=== PATIENT | male | born 1960 | race Caucasian/White ===

== ENCOUNTER 2016-05-22 22:03 | Emergency (ER) | payer OTHER ==
[~2016-05-22] VITALS: Ht 167.6 cm; Wt 83.0 kg
[~2016-05-22 22:03] MED LIST: CEPH-443 PO; HYDR-906 PO; IBUP-1542 PO; METF500T4 PO
[2016-05-22 23:14] VITALS: Ht 167.6 cm; Wt 83.0 kg
--- NOTE | 2016-05-23 00:21 | ERD ---
ER Documentation Chief Complaint Date/Time DATE: 05/23/16 TIME: 00:19 Chief Complaint cough cold for 2 months hx of diabetes HPI 55 -year-old male presents to emergency department for complaints of cough for 2 months. Patient has been having dry cough, does not cough up any phlegm or blood. Patient does not have any shortness breath or wheezing. Patient has been having runny nose nasal congestion chronically, patient had a fever episode yesterday. Patient denies any chest pain or palpitations. Patient denies any dizziness. ROS All systems reviewed and are negative except as per history of present illness. Medications Home Meds Active Scripts Hydrocodone/Acetaminophen ([place] 5-325 Tablet) 1 Each Tablet, 1 TAB PO Q6H Y for PAIN, #20 TAB Prov:BINTA GARNER NP 02/27/16 Cephalexin* (Keflex*) 500 Mg Capsule, 500 MG PO QID for 5 Days, CAP Prov:BINTA GARNER NP 02/27/16 Ibuprofen* (Motrin*) 600 Mg Tab, 600 MG PO Q6H Y for PAIN AND OR ELEVATED TEMP, #30 TAB Prov:BINTA GARNER NP 02/27/16 Reported Medications Metformin* (Glucophage*) Unknown Strength Tab, PO BID, #20 TAB 02/27/16 Allergies Allergies: Coded Allergies: No Known Allergy (Unverified , 05/22/16) PMhx/Soc Medical and Surgical Hx: pt denies Surgical Hx History of Surgery: No Anesthesia Reaction: No Hx Neurological Disorder: No Hx Respiratory Disorders: No Hx Cardiac Disorders: No Hx Psychiatric Problems: No Hx Miscellaneous Medical Probl: Yes (dm) Hx Alcohol Use: No Hx Substance Use: No Hx Tobacco Use: Yes Smoking Status: Never smoker FmHx Family History: No coronary disease, No diabetes, No other Physical Exam Vitals Vital Signs Date Time Temp Pulse Resp B/P Pulse Ox O2 Delivery O2 Flow Rate FiO2 05/22/16 23:14 99.1 95 18 180/86 99 Physical Exam GENERAL: The patient is well developed and appropriate for usual state of health, in no apparent distress. CHEST: Clear to auscultation bilaterally. There are no rales, wheezes or rhonchi. HEART: Regular rate and rhythm. No murmurs, clicks, rubs or gallops. No S3 or S4. ABDOMEN: Soft, nontender and nondistended. Good bowel sounds. No rebound or guarding. No gross peritonitis. No gross organomegaly or masses. No Lozada sign or McBurney point tenderness. BACK: No midline or flank tenderness. EXTREMITIES: Equal pulses bilaterally. There is no peripheral clubbing, cyanosis or edema. No focal swelling or erythema. Full range of motion. Grossly neurovascularly intact. NEURO: Alert and oriented. Cranial nerves 2-12 intact. Motor strength in all 4 extremities with 5/5 strength. Sensation grossly intact. Normal speech and gait. SKIN: There is no apparent rash or petechia. The skin is warm and dry. HEMATOLOGIC AND LYMPHATIC: There is no evidence of excessive bruising or lymphedema. No gross cervical, axillary, or inguinal lymphadenopathy. Results 24 hrs PROCEDURE: Chest. CLINICAL INDICATION: Cough. TECHNIQUE: Single frontal view of the chest was obtained. COMPARISON: None. FINDINGS: The cardiac silhouette is within normal limits. The aortic arch is unremarkable. There is no focal consolidation, vascular congestion or pleural effusion. There is no pneumothorax. IMPRESSION: No evidence for active cardiopulmonary disease. .Kuldeep Johnson MD, MD Date Time Electronically viewed and signed by .Kuldeep Johnson MD, on 05/23/2016 01:20 .T/ CC: BINTA GARNER [employer] MANAGER Procedures/MDM Medical Decision Making: Patient symptoms are most likely consistent with any cough, nonspecific, possible atypical infection, considering patient has diabetes, patient will be treated with azithromycin since patient is high risk. There is low suspicion for Pneumonia at this time since patients lungs sounds are clear, patient O2 saturation is normal and patient doesnt show any respiratory distress. Patients chest xray doesnt show infiltrates or any other cardiopulmonary emergencies at this time. There is low suspicion for other cardiopulmonary emergencies at this time such as CHF, Pulmonary Embolism, Pneumothorax, Aortic Aneurysm or any other cardiopulmonary emergencies at this time. There is low suspicion for sepsis. Patient appears well and is hemodynamically stable. Fever is controlled with medicines. Disposition: Home. Condition: Stable Prescriptions: Azithromycin, guaifenesin with codeine, Zyrtec, ibuprofen, albuterol Instructions: Patient is advised to take medications as prescribed. Patient is advised to rest. Patient advised to increase fluid intake, do humidifier at home and if possible, do salt water gargles. Patient is advised that if symptoms are worse, shortness of breath, uncontrolled fever, stridor, vomiting, worst signs and symptoms to return to emergency department immediately. Otherwise, patient is advised to follow up with primary doctor in 5-7 days. Departure Diagnosis: Primary Impression: Cough Condition: Stable Patient Instructions: Cough, Chronic, Uncertain Cause, (Adult) Additional Instructions: Patient is advised to take medications as prescribed. Patient is advised to rest. Patient advised to increase fluid intake, do humidifier at home and if possible, do salt water gargles. Patient is advised that if symptoms are worse, shortness of breath, uncontrolled fever, stridor, vomiting, worst signs and symptoms to return to emergency department immediately. Otherwise, patient is advised to follow up with primary doctor in 5-7 days. BINTA GARNER NP May 23, 2016 00:21
--- NOTE | 2016-05-23 01:20 | RADRPT ---
PROCEDURE: Chest. CLINICAL INDICATION: Cough. TECHNIQUE: Single frontal view of the chest was obtained. COMPARISON: None. FINDINGS: The cardiac silhouette is within normal limits. The aortic arch is unremarkable. There is no focal consolidation, vascular congestion or pleural effusion. There is no pneumothorax. IMPRESSION: No evidence for active cardiopulmonary disease. .Kuldeep Johnson MD, Date Time Electronically viewed and signed by .Kuldeep Johnson MD, on 05/23/2016 01:20 .T/
[2016-05-23] MEDS ORDERED: GUAI473L22 PO (01:36)
[2016-05-23] MEDS ORDERED: ALBU8.5H3 INH (01:36)
[2016-05-23] MEDS ORDERED: AZIT250T94 PO (01:36)
[2016-05-23] MEDS ORDERED: CETI10CA PO (01:36)
[2016-05-23 02:09] VITALS: BP 137/70; PULSE 78; RESP 16
== END 2016-05-23 02:09 | disposition home or self-care (01) ==
LOC: FTE 22:03
DX: R05 Cough (principal); E11.9 Type 2 diabetes mellitus without complications; Z79.84 Long term (current) use of oral hypoglycemic drugs; Z87.891 Personal history of nicotine dependence
CPT/HCPCS: 71010; Z7502; 99284

== ENCOUNTER 2018-06-10 16:03 | Inpatient (IN) | payer OTHER ==
[~2018-06-10] VITALS: Ht 170.2 cm; Wt 92.4 kg
[~2018-06-10 16:03] MED LIST changes: +ALBU8.5H8 INH; +AZIT250T PO; +CETI10CA PO; +GUAI473L22 PO; +HYDR-4011 PO; -HYDR-906 PO; +METF-849 PO; -METF500T4 PO
[2018-06-10] MEDS ORDERED: NICARDipine HCL 30 MG CAPSULE PO ONE (17:30)
[2018-06-10] MEDS ORDERED: hydrALAzine 20 MG INJ IV ONE (17:30)
[2018-06-10] MEDS ORDERED: POTASSIUM CHLORIDE (SR) 20 MEQ TAB PO STA (18:08)
[2018-06-10] MEDS ORDERED: POTASSIUM CHLORIDE 100 ML IVPB ONE (18:30)
[2018-06-10] MEDS ORDERED: POTA20TA96 PO (21:11)
[2018-06-10] MEDS ORDERED: METO-335 PO (21:11)
[2018-06-10] MEDS ORDERED: LISI40TA3 PO (21:11)
[2018-06-10] MEDS ORDERED: FURO40TA4 (21:11)
[2018-06-10] MEDS ORDERED: MINO2.5T16 PO (21:11)
[2018-06-10] MEDS ORDERED: FURO20TA3 PO (21:11)
--- NOTE | 2018-06-10 22:10 | ERD ---
ER Documentation Chief Complaint Chief Complaint SENT BY PMD FOR HTN URGENCY & chest pain HPI This is a 57-year-old male who is having 1 week of off-and-on chest pain. The patient went to his primary care doctor was found to be very hypertensive. Patient says that the pain is sometimes a pressure sometimes sharp sometimes worse with movement. He is a very poor historian. Denies any nausea vomiting. Sometimes has shortness of breath with his chest pain. Currently has no pain ROS All systems reviewed and are negative except as per history of present illness. Medications Home Meds Active Scripts Albuterol Sulfate* (Proair HFA*) 8.5 Gm Hfa.aer.ad, 2 PUFF INH Q4H PRN for WHEEZING AND SOB, #1 INHALER Prov:BINTA GARNER NP 05/23/16 Reported Medications Furosemide* (Furosemide*) 40 Mg Tablet, 40 MG DAILY for 30 Days, #30 06/10/18 Metoprolol Succinate* (Toprol XL*) 25 Mg Tab.sr.24h, 25 MG PO DAILY for 30 Days, #30 06/10/18 Furosemide* (Furosemide*) 20 Mg Tablet, 20 MG PO DAILY for 30 Days, #30 06/10/18 Potassium Chloride* (Potassium Chloride*) 20 Meq Tablet.er, 20 MEQ PO DAILY for 30 Days, #30 06/10/18 Lisinopril* (Lisinopril*) 40 Mg Tablet, 40 MG PO DAILY for 30 Days, #30 06/10/18 Minoxidil* (Lonitin*) 2.5 Mg Tab, 5 MG PO DAILY for 30 Days, #120 06/10/18 Metformin* (Glucophage*) Unknown Strength Tab, PO BID, #20 TAB 02/27/16 Discontinued Scripts Azithromycin* (Zithromax*) 250 Mg Tablet, 250 MG PO .PaulaPAADAN DIRECTED, #6 TAB TAKE 500 MG (2 TABS) THE FIRST DAY THEN 250 MG (1 TAB) DAYS 2-5 Prov:BINTA GARNER NP 05/23/16 Cetirizine Hcl* (Zyrtec*) 10 Mg Capsule, 10 MG PO DAILY, #30 TAB.CHEW Prov:BINTA GARNER NP 05/23/16 Guaifenesin-Codeine Phosphate* (Guaifenesin* AC Cough Syrup) 473 Ml Liquid, 10 ML PO Q4H PRN for COUGH, #120 ML Prov:BINTA GARNER NP 05/23/16 Hydrocodone/Acetaminophen ([place] 5-325 Tablet) 1 Each Tablet, 1 TAB PO Q6H PRN for PAIN, #20 TAB Prov:BINTA GARNER NP 02/27/16 Cephalexin* (Keflex*) 500 Mg Capsule, 500 MG PO QID for 5 Days, CAP Prov:BINTA GARNER NP 02/27/16 Ibuprofen* (Motrin*) 600 Mg Tab, 600 MG PO Q6H PRN for PAIN AND OR ELEVATED TEMP, #30 TAB Prov:BINTA GARNER NP 02/27/16 Allergies Allergies: Coded Allergies: No Known Allergy (Unverified , 06/10/18) PMhx/Soc History of Surgery: No Anesthesia Reaction: No Hx Neurological Disorder: No Hx Respiratory Disorders: No Hx Cardiac Disorders: No Hx Psychiatric Problems: No Hx Miscellaneous Medical Probl: Yes (dm) Hx Alcohol Use: No Hx Substance Use: No Hx Tobacco Use: Yes Smoking Status: Never smoker FmHx Family History: No coronary disease Physical Exam Vitals Vital Signs Date Temp Pulse Resp B/P (MAP) Pulse Ox O2 O2 Flow FiO2 Time Delivery Rate 06/10/18 99 16 154/81 100 Room Air 20:49 (105) 06/10/18 87 18 226/112 100 Room Air 16:55 (150) 06/10/18 97.7 88 16 239/110 100 16:06 (153) Physical Exam Const: Well-developed, well-nourished Head: Atraumatic, normocephalic Eyes: Normal Conjunctiva, PERRLA, EOMI, normal sclera, no nystagmus ENT: Normal External Ears, Nose and Mouth, moist mucus membranes. Neck: Full range of motion. No meningismus, no lymphadenopathy. Resp: Clear to auscultation bilaterally, no wheezing, rhonchi, rales Cardio: Regular rate and rhythm, no murmurs, S1 S2 present, has some reproducible chest wall pain Abd: Soft, non tender x 4, non distended. Normal bowel sounds, no guarding or rebound, no pulsitile abdominal masses or bruits Skin: No petechiae or rashes, no ecchymosis , no maculopapular rash Back: No midline or flank tenderness Ext: No cyanosis, or edema, FROM x 4, normal inspection, neurovascularly intact x 4 Neur: Awake and alert, STR 5/5 x 4, sensation intact x 4, no focal findings, cerebellum intact Psych: Normal Mood and Affect Result Diagram: 06/10/18 1719 06/10/18 1719 Results 24 hrs Laboratory Tests Test 06/10/18 17:13 06/10/18 17:19 Bedside Glucose 224 mg/dL White Blood Count 9.1 10^3/ul Red Blood Count 3.82 10^6/ul Hemoglobin 10.6 g/dl Hematocrit 31.7 % Mean Corpuscular Volume 83.0 fl Mean Corpuscular Hemoglobin 27.7 pg Mean Corpuscular Hemoglobin Concent 33.4 g/dl Red Cell Distribution Width 13.5 % Platelet Count 214 10^3/UL Mean Platelet Volume 10.8 fl Immature Granulocytes % 0.500 % Neutrophils % 68.1 % Lymphocytes % 17.7 % Monocytes % 8.8 % Eosinophils % 4.1 % Basophils % 0.8 % Nucleated Red Blood Cells % 0.0 /100WBC Immature Granulocytes # 0.050 10^3/ul Neutrophils # 6.2 10^3/ul Lymphocytes # 1.6 10^3/ul Monocytes # 0.8 10^3/ul Eosinophils # 0.4 10^3/ul Basophils # 0.1 10^3/ul Nucleated Red Blood Cells # 0.0 10^3/ul Sodium Level 139 mmol/L Potassium Level 2.6 mmol/L Chloride Level 106 mmol/L Carbon Dioxide Level 32 mmol/L Anion Gap 1 Blood Urea Nitrogen 24 mg/dl Creatinine 2.71 mg/dl Est Glomerular Filtrat Rate mL/min 25 mL/min Glucose Level 219 mg/dl Calcium Level 8.0 mg/dl Total Bilirubin 0.1 mg/dl Direct Bilirubin 0.00 mg/dl Indirect Bilirubin 0.1 mg/dl Aspartate Amino Transf (AST/SGOT) 35 IU/L Alanine Aminotransferase (ALT/SGPT) 23 IU/L Alkaline Phosphatase 165 IU/L Troponin I 0.018 ng/ml Total Protein 6.4 g/dl Albumin 2.9 g/dl Globulin 3.50 g/dl Albumin/Globulin Ratio 0.82 Current Medications Medications Dose Sig/Miguelito Start Time Status Last (Trade) Ordered Route PRN Stop Time Admin Dose Reason Admin Nicardipine 30 mg ONCE ONCE 06/10/18 DC 06/10/18 HCl PO 17:30 17:17 (Cardene) 06/10/18 17:31 Hydralazine 10 mg ONCE ONCE 06/10/18 DC 06/10/18 HCl IV 17:30 17:16 (Apresoline) 06/10/18 17:31 Potassium 40 meq ONCE STAT 06/10/18 DC 06/10/18 Chloride PO 18:08 18:19 (Klor-Con 20) 06/10/18 18:11 Potassium 100 ml @ ONCE ONCE 06/10/18 DC 06/10/18 Chloride 50 mls/hr IVPB 18:30 18:19 06/10/18 20:29 Procedures/MDM MR #: [id number] DOS: 06/10/18 1701 Ordering MD: SONNY SÁNCHEZ MD Location: E/R Room/Bed: PROCEDURE: One view chest radiograph. CLINICAL INDICATION: Chest pain. TECHNIQUE: An AP view of the chest was obtained. COMPARISON: 05/23/2016 FINDINGS: Mediastinum: Unremarkable. Heart size: Normal. Pulmonary vasculature: No visible engorgement. Lungs: Clear. Costophrenic sulci: Clear. Bony structures: Grossly unremarkable for age. IMPRESSION: 1. Unremarkable single view chest. RPTAT:AAJJ Physician Ferdinand Date Time Electronically viewed and signed by Physician Ferdinand on 06/10/2018 18:15 GW/ CC: SONNY SÁNCHEZ MD [id number] EKG: Rate/Rhythm: Normal sinus rhythm left anterior fascicular block QRS, ST, QT: NORMAL VA, QRS, prolonged QT] Impression: Abnormal EKG Patient's blood pressure was 240/110. He was treated with Cardene and hydralazine. His blood pressure is now under control. Will need to admit the patient for chest pain, renal insufficiency with a creatinine of 2.7, hypokalemia of 2.6 which was replaced p.o. and IV. Patient has no prior admits where I can see his most recent creatinine. Departure Diagnosis: Primary Impression: Hypertensive urgency Additional Impressions: Renal insufficiency Hypokalemia Condition: Stable BINA NOGUERA DO Jun 10, 2018 22:10
[2018-06-10] MEDS ORDERED: ONDANSETRON 4 MG INJ IV PRN (22:30)
[2018-06-10] MEDS ORDERED: ACETAMINOPHEN 325 MG TAB PO PRN (22:30)
[2018-06-10 23:12] VITALS: PULSE 102
[2018-06-10 23:30] VITALS: BP 167/79; PULSE 102; RESP 20
[2018-06-10 23:31] VITALS: Ht 170.2 cm; Wt 92.4 kg
[2018-06-10] MEDS ORDERED: DEXTROSE 50% 50 ML SYRINGE IV PRN ×2 (23:45)
[2018-06-10] MEDS ORDERED: GLUCOSE GEL 15 GRAM TUBE PO PRN ×2 (23:45)
[2018-06-10] MEDS ORDERED: GLUCAGON 1 MG INJ IM PRN (23:45)
[2018-06-10] MEDS ORDERED: GLUCOSE GEL 15 GRAM TUBE BUCCAL PRN (23:45)
--- NOTE | 2018-06-10 23:45 | HP ---
Date/Time of Note Date/Time of Note DATE: 06/10/18 TIME: 23:30 Assessment/Plan VTE Prophylaxis Pharmacological prophylaxis: heparin Lines/Catheters IV Catheter Type (from Nrs): Saline Lock Assessment/Plan Hospital Course 57 yo male with HTN, DMII, CKD presenting with severe asymptomatic hypertension, referred from clinic office Severe hypertension: - Better controlled after cardene and hydralazine in ED - Continue minoxidil 2.5 - Start nifedipine - Stop Metoprolol - Start Coreg - Hold lisinopril and monitor kidney function - Titrate to normotension CKD: - Unclear chronicity or baseline creatinine - Banking Teacher is Dr Aury Silva, though only had first visit Edema/CHF: - Check TTE - Needs some diuresis. Will hold off on loop diuretics until hypokalemia is fixed Hypokalemia: - From lasix - Replete as needed Diabetes II: - Basal/bolus insulin Obesity Discharge to self care when stable Result Diagram: 06/10/18 1719 06/10/18 1719 Results 24hrs Laboratory Tests Test 06/10/18 17:13 06/10/18 17:19 Bedside Glucose 224 H White Blood Count 9.1 Red Blood Count 3.82 L Hemoglobin 10.6 L Hematocrit 31.7 L Mean Corpuscular Volume 83.0 Mean Corpuscular Hemoglobin 27.7 L Mean Corpuscular Hemoglobin Concent 33.4 Red Cell Distribution Width 13.5 Platelet Count 214 Mean Platelet Volume 10.8 H Immature Granulocytes % 0.500 H Neutrophils % 68.1 Lymphocytes % 17.7 Monocytes % 8.8 Eosinophils % 4.1 Basophils % 0.8 Nucleated Red Blood Cells % 0.0 Immature Granulocytes # 0.050 H Neutrophils # 6.2 Lymphocytes # 1.6 Monocytes # 0.8 Eosinophils # 0.4 Basophils # 0.1 Nucleated Red Blood Cells # 0.0 Sodium Level 139 Potassium Level 2.6 *L Chloride Level 106 Carbon Dioxide Level 32 H Anion Gap 1 L Blood Urea Nitrogen 24 H Creatinine 2.71 H Est Glomerular Filtrat Rate mL/min 25 L Glucose Level 219 Calcium Level 8.0 L Total Bilirubin 0.1 L Direct Bilirubin 0.00 Indirect Bilirubin 0.1 Aspartate Amino Transf (AST/SGOT) 35 Alanine Aminotransferase (ALT/SGPT) 23 Alkaline Phosphatase 165 H Troponin I 0.018 Total Protein 6.4 Albumin 2.9 L Globulin 3.50 H Albumin/Globulin Ratio 0.82 HPI/ROS Admit Date/Time Admit Date/Time Jun 10, 2018 at 22:13 Hx of Present Illness 57 yo male with h/o hypertension and diabetes presents from PCP office, referred for severe hypertension Patient has no symptoms. He sees a cocktail lounge manager though does not have known heart disease. It sounds like he has developed kidney disease lately with edema. He has been prescribed lasix. He was referred to a rug dyer helper and went to first visit today. There he was found to have severe hypertension with systolic BP to 220. He was thus referred to the emergency room. Denies chest pain, SOB, or headache. Only complaint is of pedal edema PMH/Family/Social Past Medical History Medical History: diabetes, hyperthyroid Medications Current Medications Ondansetron HCl (Zofran Inj) 4 mg ER BRIDGE PRN IV NAUSEA/VOMITING; Start 06/10/18 at 22:30; Stop 06/11/18 at 22:29 Acetaminophen (Tylenol Tab) 650 mg ER BRIDGE PRN PO .MILD PAIN 1-3 OR TEMP; St art 06/10/18 at 22:30; Stop 06/11/18 at 22:29 Coded Allergies: No Known Allergy (Unverified , 06/10/18) Past Surgical History Past Surgical Hx: no surgical history Family History Significant Family History: no pertinent family hx Social History Alcohol Use: none Smoking Status: Never smoker Drug Use: none Exam/Review of Systems Vital Signs Vitals Vital Signs Date Temp Pulse Resp B/P (MAP) Pulse Ox O2 O2 Flow FiO2 Time Delivery Rate 06/10/18 95 18 151/82 94 Room Air 22:57 (105) 06/10/18 97.7 16:06 Exam Exam Obese male Resting comfortably NAD Tachy, regular Breathing comfortably Abdomen obese, soft, nt, nd Ext with edema to ankles bilaterally DOMI LANDAVERDE MD Jun 10, 2018 23:40
[2018-06-10 23:57] VITALS: BP 172/86
[2018-06-11] VITALS (12 sets, daily range): BP systolic 113–153; BP diastolic 63–82; PULSE 78–96; RESP 18–20
[2018-06-11] MEDS ORDERED: HYDROCODONE/APAP (5/325) TAB PO PRN
[2018-06-11] MEDS ORDERED: NACL 0.9% 3 ML SYG IV SCH
[2018-06-11] MEDS ORDERED: POTASSIUM CHLORIDE (SR) 20 MEQ TAB PO ONE (00:49)
[2018-06-11] MEDS: INSULIN GLARGINE [LANTus] (100 UNITS/ML) SYG SC SCH ×2 (01:16→20:55)
[2018-06-11] MEDS: NIFEdipine 10 MG CAP PO SCH ×2 (05:35→11:54)
[2018-06-11] MEDS ORDERED: POTASSIUM CHLORIDE (SR) 20 MEQ TAB PO STA (07:33)
[2018-06-11] MEDS: MINOXIDIL 2.5 MG TAB PO SCH (08:20)
[2018-06-11] MEDS: INSULIN ASPART [NOVOLOG] 3 ML PEN SC SCH ×7 (08:40→20:43)
--- NOTE | 2018-06-11 09:12 | RADRPT ---
Echocardiogram Report Patient Name: MIKAYLA TRANPatient ID: [id number] : 1960 (57y 11m)Study Date: 06/11/2018 7:31:22 AM Gender: MAccession #: [id number] Tech: Hector Waters [facility] Location: [facility] Ref.Physician: DOMI LANDAVERDE Height(Cm): BSA: Weight(Kg): Quality: AdequateAccount #: Procedures: Echocardiographic Report: Transthoracic echocardiogram with complete 2D, M-Mode, and doppler examination. Indications: Congestive Heart Failure. Measurements: 2D/M Mode Doppler Measurement Value Normal Range Measurement Value Normal Range LVIDd 2D 4.9 [ 4.2 - 5.8 ] cm AV Peak Luis 1.6 [ 100.0 - 170.0 ] cm/sec LVIDs 2D 3.2 [ 2.5 - 4.0 ] cm AV Peak PG 10.0 [ 2.0 - 9.0 ] mmHg LVPWd 2D 1.5 [ 0.6 - 1.0 ] cm LVOT Peak Luis 0.8 [ 70.0 - 110.0 ] cm/sec IVSd 2D 1.2 [ 0.6 - 1.0 ] cm LVOT Peak PG 3.0 [ 2.0 - 6.0 ] mmHg AoR Diam 2D 3.1 [ 2.6 - 3.4 ] cm MV E Peak Luis 0.8 [ 60.0 - 130.0 ] cm/sec EDV 2D 114.0 [ 62.0 - 150.0 ] ml MV A Peak Luis 1.2 [ 100.0 - 120.0 ] cm/sec ESV 2D 41.0 [ 21.0 - 61.0 ] ml MV E/A 0.7 [ 0.8 - 1.5 ] ratio EF 2D 64.0 [ 52.0 - 72.0 ] percent MV Decel Time 145 [ 104 - 258 ] msec LA Dimen 2D 3.4 [ 3.0 - 4.0 ] cm Lat E` Luis 0.1 [ 10.0 - 15.0 ] cm/sec Lateral E/E` 10.8 [ 1.0 - 2.0 ] ratio MV E/A 0.7 [ 0.8 - 1.5 ] ratio TR Peak Luis 2.4 [ 100.0 - 280.0 ] cm/sec TR Peak PG 23.0 mmHg RVSP 33.0 [ 10.0 - 36.0 ] mmHg RA Pressure 10.0 mmHg Findings: Left Ventricle: Normal left ventricular systolic function. Normal left ventricular cavity size. Moderate concentric left ventricular hypertrophy. Ejection fraction is visually estimated at 55 %. Tissue Doppler/Mitral Doppler indices are consistent with impaired relaxation (Stage I diastolic dysfunction). Right Ventricle: Normal right ventricular size. Normal right ventricular systolic function. Left Atrium: The left atrium is normal in size. Right Atrium: The right atrium is normal in size. Mitral Valve: Normal appearance and function of the mitral valve with trace physiologic regurgitation. Aortic Valve: No significant aortic stenosis or insufficiency. Aortic cusps appear mildly calcified. Tricuspid Valve: Normal appearance of the tricuspid valve. Estimated peak PA systolic pressure 33 mmHg. There is trace tricuspid regurgitation. Pulmonic Valve: Pulmonic valve not well visualized. Pericardium: Trivial pericardial effusion. Aorta: Normal aortic root. IVC: Normal size and normal respiratory collapse consistent with normal right atrial pressure. Conclusions: Normal left ventricular systolic function. Normal left ventricular cavity size. Moderate concentric left ventricular hypertrophy. Ejection fraction is visually estimated at 55 %. Tissue Doppler/Mitral Doppler indices are consistent with impaired relaxation (Stage I diastolic dysfunction). Normal appearance and function of the mitral valve with trace physiologic regurgitation. No significant aortic stenosis or insufficiency. Aortic cusps appear mildly calcified. Normal appearance of the tricuspid valve. Estimated peak PA systolic pressure 33 mmHg. There is trace tricuspid regurgitation. Trivial pericardial effusion. Electronically Signed By: Keith Ravi 2018-06-11 09:12:04 PST
[2018-06-11] MEDS: HEPARIN 5,000 UNIT/1 ML VIAL SC SCH ×2 (12:13→20:55)
--- NOTE | 2018-06-11 13:51 | CONS ---
Assessment/Plan Assessment/Plan Hospital Course (Demo Recall) Hypertensive urgency Uncontrolled diabetes Hypokalemia Preserved ejection fraction Right-sided chest pain -Patient was sent to emergency room by nephrology secondary to uncontrolled blood pressure as well as uncontrolled diabetes. Patient with symptoms of right-sided abdominal and chest discomfort which is sharp and burning-like and nonexertional. -Serial cardiac enzymes remain negative, ECG with no significant ischemic abnormalities, echocardiogram with preserved left ventricular ejection fraction -Blood pressure trend has improved, would adjust Procardia to long acting -Patient received potassium supplementation, would order magnesium to help with absorption Consultation Date/Type/Reason Admit Date/Time Jun 10, 2018 at 22:13 Type of Consult Cardiology Reason for Consultation Hypertension and chest pain Date/Time of Note DATE: 06/11/18 TIME: 13:45 Hx of Present Illness This is a 57-year-old male with past medical history of hypertension, diabetes, renal disease who was sent by his air quality consultant to the emergency room for management of his uncontrolled hypertension and diabetes. Patient had initial evaluation with his air quality consultant yesterday and given his elevated blood pressure and sugar levels, he was sent to the emergency room. On review of systems, he was complaining of right-sided chest discomfort over the past few days. The pain goes from a line from his right shoulder down to his abdomen. Pain is burning like at times and stabbing at other times. He denies exertional chest pain, shortness of breath. Denies dizziness, lightheadedness. 12 point review of systems was performed with all pertinent positives and negatives mentioned above and all else is negative Past Medical History Medical History: diabetes, high cholesterol, hypertension, renal disease Home Meds Active Scripts Albuterol Sulfate* (Proair HFA*) 8.5 Gm Hfa.aer.ad, 2 PUFF INH Q4H PRN for WHEEZING AND SOB, #1 INHALER Prov:BINTA GARNER NP 05/23/16 Reported Medications Furosemide* (Furosemide*) 40 Mg Tablet, 40 MG DAILY for 30 Days, #30 06/10/18 Metoprolol Succinate* (Toprol XL*) 25 Mg Tab.sr.24h, 25 MG PO DAILY for 30 Days, #30 06/10/18 Furosemide* (Furosemide*) 20 Mg Tablet, 20 MG PO DAILY for 30 Days, #30 06/10/18 Potassium Chloride* (Potassium Chloride*) 20 Meq Tablet.er, 20 MEQ PO DAILY for 30 Days, #30 06/10/18 Lisinopril* (Lisinopril*) 40 Mg Tablet, 40 MG PO DAILY for 30 Days, #30 06/10/18 Minoxidil* (Lonitin*) 2.5 Mg Tab, 5 MG PO DAILY for 30 Days, #120 06/10/18 Metformin* (Glucophage*) Unknown Strength Tab, PO BID, #20 TAB 02/27/16 Discontinued Scripts Azithromycin* (Zithromax*) 250 Mg Tablet, 250 MG PO .[place] DIRECTED, #6 TAB TAKE 500 MG (2 TABS) THE FIRST DAY THEN 250 MG (1 TAB) DAYS 2-5 Prov:BINTA GARNER NP 05/23/16 Cetirizine Hcl* (Zyrtec*) 10 Mg Capsule, 10 MG PO DAILY, #30 TAB.CHEW Prov:BINTA GARNER NP 05/23/16 Guaifenesin-Codeine Phosphate* (Guaifenesin* AC Cough Syrup) 473 Ml Liquid, 10 ML PO Q4H PRN for COUGH, #120 ML Prov:BINTA GARNER NP 05/23/16 Hydrocodone/Acetaminophen ([place] 5-325 Tablet) 1 Each Tablet, 1 TAB PO Q6H PRN for PAIN, #20 TAB Prov:BINTA GARNER NP 02/27/16 Cephalexin* (Keflex*) 500 Mg Capsule, 500 MG PO QID for 5 Days, CAP Prov:BINTA GARNER NP 02/27/16 Ibuprofen* (Motrin*) 600 Mg Tab, 600 MG PO Q6H PRN for PAIN AND OR ELEVATED TE MP, #30 TAB Prov:BINTA GARNER NP 02/27/16 Medications Current Medications Ondansetron HCl (Zofran Inj) 4 mg ER BRIDGE PRN IV NAUSEA/VOMITING; Start 06/10/18 at 22:30; Stop 06/11/18 at 22:29 Acetaminophen (Tylenol Tab) 650 mg ER BRIDGE PRN PO .MILD PAIN 1-3 OR TEMP; Start 06/10/18 at 22:30; Stop 06/11/18 at 22:29 Insulin Glargine (Lantus) 14 units DAILY@2000 SC Last administered on 06/11/18at 01:16; Admin Dose 14 UNITS; Start 06/11/18 at 00:00 Insulin Aspart (Novolog Insulin Pen) 6 unit WITH MEALS SC Last administered on 06/11/18at 12:13; Admin Dose 6 UNIT; Start 06/11/18 at 08:00 Insulin Aspart (Novolog Insulin Pen) NOVOLOG *MODERATE* ALGORITHM WITH MEALS BEDTIME SC Last administered on 06/11/18at 08:40; Admin Dose 2 UNIT; Start 06/11/18 at 08:00 Miscellaneous Information 1 ea NOTE XX ; Start 06/10/18 at 23:45 Glucose (Glutose) 15 gm Q15M PRN PO DECREASED GLUCOSE; Start 06/10/18 at 23:45 Glucose (Glutose) 22.5 gm Q15M PRN PO DECREASED GLUCOSE; Start 06/10/18 at 23:45 Dextrose (D50w Syringe) 25 ml Q15M PRN IV DECREASED GLUCOSE; Start 06/10/18 at 23:45 Dextrose (D50w Syringe) 50 ml Q15M PRN IV DECREASED GLUCOSE; Start 06/10/18 at 23:45 Glucagon (Glucagen) 1 mg Q15M PRN IM DECREASED GLUCOSE; Start 06/10/18 at 23:45 Glucose (Glutose) 15 gm Q15M PRN BUCCAL DECREASED GLUCOSE; Start 06/10/18 at 23:45 Minoxidil (Loniten) 5 mg DAILY PO Last administered on 06/11/18at 08:20; Admin Dose 5 MG; Start 06/11/18 at 09:00 Nifedipine (Procardia) 10 mg Q6 PO Last administered on 06/11/18at 11:54; Admin Dose 10 MG; Start 06/11/18 at 06:00 Carvedilol (Coreg) 6.25 mg BID PO Last administered on 06/11/18at 08:20; Admin Dose 6.25 MG; Start 06/11/18 at 09:00 IV Flush (NS 3 ml) 3 ml PER PROTOCOL IV ; Start 06/11/18 at 00:00 Acetaminophen/ Hydrocodone Bitart ([place] (5/325)) 1 tab Q6H PRN PO .MOD PAIN 4- 6; Start 06/11/18 at 00:00 Heparin Sodium (Porcine) (Heparin (5000 Units/1ml)) 5,000 unit Q12 SC Last administered on 06/11/18at 12:13; Admin Dose 5,000 UNIT; Start 06/11/18 at 09:00 Allergies: Coded Allergies: No Known Allergy (Unverified , 06/10/18) Past Surgical History Past Surgical Hx: no surgical history Social History Alcohol Use: none Smoking Status: Never smoker Drug Use: none Exam/Review of Systems Vital Signs Vitals Vital Signs Date Temp Pulse Resp B/P (MAP) Pulse Ox O2 O2 Flow FiO2 Time Delivery Rate 06/11/18 96 12:18 06/11/18 98.0 20 138/73 98 11:18 (94) 06/11/18 Room Air 07:23 Intake and Output 06/10/18 06/10/18 06/11/18 1515:00 23:00 07:00 IntakeIntake Total 350 ml OutputOutput Total 1250 ml BalanceBalance -900 ml Exam Exam Obese, no apparent distress Constitutional: alert, oriented Head: normocephalic Respiratory: other (Coarse breath sounds bilaterally, no wheezing) Cardiovascular: regular rate and rhythm (S1-S2 heard) Gastrointestinal: soft, non-tender, bowel sounds Extremities: other (No significant edema) Labs Result Diagram: 06/11/18 0620 06/11/18 0620 Results 24hrs Laboratory Tests Test 06/10/18 17:13 06/10/18 17:19 06/10/18 23:43 06/11/18 01:07 Bedside Glucose 224 H 207 White Blood Count 9.1 Red Blood Count 3.82 L Hemoglobin 10.6 L Hematocrit 31.7 L Mean Corpuscular 83.0 Volume Mean Corpuscular 27.7 L Hemoglobin Mean Corpuscular 33.4 Hemoglobin Concent Red Cell 13.5 Distribution Width Platelet Count 214 Mean Platelet Volume 10.8 H Immature 0.500 H Granulocytes % Neutrophils % 68.1 Lymphocytes % 17.7 Monocytes % 8.8 Eosinophils % 4.1 Basophils % 0.8 Nucleated Red Blood 0.0 Cells % Immature 0.050 H Granulocytes # Neutrophils # 6.2 Lymphocytes # 1.6 Monocytes # 0.8 Eosinophils # 0.4 Basophils # 0.1 Nucleated Red Blood 0.0 Cells # Sodium Level 139 142 Potassium Level 2.6 *L 2.9 *L Chloride Level 106 108 Carbon Dioxide Level 32 H 29 Anion Gap 1 L 5 Blood Urea Nitrogen 24 H 25 H Creatinine 2.71 H 2.56 H Est Glomerular 25 L 26 L Filtrat Rate mL/min Glucose Level 219 221 H Calcium Level 8.0 L 7.8 L Total Bilirubin 0.1 L Direct Bilirubin 0.00 Indirect Bilirubin 0.1 Aspartate Amino 35 Transf (AST/SGOT) Alanine 23 Aminotransferase (AL T/SGPT) Alkaline Phosphatase 165 H Troponin I 0.018 0.033 Total Protein 6.4 Albumin 2.9 L Globulin 3.50 H Albumin/Globulin 0.82 Ratio Test 06/11/18 04:25 06/11/18 06:20 06/11/18 07:53 06/11/18 11:53 Urine Color YELLOW Urine Clarity CLEAR Urine pH 7.0 Urine Specific 1.011 [place] Urine Ketones NEGATIVE Urine Nitrite NEGATIVE Urine Bilirubin NEGATIVE Urine Urobilinogen NEGATIVE Urine Leukocyte NEGATIVE Esterase Urine Microscopic 3 RBC Urine Microscopic 1 WBC Urine Hemoglobin NEGATIVE Urine Glucose 3+ H Urine Total Protein 3+ H White Blood Count 6.9 # Red Blood Count 3.29 L Hemoglobin 9.1 L Hematocrit 27.6 L Mean Corpuscular 83.9 Volume Mean Corpuscular 27.7 L Hemoglobin Mean Corpuscular 33.0 Hemoglobin Concent Red Cell 13.4 Distribution Width Platelet Count 187 Mean Platelet Volume 11.2 H Immature 0.600 H Granulocytes % Neutrophils % 69.2 Lymphocytes % 17.0 Monocytes % 9.0 Eosinophils % 3.5 Basophils % 0.7 Nucleated Red Blood 0.0 Cells % Immature 0.040 H Granulocytes # Neutrophils # 4.8 Lymphocytes # 1.2 Monocytes # 0.6 Eosinophils # 0.2 Basophils # 0.1 Nucleated Red Blood 0.0 Cells # Sodium Level 143 Potassium Level 2.9 *L Chloride Level 111 H Carbon Dioxide Level 28 Anion Gap 4 L Blood Urea Nitrogen 24 H Creatinine 2.75 H Est Glomerular 24 L Filtrat Rate mL/min Glucose Level 165 Hemoglobin A1c 8.8 H Calcium Level 7.8 L Iron Level 32 L Total Iron Binding 189 L Capacity Percent Iron 17 L Saturation Ferritin 372.0 H Total Bilirubin 0.1 L Direct Bilirubin 0.00 Indirect Bilirubin 0.1 Aspartate Amino 23 Transf (AST/SGOT) Alanine 24 Aminotransferase (AL T/SGPT) Alkaline Phosphatase 122 H Total Protein 5.3 #L Albumin 2.3 L Globulin 3.00 Albumin/Globulin 0.76 Ratio Bedside Glucose 177 136 Imaging Imaging ECG with sinus rhythm, left anterior fascicular block, nonspecific STT wave abnormalities Medications Medications Current Medications Ondansetron HCl (Zofran Inj) 4 mg ER BRIDGE PRN IV NAUSEA/VOMITING; Start 06/10/18 at 22:30; Stop 06/11/18 at 22:29 Acetaminophen (Tylenol Tab) 650 mg ER BRIDGE PRN PO .MILD PAIN 1-3 OR TEMP; Start 06/10/18 at 22:30; Stop 06/11/18 at 22:29 Insulin Glargine (Lantus) 14 units DAILY@2000 SC Last administered on 06/11/18at 01:16; Admin Dose 14 UNITS; Start 06/11/18 at 00:00 Insulin Aspart (Novolog Insulin Pen) 6 unit WITH MEALS SC Last administered on 06/11/18at 12:13; Admin Dose 6 UNIT; Start 06/11/18 at 08:00 Insulin Aspart (Novolog Insulin Pen) NOVOLOG *MODERATE* ALGORITHM WITH MEALS BEDTIME SC Last administered on 06/11/18at 08:40; Admin Dose 2 UNIT; Start 06/11/18 at 08:00 Miscellaneous Information 1 ea NOTE XX ; Start 06/10/18 at 23:45 Glucose (Glutose) 15 gm Q15M PRN PO DECREASED GLUCOSE; Start 06/10/18 at 23:45 Glucose (Glutose) 22.5 gm Q15M PRN PO DECREASED GLUCOSE; Start 06/10/18 at 23:45 Dextrose (D50w Syringe) 25 ml Q15M PRN IV DECREASED GLUCOSE; Start 06/10/18 at 23:45 Dextrose (D50w Syringe) 50 ml Q15M PRN IV DECREASED GLUCOSE; Start 06/10/18 at 23:45 Glucagon (Glucagen) 1 mg Q15M PRN IM DECREASED GLUCOSE; Start 06/10/18 at 23:45 Glucose (Glutose) 15 gm Q15M PRN BUCCAL DECREASED GLUCOSE; Start 06/10/18 at 23:45 Minoxidil (Loniten) 5 mg DAILY PO Last administered on 06/11/18at 08:20; Admin Dose 5 MG; Start 06/11/18 at 09:00 Nifedipine (Procardia) 10 mg Q6 PO Last administered on 06/11/18at 11:54; Admin Dose 10 MG; Start 06/11/18 at 06:00 Carvedilol (Coreg) 6.25 mg BID PO Last administered on 06/11/18at 08:20; Admin Dose 6.25 MG; Start 06/11/18 at 09:00 IV Flush (NS 3 ml) 3 ml PER PROTOCOL IV ; Start 06/11/18 at 00:00 Acetaminophen/ Hydrocodone Bitart ([place] (5/325)) 1 tab Q6H PRN PO .MOD PAIN 4- 6; Start 06/11/18 at 00:00 Heparin Sodium (Porcine) (Heparin (5000 Units/1ml)) 5,000 unit Q12 SC Last administered on 06/11/18at 12:13; Admin Dose 5,000 UNIT; Start 06/11/18 at 09:00 Rick Tillman DO Jun 11, 2018 13:51
[2018-06-11] MEDS ORDERED: MAGNESIUM SULFATE 1 GM/D5W 100 ML IVPB ONE (15:30)
--- NOTE | 2018-06-11 16:34 | PN ---
Date/Time of Note Date/Time of Note DATE: 06/11/18 TIME: 16:32 Assessment/Plan VTE Prophylaxis Risk score (from Ns)>0 risk: 3 SCD applied (from Nsg): Yes Pharmacological prophylaxis: heparin Lines/Catheters IV Catheter Type (from Nrs): Saline Lock Urinary Cath still in place: No Assessment/Plan Hospital Course SUBJECTIVE: Denies any chest pain. OBJECTIVE: Physical Exam General: Obese, 57 year-old male lying in bed in no apparent distress. HEENT: Normocephalic, atraumatic. Eyes: Anicteric sclerae, conjunctivae clear. ENT: Nasal septum midline, oral mucosa moist. Neck supple, JVD noticed. Respiratory: Bilaterally clear breath sounds. No use of accessory muscles of respiration. No adventitious breath sounds. Cardiovascular: S1, S2 heard. Regular rate and rhythm. Abdomen: Soft, nontender, and nondistended. Bowel sounds positive in all 4 quadrants. Genitourinary: Deferred. Extremities: No cyanosis, no clubbing. Bilateral lower extremity edema. Periphe ral pulses palpable. Neurologic: Cranial nerves II through XII grossly intact. The patient is awake, alert, and oriented. Skin: Normal skin turgor. No skin rashes. Labs & Vitals per chart ASSESSMENT & PLAN 57-year-old male with comorbidities including hypertension, diabetes mellitus, and possibly chronic kidney disease who was sent by his primary care physician because of severe hypertension. In the emergency room, the patient was noticed to have blood pressure of 239/110. The patient was admitted to inpatient setting for further treatment and evaluation. 1. Hypertensive urgency. -Continue antihypertensives -Cardiology following the patient. 2. Acute kidney injury -Unknown baseline creatinine. -Nephrotoxic medications including NIKOLAS inhibitors and biguanides on hold. -Obtain nephrology consult. 3. Diabetes mellitus type 2. -Hemoglobin A1c 8.8. -Continue sliding scale insulin along with pre-meal insulin and basal insulin. 4. Normocytic anemia. -Probably anemia chronic disease. 5. Obesity -BMI of more than 31 kg/m. -Weight reduction would be advised. 6. Fluids, electrolytes, and nutrition. -Carbohydrate controlled diet. 7. DVT prophylaxis. -Subcutaneous heparin. 8. Plan. -Continue blood pressure control. -Await nephrology evaluation. The patient was seen in collaboration with Dr. Menjivar. Result Diagram: 2/21/19 0620 2/21/19 0620 Results 24hrs Laboratory Tests Test 06/10/18 17:13 06/10/18 17:19 06/10/18 23:43 06/11/18 01:07 Bedside Glucose 224 H 207 White Blood Count 9.1 Red Blood Count 3.82 L Hemoglobin 10.6 L Hematocrit 31.7 L Mean Corpuscular 83.0 Volume Mean Corpuscular 27.7 L Hemoglobin Mean Corpuscular 33.4 Hemoglobin Concent Red Cell 13.5 Distribution Width Platelet Count 214 Mean Platelet Volume 10.8 H Immature 0.500 H Granulocytes % Neutrophils % 68.1 Lymphocytes % 17.7 Monocytes % 8.8 Eosinophils % 4.1 Basophils % 0.8 Nucleated Red Blood 0.0 Cells % Immature 0.050 H Granulocytes # Neutrophils # 6.2 Lymphocytes # 1.6 Monocytes # 0.8 Eosinophils # 0.4 Basophils # 0.1 Nucleated Red Blood 0.0 Cells # Sodium Level 139 142 Potassium Level 2.6 *L 2.9 *L Chloride Level 106 108 Carbon Dioxide Level 32 H 29 Anion Gap 1 L 5 Blood Urea Nitrogen 24 H 25 H Creatinine 2.71 H 2.56 H Est Glomerular 25 L 26 L Filtrat Rate mL/min Glucose Level 219 221 H Calcium Level 8.0 L 7.8 L Total Bilirubin 0.1 L Direct Bilirubin 0.00 Indirect Bilirubin 0.1 Aspartate Amino 35 Transf (AST/SGOT) Alanine 23 Aminotransferase (AL T/SGPT) Alkaline Phosphatase 165 H Troponin I 0.018 0.033 Total Protein 6.4 Albumin 2.9 L Globulin 3.50 H Albumin/Globulin 0.82 Ratio Test 06/11/18 04:25 06/11/18 06:20 06/11/18 07:53 06/11/18 11:53 Urine Color YELLOW Urine Clarity CLEAR Urine pH 7.0 Urine Specific 1.011 [place] Urine Ketones NEGATIVE Urine Nitrite NEGATIVE Urine Bilirubin NEGATIVE Urine Urobilinogen NEGATIVE Urine Leukocyte NEGATIVE Esterase Urine Microscopic 3 RBC Urine Microscopic 1 WBC Urine Hemoglobin NEGATIVE Urine Glucose 3+ H Urine Total Protein 3+ H White Blood Count 6.9 # Red Blood Count 3.29 L Hemoglobin 9.1 L Hematocrit 27.6 L Mean Corpuscular 83.9 Volume Mean Corpuscular 27.7 L Hemoglobin Mean Corpuscular 33.0 Hemoglobin Concent Red Cell 13.4 Distribution Width Platelet Count 187 Mean Platelet Volume 11.2 H Immature 0.600 H Granulocytes % Neutrophils % 69.2 Lymphocytes % 17.0 Monocytes % 9.0 Eosinophils % 3.5 Basophils % 0.7 Nucleated Red Blood 0.0 Cells % Immature 0.040 H Granulocytes # Neutrophils # 4.8 Lymphocytes # 1.2 Monocytes # 0.6 Eosinophils # 0.2 Basophils # 0.1 Nucleated Red Blood 0.0 Cells # Sodium Level 143 Potassium Level 2.9 *L Chloride Level 111 H Carbon Dioxide Level 28 Anion Gap 4 L Blood Urea Nitrogen 24 H Creatinine 2.75 H Est Glomerular 24 L Filtrat Rate mL/min Glucose Level 165 Hemoglobin A1c 8.8 H Calcium Level 7.8 L Iron Level 32 L Total Iron Binding 189 L Capacity Percent Iron 17 L Saturation Ferritin 372.0 H Total Bilirubin 0.1 L Direct Bilirubin 0.00 Indirect Bilirubin 0.1 Aspartate Amino 23 Transf (AST/SGOT) Alanine 24 Aminotransferase (AL T/SGPT) Alkaline Phosphatase 122 H Total Protein 5.3 #L Albumin 2.3 L Globulin 3.00 Albumin/Globulin 0.76 Ratio Bedside Glucose 177 136 Exam/Review of Systems Exam Vitals Vital Signs Date Temp Pulse Resp B/P (MAP) Pulse Ox O2 O2 Flow FiO2 Time Delivery Rate 06/11/18 86 16:06 06/11/18 98.0 20 123/69 96 Room Air 15:22 (87) Intake and Output 06/10/18 06/10/18 06/11/18 1414:59 22:59 06:59 IntakeIntake Total 350 ml OutputOutput Total 1250 ml BalanceBalance -900 ml Results Results 24hrs Laboratory Tests Test 06/10/18 17:13 06/10/18 17:19 06/10/18 23:43 06/11/18 01:07 Bedside Glucose 224 H 207 White Blood Count 9.1 Red Blood Count 3.82 L Hemoglobin 10.6 L Hematocrit 31.7 L Mean Corpuscular 83.0 Volume Mean Corpuscular 27.7 L Hemoglobin Mean Corpuscular 33.4 Hemoglobin Concent Red Cell 13.5 Distribution Width Platelet Count 214 Mean Platelet Volume 10.8 H Immature 0.500 H Granulocytes % Neutrophils % 68.1 Lymphocytes % 17.7 Monocytes % 8.8 Eosinophils % 4.1 Basophils % 0.8 Nucleated Red Blood 0.0 Cells % Immature 0.050 H Granulocytes # Neutrophils # 6.2 Lymphocytes # 1.6 Monocytes # 0.8 Eosinophils # 0.4 Basophils # 0.1 Nucleated Red Blood 0.0 Cells # Sodium Level 139 142 Potassium Level 2.6 *L 2.9 *L Chloride Level 106 108 Carbon Dioxide Level 32 H 29 Anion Gap 1 L 5 Blood Urea Nitrogen 24 H 25 H Creatinine 2.71 H 2.56 H Est Glomerular 25 L 26 L Filtrat Rate mL/min Glucose Level 219 221 H Calcium Level 8.0 L 7.8 L Total Bilirubin 0.1 L Direct Bilirubin 0.00 Indirect Bilirubin 0.1 Aspartate Amino 35 Transf (AST/SGOT) Alanine 23 Aminotransferase (AL T/SGPT) Alkaline Phosphatase 165 H Troponin I 0.018 0.033 Total Protein 6.4 Albumin 2.9 L Globulin 3.50 H Albumin/Globulin 0.82 Ratio Test 06/11/18 04:25 06/11/18 06:20 06/11/18 07:53 06/11/18 11:53 Urine Color YELLOW Urine Clarity CLEAR Urine pH 7.0 Urine Specific 1.011 [place] Urine Ketones NEGATIVE Urine Nitrite NEGATIVE Urine Bilirubin NEGATIVE Urine Urobilinogen NEGATIVE Urine Leukocyte NEGATIVE Esterase Urine Microscopic 3 RBC Urine Microscopic 1 WBC Urine Hemoglobin NEGATIVE Urine Glucose 3+ H Urine Total Protein 3+ H White Blood Count 6.9 # Red Blood Count 3.29 L Hemoglobin 9.1 L Hematocrit 27.6 L Mean Corpuscular 83.9 Volume Mean Corpuscular 27.7 L Hemoglobin Mean Corpuscular 33.0 Hemoglobin Concent Red Cell 13.4 Distribution Width Platelet Count 187 Mean Platelet Volume 11.2 H Immature 0.600 H Granulocytes % Neutrophils % 69.2 Lymphocytes % 17.0 Monocytes % 9.0 Eosinophils % 3.5 Basophils % 0.7 Nucleated Red Blood 0.0 Cells % Immature 0.040 H Granulocytes # Neutrophils # 4.8 Lymphocytes # 1.2 Monocytes # 0.6 Eosinophils # 0.2 Basophils # 0.1 Nucleated Red Blood 0.0 Cells # Sodium Level 143 Potassium Level 2.9 *L Chloride Level 111 H Carbon Dioxide Level 28 Anion Gap 4 L Blood Urea Nitrogen 24 H Creatinine 2.75 H Est Glomerular 24 L Filtrat Rate mL/min Glucose Level 165 Hemoglobin A1c 8.8 H Calcium Level 7.8 L Iron Level 32 L Total Iron Binding 189 L Capacity Percent Iron 17 L Saturation Ferritin 372.0 H Total Bilirubin 0.1 L Direct Bilirubin 0.00 Indirect Bilirubin 0.1 Aspartate Amino 23 Transf (AST/SGOT) Alanine 24 Aminotransferase (AL T/SGPT) Alkaline Phosphatase 122 H Total Protein 5.3 #L Albumin 2.3 L Globulin 3.00 Albumin/Globulin 0.76 Ratio Bedside Glucose 177 136 Medications Medication Current Medications Ondansetron HCl (Zofran Inj) 4 mg ER BRIDGE PRN IV NAUSEA/VOMITING; Start 06/10/18 at 22:30; Stop 06/11/18 at 22:29 Acetaminophen (Tylenol Tab) 650 mg ER BRIDGE PRN PO .MILD PAIN 1-3 OR TEMP; Start 06/10/18 at 22:30; Stop 06/11/18 at 22:29 Insulin Glargine (Lantus) 14 units DAILY@2000 SC Last administered on 06/11/18at 01:16; Admin Dose 14 UNITS; Start 06/11/18 at 00:00 Insulin Aspart (Novolog Insulin Pen) 6 unit WITH MEALS SC Last administered on 06/11/18at 12:13; Admin Dose 6 UNIT; Start 06/11/18 at 08:00 Insulin Aspart (Novolog Insulin Pen) NOVOLOG *MODERATE* ALGORITHM WITH MEALS BEDTIME SC Last administered on 06/11/18at 08:40; Admin Dose 2 UNIT; Start 06/11/18 at 08:00 Miscellaneous Information 1 ea NOTE XX ; Start 06/10/18 at 23:45 Glucose (Glutose) 15 gm Q15M PRN PO DECREASED GLUCOSE; Start 06/10/18 at 23:45 Glucose (Glutose) 22.5 gm Q15M PRN PO DECREASED GLUCOSE; Start 06/10/18 at 23:45 Dextrose (D50w Syringe) 25 ml Q15M PRN IV DECREASED GLUCOSE; Start 06/10/18 at 23:45 Dextrose (D50w Syringe) 50 ml Q15M PRN IV DECREASED GLUCOSE; Start 06/10/18 at 23:45 Glucagon (Glucagen) 1 mg Q15M PRN IM DECREASED GLUCOSE; Start 06/10/18 at 23:45 Glucose (Glutose) 15 gm Q15M PRN BUCCAL DECREASED GLUCOSE; Start 06/10/18 at 23:45 Minoxidil (Loniten) 5 mg DAILY PO Last administered on 06/11/18at 08:20; Admin Dose 5 MG; Start 06/11/18 at 09:00 Carvedilol (Coreg) 6.25 mg BID PO Last administered on 06/11/18at 08:20; Admin Dose 6.25 MG; Start 06/11/18 at 09:00 IV Flush (NS 3 ml) 3 ml PER PROTOCOL IV ; Start 06/11/18 at 00:00 Acetaminophen/ Hydrocodone Bitart ([place] (5/325)) 1 tab Q6H PRN PO .MOD PAIN 4- 6; Start 06/11/18 at 00:00 Heparin Sodium (Porcine) (Heparin (5000 Units/1ml)) 5,000 unit Q12 SC Last administered on 06/11/18at 12:13; Admin Dose 5,000 UNIT; Start 06/11/18 at 09:00 Nifedipine (Procardia Xl) 30 mg BID PO ; Start 06/11/18 at 21:00 LUZ HELLER NP Jun 11, 2018 16:34
[2018-06-11] MEDS: NIFEdipine (XL) 30 MG TAB PO SCH (20:44)
[2018-06-12] VITALS (11 sets, daily range): BP systolic 125–152; BP diastolic 61–78; PULSE 77–97; RESP 18–20
--- NOTE | 2018-06-12 01:05 | CONS ---
DATE OF ADMISSION: 06/10/2018 DATE OF CONSULTATION: 06/11/2018 TYPE OF CONSULTATION: Nephrology. REASON FOR CONSULTATION: Acute kidney injury, possible CKD. PHYSICIAN REQUESTING CONSULT: Efrain Martin NP HISTORY OF PRESENT ILLNESS: This is a 57-year-old male with a past medical history of CKD with unkno wn baseline creatinine, history of hypertension, diabetes who presented to [facility] from his primary care physician's office due to severe hypertension. The patient states that he w as seen a scientific specialist for the first time. At that time, the patient was noted to have markedly elev ated blood pressure. As a result, he was brought into the emergency room. The patient states that h e developed lower extremity edema over the last several days. Upon arrival to his scientific specialist, the patient's systolic pressure of 220. Upon arrival to the emergency room, the patient's blood pressure was markedly elevated. He was admitted to telemetry for evaluation. In terms of patient's renal history, the patient states that he was recently diagnosed with CKD when he has seen his scientific specialist for his first time. The patient denies any hemoptysis, hematemesis, hem atochezia. Denies any frothy urine. Denies any rashes. PAST MEDICAL HISTORY: History of hypertension, history of CKD, history of diabetes, hypothyroidism. FAMILY HISTORY: No family history of kidney disease. SOCIAL HISTORY: Does not actively drink, smoke or do drugs. MEDICATIONS: Have been reviewed. ALLERGIES: NO KNOWN DRUG ALLERGIES. PAST SURGICAL HISTORY: None. REVIEW OF SYSTEMS: A 14-point review of systems conducted. Pertinent positives stated in HPI, other oliver negative. PHYSICAL EXAMINATION: VITAL SIGNS: Blood pressure is 123/69, respirations 20, pulse 89, temperature 98.0. HEENT: Head is normocephalic. NECK: Supple. HEART: Regular rate. LUNGS: Show diminished breath sounds at the base. ABDOMEN: Soft, nontender to palpation. No rebound or guarding. EXTREMITIES: Negative for clubbing, cyanosis. Positive edema. DERMATOLOGIC: No rashes. MUSCULOSKELETAL: No joint effusions. NEUROLOGIC: No focal deficits. LABORATORY DATA: Show white count 6.9, hemoglobin 9.1, platelet count is 187. Sodium 143, potassium 2.9, bicarbonate 28, BUN 24, creatinine 2.75. Hemoglobin A1c is 8.8. Iron saturation 17%. Urinaly sis shows +3 proteinuria. ASSESSMENT AND PLAN: This is a 57-year-old male who presents with: 1. Renal failure, possible chronic kidney disease versus acute kidney injury. Etiology of possible acute kidney injury may be secondary to hemodynamics, acute tubular necrosis due to hypertensive urge ncy. The patient's urinalysis was reviewed, which showed evidence of proteinuria. Plan at this poin t is to do a full evaluation. We will repeat UA with microanalysis. We will check urine electrolyte s. We will quantify the patient's proteinuria. Renal ultrasound was reviewed. No evidence of obstr uction or increased echogenicity. We would continue current blood pressure regimen. We would defer NIKOLAS inhibitor or ARB at this time as the patient may be in acute kidney injury. Avoid significant he modynamic fluctuations to ensure adequate renal perfusion. We will continue supportive care, renally dose meds, avoid nephrotoxins. 2. Hypokalemia. Etiology is possibly due to diuretic therapy. However in the setting of severe hyp ertension and hypokalemia, possible secondary etiology such as hyperaldosteronism should be ruled out . Plan is to check a random aldosterone level. We will also check a cortisol level to rule out Cush ing's. We would consider checking urine metanephrines to possibly rule out pheochromocytoma. We brenda l monitor closely. 3. Hypertension. As stated above, we will continue current medical management. We will rule out se condary causes. Continue current blood pressure regimen. Defer NIKOLAS inhibitor or ARB at this time. 4. Anemia. Monitor hemoglobin and hematocrit levels. The patient has evidence of iron deficiency. We will consider course of IV iron. 5. Mineral bone disorder. Monitor calcium and phosphorus levels. 6. Diabetes. Continue current insulin regimen. 7. Obesity. Continue dietary modification. Thank you, Carlos, for this interesting consult. It will be a pleasure to follow the patient with iraida avery throughout the hospital course. Dictated By: LULÚ CRARILLO DO NR/NTS Conf#: [id number] DID#: [id number] CC: DANDRE JONES DO; DOMI LANDAVERDE MD;*EndCC*
[2018-06-12] MEDS: INSULIN ASPART [NOVOLOG] 3 ML PEN SC SCH ×7 (07:55→20:36)
[2018-06-12] MEDS ORDERED: POTASSIUM CHLORIDE (SR) 20 MEQ TAB PO STA (08:11)
[2018-06-12] MEDS: MINOXIDIL 2.5 MG TAB PO SCH (08:16)
[2018-06-12] MEDS: NIFEdipine (XL) 30 MG TAB PO SCH ×2 (08:17→20:38)
--- NOTE | 2018-06-12 09:07 | PN ---
DATE: 06/12/2018 SUBJECTIVE: The patient is stable, no acute events overnight. OBJECTIVE: VITAL SIGNS: Blood pressure is 120/65, respirations 20, pulse 86, temperature 98.0. HEENT: Head is normocephalic. NECK: Supple. HEART: Regular rate. LUNGS: Show diminished breath sounds at the base. ABDOMEN: Soft, nontender to palpation. No rebound or guarding. EXTREMITIES: Negative for clubbing, cyanosis. Positive edema. DERMATOLOGIC: No rashes. MUSCULOSKELETAL: No joint effusion. NEUROLOGIC: No change in exam. MEDICATIONS: The patient's medications have been reviewed. LABORATORY DATA: Shows a protein creatinine ratio of approximately 4 grams per gram of creatinine, s odium 141, potassium 2.1, BUN 28, creatinine 3.18. White count 8.3, hemoglobin 9.2, platelet count i s 201. IMAGING STUDY: Renal ultrasound is unremarkable. ASSESSMENT AND PLAN: 1. Nonoliguric acute kidney injury on top of chronic kidney disease. Etiology of acute kidney injur y is possibly due to hemodynamics, questionable tubular injury. The patient's renal function has bee n fluctuating may still be in injury phase of acute kidney injury. The patient does have nephrotic r heather proteinuria and nephrotic syndrome. This is likely due to diabetic nephropathy. However, a pos sible primary glomerulopathy is a consideration. Plan at this point would be to check serologies. W e will check SPEP, UPEP with immunofixation. We would continue treating acute kidney injury. Contin ue supportive care, renally dose all medicines and avoid nephrotoxins. We would defer NIKOLAS inhibitor at this time until renal function stabilizes. We will monitor closely. 2. Nephrotic syndrome. Etiology is likely due to diabetic nephropathy. As stated above, a possible primary glomerulopathy is less likely but cannot be definitively ruled out. Plan is to check serolo gies as stated above. We will continue otherwise treating acute kidney injury. Continue disease fac tor modification. 3. Hypertension in the setting of hypokalemia, is concerning for possible secondary etiology. A kerwin in aldosterone level and cortisol level have been sent. We will continue to monitor. Continue curre nt blood pressure regimen. 4. Hypokalemia. Etiology may be secondary to diuretic therapy. However, as stated above secondary workup for hypertension is being evaluated. Continue to monitor and replete. 5. Anemia. Monitor hemoglobin and hematocrit levels. The patient has evidence of iron deficiency. Continue IV iron. 6. Mineral bone disorder. Monitor calcium and phosphorus levels. 7. Diabetes. Continue current insulin regimen. 8. Obesity. Continue dietary modification. Dictated By: LULÚ CARRILLO DO NR/NTS Conf#: [id number] DID#: [id number] CC: DANDRE JONES DO; DOMI LANDAVERDE MD;*End*
[2018-06-12] MEDS: HEPARIN 5,000 UNIT/1 ML VIAL SC SCH ×2 (09:14→21:01)
[2018-06-12] MEDS: BUMETANIDE 1 MG TAB PO SCH (10:56)
--- NOTE | 2018-06-12 11:11 | PN ---
Date/Time of Note Date/Time of Note DATE: 06/12/18 TIME: 11:09 Assessment/Plan VTE Prophylaxis Risk score (from Nsg)>0 risk: 2 SCD applied (from Nsg): Yes Pharmacological prophylaxis: heparin Lines/Catheters IV Catheter Type (from Nrs): Saline Lock Urinary Cath still in place: No Assessment/Plan Hospital Course SUBJECTIVE: Denies any chest pain. Complains of postprandial right upper quadrant pain. OBJECTIVE: Physical Exam General: Obese, 57 year-old male lying in bed in no apparent distress. HEENT: Normocephalic, atraumatic. Eyes: Anicteric sclerae, conjunctivae clear. ENT: Nasal septum midline, oral mucosa moist. Neck supple, JVD noticed. Respiratory: Bilaterally clear breath sounds. No use of accessory muscles of respiration. No adventitious breath sounds. Cardiovascular: S1, S2 heard. Regular rate and rhythm. Abdomen: Soft and nondistended. Bowel sounds positive in all 4 quadrants. Genitourinary: Deferred. Extremities: No cyanosis, no clubbing. Bilateral lower extremity edema. Peripheral pulses palpable. Neurologic: Cranial nerves II through XII grossly intact. The patient is awake, alert, and oriented. Skin: Normal skin turgor. No skin rashes. Labs & Vitals per chart ASSESSMENT & PLAN 57-year-old male with comorbidities including hypertension, diabetes mellitus, and possibly chronic kidney disease who was sent by his primary care physician because of severe hypertension. In the emergency room, the patient was noticed to have blood pressure of 239/110. The patient was admitted to inpatient setting for further treatment and evaluation. 1. Hypertensive urgency. -Continue antihypertensives -Cardiology following the patient. 2. Acute kidney injury -Unknown baseline creatinine. -Nephrotoxic medications including NIKOLAS inhibitors and biguanides on hold. -Nephrology following. 3. Diabetes mellitus type 2. -Hemoglobin A1c 8.8. -Continue sliding scale insulin along with pre-meal insulin and basal insulin. 4. Normocytic anemia. -Probably anemia chronic disease. 5. Obesity -BMI of more than 31 kg/m. -Weight reduction would be advised. 6. Postprandial right upper quadrant pain. -Obtain gallbladder ultrasound. 7. Fluids, electrolytes, and nutrition. -Carbohydrate controlled diet. 8. DVT prophylaxis. -Subcutaneous heparin. 9. Plan. -Continue blood pressure control. -Await gallbladder US. The patient was seen in collaboration with Dr. Menjivar. Result Diagram: 06/12/18 0617 06/12/18 0617 Results 24hrs Laboratory Tests Test 06/11/18 11:53 06/11/18 17:24 06/11/18 17:27 06/11/18 20:43 Bedside Glucose 136 131 145 Potassium Level 3.1 L Magnesium Level 2.1 Test 06/11/18 22:30 06/12/18 06:17 06/12/18 08:14 06/12/18 08:57 Urine Color YELLOW Urine Clarity SLIGHTLY CLOUDY A Urine pH 6.0 Urine Specific 1.016 [place] Urine Ketones NEGATIVE Urine Nitrite NEGATIVE Urine Bilirubin NEGATIVE Urine NEGATIVE Urobilinogen Urine Leukocyte NEGATIVE Esterase Urine Microscopic 6 H RBC Urine Microscopic 9 H WBC Urine Bacteria FEW A Urine Mucus FEW A Urine Hemoglobin NEGATIVE Urine Random 121.91 Creatinine Urine Random 38 Sodium Urine Glucose 3+ H Urine Total 437.0 H Protein White Blood Count 8.3 # Red Blood Count 3.27 L Hemoglobin 9.2 L Hematocrit 27.8 L Mean Corpuscular 85.0 Volume Mean Corpuscular 28.1 L Hemoglobin Mean Corpuscular 33.1 Hemoglobin Concen t Red Cell 13.5 Distribution Width Platelet Count 201 Mean Platelet 11.1 H Volume Immature 0.500 H Granulocytes % Neutrophils % 71.6 Lymphocytes % 17.0 Monocytes % 7.6 Eosinophils % 2.8 Basophils % 0.5 Nucleated Red 0.0 Blood Cells % Immature 0.040 H Granulocytes # Neutrophils # 5.9 Lymphocytes # 1.4 Monocytes # 0.6 Eosinophils # 0.2 Basophils # 0.0 Nucleated Red 0.0 Blood Cells # Sodium Level 141 Potassium Level 3.1 L Chloride Level 108 Carbon Dioxide 27 Level Anion Gap 6 Blood Urea 28 H Nitrogen Creatinine 3.18 H Est Glomerular 20 L Filtrat Rate mL/min Glucose Level 104 # Calcium Level 8.2 L Phosphorus Level 4.1 Magnesium Level 2.0 Triglycerides 188 H Level Cholesterol Level 186 LDL Cholesterol, 114 Calculated HDL Cholesterol 34 Cholesterol/HDL 5.4 Ratio Random Cortisol 5.2 Bedside Glucose 105 Complement C3 96 Complement C4 41 Hepatitis B NEGATIVE Surface Antigen Hepatitis B Core NEGATIVE Total Antibody Hepatitis C NEGATIVE Antibody Exam/Review of Systems Exam Vitals Vital Signs Date Temp Pulse Resp B/P (MAP) Pulse Ox O2 O2 Flow FiO2 Time Delivery Rate 06/12/18 87 08:00 06/12/18 98.0 20 128/65 98 Room Air 07:23 (86) Intake and Output 06/11/18 06/11/18 06/12/18 1515:00 23:00 07:00 IntakeIntake Total 800 ml 250 ml OutputOutput Total 450 ml BalanceBalance 800 ml -200 ml Results Results 24hrs Laboratory Tests Test 06/11/18 11:53 06/11/18 17:24 06/11/18 17:27 06/11/18 20:43 Bedside Glucose 136 131 145 Potassium Level 3.1 L Magnesium Level 2.1 Test 06/11/18 22:30 06/12/18 06:17 06/12/18 08:14 06/12/18 08:57 Urine Color YELLOW Urine Clarity SLIGHTLY CLOUDY A Urine pH 6.0 Urine Specific 1.016 [place] Urine Ketones NEGATIVE Urine Nitrite NEGATIVE Urine Bilirubin NEGATIVE Urine NEGATIVE Urobilinogen Urine Leukocyte NEGATIVE Esterase Urine Microscopic 6 H RBC Urine Microscopic 9 H WBC Urine Bacteria FEW A Urine Mucus FEW A Urine Hemoglobin NEGATIVE Urine Random 121.91 Creatinine Urine Random 38 Sodium Urine Glucose 3+ H Urine Total 437.0 H Protein White Blood Count 8.3 # Red Blood Count 3.27 L Hemoglobin 9.2 L Hematocrit 27.8 L Mean Corpuscular 85.0 Volume Mean Corpuscular 28.1 L Hemoglobin Mean Corpuscular 33.1 Hemoglobin Concen t Red Cell 13.5 Distribution Width Platelet Count 201 Mean Platelet 11.1 H Volume Immature 0.500 H Granulocytes % Neutrophils % 71.6 Lymphocytes % 17.0 Monocytes % 7.6 Eosinophils % 2.8 Basophils % 0.5 Nucleated Red 0.0 Blood Cells % Immature 0.040 H Granulocytes # Neutrophils # 5.9 Lymphocytes # 1.4 Monocytes # 0.6 Eosinophils # 0.2 Basophils # 0.0 Nucleated Red 0.0 Blood Cells # Sodium Level 141 Potassium Level 3.1 L Chloride Level 108 Carbon Dioxide 27 Level Anion Gap 6 Blood Urea 28 H Nitrogen Creatinine 3.18 H Est Glomerular 20 L Filtrat Rate mL/min Glucose Level 104 # Calcium Level 8.2 L Phosphorus Level 4.1 Magnesium Level 2.0 Triglycerides 188 H Level Cholesterol Level 186 LDL Cholesterol, 114 Calculated HDL Cholesterol 34 Cholesterol/HDL 5.4 Ratio Random Cortisol 5.2 Bedside Glucose 105 Complement C3 96 Complement C4 41 Hepatitis B NEGATIVE Surface Antigen Hepatitis B Core NEGATIVE Total Antibody Hepatitis C NEGATIVE Antibody Medications Medication Current Medications Insulin Glargine (Lantus) 14 units DAILY@2000 SC Last administered on 06/11/18at 20:55; Admin Dose 14 UNITS; Start 06/11/18 at 00:00 Insulin Aspart (Novolog Insulin Pen) 6 unit WITH MEALS SC Last administered on 06/12/18at 09:14; Admin Dose 6 UNIT; Start 06/11/18 at 08:00 Insulin Aspart (Novolog Insulin Pen) NOVOLOG *MODERATE* ALGORITHM WITH MEALS BEDTIME SC Last administered on 06/11/18at 08:40; Admin Dose 2 UNIT; Start 06/11/18 at 08:00 Miscellaneous Information 1 ea NOTE XX ; Start 06/10/18 at 23:45 Glucose (Glutose) 15 gm Q15M PRN PO DECREASED GLUCOSE; Start 06/10/18 at 23:45 Glucose (Glutose) 22.5 gm Q15M PRN PO DECREASED GLUCOSE; Start 06/10/18 at 23:45 Dextrose (D50w Syringe) 25 ml Q15M PRN IV DECREASED GLUCOSE; Start 06/10/18 at 23:45 Dextrose (D50w Syringe) 50 ml Q15M PRN IV DECREASED GLUCOSE; Start 06/10/18 at 23:45 Glucagon (Glucagen) 1 mg Q15M PRN IM DECREASED GLUCOSE; Start 06/10/18 at 23:45 Glucose (Glutose) 15 gm Q15M PRN BUCCAL DECREASED GLUCOSE; Start 06/10/18 at 23:45 Minoxidil (Loniten) 5 mg DAILY PO Last administered on 06/12/18at 08:16; Admin Dose 5 MG; Start 06/11/18 at 09:00 Carvedilol (Coreg) 6.25 mg BID PO Last administered on 06/12/18at 08:16; Admin Dose 6.25 MG; Start 06/11/18 at 09:00 IV Flush (NS 3 ml) 3 ml PER PROTOCOL IV ; Start 06/11/18 at 00:00 Acetaminophen/ Hydrocodone Bitart ([place] (5/325)) 1 tab Q6H PRN PO .MOD PAIN 4- 6; Start 06/11/18 at 00:00 Heparin Sodium (Porcine) (Heparin (5000 Units/1ml)) 5,000 unit Q12 SC Last administered on 06/12/18at 09:14; Admin Dose 5,000 UNIT; Start 06/11/18 at 09:00 Nifedipine (Procardia Xl) 30 mg BID PO Last administered on 06/12/18at 08:17; Admin Dose 30 MG; Start 06/11/18 at 21:00 Bumetanide (Bumex) 1 mg DAILY PO ; Start 06/12/18 at 09:00 LUZ HELLER NP Jun 12, 2018 11:11
--- NOTE | 2018-06-12 11:44 | CONS ---
Assessment/Plan Assessment/Plan Hospital Course (Demo Recall) Hypertensive urgency-resolved Uncontrolled diabetes Hypokalemia Preserved ejection fraction Right-sided chest pain-resolved -Patient was sent to emergency room by nephrology secondary to uncontrolled blood pressure as well as uncontrolled diabetes. Patient with symptoms of right-sided abdominal and chest discomfort which is sharp and burning-like and nonexertional. -Serial cardiac enzymes remain negative, ECG with no significant ischemic abnormalities, echocardiogram with preserved left ventricular ejection fraction -Blood pressure trend has improved and tolerating current medication regimen, titrate as needed Consultation Date/Type/Reason Admit Date/Time Jun 10, 2018 at 22:13 Initial Consult Date Type of Consult Cardiology Date/Time of Note DATE: 06/12/18 TIME: 11:43 24 HR Interval Summary Free Text/Dictation No chest pain, shortness of breath or palpitations Exam/Review of Systems Vital Signs Vitals Vital Signs Date Temp Pulse Resp B/P (MAP) Pulse Ox O2 O2 Flow FiO2 Time Delivery Rate 06/12/18 87 08:00 06/12/18 98.0 20 128/65 98 Room Air 07:23 (86) Intake and Output 06/11/18 06/11/18 06/12/18 1515:00 23:00 07:00 IntakeIntake Total 800 ml 250 ml OutputOutput Total 450 ml BalanceBalance 800 ml -200 ml Exam Constitutional: alert, oriented (No apparent distress) Respiratory: other (Coarse breath sounds bilaterally, no wheezing) Cardiovascular: regular rate and rhythm (S1-S2 heard) Gastrointestinal: soft, non-tender, bowel sounds Extremities: other (Trace edema) Labs Result Diagram: 06/12/1861606/12/18 0617 Results 24hrs Laboratory Tests Test 06/11/18 11:53 06/11/18 17:24 06/11/18 17:27 06/11/18 20:43 Bedside Glucose 136 131 145 Potassium Level 3.1 L Magnesium Level 2.1 Test 06/11/18 22:30 06/12/18 06:17 06/12/18 08:14 06/12/18 08:57 Urine Color YELLOW Urine Clarity SLIGHTLY CLOUDY A Urine pH 6.0 Urine Specific 1.016 [place] Urine Ketones NEGATIVE Urine Nitrite NEGATIVE Urine Bilirubin NEGATIVE Urine NEGATIVE Urobilinogen Urine Leukocyte NEGATIVE Esterase Urine Microscopic 6 H RBC Urine Microscopic 9 H WBC Urine Bacteria FEW A Urine Mucus FEW A Urine Hemoglobin NEGATIVE Urine Random 121.91 Creatinine Urine Random 38 Sodium Urine Glucose 3+ H Urine Total 437.0 H Protein White Blood Count 8.3 # Red Blood Count 3.27 L Hemoglobin 9.2 L Hematocrit 27.8 L Mean Corpuscular 85.0 Volume Mean Corpuscular 28.1 L Hemoglobin Mean Corpuscular 33.1 Hemoglobin Concen t Red Cell 13.5 Distribution Width Platelet Count 201 Mean Platelet 11.1 H Volume Immature 0.500 H Granulocytes % Neutrophils % 71.6 Lymphocytes % 17.0 Monocytes % 7.6 Eosinophils % 2.8 Basophils % 0.5 Nucleated Red 0.0 Blood Cells % Immature 0.040 H Granulocytes # Neutrophils # 5.9 Lymphocytes # 1.4 Monocytes # 0.6 Eosinophils # 0.2 Basophils # 0.0 Nucleated Red 0.0 Blood Cells # Sodium Level 141 Potassium Level 3.1 L Chloride Level 108 Carbon Dioxide 27 Level Anion Gap 6 Blood Urea 28 H Nitrogen Creatinine 3.18 H Est Glomerular 20 L Filtrat Rate mL/min Glucose Level 104 # Calcium Level 8.2 L Phosphorus Level 4.1 Magnesium Level 2.0 Triglycerides 188 H Level Cholesterol Level 186 LDL Cholesterol, 114 Calculated HDL Cholesterol 34 Cholesterol/HDL 5.4 Ratio Random Cortisol 5.2 Bedside Glucose 105 Complement C3 96 Complement C4 41 Hepatitis B NEGATIVE Surface Antigen Hepatitis B Core NEGATIVE Total Antibody Hepatitis C NEGATIVE Antibody Medications Medications Current Medications Insulin Glargine (Lantus) 14 units DAILY@2000 SC Last administered on 06/11/18at 20:55; Admin Dose 14 UNITS; Start 06/11/18 at 00:00 Insulin Aspart (Novolog Insulin Pen) 6 unit WITH MEALS SC Last administered on 06/12/18at 09:14; Admin Dose 6 UNIT; Start 06/11/18 at 08:00 Insulin Aspart (Novolog Insulin Pen) NOVOLOG *MODERATE* ALGORITHM WITH MEALS BEDTIME SC Last administered on 06/11/18at 08:40; Admin Dose 2 UNIT; Start 06/11/18 at 08:00 Miscellaneous Information 1 ea NOTE XX ; Start 06/10/18 at 23:45 Glucose (Glutose) 15 gm Q15M PRN PO DECREASED GLUCOSE; Start 06/10/18 at 23:45 Glucose (Glutose) 22.5 gm Q15M PRN PO DECREASED GLUCOSE; Start 06/10/18 at 23:45 Dextrose (D50w Syringe) 25 ml Q15M PRN IV DECREASED GLUCOSE; Start 06/10/18 at 23:45 Dextrose (D50w Syringe) 50 ml Q15M PRN IV DECREASED GLUCOSE; Start 06/10/18 at 23:45 Glucagon (Glucagen) 1 mg Q15M PRN IM DECREASED GLUCOSE; Start 06/10/18 at 23:45 Glucose (Glutose) 15 gm Q15M PRN BUCCAL DECREASED GLUCOSE; Start 06/10/18 at 23:45 Minoxidil (Loniten) 5 mg DAILY PO Last administered on 06/12/18 08:16; Admin Dose 5 MG; Start 06/11/18 at 09:00 Carvedilol (Coreg) 6.25 mg BID PO Last administered on 06/12/18 08:16; Admin Dose 6.25 MG; Start 06/11/18 at 09:00 IV Flush (NS 3 ml) 3 ml PER PROTOCOL IV ; Start 06/11/18 at 00:00 Acetaminophen/ Hydrocodone Bitart ([place] (5/325)) 1 tab Q6H PRN PO .MOD PAIN 4- 6; Start 06/11/18 at 00:00 Heparin Sodium (Porcine) (Heparin (5000 Units/1ml)) 5,000 unit Q12 SC Last administered on 06/12/18at 09:14; Admin Dose 5,000 UNIT; Start 06/11/18 at 09:00 Nifedipine (Procardia Xl) 30 mg BID PO Last administered on 06/12/18 08:17; Admin Dose 30 MG; Start 06/11/18 at 21:00 Bumetanide (Bumex) 1 mg DAILY PO Last administered on 06/12/18at 10:56; Admin Dose 1 MG; Start 06/12/18 at 09:00 Rick Tillman DO Jun 12, 2018 11:44
[2018-06-12] MEDS: INSULIN GLARGINE [LANTus] (100 UNITS/ML) SYG SC SCH (20:45)
[2018-06-12] MEDS ORDERED: POTASSIUM CHLORIDE (SR) 20 MEQ TAB PO ONE (22:25)
[2018-06-13] VITALS (12 sets, daily range): BP systolic 114–126; BP diastolic 56–63; PULSE 80–99; RESP 18–20
[2018-06-13] MEDS: INSULIN ASPART [NOVOLOG] 3 ML PEN SC SCH ×7 (07:55→20:51)
--- NOTE | 2018-06-13 08:11 | CONS ---
Assessment/Plan Assessment/Plan Assessment/Plan (Daily) Hypertensive urgency-resolved Uncontrolled diabetes Hypokalemia Preserved ejection fraction Right-sided chest pain-resolved -Serial cardiac enzymes remain negative, ECG with no significant ischemic a bnormalities, echocardiogram with preserved left ventricular ejection fraction -Blood pressure trend has improved and tolerating current medication regimen, titrate as needed -currently bp very stable and contrlled on these meds Consultation Date/Type/Reason Admit Date/Time Jun 10, 2018 at 22:13 Initial Consult Date Type of Consult Cardiology Date/Time of Note DATE: 06/13/18 TIME: 08:10 24 HR Interval Summary Free Text/Dictation The patient wtih no compaints Exam/Review of Systems Vital Signs Vitals Vital Signs Date Temp Pulse Resp B/P (MAP) Pulse Ox O2 O2 Flow FiO2 Time Delivery Rate 06/13/18 99 08:09 06/13/18 98.2 18 126/63 96 Room Air 04:38 (84) Intake and Output 06/12/18 06/12/18 06/13/18 1515:00 23:00 07:00 IntakeIntake Total 900 ml 500 ml OutputOutput Total 400 ml 600 ml BalanceBalance 500 ml -100 ml Labs Result Diagram: 06/13/18 0551 06/13/18 0551 Results 24hrs Laboratory Tests Test 06/12/18 08:14 06/12/18 08:57 06/12/18 12:20 06/12/18 13:40 Bedside Glucose 105 149 Rheumatoid Factor NEGATIVE Screen Complement C3 96 Complement C4 41 Hepatitis B Surface NEGATIVE Antigen Hepatitis B Core NEGATIVE Total Antibody Hepatitis C Antibody NEGATIVE Potassium Level 3.2 L Test 06/12/18 18:05 06/12/18 20:34 06/13/18 05:50 06/13/18 05:51 Bedside Glucose 156 158 Phosphorus Level 4.9 Magnesium Level 1.9 White Blood Count 8.2 Red Blood Count 3.53 L Hemoglobin 9.9 L Hematocrit 29.6 L Mean Corpuscular 83.9 Volume Mean Corpuscular 28.0 L Hemoglobin Mean Corpuscular 33.4 Hemoglobin Concent Red Cell 13.4 Distribution Width Platelet Count 216 Mean Platelet Volume 10.9 H Immature 0.800 H Granulocytes % Neutrophils % 82.1 H Lymphocytes % 11.8 L Monocytes % 4.2 Eosinophils % 0.5 Basophils % 0.6 Nucleated Red Blood 0.0 Cells % Immature 0.070 H Granulocytes # Neutrophils # 6.8 Lymphocytes # 1.0 Monocytes # 0.4 Eosinophils # 0.0 Basophils # 0.1 Nucleated Red Blood 0.0 Cells # Sodium Level 137 Potassium Level 3.7 Chloride Level 107 Carbon Dioxide Level 27 Anion Gap 3 L Blood Urea Nitrogen 32 H Creatinine 3.39 H Est Glomerular 19 L Filtrat Rate mL/min Glucose Level 125 Calcium Level 8.4 Total Bilirubin 0.1 L Direct Bilirubin 0.00 Indirect Bilirubin 0.1 Aspartate Amino 29 Transf (AST/SGOT) Alanine 20 Aminotransferase (AL T/SGPT) Alkaline Phosphatase 128 H Total Protein 5.7 L Albumin 2.5 L Globulin 3.20 Albumin/Globulin 0.78 Ratio Amylase Level 50 Lipase 22 L Medications Medications Current Medications Insulin Glargine (Lantus) 14 units DAILY@2000 SC Last administered on 06/12/18at 20:45; Admin Dose 14 UNITS; Start 06/11/18 at 00:00 Insulin Aspart (Novolog Insulin Pen) 6 unit WITH MEALS SC Last administered on 06/12/18at 18:21; Admin Dose 6 UNIT; Start 06/11/18 at 08:00 Insulin Aspart (Novolog Insulin Pen) NOVOLOG *MODERATE* ALGORITHM WITH MEALS BEDTIME SC Last administered on 06/12/18at 18:21; Admin Dose 2 UNIT; Start 06/11/18 at 08:00 Miscellaneous Information 1 ea NOTE XX ; Start 06/10/18 at 23:45 Glucose (Glutose) 15 gm Q15M PRN PO DECREASED GLUCOSE; Start 06/10/18 at 23:45 Glucose (Glutose) 22.5 gm Q15M PRN PO DECREASED GLUCOSE; Start 06/10/18 at 23:45 Dextrose (D50w Syringe) 25 ml Q15M PRN IV DECREASED GLUCOSE; Start 06/10/18 at 23:45 Dextrose (D50w Syringe) 50 ml Q15M PRN IV DECREASED GLUCOSE; Start 06/10/18 at 23:45 Glucagon (Glucagen) 1 mg Q15M PRN IM DECREASED GLUCOSE; Start 06/10/18 at 23:45 Glucose (Glutose) 15 gm Q15M PRN BUCCAL DECREASED GLUCOSE; Start 06/10/18 at 23:45 Minoxidil (Loniten) 5 mg DAILY PO Last administered on 06/12/18at 08:16; Admin Dose 5 MG; Start 06/11/18 at 09:00 Carvedilol (Coreg) 6.25 mg BID PO Last administered on 06/12/18 20:38; Admin Dose 6.25 MG; Start 06/11/18 at 09:00 IV Flush (NS 3 ml) 3 ml PER PROTOCOL IV ; Start 06/11/18 at 00:00 Acetaminophen/ Hydrocodone Bitart ([place] (5/325)) 1 tab Q6H PRN PO .MOD PAIN 4- 6; Start 06/11/18 at 00:00 Heparin Sodium (Porcine) (Heparin (5000 Units/1ml)) 5,000 unit Q12 SC Last administered on 06/12/18 21:01; Admin Dose 5,000 UNIT; Start 06/11/18 at 09:00 Nifedipine (Procardia Xl) 30 mg BID PO Last administered on 06/12/18 20:38; Admin Dose 30 MG; Start 06/11/18 at 21:00 Bumetanide (Bumex) 1 mg DAILY PO Last administered on 06/12/18 10:56; Admin Dose 1 MG; Start 06/12/18 at 09:00 STEPHANE PAUL MD Jun 13, 2018 08:11
[2018-06-13] MEDS: MINOXIDIL 2.5 MG TAB PO SCH (08:21)
[2018-06-13] MEDS: NIFEdipine (XL) 30 MG TAB PO SCH ×2 (08:22→20:43)
[2018-06-13] MEDS: BUMETANIDE 1 MG TAB PO SCH (08:22)
[2018-06-13] MEDS: HEPARIN 5,000 UNIT/1 ML VIAL SC SCH ×2 (08:39→20:49)
--- NOTE | 2018-06-13 10:25 | PN ---
Date/Time of Note Date/Time of Note DATE: 06/13/18 TIME: 10:22 Assessment/Plan VTE Prophylaxis Risk score (from Ns)>0 risk: 3 SCD applied (from Ns): Yes Pharmacological prophylaxis: heparin Lines/Catheters IV C[facility]ter [facility]from [facility] [place] Urinary Cath still in place: No Assessment/Plan Hospital Course SUBJECTIVE: Denies any chest pain. Denies any abdominal pain. OBJECTIVE: Physical Exam General: Obese, 57 year-old male lying in bed in no apparent distress. HEENT: Normocephalic, atraumatic. Eyes: Anicteric sclerae, conjunctivae clear. ENT: Nasal septum midline, oral mucosa moist. Neck supple, JVD noticed. Respiratory: Bilaterally clear breath sounds. No use of accessory muscles of respiration. No adventitious breath sounds. Cardiovascular: S1, S2 heard. Regular rate and rhythm. Abdomen: Soft and nondistended. Bowel sounds positive in all 4 quadrants. Genitourinary: Deferred. Extremities: No cyanosis, no clubbing. Bilateral lower extremity edema. Peripheral pulses palpable. Neurologic: Cranial nerves II through XII grossly intact. The patient is awake, alert, and oriented. Skin: Normal skin turgor. No skin rashes. Labs & Vitals per chart ASSESSMENT & PLAN 57-year-old male with comorbidities including hypertension, diabetes mellitus, and possibly chronic kidney disease who was sent by his primary care physician because of severe hypertension. In the emergency room, the patient was noticed to have blood pressure of 239/110. The patient was admitted to inpatient setting for further treatment and evaluation. 1. Hypertensive urgency. -Continue antihypertensives -Cardiology following the patient. 2. Acute kidney injury -Unknown baseline creatinine. -Nephrotoxic medications including NIKOLAS inhibitors and biguanides on hold. -Nephrology following. -Worsening renal function. ?possibly from overdiuresis with Bumex. 3. Nephrotic syndrome. -Being followed by nephrology. -Diuresis, while carefully monitoring renal function. 4. Diabetes mellitus type 2. -Hemoglobin A1c 8.8. -Continue sliding scale insulin along with pre-meal insulin and basal insulin. 5. Normocytic anemia. -Probably anemia chronic disease. 6. Obesity -BMI of more than 31 kg/m. -Weight reduction would be advised. 7. Postprandial right upper quadrant pain. -Gallbladder ultrasound negative. 8. Fluids, electrolytes, and nutrition. -Carbohydrate controlled diet. 9. DVT prophylaxis. -Subcutaneous heparin. 10. Plan. -Continue blood pressure control. -Consider holding Bumex because of worsening renal function. The patient was seen in collaboration with Dr. Menjivar. Result Diagram: 06/13/18 0551 06/13/18 0551 Results 24hrs Laboratory Tests Test 06/12/18 12:20 06/12/18 13:40 06/12/18 18:05 06/12/18 20:34 Bedside Glucose 149 156 158 Potassium Level 3.2 L Test 06/13/18 05:50 06/13/18 05:51 06/13/18 08:12 Phosphorus Level 4.9 Magnesium Level 1.9 White Blood Count 8.2 Red Blood Count 3.53 L Hemoglobin 9.9 L Hematocrit 29.6 L Mean Corpuscular 83.9 Volume Mean Corpuscular 28.0 L Hemoglobin Mean Corpuscular 33.4 Hemoglobin Concent Red Cell 13.4 Distribution Width Platelet Count 216 Mean Platelet Volume 10.9 H Immature 0.800 H Granulocytes % Neutrophils % 82.1 H Lymphocytes % 11.8 L Monocytes % 4.2 Eosinophils % 0.5 Basophils % 0.6 Nucleated Red Blood 0.0 Cells % Immature 0.070 H Granulocytes # Neutrophils # 6.8 Lymphocytes # 1.0 Monocytes # 0.4 Eosinophils # 0.0 Basophils # 0.1 Nucleated Red Blood 0.0 Cells # Sodium Level 137 Potassium Level 3.7 Chloride Level 107 Carbon Dioxide Level 27 Anion Gap 3 L Blood Urea Nitrogen 32 H Creatinine 3.39 H Est Glomerular 19 L Filtrat Rate mL/min Glucose Level 125 Calcium Level 8.4 Total Bilirubin 0.1 L Direct Bilirubin 0.00 Indirect Bilirubin 0.1 Aspartate Amino 29 Transf (AST/SGOT) Alanine 20 Aminotransferase (AL T/SGPT) Alkaline Phosphatase 128 H Total Protein 5.7 L Albumin 2.5 L Globulin 3.20 Albumin/Globulin 0.78 Ratio Amylase Level 50 Lipase 22 L Bedside Glucose 114 Exam/Review of Systems Exam Vitals Vital Signs Date Temp Pulse Resp B/P (MAP) Pulse Ox O2 O2 Flow FiO2 Time Delivery Rate 06/13/18 98.0 98 18 114/57 97 Room Air 08:15 (76) Intake and Output 06/12/18 06/12/18 06/13/18 1515:00 23:00 07:00 IntakeIntake Total 900 ml 500 ml OutputOutput Total 400 ml 600 ml BalanceBalance 500 ml -100 ml Results Results 24hrs Laboratory Tests Test 06/12/18 12:20 06/12/18 13:40 06/12/18 18:05 06/12/18 20:34 Bedside Glucose 149 156 158 Potassium Level 3.2 L Test 06/13/18 05:50 06/13/18 05:51 06/13/18 08:12 Phosphorus Level 4.9 Magnesium Level 1.9 White Blood Count 8.2 Red Blood Count 3.53 L Hemoglobin 9.9 L Hematocrit 29.6 L Mean Corpuscular 83.9 Volume Mean Corpuscular 28.0 L Hemoglobin Mean Corpuscular 33.4 Hemoglobin Concent Red Cell 13.4 Distribution Width Platelet Count 216 Mean Platelet Volume 10.9 H Immature 0.800 H Granulocytes % Neutrophils % 82.1 H Lymphocytes % 11.8 L Monocytes % 4.2 Eosinophils % 0.5 Basophils % 0.6 Nucleated Red Blood 0.0 Cells % Immature 0.070 H Granulocytes # Neutrophils # 6.8 Lymphocytes # 1.0 Monocytes # 0.4 Eosinophils # 0.0 Basophils # 0.1 Nucleated Red Blood 0.0 Cells # Sodium Level 137 Potassium Level 3.7 Chloride Level 107 Carbon Dioxide Level 27 Anion Gap 3 L Blood Urea Nitrogen 32 H Creatinine 3.39 H Est Glomerular 19 L Filtrat Rate mL/min Glucose Level 125 Calcium Level 8.4 Total Bilirubin 0.1 L Direct Bilirubin 0.00 Indirect Bilirubin 0.1 Aspartate Amino 29 Transf (AST/SGOT) Alanine 20 Aminotransferase (AL T/SGPT) Alkaline Phosphatase 128 H Total Protein 5.7 L Albumin 2.5 L Globulin 3.20 Albumin/Globulin 0.78 Ratio Amylase Level 50 Lipase 22 L Bedside Glucose 114 Medications Medication Current Medications Insulin Glargine (Lantus) 14 units DAILY@1999 SC Last administered on 06/12/18at 20:45; Admin Dose 14 UNITS; Start 06/11/18 at 00:00 Insulin Aspart (Novolog Insulin Pen) 6 unit WITH MEALS SC Last administered on 06/13/18at 08:40; Admin Dose 6 UNIT; Start 06/11/18 at 08:00 Insulin Aspart (Novolog Insulin Pen) NOVOLOG *MODERATE* ALGORITHM WITH MEALS BEDTIME SC Last administered on 06/12/18at 18:21; Admin Dose 2 UNIT; Start 06/11/18 at 08:00 Miscellaneous Information 1 ea NOTE XX ; Start 06/10/18 at 23:45 Glucose (Glutose) 15 gm Q15M PRN PO DECREASED GLUCOSE; Start 06/10/18 at 23:45 Glucose (Glutose) 22.5 gm Q15M PRN PO DECREASED GLUCOSE; Start 06/10/18 at 23:45 Dextrose (D50w Syringe) 25 ml Q15M PRN IV DECREASED GLUCOSE; Start 06/10/18 at 23:45 Dextrose (D50w Syringe) 50 ml Q15M PRN IV DECREASED GLUCOSE; Start 06/10/18 at 23:45 Glucagon (Glucagen) 1 mg Q15M PRN IM DECREASED GLUCOSE; Start 06/10/18 at 23:45 Glucose (Glutose) 15 gm Q15M PRN BUCCAL DECREASED GLUCOSE; Start 06/10/18 at 23:45 Minoxidil (Loniten) 5 mg DAILY PO Last administered on 06/13/18 08:21; Admin Dose 5 MG; Start 06/11/18 at 09:00 Carvedilol (Coreg) 6.25 mg BID PO Last administered on 06/13/18 08:23; Admin Dose 6.25 MG; Start 06/11/18 at 09:00 IV Flush (NS 3 ml) 3 ml PER PROTOCOL IV ; Start 06/11/18 at 00:00 Acetaminophen/ Hydrocodone Bitart ([place] (5/325)) 1 tab Q6H PRN PO .MOD PAIN 4- 6; Start 06/11/18 at 00:00 Heparin Sodium (Porcine) (Heparin (5000 Units/1ml)) 5,000 unit Q12 SC Last administered on 06/13/18 08:39; Admin Dose 5,000 UNIT; Start 06/11/18 at 09:00 Nifedipine (Procardia Xl) 30 mg BID PO Last administered on 06/13/18 08:22; Admin Dose 30 MG; Start 06/11/18 at 21:00 Bumetanide (Bumex) 1 mg DAILY PO Last administered on 06/13/18 08:22; Admin Dose 1 MG; Start 06/12/18 at 09:00 LUZ HELLER NP Jun 13, 2018 10:25
--- NOTE | 2018-06-13 11:24 | CONS ---
Consult Date/Type/Reason Admit Date/Time Jun 10, 2018 at 22:13 Initial Consult Date Date/Time of Note DATE: 06/13/18 TIME: 11:19 Subjective The patient is stable, no acute events overnight. OBJECTIVE: HEENT: Head is normocephalic. NECK: Supple. HEART: Regular rate. LUNGS: Show diminished breath sounds at the base. ABDOMEN: Soft, nontender to palpation. No rebound or guarding. EXTREMITIES: Negative for clubbing, cyanosis. Positive edema. DERMATOLOGIC: No rashes. MUSCULOSKELETAL: No joint effusion. NEUROLOGIC: No change in exam. Objective Vitals Vital Signs Date Temp Pulse Resp B/P (MAP) Pulse Ox O2 O2 Flow FiO2 Time Delivery Rate 06/13/18 98.0 98 18 114/57 97 Room Air 08:15 (76) Intake and Output 06/12/18 06/12/18 06/13/18 1515:00 23:00 07:00 IntakeIntake Total 900 ml 500 ml OutputOutput Total 400 ml 600 ml BalanceBalance 500 ml -100 ml Results/Medications Result Diagram: 06/13/18 0551 06/13/18 0551 Results 24 hrs Laboratory Tests Test 06/12/18 12:20 06/12/18 13:40 06/12/18 18:05 06/12/18 20:34 Bedside Glucose 149 156 158 Potassium Level 3.2 L Test 06/13/18 05:50 06/13/18 05:51 06/13/18 08:12 Phosphorus Level 4.9 Magnesium Level 1.9 White Blood Count 8.2 Red Blood Count 3.53 L Hemoglobin 9.9 L Hematocrit 29.6 L Mean Corpuscular 83.9 Volume Mean Corpuscular 28.0 L Hemoglobin Mean Corpuscular 33.4 Hemoglobin Concent Red Cell 13.4 Distribution Width Platelet Count 216 Mean Platelet Volume 10.9 H Immature 0.800 H Granulocytes % Neutrophils % 82.1 H Lymphocytes % 11.8 L Monocytes % 4.2 Eosinophils % 0.5 Basophils % 0.6 Nucleated Red Blood 0.0 Cells % Immature 0.070 H Granulocytes # Neutrophils # 6.8 Lymphocytes # 1.0 Monocytes # 0.4 Eosinophils # 0.0 Basophils # 0.1 Nucleated Red Blood 0.0 Cells # Sodium Level 137 Potassium Level 3.7 Chloride Level 107 Carbon Dioxide Level 27 Anion Gap 3 L Blood Urea Nitrogen 32 H Creatinine 3.39 H Est Glomerular 19 L Filtrat Rate mL/min Glucose Level 125 Calcium Level 8.4 Total Bilirubin 0.1 L Direct Bilirubin 0.00 Indirect Bilirubin 0.1 Aspartate Amino 29 Transf (AST/SGOT) Alanine 20 Aminotransferase (AL T/SGPT) Alkaline Phosphatase 128 H Total Protein 5.7 L Albumin 2.5 L Globulin 3.20 Albumin/Globulin 0.78 Ratio Amylase Level 50 Lipase 22 L Bedside Glucose 114 Home Meds Active Scripts Albuterol Sulfate* (Proair HFA*) 8.5 Gm Hfa.aer.ad, 2 PUFF INH Q4H PRN for WHEEZING AND SOB, #1 INHALER Prov:BINTA GARNER NP 05/23/16 Reported Medications Furosemide* (Furosemide*) 40 Mg Tablet, 40 MG DAILY for 30 Days, #30 06/10/18 Metoprolol Succinate* (Toprol XL*) 25 Mg Tab.sr.24h, 25 MG PO DAILY for 30 Days, #30 06/10/18 Furosemide* (Furosemide*) 20 Mg Tablet, 20 MG PO DAILY for 30 Days, #30 06/10/18 Potassium Chloride* (Potassium Chloride*) 20 Meq Tablet.er, 20 MEQ PO DAILY for 30 Days, #30 06/10/18 Lisinopril* (Lisinopril*) 40 Mg Tablet, 40 MG PO DAILY for 30 Days, #30 06/10/18 Minoxidil* (Lonitin*) 2.5 Mg Tab, 5 MG PO DAILY for 30 Days, #120 06/10/18 Metformin* (Glucophage*) Unknown Strength Tab, PO BID, #20 TAB 02/27/16 Discontinued Scripts Azithromycin* (Zithromax*) 250 Mg Tablet, 250 MG PO .CHAVO DIRECTED, #6 TAB TAKE 500 MG (2 TABS) THE FIRST DAY THEN 250 MG (1 TAB) DAYS 2-5 Prov:BINTA GARNER NP 05/23/16 Cetirizine Hcl* (Zyrtec*) 10 Mg Capsule, 10 MG PO DAILY, #30 TAB.CHEW Prov:BINTA GARNER NP 05/23/16 Guaifenesin-Codeine Phosphate* (Guaifenesin* AC Cough Syrup) 473 Ml Liquid, 10 ML PO Q4H PRN for COUGH, #120 ML Prov:BINTA GARNER DEPARTMENT SECRETARY 05/23/16 Hydrocodone/Acetaminophen ([place] 5-325 Tablet) 1 Each Tablet, 1 TAB PO Q6H PRN for PAIN, #20 TAB Prov:BINTA GARNER NP 02/27/16 Cephalexin* (Keflex*) 500 Mg Capsule, 500 MG PO QID for 5 Days, CAP Prov:BINTA GARNER DEPARTMENT SECRETARY 02/27/16 Ibuprofen* (Motrin*) 600 Mg Tab, 600 MG PO Q6H PRN for PAIN AND OR ELEVATED TEMP, #30 TAB Prov:BINTA GARNER NP 02/27/16 Medications Current Medications Insulin Glargine (Lantus) 14 units DAILY@2000 SC Last administered on 06/12/18at 20:45; Admin Dose 14 UNITS; Start 06/11/18 at 00:00 Insulin Aspart (Novolog Insulin Pen) 6 unit WITH MEALS SC Last administered on 06/13/18at 08:40; Admin Dose 6 UNIT; Start 06/11/18 at 08:00 Insulin Aspart (Novolog Insulin Pen) NOVOLOG *MODERATE* ALGORITHM WITH MEALS BEDTIME SC Last administered on 06/12/18at 18:21; Admin Dose 2 UNIT; Start 06/11/18 at 08:00 Miscellaneous Information 1 ea NOTE XX ; Start 06/10/18 at 23:45 Glucose (Glutose) 15 gm Q15M PRN PO DECREASED GLUCOSE; Start 06/10/18 at 23:45 Glucose (Glutose) 22.5 gm Q15M PRN PO DECREASED GLUCOSE; Start 06/10/18 at 23:45 Dextrose (D50w Syringe) 25 ml Q15M PRN IV DECREASED GLUCOSE; Start 06/10/18 at 23:45 Dextrose (D50w Syringe) 50 ml Q15M PRN IV DECREASED GLUCOSE; Start 06/10/18 at 23:45 Glucagon (Glucagen) 1 mg Q15M PRN IM DECREASED GLUCOSE; Start 06/10/18 at 23:45 Glucose (Glutose) 15 gm Q15M PRN BUCCAL DECREASED GLUCOSE; Start 06/10/18 at 23:45 Minoxidil (Loniten) 5 mg DAILY PO Last administered on 06/13/18 08:21; Admin Dose 5 MG; Start 06/11/18 at 09:00 Carvedilol (Coreg) 6.25 mg BID PO Last administered on 06/13/18 08:23; Admin Dose 6.25 MG; Start 06/11/18 at 09:00 IV Flush (NS 3 ml) 3 ml PER PROTOCOL IV ; Start 06/11/18 at 00:00 Acetaminophen/ Hydrocodone Bitart ([place] (5/325)) 1 tab Q6H PRN PO .MOD PAIN 4- 6; Start 06/11/18 at 00:00 Heparin Sodium (Porcine) (Heparin (5000 Units/1ml)) 5,000 unit Q12 SC Last administered on 06/13/18 08:39; Admin Dose 5,000 UNIT; Start 06/11/18 at 09:00 Nifedipine (Procardia Xl) 30 mg BID PO Last administered on 06/13/18 08:22; Admin Dose 30 MG; Start 06/11/18 at 21:00 Bumetanide (Bumex) 1 mg DAILY PO Last administered on 06/13/18 08:22; Admin Dose 1 MG; Start 06/12/18 at 09:00 Assessment/Plan Hospital Course (Demo Recall) 1. Nonoliguric acute kidney injury on top of chronic kidney disease. Etiology of acute kidney injury is possibly due to hemodynamics, questionable tubular injury. The patient's renal function has been fluctuating may still be in injury phase of acute kidney injury. The patient does have nephrotic range proteinuria and nephrotic syndrome. This is likely due to diabetic nephropathy. However, a possible primary glomerulopathy is a consideration. Plan at this point would be to check serologies, all have been unremarkable. We will check SPEP, UPEP with immunofixation. We would continue treating acute kidney injury. Continue supportive care, renally dose all medicines and avoid nephrotoxins. We would hold off on NIKOLAS inhibitor at this time until renal function stabilizes. We will monitor closely. 2. Nephrotic syndrome. Etiology is likely due to diabetic nephropathy. As stated above, a possible primary glomerulopathy is less likely but cannot be definitively ruled out. Plan is to check serologies as stated above. We will continue otherwise treating acute kidney injury. Continue disease factor modification. serologies and renal ultrasound are unremarkable. 3. Hypertension in the setting of hypokalemia, is concerning for possible secondary etiology. A renin aldosterone level have been sent. cortisol is normal. We will continue to monitor. Continue current blood pressure regimen. no size disparity of kidneys on renal dwain to suggest fiorella. 4. Hypokalemia. Etiology may be secondary to diuretic therapy. However, as stated above secondary workup for hypertension is being evaluated. Continue to monitor and replete. 5. Anemia. Monitor hemoglobin and hematocrit levels. The patient has evidence of iron deficiency. Continue IV iron. 6. Mineral bone disorder. Monitor calcium and phosphorus levels. 7. Diabetes. Continue current insulin regimen. 8. Obesity. Continue dietary modification. SHAJI MINOR MD Jun 13, 2018 11:24
[2018-06-13] MEDS: INSULIN GLARGINE [LANTus] (100 UNITS/ML) SYG SC SCH (20:49)
[2018-06-14] VITALS (8 sets, daily range): BP systolic 103–117; BP diastolic 59–66; PULSE 82–91; RESP 16–19
[2018-06-14] MEDS ORDERED: POTASSIUM CHLORIDE (SR) 10 MEQ TAB PO ONE (07:00)
--- NOTE | 2018-06-14 07:02 | PN ---
Date/Time of Note Date/Time of Note DATE: 06/14/18 TIME: 07:01 Assessment/Plan VTE Prophylaxis Risk score (from Nsg)>0 risk: 3 Lines/Catheters Urinary Cath still in place: No Assessment/Plan Result Diagram: 06/14/18 0550 06/14/18 0550 Exam/Review of Systems Medications Medication LUZ HELLER NP Jun 14, 2018 07:02
[2018-06-14] MEDS: INSULIN ASPART [NOVOLOG] 3 ML PEN SC SCH ×4 (07:32→12:31)
[2018-06-14] MEDS: BUMETANIDE 1 MG TAB PO SCH (08:33)
[2018-06-14] MEDS: NIFEdipine (XL) 30 MG TAB PO SCH (08:34)
[2018-06-14] MEDS: MINOXIDIL 2.5 MG TAB PO SCH (08:34)
[2018-06-14] MEDS: HEPARIN 5,000 UNIT/1 ML VIAL SC SCH (08:42)
--- NOTE | 2018-06-14 09:47 | CONS ---
Consult Date/Type/Reason Admit Date/Time Jun 10, 2018 at 22:13 Initial Consult Date Date/Time of Note DATE: 06/14/18 TIME: 09:45 Subjective The patient is stable, no acute events overnight. bp is better controlled. OBJECTIVE: HEENT: Head is normocephalic. NECK: Supple. HEART: Regular rate. LUNGS: Show diminished breath sounds at the base. ABDOMEN: Soft, nontender to palpation. No rebound or guarding. EXTREMITIES: Negative for clubbing, cyanosis. Positive edema. DERMATOLOGIC: No rashes. MUSCULOSKELETAL: No joint effusion. NEUROLOGIC: No change in exam. Objective Vitals Vital Signs Date Temp Pulse Resp B/P (MAP) Pulse Ox O2 O2 Flow FiO2 Time Delivery Rate 06/14/18 89 08:11 06/14/18 99.0 16 107/62 96 07:53 (77) 06/13/18 Room Air 15:50 Intake and Output 06/13/18 06/13/18 06/14/18 1515:00 23:00 07:00 IntakeIntake Total 250 ml 1050 ml 550 ml OutputOutput Total 500 ml 150 ml BalanceBalance -250 ml 900 ml 550 ml Results/Medications Result Diagram: 06/14/18 0550 06/14/18 0550 Results 24 hrs Laboratory Tests Test 06/13/18 12:30 06/13/18 17:38 06/13/18 20:39 06/14/18 05:50 Bedside Glucose 180 157 112 White Blood Count 7.6 Red Blood Count 2.92 L Hemoglobin 8.1 L Hematocrit 24.6 L Mean Corpuscular 84.2 Volume Mean Corpuscular 27.7 L Hemoglobin Mean Corpuscular 32.9 Hemoglobin Concent Red Cell 13.3 Distribution Width Platelet Count 169 # Mean Platelet Volume 10.4 Immature 0.300 Granulocytes % Neutrophils % 63.6 Lymphocytes % 21.6 Monocytes % 10.0 Eosinophils % 4.1 Basophils % 0.4 Nucleated Red Blood 0.0 Cells % Immature 0.020 Granulocytes # Neutrophils # 4.8 Lymphocytes # 1.6 Monocytes # 0.8 Eosinophils # 0.3 Basophils # 0.0 Nucleated Red Blood 0.0 Cells # Sodium Level 138 Potassium Level 3.4 L Chloride Level 108 Carbon Dioxide Level 26 Anion Gap 4 L Blood Urea Nitrogen 38 H Creatinine 3.30 H Est Glomerular 20 L Filtrat Rate mL/min Glucose Level 106 Calcium Level 8.1 L Phosphorus Level 4.7 Magnesium Level 1.9 Test 06/14/18 07:30 Bedside Glucose 113 Home Meds Active Scripts Albuterol Sulfate* (Proair HFA*) 8.5 Gm Hfa.aer.ad, 2 PUFF INH Q4H PRN for WHEEZING AND SOB, #1 INHALER Prov:BINTA GARNER NP 05/23/16 Reported Medications Furosemide* (Furosemide*) 40 Mg Tablet, 40 MG DAILY for 30 Days, #30 06/10/18 Metoprolol Succinate* (Toprol XL*) 25 Mg Tab.sr.24h, 25 MG PO DAILY for 30 Days, #30 06/10/18 Furosemide* (Furosemide*) 20 Mg Tablet, 20 MG PO DAILY for 30 Days, #30 06/10/18 Potassium Chloride* (Potassium Chloride*) 20 Meq Tablet.er, 20 MEQ PO DAILY for 30 Days, #30 06/10/18 Lisinopril* (Lisinopril*) 40 Mg Tablet, 40 MG PO DAILY for 30 Days, #30 06/10/18 Minoxidil* (Lonitin*) 2.5 Mg Tab, 5 MG PO DAILY for 30 Days, #120 06/10/18 Metformin* (Glucophage*) Unknown Strength Tab, PO BID, #20 TAB 02/27/16 Discontinued Scripts Azithromycin* (Zithromax*) 250 Mg Tablet, 250 MG PO .CHAVO DIRECTED, #6 TAB TAKE 500 MG (2 TABS) THE FIRST DAY THEN 250 MG (1 TAB) DAYS 2-5 Prov:BINTA GARNER NP 05/23/16 Cetirizine Hcl* (Zyrtec*) 10 Mg Capsule, 10 MG PO DAILY, #30 TAB.CHEW Prov:BINTA GARNER NP 05/23/16 Guaifenesin-Codeine Phosphate* (Guaifenesin* AC Cough Syrup) 473 Ml Liquid, 10 ML PO Q4H PRN for COUGH, #120 ML Prov:BINTA GARNER NP 05/23/16 Hydrocodone/Acetaminophen (Deal 5-325 Tablet) 1 Each Tablet, 1 TAB PO Q6H PRN for PAIN, #20 TAB Prov:BINTA GARNER NP 02/27/16 Cephalexin* (Keflex*) 500 Mg Capsule, 500 MG PO QID for 5 Days, CAP Prov:BINTA GARNER NP 02/27/16 Ibuprofen* (Motrin*) 600 Mg Tab, 600 MG PO Q6H PRN for PAIN AND OR ELEVATED TEMP, #30 TAB Prov:BINTA GARNER NP 02/27/16 Medications Current Medications Insulin Glargine (Lantus) 14 units DAILY@2000 SC Last administered on 06/13/18 20:49; Admin Dose 14 UNITS; Start 06/11/18 at 00:00 Insulin Aspart (Novolog Insulin Pen) 6 unit WITH MEALS SC Last administered on 06/14/18 07:34; Admin Dose 6 UNIT; Start 06/11/18 at 08:00 Insulin Aspart (Novolog Insulin Pen) NOVOLOG *MODERATE* ALGORITHM WITH MEALS BEDTIME SC Last administered on 06/13/18at 17:57; Admin Dose 2 UNIT; Start 06/11/18 at 08:00 Miscellaneous Information 1 ea NOTE XX ; Start 06/10/18 at 23:45 Glucose (Glutose) 15 gm Q15M PRN PO DECREASED GLUCOSE; Start 06/10/18 at 23:45 Glucose (Glutose) 22.5 gm Q15M PRN PO DECREASED GLUCOSE; Start 06/10/18 at 23:45 Dextrose (D50w Syringe) 25 ml Q15M PRN IV DECREASED GLUCOSE; Start 06/10/18 at 23:45 Dextrose (D50w Syringe) 50 ml Q15M PRN IV DECREASED GLUCOSE; Start 06/10/18 at 23:45 Glucagon (Glucagen) 1 mg Q15M PRN IM DECREASED GLUCOSE; Start 06/10/18 at 23:45 Glucose (Glutose) 15 gm Q15M PRN BUCCAL DECREASED GLUCOSE; Start 06/10/18 at 23:45 Minoxidil (Loniten) 5 mg DAILY PO Last administered on 06/14/18at 08:34; Admin Dose 5 MG; Start 06/11/18 at 09:00 Carvedilol (Coreg) 6.25 mg BID PO Last administered on 06/14/18at 08:33; Admin Dose 6.25 MG; Start 06/11/18 at 09:00 IV Flush (NS 3 ml) 3 ml PER PROTOCOL IV ; Start 06/11/18 at 00:00 Acetaminophen/ Hydrocodone Bitart (Deal (5/325)) 1 tab Q6H PRN PO .MOD PAIN 4- 6; Start 06/11/18 at 00:00 Heparin Sodium (Porcine) (Heparin (5000 Units/1ml)) 5,000 unit Q12 SC Last administered on 06/14/18at 08:42; Admin Dose 5,000 UNIT; Start 06/11/18 at 09:00 Nifedipine (Procardia Xl) 30 mg BID PO Last administered on 06/14/18at 08:34; Admin Dose 30 MG; Start 06/11/18 at 21:00 Bumetanide (Bumex) 1 mg DAILY PO Last administered on 06/14/18at 08:33; Admin Dose 1 MG; Start 06/12/18 at 09:00 Assessment/Plan Hospital Course (Demo Recall) 1. Nonoliguric acute kidney injury on top of chronic kidney disease. Etiology of acute kidney injury is possibly due to hemodynamics, questionable tubular injury. The patient's renal function has been fluctuating may still be in injury phase of acute kidney injury. The patient does have nephrotic range proteinuria and nephrotic syndrome. This is likely due to diabetic nephropathy. However, a possible primary glomerulopathy is a consideration. Plan at this point would be to check serologies, all have been unremarkable. We will check SPEP, UPEP with immunofixation. We would continue treating acute kidney injury. Continue supportive care, renally dose all medicines and avoid nephrotoxins. We would hold off on NIKOLAS inhibitor at this time until renal function stabilizes. We will monitor closely. 2. Nephrotic syndrome. Etiology is likely due to diabetic nephropathy. As stated above, a possible primary glomerulopathy is less likely but cannot be definitively ruled out. Plan is to check serologies as stated above. We will continue otherwise treating acute kidney injury. Continue disease factor modifi cation. serologies and renal ultrasound are unremarkable. 3. Hypertension in the setting of hypokalemia, is concerning for possible secondary etiology. A renin aldosterone level have been sent. cortisol is normal. We will continue to monitor. Continue current blood pressure regimen. no size disparity of kidneys on renal dwain to suggest fiorella. 4. Hypokalemia. Etiology may be secondary to diuretic therapy. However, as stated above secondary workup for hypertension is being evaluated. Continue to monitor and replete. 5. Anemia. Monitor hemoglobin and hematocrit levels. The patient has evidence of iron deficiency. Continue IV iron. 6. Mineral bone disorder. Monitor calcium and phosphorus levels. 7. Diabetes. Continue current insulin regimen. 8. Obesity. Continue dietary modification. SHAJI MINOR MD Jun 14, 2018 09:47
--- NOTE | 2018-06-14 09:51 | CONS ---
Consult Date/Type/Reason Admit Date/Time Jun 10, 2018 at 22:13 Initial Consult Date Date/Time of Note DATE: 06/14/18 TIME: 09:48 Subjective The patient is stable, no acute events overnight. bp has been well controlled and even low OBJECTIVE: HEENT: Head is normocephalic. NECK: Supple. HEART: Regular rate. LUNGS: Show diminished breath sounds at the base. ABDOMEN: Soft, nontender to palpation. No rebound or guarding. EXTREMITIES: Negative for clubbing, cyanosis. Positive edema. DERMATOLOGIC: No rashes. MUSCULOSKELETAL: No joint effusion. NEUROLOGIC: No change in exam. Objective Vitals Vital Signs Date Temp Pulse Resp B/P (MAP) Pulse Ox O2 O2 Flow FiO2 Time Delivery Rate 06/14/18 89 08:11 06/14/18 99.0 16 107/62 96 07:53 (77) 06/13/18 Room Air 15:50 Intake and Output 06/13/18 06/13/18 06/14/18 1515:00 23:00 07:00 IntakeIntake Total 250 ml 1050 ml 550 ml OutputOutput Total 500 ml 150 ml BalanceBalance -250 ml 900 ml 550 ml Results/Medications Result Diagram: 06/14/18 0550 06/14/18 0550 Results 24 hrs Laboratory Tests Test 06/13/18 12:30 06/13/18 17:38 06/13/18 20:39 06/14/18 05:50 Bedside Glucose 180 157 112 White Blood Count 7.6 Red Blood Count 2.92 L Hemoglobin 8.1 L Hematocrit 24.6 L Mean Corpuscular 84.2 Volume Mean Corpuscular 27.7 L Hemoglobin Mean Corpuscular 32.9 Hemoglobin Concent Red Cell 13.3 Distribution Width Platelet Count 169 # Mean Platelet Volume 10.4 Immature 0.300 Granulocytes % Neutrophils % 63.6 Lymphocytes % 21.6 Monocytes % 10.0 Eosinophils % 4.1 Basophils % 0.4 Nucleated Red Blood 0.0 Cells % Immature 0.020 Granulocytes # Neutrophils # 4.8 Lymphocytes # 1.6 Monocytes # 0.8 Eosinophils # 0.3 Basophils # 0.0 Nucleated Red Blood 0.0 Cells # Sodium Level 138 Potassium Level 3.4 L Chloride Level 108 Carbon Dioxide Level 26 Anion Gap 4 L Blood Urea Nitrogen 38 H Creatinine 3.30 H Est Glomerular 20 L Filtrat Rate mL/min Glucose Level 106 Calcium Level 8.1 L Phosphorus Level 4.7 Magnesium Level 1.9 Test 06/14/18 07:30 Bedside Glucose 113 Home Meds Active Scripts Albuterol Sulfate* (Proair HFA*) 8.5 Gm Hfa.aer.ad, 2 PUFF INH Q4H PRN for WHEEZING AND SOB, #1 INHALER Prov:BINTA GARNER NP 05/23/16 Reported Medications Furosemide* (Furosemide*) 40 Mg Tablet, 40 MG DAILY for 30 Days, #30 06/10/18 Metoprolol Succinate* (Toprol XL*) 25 Mg Tab.sr.24h, 25 MG PO DAILY for 30 Days, #30 06/10/18 Furosemide* (Furosemide*) 20 Mg Tablet, 20 MG PO DAILY for 30 Days, #30 06/10/18 Potassium Chloride* (Potassium Chloride*) 20 Meq Tablet.er, 20 MEQ PO DAILY for 30 Days, #30 06/10/18 Lisinopril* (Lisinopril*) 40 Mg Tablet, 40 MG PO DAILY for 30 Days, #30 06/10/18 Minoxidil* (Lonitin*) 2.5 Mg Tab, 5 MG PO DAILY for 30 Days, #120 06/10/18 Metformin* (Glucophage*) Unknown Strength Tab, PO BID, #20 TAB 02/27/16 Discontinued Scripts Azithromycin* (Zithromax*) 250 Mg Tablet, 250 MG PO .PaulaPAADAN DIRECTED, #6 TAB TAKE 500 MG (2 TABS) THE FIRST DAY THEN 250 MG (1 TAB) DAYS 2-5 Prov:BINTA GARNER NP 05/23/16 Cetirizine Hcl* (Zyrtec*) 10 Mg Capsule, 10 MG PO DAILY, #30 TAB.CHEW Prov:BINTA GARNER NP 05/23/16 Guaifenesin-Codeine Phosphate* (Guaifenesin* AC Cough Syrup) 473 Ml Liquid, 10 ML PO Q4H PRN for COUGH, #120 ML Prov:BINTA GARNER NP 05/23/16 Hydrocodone/Acetaminophen ([place]annibal 5-325 Tablet) 1 Each Tablet, 1 TAB PO Q6H PRN f or PAIN, #20 TAB Prov:BINTA GARNER NP 02/27/16 Cephalexin* (Keflex*) 500 Mg Capsule, 500 MG PO QID for 5 Days, CAP Prov:BINTA GARNER NP 02/27/16 Ibuprofen* (Motrin*) 600 Mg Tab, 600 MG PO Q6H PRN for PAIN AND OR ELEVATED TEMP, #30 TAB Prov:BINTA GARNER NP 02/27/16 Medications Current Medications Insulin Glargine (Lantus) 14 units DAILY@2000 SC Last administered on 06/13/18 20:49; Admin Dose 14 UNITS; Start 06/11/18 at 00:00 Insulin Aspart (Novolog Insulin Pen) 6 unit WITH MEALS SC Last administered on 06/14/18at 07:34; Admin Dose 6 UNIT; Start 06/11/18 at 08:00 Insulin Aspart (Novolog Insulin Pen) NOVOLOG *MODERATE* ALGORITHM WITH MEALS BEDTIME SC Last administered on 06/13/18at 17:57; Admin Dose 2 UNIT; Start 06/11/18 at 08:00 Miscellaneous Information 1 ea NOTE XX ; Start 06/10/18 at 23:45 Glucose (Glutose) 15 gm Q15M PRN PO DECREASED GLUCOSE; Start 06/10/18 at 23:45 Glucose (Glutose) 22.5 gm Q15M PRN PO DECREASED GLUCOSE; Start 06/10/18 at 23:45 Dextrose (D50w Syringe) 25 ml Q15M PRN IV DECREASED GLUCOSE; Start 06/10/18 at 23:45 Dextrose (D50w Syringe) 50 ml Q15M PRN IV DECREASED GLUCOSE; Start 06/10/18 at 23:45 Glucagon (Glucagen) 1 mg Q15M PRN IM DECREASED GLUCOSE; Start 06/10/18 at 23:45 Glucose (Glutose) 15 gm Q15M PRN BUCCAL DECREASED GLUCOSE; Start 06/10/18 at 23:45 Minoxidil (Loniten) 5 mg DAILY PO Last administered on 06/14/18at 08:34; Admin Dose 5 MG; Start 06/11/18 at 09:00 Carvedilol (Coreg) 6.25 mg BID PO Last administered on 06/14/18at 08:33; Admin Dose 6.25 MG; Start 06/11/18 at 09:00 IV Flush (NS 3 ml) 3 ml PER PROTOCOL IV ; Start 06/11/18 at 00:00 Acetaminophen/ Hydrocodone Bitart ([place]annibal (5/325)) 1 tab Q6H PRN PO .MOD PAIN 4- 6; Start 06/11/18 at 00:00 Heparin Sodium (Porcine) (Heparin (5000 Units/1ml)) 5,000 unit Q12 SC Last a dministered on 06/14/18at 08:42; Admin Dose 5,000 UNIT; Start 06/11/18 at 09:00 Nifedipine (Procardia Xl) 30 mg BID PO Last administered on 06/14/18at 08:34; Admin Dose 30 MG; Start 06/11/18 at 21:00 Bumetanide (Bumex) 1 mg DAILY PO Last administered on 06/14/18at 08:33; Admin Dose 1 MG; Start 06/12/18 at 09:00 Assessment/Plan Hospital Course (Demo Recall) 1. Nonoliguric acute kidney injury on top of chronic kidney disease. -Etiology of acute kidney injury is possibly due to hemodynamics, questionable tubular injury. -The patient's renal function has been fluctuating may still be in injury phase of acute kidney injury but overall stable albeit at slightly higher lever. - may be a little hypovolemic at present. will hold daily bumex. - The patient does have nephrotic range proteinuria and nephrotic syndrome. This is likely due to diabetic nephropathy. However, a possible primary glomerulopathy is a consideration. FU serologies, all have been unremarkable. We will check SPEP, UPEP with immunofixation. - Continue supportive care, renally dose all medicines and avoid nephrotoxins. - hold off on NIKOLAS inhibitor at this time until renal function stabilizes. We will monitor closely. 2. Nephrotic syndrome. Etiology is likely due to diabetic nephropathy. As stated above, a possible primary glomerulopathy is less likely but cannot be def initively ruled out. Plan is to check serologies as stated above. We will continue otherwise treating acute kidney injury. Continue disease factor modification. serologies and renal ultrasound are unremarkable. 3. Hypertension in the setting of hypokalemia, is concerning for possible secondary etiology. A renin aldosterone level have been sent. cortisol is normal. We will continue to monitor. Continue current blood pressure regimen and now off diuretic. would taper down on minoxidil if bp remains low. no size disparity of kidneys on renal dwain to suggest fiorella. 4. Hypokalemia. Etiology may be secondary to diuretic therapy. However, as stated above secondary workup for hypertension is being evaluated. Continue to monitor and replete. 5. Anemia. Monitor hemoglobin and hematocrit levels. The patient has evidence of iron deficiency. Continue IV iron. 6. Mineral bone disorder. Monitor calcium and phosphorus levels. 7. Diabetes. Continue current insulin regimen. 8. Obesity. Continue dietary modification. SHAJI MINOR MD Jun 14, 2018 09:51
[2018-06-14] MEDS ORDERED: CARV6.2579 PO (11:21)
[2018-06-14] MEDS ORDERED: NIFE30TA2 PO (11:21)
[2018-06-14] MEDS ORDERED: REPA1TAB14 PO (11:21)
[2018-06-14] MEDS ORDERED: SITA50TA2 PO (11:21)
--- NOTE | 2018-06-14 11:32 | PDOCDIS ---
Discharge Instructions CONDITION [id number] Patient Condition: [id number] Stable HOME CARE INSTRUCTIONS: [id number] Special Diet: [id number] Low carbohydrate, low potassium OTHER ORDERS: Other Orders: 1. Take medications as per prescription. Start taking Coreg instead of Toprol- XL. 2. Stop taking lisinopril. Instead start taking nifedipine. 3. Stop taking Lasix. Check with your transport tank technician to before starting Lasix. 4. Stop taking metformin. Instead, start taking Januvia and Prandin instead. 5. Resume activities as tolerated. 6. Follow-up with your transport tank technician or the transport tank technician who followed you during the hospital (Dr. López) within 1 week. 7. Please follow-up with your contingents supervisor in 2 weeks. 8. Please go to the nearest emergency room if you have any chest pain, significant shortness of breath, significant edema, persistent nausea/vomiting, or any other unusual signs/symptoms. LUZ HELLER NP Jun 14, 2018 11:32
[2018-06-14] MEDS ORDERED: FER325 PO (11:47)
--- NOTE | 2018-06-14 11:53 | DS ---
Date/Time of Note Date/Time of Note DATE: 06/14/18 TIME: 11:47 Discharge Summary Admission/Discharge Info Admit Date/Time Jun 10, 2018 at 22:13 Discharge Date/Time Discharge Diagnosis 1. Hypertensive urgency. 2. Acute kidney injury 3. Nephrotic syndrome. 4. Diabetes mellitus type 2. Hemoglobin A1c 8.8. 5. Iron deficiency. 6. Obesity. BMI of more than 31 kg/m. Patient Condition: Stable Consults 1. Fidencio López DO, Nephrology. 2. Rick Tillman DO, Cardiology. Procedures 2D Echocardiogram Conclusions: Normal left ventricular systolic function. Normal left ventricular cavity size. Moderate concentric left ventricular hypertrophy. Ejection fraction is visually estimated at 55 %. Tissue Doppler/Mitral Doppler indices are consistent with impaired relaxation (Stage I diastolic dysfunction). Normal appearance and function of the mitral valve with trace physiologic regurgitation. No significant aortic stenosis or insufficiency. Aortic cusps appear mildly calcified. Normal appearance of the tricuspid valve. Estimated peak PA systolic pressure 33 mmHg. There is trace tricuspid regurgitation. Trivial pericardial effusion. Gallbladder Ultrasound IMPRESSION: 1. Unremarkable liver and right kidney. 2. Partially contracted gallbladder otherwise unremarkable without biliary ductal dilation. B/L LE Venous Doppler Study IMPRESSION: 1. No evidence of a deep vein thrombosis involving either lower extremity. Hx of Present Illness This is a 57-year-old male with comorbidities including hypertension, diabetes mellitus, and possibly chronic kidney disease who was sent by his primary care physician because of severe hypertension. In the emergency room, the patient was noticed to have blood pressure of 239/110. The patient was admitted to inpatient setting for further treatment and evaluation. Hospital Course The patient had underlying hypertensive urgency. The patient's blood pressure was lowered appropriately to obtain optimal blood pressure control. The patient was noted to be taking NIKOLAS inhibitors at home. This was put on hold because of the patient's renal function. The patient was started on calcium channel blockers along with beta-blockers that the patient was already taking at home. The patient was also maintained on alpha blockers that the patient was getting at home. The patient's car runner was informed about the patient's hospitalization. The patient underwent a 2D echocardiogram that was showing preserved left ventricular ejection fraction. The patient was noticed to have underlying acute kidney injury. The patient probably has underlying chronic kidney disease since he was following an outpatient bobbin inspector. The patient was noticed to have significant proteinuria. The patient was found to have underlying nephrotic syndrome. Nephrology was following the patient. Etiology of the patient's nephrotic syndrome could be secondary to underlying diabetic nephropathy. Primary glomerulopathy is a consideration. The patient's other workup including KIMBERLEY screen, double-stranded DNA, cryoglobulins qualitative analysis, etc. are pending at this time. The patient has good outpatient follow-up and this will be followed up by the patient's bobbin inspector as outpatient. Meanwhile, the patient was maintained on diuretic therapy with Bumex with improvement in the patient's edema. Meanwhile, the patient's renal function got worse and the patient's diuretics had to be discontinued on 06/14/2018. The patient remained euvolemic on 06/14/2018. The patient has underlying diabetes mellitus type 2. The patient was on metformin at home. This was discontinued because of worsening renal function. The patient's hemoglobin A1c was found to be 8.8. The patient was maintained on sliding scale insulin along with pre-meal insulin and basal insulin with well- controlled blood sugars throughout the hospitalization. The patient had underlying normocytic anemia. The patient was noted to have evidence of iron deficiency. The patient will be maintained on iron supplements. The patient also complained of postprandial right upper quadrant/right chest wall pain. The patient underwent a gallbladder ultrasound that was negative for any evidence of cholecystitis. The patient's liver function tests were within normal limits. The patient's right upper quadrant/right chest wall pain resolved on its own. The patient is obese with a BMI of more than 31 kg/m. The patient was advised on weight reduction. The patient had a stable hospital course. The patient was cleared by consultants to be discharged home. Upon discharge, the patient's medications were changed. All the instructions were given to the patient. The patient was also given prescription foa a glucometer with supplies for lancets and test strips. Discharge Instructions 1. Take medications as per prescription. Start taking Coreg instead of Toprol- XL. 2. Stop taking lisinopril. Instead start taking nifedipine. 3. Stop taking Lasix. Check with your bobbin inspector to before starting Lasix. 4. Stop taking metformin. Instead, start taking Januvia and Prandin instead. 5. Resume activities as tolerated. 6. Follow-up with your bobbin inspector or the bobbin inspector who followed you during the hospital (Dr. López) within 1 week. 7. Please follow-up with your car runner in 2 weeks. 8. Please go to the nearest emergency room if you have any chest pain, significant shortness of breath, significant edema, persistent nausea/vomiting, or any other unusual signs/symptoms. The patient verbalized understanding of his discharge instructions. At this time I would like to thank all the consultants for seeing the patient and providing clinical recommendations. The patient was seen in collaboration with Dr. Menjivar. Home Meds Active Scripts Ferrous Sulfate* (Ferrous Sulfate*) 325 Mg Tabec, 325 MG PO BID, #60 TAB Prov:LUZ HELLER [employer]URING GROUP LEADER 06/14/18 Repaglinide* (Prandin*) 1 Mg Tablet, 1 MG PO AC MEALS, #90 TAB Prov:LUZ HELLER [employer]UFA[employer]URING GROUP LEADER 06/14/18 Sitagliptin* (Januvia*) 50 Mg Tablet, 50 MG PO DAILY, #30 TAB Prov:LUZ HELLER NP 06/14/18 Nifedipine (Procardia Xl) 30 Mg Tab.er.24, 30 MG PO BID, #60 TAB Prov:LUZ HELLER [employer]UFA[employer]URING [employer] LEADER 06/14/18 Carvedilol* (Carvedilol*) 6.25 Mg Tablet, 6.25 MG PO BID, #60 TAB Prov:LUZ HELLER MANUFA[employer]URING GROUP LEADER 06/14/18 Reported Medications Minoxidil* (Lonitin*) 2.5 Mg Tab, 5 MG PO DAILY for 30 Days, #120 06/10/18 Discontinued Reported Medications Furosemide* (Furosemide*) 40 Mg Tablet, 40 MG DAILY for 30 Days, #30 06/10/18 Metoprolol Succinate* (Toprol XL*) 25 Mg Tab.sr.24h, 25 MG PO DAILY for 30 Days, #30 06/10/18 Furosemide* (Furosemide*) 20 Mg Tablet, 20 MG PO DAILY for 30 Days, #30 06/10/18 Potassium Chloride* (Potassium Chloride*) 20 Meq Tablet.er, 20 MEQ PO DAILY for 30 Days, #30 06/10/18 Lisinopril* (Lisinopril*) 40 Mg Tablet, 40 MG PO DAILY for 30 Days, #30 06/10/18 Metformin* (Glucophage*) Unknown Strength Tab, PO BID, #20 TAB 02/27/16 Discontinued Scripts Albuterol Sulfate* (Proair HFA*) 8.5 Gm Hfa.aer.ad, 2 PUFF INH Q4H PRN for WHEEZING AND SOB, #1 INHALER Prov:BINTA GARNER NP 05/23/16 Azithromycin* (Zithromax*) 250 Mg Tablet, 250 MG PO .ZPACK DIRECTED, #6 TAB TAKE 500 MG (2 TABS) THE FIRST DAY THEN 250 MG (1 TAB) DAYS 2-5 Prov:BINTA GARNER NP 05/23/16 Cetirizine Hcl* (Zyrtec*) 10 Mg Capsule, 10 MG PO DAILY, #30 TAB.CHEW Prov:BINTA GARNER NP 05/23/16 Guaifenesin-Codeine Phosphate* (Guaifenesin* AC Cough Syrup) 473 Ml Liquid, 10 ML PO Q4H PRN for COUGH, #120 ML Prov:BINTA GARNER NP 05/23/16 Hydrocodone/Acetaminophen ([place] 5-325 Tablet) 1 Each Tablet, 1 TAB PO Q6H PRN for PAIN, #20 TAB Prov:BINTA GARNER NP 02/27/16 Cephalexin* (Keflex*) 500 Mg Capsule, 500 MG PO QID for 5 Days, CAP Prov:BINTA GARNER NP 02/27/16 Ibuprofen* (Motrin*) 600 Mg Tab, 600 MG PO Q6H PRN for PAIN AND OR ELEVATED TEM P, #30 TAB Prov:BINTA GARNER NP 02/27/16 Follow-up Plan The patient to follow-up with his bobbin inspector in 1 week. The patient to follow-up with the car runner in 2 weeks. Primary Care Provider Not On Staff Doctor Time spent on discharge: > 30 minutes Pending Labs Laboratory Tests Test 06/13/18 12:30 06/13/18 17:38 06/13/18 20:39 06/14/18 05:50 Bedside 180 157 112 Glucose mg/dL (70-220) mg/dL (70-220) mg/dL (70-220) White Blood 7.6 Count 10^3/ul (4.8-1 0.8) Red Blood 2.92 Count 10^6/ul (4.70- 6.10) Hemoglobin 8.1 g/dl (14.0-18. 0) Hematocrit 24.6 % (42.0-52.0) Mean 84.2 Corpuscular fl (82.0-101.0 Volume ) Mean 27.7 Corpuscular pg (29.0-33.0) Hemoglobin Mean 32.9 Corpuscular g/dl (32.0-37. Hemoglobin Conc 0) ent Red Cell 13.3 Distribution % (11.5-14.5) Width Platelet Count 169 10^3/UL (140-4 15) Mean Platelet 10.4 Volume fl (7.4-10.4) Immature 0.300 Granulocytes % % (0.001-0.429 ) Neutrophils % 63.6 % (39.0-77.0) Lymphocytes % 21.6 % (15.0-51.0) Monocytes % 10.0 % (0.0-11.0) Eosinophils % 4.1 % (0.0-7.0) Basophils % 0.4 % (0.0-2.0) Nucleated Red 0.0 Blood Cells % /100WBC (0.0-0 .0) Immature 0.020 Granulocytes # 10^3/ul (0.0-0 .031) Neutrophils # 4.8 10^3/ul (1.6-7 .5) Lymphocytes # 1.6 10^3/ul (0.8-2 .9) Monocytes # 0.8 10^3/ul (0.3-0 .9) Eosinophils # 0.3 10^3/ul (0.0-0 .5) Basophils # 0.0 10^3/ul (0.0-0 .1) Nucleated Red 0.0 Blood Cells # 10^3/ul (0.0-0 .0) Sodium Level 138 mmol/L (135-14 4) Potassium 3.4 Level mmol/L (3.5-5. 1) Chloride Level 108 mmol/L (97-110 ) Carbon Dioxide 26 Level mmol/L (21-31) Anion Gap 4 (5-13) Blood Urea 38 Nitrogen mg/dl (7-20) Creatinine 3.30 mg/dl (0.61-1. 24) Est Glomerular 20 Filtrat mL/min (>60) Rate mL/min Glucose Level 106 mg/dl (70-220) Calcium Level 8.1 mg/dl (8.4-10. 2) Phosphorus 4.7 Level mg/dl (2.5-4.9 ) Magnesium 1.9 Level mg/dl (1.7-2.5 ) Test 06/14/18 07:30 Bedside 113 Glucose mg/dL (70-220) LUZ HELLER NP Jun 14, 2018 11:53
--- NOTE | 2018-06-14 12:24 | CONS ---
Assessment/Plan Assessment/Plan Hospital Course (Demo Recall) Hypertensive urgency-resolved Uncontrolled diabetes Hypokalemia Preserved ejection fraction Right-sided chest pain-resolved -Patient was sent to emergency room by nephrology secondary to uncontrolled blood pressure as well as uncontrolled diabetes. Patient with symptoms of right-sided abdominal and chest discomfort which is sharp and burning-like and nonexertional. -Serial cardiac enzymes remain negative, ECG with no significant ischemic abnormalities, echocardiogram with preserved left ventricular ejection fraction -Blood pressure trend has improved and tolerating current medication regimen, titrate as needed -Diuretics as per nephrology -No new cardiac orders at the current time Consultation Date/Type/Reason Admit Date/Time Jun 10, 2018 at 22:13 Initial Consult Date Type of Consult Cardiology Date/Time of Note DATE: 06/14/18 TIME: 12:23 24 HR Interval Summary Free Text/Dictation Denies chest pain, shortness of breath or palpitations Exam/Review of Systems Vital Signs Vitals Vital Signs Date Temp Pulse Resp B/P (MAP) Pulse Ox O2 O2 Flow FiO2 Time Delivery Rate 06/14/18 85 12:12 06/14/18 98.5 16 117/64 98 11:53 (81) 06/13/18 Room Air 15:50 Intake and Output 06/13/18 06/13/18 06/14/18 1515:00 23:00 07:00 IntakeIntake Total 250 ml 1050 ml 550 ml OutputOutput Total 500 ml 150 ml BalanceBalance -250 ml 900 ml 550 ml Exam Constitutional: alert, oriented (No apparent distress) Head: normocephalic Respiratory: other (Coarse breath sounds bilaterally, no wheezing) Cardiovascular: regular rate and rhythm (S1-S2 heard) Gastrointestinal: soft, non-tender, bowel sounds Extremities: edema Labs Result Diagram: 06/14/18 0550 06/14/18 0550 Results 24hrs Laboratory Tests Test 06/13/18 12:30 06/13/18 17:38 06/13/18 20:39 06/14/18 05:50 Bedside Glucose 180 157 112 White Blood Count 7.6 Red Blood Count 2.92 L Hemoglobin 8.1 L Hematocrit 24.6 L Mean Corpuscular 84.2 Volume Mean Corpuscular 27.7 L Hemoglobin Mean Corpuscular 32.9 Hemoglobin Concent Red Cell 13.3 Distribution Width Platelet Count 169 # Mean Platelet Volume 10.4 Immature 0.300 Granulocytes % Neutrophils % 63.6 Lymphocytes % 21.6 Monocytes % 10.0 Eosinophils % 4.1 Basophils % 0.4 Nucleated Red Blood 0.0 Cells % Immature 0.020 Granulocytes # Neutrophils # 4.8 Lymphocytes # 1.6 Monocytes # 0.8 Eosinophils # 0.3 Basophils # 0.0 Nucleated Red Blood 0.0 Cells # Sodium Level 138 Potassium Level 3.4 L Chloride Level 108 Carbon Dioxide Level 26 Anion Gap 4 L Blood Urea Nitrogen 38 H Creatinine 3.30 H Est Glomerular 20 L Filtrat Rate mL/min Glucose Level 106 Calcium Level 8.1 L Phosphorus Level 4.7 Magnesium Level 1.9 Test 06/14/18 07:30 Bedside Glucose 113 Medications Medications Current Medications Insulin Glargine (Lantus) 14 units DAILY@2000 SC Last administered on 06/13/18at 20:49; Admin Dose 14 UNITS; Start 06/11/18 at 00:00 Insulin Aspart (Novolog Insulin Pen) 6 unit WITH MEALS SC Last administered on 06/14/18at 07:34; Admin Dose 6 UNIT; Start 06/11/18 at 08:00 Insulin Aspart (Novolog Insulin Pen) NOVOLOG *MODERATE* ALGORITHM WITH MEALS BEDTIME SC Last administered on 06/13/18at 17:57; Admin Dose 2 UNIT; Start 06/11/18 at 08:00 Miscellaneous Information 1 ea NOTE XX ; Start 06/10/18 at 23:45 Glucose (Glutose) 15 gm Q15M PRN PO DECREASED GLUCOSE; Start 06/10/18 at 23:45 Glucose (Glutose) 22.5 gm Q15M PRN PO DECREASED GLUCOSE; Start 06/10/18 at 23:45 Dextrose (D50w Syringe) 25 ml Q15M PRN IV DECREASED GLUCOSE; Start 06/10/18 at 23:45 Dextrose (D50w Syringe) 50 ml Q15M PRN IV DECREASED GLUCOSE; Start 06/10/18 at 23:45 Glucagon (Glucagen) 1 mg Q15M PRN IM DECREASED GLUCOSE; Start 06/10/18 at 23:45 Glucose (Glutose) 15 gm Q15M PRN BUCCAL DECREASED GLUCOSE; Start 06/10/18 at 23:45 Minoxidil (Loniten) 5 mg DAILY PO Last administered on 06/14/18at 08:34; Admin Dose 5 MG; Start 06/11/18 at 09:00 Carvedilol (Coreg) 6.25 mg BID PO Last administered on 06/14/18at 08:33; Admin Dose 6.25 MG; Start 06/11/18 at 09:00 IV Flush (NS 3 ml) 3 ml PER PROTOCOL IV ; Start 06/11/18 at 00:00 Acetaminophen/ Hydrocodone Bitart ([place] (5/325)) 1 tab Q6H PRN PO .MOD PAIN 4- 6; Start 06/11/18 at 00:00 Heparin Sodium (Porcine) (Heparin (5000 Units/1ml)) 5,000 unit Q12 SC Last administered on 06/14/18at 08:42; Admin Dose 5,000 UNIT; Start 06/11/18 at 09:00 Nifedipine (Procardia Xl) 30 mg BID PO Last administered on 06/14/18at 08:34; Admin Dose 30 MG; Start 06/11/18 at 21:00 Rick Tillman DO Jun 14, 2018 12:24
== END 2018-06-14 13:47 | disposition home or self-care (01) | DRG 304 ==
LOC: E/R 16:03 → TEL 22:13
PROVIDERS: ADMIT Internal Medicine; ATTEND Internal Medicine
DX: I16.0 Hypertensive urgency (principal); N17.0 Acute kidney failure with tubular necrosis; I12.9 Hypertensive chronic kidney disease with stage 1 through stage 4 chronic kidney disease, or unspecified chronic kidney disease; E11.21 Type 2 diabetes mellitus with diabetic nephropathy; N18.9 Chronic kidney disease, unspecified; E87.6 Hypokalemia; E66.9 Obesity, unspecified; Z68.31 Body mass index [BMI] 31.0-31.9, adult; E11.65 Type 2 diabetes mellitus with hyperglycemia; D50.9 Iron deficiency anemia, unspecified; E11.22 Type 2 diabetes mellitus with diabetic chronic kidney disease; E03.9 Hypothyroidism, unspecified; R07.9 Chest pain, unspecified; R10.9 Unspecified abdominal pain
CPT/HCPCS: 36415; 71045; 76705; 76775; 80048; 80053; 80061; 81001; 81003; 82043; 82088; 82150; 82533; 82595; 82728; 82962; 83036; 83540; 83690; 83735; 84100; 84132; 84155; 84244; 84300; 84484; 85025; 86021; 86038; 86160; 86226; 86430; 86704; 86709; 86803; 87340; 93005; 93306; 93970; 96374; 96375; J0360; J1644; J1815; J3475; J3480

== ENCOUNTER 2018-06-16 15:39 | Observation (INO) | payer OTHER ==
[~2018-06-16] VITALS: Ht 167.6 cm; Wt 92.8 kg
[~2018-06-16 15:39] MED LIST changes: -ALBU8.5H8 INH; -AZIT250T PO; +CARV6.2579 PO; -CEPH-443 PO; -CETI10CA PO; +FER325 PO; -GUAI473L22 PO; -HYDR-4011 PO; -IBUP-1542 PO; -METF-849 PO; +MINO2.5T16 PO; +NIFE30TA2 PO; +REPA1TAB14 PO; +SITA50TA2 PO
--- NOTE | 2018-06-16 16:15 | ERD ---
ER Documentation Chief Complaint Chief Complaint fainted/loss vision of @ 1230 now vision is blurry HPI The patient is a 57-year-old male, presenting to the ER because he was on his way to a supermarket. However when he woke up around 1230pm, he found himself inside a car and could not see anything. He asked a bystander to call his daughter, who came to help him. He estimated that he could not account for about 40 minutes where he was, whether he fainted inside the car or fell asleep. He still complains of blurred vision but it is much better at this time. He denies similar symptom previously, denies of headache, dizziness, facial pain, eye pain, neck pain, chest pain, dyspnea, abdominal pain, vomiting, dysuria, diarrhea. Past medical history: Hypertension, dyslipidemia, knee anemia, chronic kidney disease Past surgical history: None ROS All systems reviewed and are negative except as per history of present illness. Medications Home Meds Active Scripts Ferrous Sulfate* (Ferrous Sulfate*) 325 Mg Tabec, 325 MG PO BID, #60 TAB Prov:LUZ HELLER NP 06/14/18 Repaglinide* (Prandin*) 1 Mg Tablet, 1 MG PO AC MEALS, #90 TAB Prov:LUZ HELLER NP 06/14/18 Sitagliptin* (Januvia*) 50 Mg Tablet, 50 MG PO DAILY, #30 TAB Prov:LUZ HELLER SPINNING MACHINE TENDER 06/14/18 Nifedipine (Procardia Xl) 30 Mg Tab.er.24, 30 MG PO BID, #60 TAB Prov:LUZ HELLER NP 06/14/18 Carvedilol* (Carvedilol*) 6.25 Mg Tablet, 6.25 MG PO BID, #60 TAB Prov:LUZ HELLER NP 06/14/18 Reported Medications Minoxidil* (Lonitin*) 2.5 Mg Tab, 5 MG PO DAILY for 30 Days, #120 06/10/18 Discontinued Reported Medications Furosemide* (Furosemide*) 40 Mg Tablet, 40 MG DAILY for 30 Days, #30 06/10/18 Metoprolol Succinate* (Toprol XL*) 25 Mg Tab.sr.24h, 25 MG PO DAILY for 30 Days, #30 06/10/18 Furosemide* (Furosemide*) 20 Mg Tablet, 20 MG PO DAILY for 30 Days, #30 06/10/18 Potassium Chloride* (Potassium Chloride*) 20 Meq Tablet.er, 20 MEQ PO DAILY for 30 Days, #30 06/10/18 Lisinopril* (Lisinopril*) 40 Mg Tablet, 40 MG PO DAILY for 30 Days, #30 06/10/18 Metformin* (Glucophage*) Unknown Strength Tab, PO BID, #20 TAB 02/27/16 Discontinued Scripts Albuterol Sulfate* (Proair HFA*) 8.5 Gm Hfa.aer.ad, 2 PUFF INH Q4H PRN for WHEEZING AND SOB, #1 INHALER Prov:BINTA GARNER SPINNING MACHINE TENDER 05/23/16 Azithromycin* (Zithromax*) 250 Mg Tablet, 250 MG PO .ZPACK DIRECTED, #6 TAB TAKE 500 MG (2 TABS) THE FIRST DAY THEN 250 MG (1 TAB) DAYS 2-5 Prov:BINTA GARNER SPINNING MACHINE TENDER 05/23/16 Cetirizine Hcl* (Zyrtec*) 10 Mg Capsule, 10 MG PO DAILY, #30 TAB.CHEW Prov:BINTA GARNER SPINNING MACHINE TENDER 05/23/16 Guaifenesin-Codeine Phosphate* (Guaifenesin* AC Cough Syrup) 473 Ml Liquid, 10 ML PO Q4H PRN for COUGH, #120 ML Prov:BINTA GARNER. SPINNING MACHINE TENDER 05/23/16 Hydrocodone/Acetaminophen ([place] 5-325 Tablet) 1 Each Tablet, 1 TAB PO Q6H PRN for PAIN, #20 TAB Prov:BINTA GARNER SPINNING MACHINE TENDER 02/27/16 Cephalexin* (Keflex*) 500 Mg Capsule, 500 MG PO QID for 5 Days, CAP Prov:BINTA GARNER SPINNING MACHINE TENDER 02/27/16 Ibuprofen* (Motrin*) 600 Mg Tab, 600 MG PO Q6H PRN for PAIN AND OR ELEVATED TEMP, #30 TAB Prov:BINTA GARNER SPINNING MACHINE TENDER 02/27/16 Allergies Allergies: Coded Allergies: No Known Allergy (Unverified , 06/16/18) PMhx/Soc History of Surgery: No Anesthesia Reaction: No Hx Neurological Disorder: No Hx Respiratory Disorders: No Hx Cardiac Disorders: Yes (HTN, HLD, ) Hx Psychiatric Problems: No Hx Miscellaneous Medical Probl: No Hx Alcohol Use: No Hx Substance Use: No Hx Tobacco Use: No Physical Exam Vitals Vital Signs Date Temp Pulse Resp B/P (MAP) Pulse Ox O2 O2 Flow FiO2 Time Delivery Rate 06/16/18 87 12 148/76 100 Room Air 17:50 (100) 06/16/18 97.3 64 18 114/59 99 16:11 (77) Physical Exam Const: No acute distress. Head: Atraumatic. Eyes: Normal Conjunctiva. ENT: Normal External Ears, Nose and Mouth. Neck: Full range of motion. No meningismus. Resp: Clear to auscultation bilaterally. Cardio: Regular rate and rhythm. Abd: Soft, non distended, normal bowel sounds, non tender. Skin: No petechiae or rashes. Back: No midline or flank tenderness. Ext: No cyanosis, or edema. Neur: Awake and alert. No focal deficit Psych: Normal Mood and Affect. Result Diagram: 06/16/18 1635 06/16/18 1635 Results 24 hrs Laboratory Tests Test 06/16/18 16:18 06/16/18 16:35 Bedside Glucose 135 mg/dL White Blood Count 8.5 10^3/ul Red Blood Count 3.20 10^6/ul Hemoglobin 9.0 g/dl Hematocrit 27.5 % Mean Corpuscular Volume 85.9 fl Mean Corpuscular Hemoglobin 28.1 pg Mean Corpuscular Hemoglobin Concent 32.7 g/dl Red Cell Distribution Width 13.4 % Platelet Count 179 10^3/UL Mean Platelet Volume 11.1 fl Immature Granulocytes % 0.700 % Neutrophils % 74.3 % Lymphocytes % 12.0 % Monocytes % 10.1 % Eosinophils % 2.4 % Basophils % 0.5 % Nucleated Red Blood Cells % 0.0 /100WBC Immature Granulocytes # 0.060 10^3/ul Neutrophils # 6.3 10^3/ul Lymphocytes # 1.0 10^3/ul Monocytes # 0.9 10^3/ul Eosinophils # 0.2 10^3/ul Basophils # 0.0 10^3/ul Nucleated Red Blood Cells # 0.0 10^3/ul Prothrombin Time 13.4 Sec Prothrombin Time Ratio 1.0 INR International Normalized Ratio 1.01 Activated Partial Thromboplast Time 39.0 Sec Sodium Level 138 mmol/L Potassium Level 4.1 mmol/L Chloride Level 110 mmol/L Carbon Dioxide Level 23 mmol/L Anion Gap 5 Blood Urea Nitrogen 44 mg/dl Creatinine 3.61 mg/dl Est Glomerular Filtrat Rate mL/min 18 mL/min Glucose Level 131 mg/dl Calcium Level 8.4 mg/dl Free Thyroxine 1.26 ng/dl Procedures/MDM [place] [address] Radiology Main Line: [phone] DIAGNOSTIC IMAGING REPORT Patient: MIKAYLA TRAN : 1960 Age: 57 Sex: M MR #: [id number] DOS: 06/16/18 1624 Ordering MD: DANDRE DIALLO MD Location: E/R Room/Bed: PROCEDURE: Ultrasound orbits CLINICAL INDICATION: Blurred vision TECHNIQUE: Sonographic evaluation of the bilateral orbits was performed. Serra scale and color imaging was performed in the sagittal and coronal planes. Images were reviewed on a high-resolution PACS workstation. COMPARISON: None available FINDINGS: There is no evidence of retinal detachment. Bilateral lenses are in appropriate position. Bilateral optic nerves are symmetric. Multiple punctate low level echoes are in bilateral posterior chambers. Otherwise, posterior chambers of both globes are unremarkable. IMPRESSION: 1. No retinal detachment. 2. Multiple punctate low level echoes in bilateral posterior chambers which can be seen with age related vitreous degeneration. No convincing evidence of vitreous hemorrhage. RPTAT: BB .Sofiya Burrows MD, MD Date Time Electronically viewed and signed by .Sofiya Burrows MD, MD on 06/16/2018 17:46 .O/ CC: DANDRE DIALLO MD [id number] [place] [address] Radiology Main Line: [phone] DIAGNOSTIC IMAGING REPORT Patient: MIKAYLA TRAN : 1960 Age: 57 Sex: M [id number] [id number] DOS: 06/16/18 1623 Ordering MD: DANDRE DIALLO MD Location: E/R Room/Bed: PROCEDURE: Noncontrast CT Head. CLINICAL INDICATION: Headache. TECHNIQUE: Noncontrast CT of the head was obtained. The administered radiation dose was CTDI vol = 38.77 mGy, DLP = 634.23 mGy-cm. One or more of the following dose reduction techniques were used: Automated exposure control, Adjustment of the mA and/or kV according to patient size, or Use of iterative reconstruction technique. DICOM images are available. COMPARISON: There are no similar studies submitted for comparison. FINDINGS: The ventricles and sulci are within normal limits. There is no loss of serra-white differentiation to suggest acute territorial infarction. There is no acute intracranial hemorrhage or extra-axial fluid collection. There is no mass effect. No midline shift is identified. The orbits are within normal limits. The paranasal sinuses are well aerated. No destructive osseous lesion is identified. IMPRESSION: No acute intracranial hemorrhage or extra-axial fluid collection. Further findings as detailed above. RPTAT: HVF .Huber Quiros MD, MD Date Time Electronically viewed and signed by .Huber Quiros MD, MD on 06/16/2018 17:52 .F/ CC: DANDRE DIALLO MD [id number] Visual Acuity was done/reviewed EKG: Read by emergency physician Rate/Rhythm: Normal Sinus Rhythm 83 beats per min QRS, ST, T-waves: No ST elevation, IRBBB, lateral ST/T abn, prolong QT Impression: Normal EKG MEDICAL MAKING DECISION: The patient is a 57-year-old male, presenting with acute syncope blurred vision of unclear etiology The differential diagnoses considered include but are not limited to arrhythmogenic right ventricular dysplasia, Brugada syndrome, left ventricular hypertrophy, pulmonary embolism, QT abnormality, Qlna-Sjbavgdum-Xunxw. Departure Diagnosis: Primary Impression: Syncope Condition: Stable Comments I discussed the findings with the patient. I discussed the patient with the hospitalist Dr Arreaga at 6:25 pm. who was made aware of the lab, the treatment, the patient condition. The patient is admitted to [facility] Disclaimer: Inadvertent spelling and grammatical errors are likely due to EHR/dictation software use and do not reflect on the overall quality of patient care. Also, please note that the electronic time recorded on this note does not necessarily reflect the actual time of the patient encounter. DANDRE DIALLO MD Jun 16, 2018 16:15
[2018-06-16] MEDS ORDERED: DOCUSATE SODIUM 100 MG CAP PO PRN (19:00)
[2018-06-16] MEDS ORDERED: HYDROCODONE/APAP (5/325) TAB PO PRN (19:00)
[2018-06-16] MEDS ORDERED: ONDANSETRON 4 MG INJ IV PRN (19:00)
[2018-06-16] MEDS ORDERED: morphine 2 MG INJ IV PRN (19:00)
[2018-06-16] MEDS ORDERED: ALBUTEROL/IPRATROPIUM (NEB) 3 ML AMP HHN PRN (19:00)
[2018-06-16] MEDS ORDERED: MAGNESIUM HYDROXIDE 30ML CUP PO PRN (19:00)
[2018-06-16] MEDS ORDERED: LORAZEPAM 2 MG INJ IV PRN (19:00)
[2018-06-16] MEDS ORDERED: hydrALAzine 20 MG INJ IV PRN (19:00)
[2018-06-16] MEDS ORDERED: ACETAMINOPHEN 325 MG TAB PO PRN (19:00)
[2018-06-16] MEDS ORDERED: NITROGLYCERIN (SL) 0.4 MG TAB SL PRN (19:00)
[2018-06-16] MEDS ORDERED: NACL 0.9% 3 ML SYG IV SCH (19:00)
[2018-06-16 20:39] VITALS: PULSE 86
[2018-06-16 20:40] VITALS: Ht 167.6 cm; Wt 92.8 kg
[2018-06-16] MEDS ORDERED: GLUCOSE GEL 15 GRAM TUBE PO PRN ×2 (23:00)
[2018-06-16] MEDS ORDERED: GLUCAGON 1 MG INJ IM PRN (23:00)
[2018-06-16] MEDS ORDERED: GLUCOSE GEL 15 GRAM TUBE BUCCAL PRN (23:00)
[2018-06-16] MEDS ORDERED: DEXTROSE 50% 50 ML SYRINGE IV PRN ×2 (23:00)
[2018-06-16 23:43] VITALS: BP 172/83; PULSE 89; RESP 19
[2018-06-17] VITALS (11 sets, daily range): BP systolic 129–172; BP diastolic 61–82; PULSE 56–95; RESP 19–20
--- NOTE | 2018-06-17 06:44 | HP ---
Date/Time of Note Date/Time of Note DATE: 06/17/18 TIME: 06:38 Assessment/Plan VTE Prophylaxis Pharmacological prophylaxis: heparin Lines/Catheters IV Catheter Type (from Nrs): Peripheral IV Assessment/Plan Assessment/Plan 1. Syncope with visual disturbance -Unknown etiology -Head CT and brain MRI as well as carotid Doppler ultrasound negative -Monitor in telemetry unit -Neurology consult 2. Visual disturbance: Patient reported waking up inside his car and not able to see anything -Ultrasound shows no definite vitreous hemorrhage -Monitor for now 3. CKD: Nephrology consult -Patient was just discharged from here 2 days ago and during that hospitalization, he had a workup for renal insufficiency 4. Type 2 diabetes: Insulin while in-house Result Diagram: 06/17/18 0507 06/16/18 1635 Results 24hrs Laboratory Tests Test 06/16/18 16:18 06/16/18 16:35 06/17/18 05:07 Bedside Glucose 135 White Blood Count 8.5 6.5 # Red Blood Count 3.20 L 2.94 L Hemoglobin 9.0 L 8.2 L Hematocrit 27.5 L 25.0 L Mean Corpuscular Volume 85.9 85.0 Mean Corpuscular Hemoglobin 28.1 L 27.9 L Mean Corpuscular Hemoglobin Concent 32.7 32.8 Red Cell Distribution Width 13.4 13.6 Platelet Count 179 164 Mean Platelet Volume 11.1 H 11.2 H Immature Granulocytes % 0.700 H 0.300 Neutrophils % 74.3 63.6 Lymphocytes % 12.0 L 18.1 Monocytes % 10.1 12.2 H Eosinophils % 2.4 5.3 Basophils % 0.5 0.5 Nucleated Red Blood Cells % 0.0 0.0 Immature Granulocytes # 0.060 H 0.020 Neutrophils # 6.3 4.1 Lymphocytes # 1.0 1.2 Monocytes # 0.9 0.8 Eosinophils # 0.2 0.3 Basophils # 0.0 0.0 Nucleated Red Blood Cells # 0.0 0.0 Prothrombin Time 13.4 Prothrombin Time Ratio 1.0 INR International Normalized Ratio 1.01 Activated Partial Thromboplast Time 39.0 H Sodium Level 138 Potassium Level 4.1 Chloride Level 110 Carbon Dioxide Level 23 Anion Gap 5 Blood Urea Nitrogen 44 H Creatinine 3.61 H Est Glomerular Filtrat Rate mL/min 18 L Glucose Level 131 Calcium Level 8.4 Free Thyroxine 1.26 HPI/ROS Admit Date/Time Admit Date/Time Jun 16, 2018 at 18:54 Hx of Present Illness This is a 57-year-old male with a history of hypertension, diabetes, CKD (nephrotic syndrome). Patient presents the ER complaining of passing out. Pain visual disturbance. Patient was just discharged from here 3 days ago after he was initially admitted for severely elevated blood pressure and renal insufficiency. Prior to coming to the ER today, he said he found himself sitting in the car. When he woke up, he said he could not see anything except occasionally bright lights for 1 hour. He thinks he may have been unconscious or was sleeping inside his car for about 45 minutes. Denied similar problems in the past. Denied chest pain, palpitation, headache, focal weakness/numbness When he presented to the ER, head CT and brain MRI without acute findings. Carotid Doppler ultrasound also negative. His initial blood pressure was within acceptable range. PMH/Family/Social Past Medical History Medical History: other (See HPI) Medications Current Medications IV Flush (NS 3 ml) 3 ml PER PROTOCOL IV ; Start 06/16/18 at 19:00 Ondansetron HCl (Zofran Inj) 4 mg Q6H PRN IV NAUSEA/VOMITING; Start 06/16/18 at 19:00 Acetaminophen (Tylenol Tab) 650 mg Q6H PRN PO .PAIN 1-3 OR TEMP; Start 06/16/18 at 19:00 Acetaminophen/ Hydrocodone Bitart ([place] (5/325)) 1 tab Q6H PRN PO .MOD PAIN 4- 6; Start 06/16/18 at 19:00 Morphine Sulfate (morphine) 2 mg Q4H PRN IV .SEVERE PAIN 7-10; Start 06/16/18 at 19:00 Docusate Sodium (Colace) 100 mg Q12H PRN PO .CONSTIPATION; Start 06/16/18 at 19:00 Magnesium Hydroxide (Milk Of Mag) 30 ml DAILY PRN PO .CONSTIPATION; Start 06/16/18 at 19:00 Lorazepam (Ativan) 0.5 mg Q6H PRN IV ANXIETY; Start 06/16/18 at 19:00 Albuterol/ Ipratropium (Duoneb) 3 ml Q4H RESP THERAPY PRN HHN SHORTNESS OF BREATH; Start 06/16/18 at 19:00 Hydralazine HCl (Apresoline) 10 mg Q6H PRN IV ELEVATED BLOOD PRESSURE; Start 06/16/18 at 19:00 Nitroglycerin (Nitroglycerin (Sl Tab) 0.4 Mg) 1 tab Q5M PRN SL ANGINA; Start 06/16/18 at 19:00 Aspirin (Ecotrin) 325 mg DAILY PO ; Start 06/17/18 at 09:00 Insulin Aspart (Novolog Insulin Pen) NOVOLOG *MILD* ALGORITHM WITH MEALS BEDTIME SC ; Start 06/17/18 at 08:00 Carvedilol (Coreg) 6.25 mg BID PO ; Start 06/17/18 at 09:00 Ferrous Sulfate (Ferrous Sulfate (Ec)) 325 mg BID PO ; Start 06/17/18 at 09:00 Minoxidil (Loniten) 5 mg DAILY PO ; Start 06/17/18 at 09:00 Nifedipine (Procardia Xl) 30 mg BID PO ; Start 06/17/18 at 09:00 Miscellaneous Information 1 ea NOTE XX ; Start 06/16/18 at 23:00 Glucose (Glutose) 15 gm Q15M PRN PO DECREASED GLUCOSE; Start 06/16/18 at 23:00 Glucose (Glutose) 22.5 gm Q15M PRN PO DECREASED GLUCOSE; Start 06/16/18 at 23:00 Dextrose (D50w Syringe) 25 ml Q15M PRN IV DECREASED GLUCOSE; Start 06/16/18 at 23:00 Dextrose (D50w Syringe) 50 ml Q15M PRN IV DECREASED GLUCOSE; Start 06/16/18 at 23:00 Glucagon (Glucagen) 1 mg Q15M PRN IM DECREASED GLUCOSE; Start 06/16/18 at 23:00 Glucose (Glutose) 15 gm Q15M PRN BUCCAL DECREASED GLUCOSE; Start 06/16/18 at 23:00 Coded Allergies: No Known Allergy (Unverified , 06/16/18) Past Surgical History Past Surgical Hx: other (See HPI) Family History Significant Family History: no pertinent family hx Social History Alcohol Use: none Smoking Status: Never smoker Drug Use: none Exam/Review of Systems Vital Signs Vitals Vital Signs Date Temp Pulse Resp B/P (MAP) Pulse Ox O2 O2 Flow FiO2 Time Delivery Rate 06/17/18 97.5 85 19 155/82 98 04:20 (106) 06/16/18 Room Air 23:43 Exam Constitutional: alert, oriented, well developed Head: normocephalic, atraumatic Eyes: EOMI, PERRL Respiratory: clear to auscultation, normal air movement Cardiovascular: regular rate and rhythm, nl pulses Gastrointestinal: soft, non-tender Extremities: normal pulses REIC IVAN MD Jun 17, 2018 06:44
[2018-06-17] MEDS: INSULIN ASPART [NOVOLOG] 3 ML PEN SC SCH ×4 (08:00→20:35)
[2018-06-17] MEDS: NIFEdipine (XL) 30 MG TAB PO SCH ×2 (08:17→20:37)
[2018-06-17] MEDS: MINOXIDIL 2.5 MG TAB PO SCH (08:17)
[2018-06-17] MEDS: ASPIRIN (EC) 325 MG TAB PO SCH (08:18)
[2018-06-17] MEDS: FERROUS SULFATE (EC) 325 MG TAB PO SCH ×2 (08:18→20:36)
--- NOTE | 2018-06-17 10:03 | CONS ---
DATE OF ADMISSION: 06/16/2018 DATE OF CONSULTATION: 06/17/2018 TYPE OF CONSULTATION: Nephrology. REASON FOR CONSULTATION: Chronic kidney disease, nephrotic syndrome. REQUESTING PHYSICIAN: Antonio BERUMEN HISTORY OF PRESENT ILLNESS: This is a 57-year-old male with a past medical history of chronic kidney disease, history of nephrotic syndrome, history of hypertension, diabetes who was initially admitted [facility] for severe hypertension. The patient during that workup was noted to h ave nephrotic syndrome. The patient was subsequently discharged to follow up with his outpatient nep hrologist. The patient, however, 1 day prior to admission had a syncopal episode with apparent loss of vision for approximately 1 hour. The patient was then subsequently readmitted to [facility] for syncope. The patient upon arrival had a CT scan of the brain and MRI which showed n o acute findings. He was subsequently admitted to telemetry for evaluation. In terms of patient's renal history, the patient has noted nephrotic syndrome, presumed to be seconda ry to diabetic nephropathy. The initial serologic workup and on previous admission was negative. Th e patient's previous baseline creatinine was around 3.0 to 3.3 mg/dL. On admission, the patient's cr eatinine was noted to be 3.6 mg/dL. The patient states that he has had normal urine output. Denies any rashes, any hemoptysis, hematemesis or hematochezia. PAST MEDICAL HISTORY: History of diabetes, chronic kidney disease, hypothyroidism. FAMILY HISTORY: No family history of kidney disease. SOCIAL HISTORY: Does not drink, smoke or do drugs. MEDICATIONS: Have been reviewed. ALLERGIES: NO KNOWN DRUG ALLERGIES. PAST SURGICAL HISTORY: None. REVIEW OF SYSTEMS: A 14-point review of systems conducted. Pertinent positives stated in HPI, other oliver negative. PHYSICAL EXAMINATION: VITAL SIGNS: Blood pressure is 117/64, respiration is 16, pulse 85, temperature 98.5. HEENT: Head is normocephalic. NECK: Supple. HEART: Regular rate. LUNGS: Show diminished breath sounds at the base. ABDOMEN: Soft, nontender to palpation without rebound or guarding. EXTREMITIES: Negative for clubbing, cyanosis. Positive edema. DERMATOLOGIC: No rashes. MUSCULOSKELETAL: No joint effusion. NEUROLOGIC: No change in exam. The patient's medications have been reviewed. LABORATORY DATA: Shows sodium 140, potassium 3.7, BUN 42, creatinine 3.32 phosphorus 5.6. White cou nt is 6.5, hemoglobin 8.2, platelet count is 164. ASSESSMENT AND PLAN: 1. Nonoliguric acute kidney injury on top of chronic kidney disease stage IV with previous baseline creatinine around 3.0 to 3.3 mg/dL. Etiology of acute kidney injury is secondary to hemodynamics. A t this point, plan would be to check urinalysis with microanalysis, check urine electrolytes. Contin ue current treatment plan, supportive care, renally dose all meds. 2. Nephrotic syndrome. Etiology is likely due to diabetic nephropathy. The possibility of primary glomerulopathy is less likely but cannot be definitively ruled out. The patient's serological workup was negative to date. Recommendation at this point is to continue treatment plan of acute kidney in jury as stated above. Would otherwise continue disease factor modification with good glycemic and bl ood pressure control. I would consider starting NIKOLAS inhibitor once renal function is noted to be sta bilized. Will continue diuretic therapy, monitor renal function closely. 3. Hypertension. A secondary workup for hypertension was performed as the patient was also noted to be hyperkalemic. There was no evidence of Crofton syndrome, rennin aldosterone levels were within n ormal limits. At this point, will continue to monitor. Continue current blood pressure regimen. Co ntinue diuretic regimen. May consider urinary evaluation for metanephrines, although suspicion is lo w for any form of pheochromocytoma. Monitor closely. 5. Hypokalemia, improved. Continue to monitor. 6. Anemia. Monitor hemoglobin and hematocrit levels. 7. Mineral bone disorder, monitor calcium and phosphorus levels. 8. Syncope, etiology is unclear. CT scan and brain MRI were negative. Continue to monitor. 9. Visual changes. Again, etiology is unclear. Continue to monitor. Thank you, Dr. Arreaga, for this interesting consult. It will be a pleasure to follow the patient with you throughout the hospital course. Dictated By: LULÚ CONLEY/LUPE Conf#: [id number] DID#: [id number]
--- NOTE | 2018-06-17 10:36 | PN ---
Date/Time of Note Date/Time of Note DATE: 06/17/18 TIME: 10:35 Assessment/Plan VTE Prophylaxis Risk score (from Ns)>0 risk: 3 SCD applied (from Ns): Yes Pharmacological prophylaxis: NA/contraindicated Pharm contraindication: low risk/ambulating Lines/Catheters IV [facility] Peripheral IV Assessment/Plan Hospital Course SUBJECTIVE: Lying in bed comfortably. No further syncopal episode. No dizziness, vertigo, nausea, vomiting, vision changes, speech difficulties or others. OBJECTIVE: Vital signs-see below PHYSICAL EXAM: Constitutional: Well-developed, adequately built, lying in bed comfortably. Psych: nl mood/affect, no complaints Head: atraumatic, normocephalic Eyes: nl conjunctiva, nl sclera ENMT: mucosa pink and moist, nl external ears & nose Neck: non-tender, supple Respiratory: clear to auscultation, normal air movement Cardiovascular: nl pulses, regular rate and rhythm Gastrointestinal: non-tender, soft, bowel sounds active in all 4 quadrants. Musculoskeletal/extremities: nl extremities to inspection, motor strength equal bilaterally, no focal deficit. Normal pulses,no cyanosis, no edema. Neurological: Alert oriented 3,nl speech, nl strength Skin: nl turgor ASSESSMENT/PLAN: 57-year-old male with a history of chronic kidney disease, hypertension, type 2 diabetes, admitted with syncopal episode with loss of vision lasting for more than 30 minutes happened while he was driving. 1. Syncope w/ transient loss of vision, etiology unclear -Ruled out for stroke and cardiac acute events. There is also no evidence of any retinal detachment to explain transient complete loss of vision.... He could have diabetic retinopathy, however unlikely to cause complete loss of vision and syncope. At this time, further expand differential to i to possible seizure episodes versus hypoglycemic event... -We will request a neurology consultation and will order EEG study. -Patient would benefit from outpatient ophthalmology follow-up for a full RETINAL/VISION workup. 2. Essential hypertension -Now stable. Continue current antihypertensives. 3. Acute kidney injury on CKD stage IV. Baseline creatinine 3-3.3. -Currently renal function at baseline, being followed by nephrology. -Avoid nephrotoxins and monitor renal function. 4. Nephrotic syndrome, likely diabetic nephropathy. -Management per nephrology. 5. Anemia of CKD. -Stable H&H. Continue to monitor. 6 Type 2 diabetes. -A1c 8.1. Continue current insulin regimen with addition of basal DVT prophylaxis: SCDs PUD prophylaxis: Not indicated CODE STATUS: Full code Diet: Carbohydrate controlled/renal diet. Disposition: Continue current management. Follow-up nephrology and neurology recommendations. Patient was seen in collaboration with Result Diagram: 06/17/18 0507 06/17/18 0507 Results 24hrs Laboratory Tests Test 06/16/18 16:18 06/16/18 16:35 06/17/18 05:07 06/17/18 08:10 Bedside Glucose 135 139 White Blood Count 8.5 6.5 # Red Blood Count 3.20 L 2.94 L Hemoglobin 9.0 L 8.2 L Hematocrit 27.5 L 25.0 L Mean Corpuscular 85.9 85.0 Volume Mean Corpuscular 28.1 L 27.9 L Hemoglobin Mean Corpuscular 32.7 32.8 Hemoglobin Concent Red Cell 13.4 13.6 Distribution Width Platelet Count 179 164 Mean Platelet Volume 11.1 H 11.2 H Immature 0.700 H 0.300 Granulocytes % Neutrophils % 74.3 63.6 Lymphocytes % 12.0 L 18.1 Monocytes % 10.1 12.2 H Eosinophils % 2.4 5.3 Basophils % 0.5 0.5 Nucleated Red Blood 0.0 0.0 Cells % Immature 0.060 H 0.020 Granulocytes # Neutrophils # 6.3 4.1 Lymphocytes # 1.0 1.2 Monocytes # 0.9 0.8 Eosinophils # 0.2 0.3 Basophils # 0.0 0.0 Nucleated Red Blood 0.0 0.0 Cells # Prothrombin Time 13.4 Prothrombin Time 1.0 Ratio INR International 1.01 Normalized Ratio Activated 39.0 H Partial Thromboplast Time Sodium Level 138 140 Potassium Level 4.1 3.7 Chloride Level 110 112 H Carbon Dioxide Level 23 24 Anion Gap 5 4 L Blood Urea Nitrogen 44 H 42 H Creatinine 3.61 H 3.32 H Est Glomerular 18 L 19 L Filtrat Rate mL/min Glucose Level 131 110 Calcium Level 8.4 8.3 L Free Thyroxine 1.26 Hemoglobin A1c 8.1 H Phosphorus Level 5.6 H Magnesium Level 2.1 Triglycerides Level 169 H Cholesterol Level 175 LDL Cholesterol, 108 Calculated HDL Cholesterol 33 Cholesterol/HDL 5.3 Ratio Thyroid Stimulating 2.890 Hormone (TSH) Exam/Review of Systems Exam Vitals Vital Signs Date Temp Pulse Resp B/P (MAP) Pulse Ox O2 O2 Flow FiO2 Time Delivery Rate 06/17/18 87 08:28 06/17/18 98.1 20 158/74 98 Room Air 07:33 (102) Intake and Output 06/16/18 06/16/18 06/17/18 1515:00 23:00 07:00 IntakeIntake Total 125 ml BalanceBalance 125 ml Results Results 24hrs Laboratory Tests Test 06/16/18 16:18 06/16/18 16:35 06/17/18 05:07 06/17/18 08:10 Bedside Glucose 135 139 White Blood Count 8.5 6.5 # Red Blood Count 3.20 L 2.94 L Hemoglobin 9.0 L 8.2 L Hematocrit 27.5 L 25.0 L Mean Corpuscular 85.9 85.0 Volume Mean Corpuscular 28.1 L 27.9 L Hemoglobin Mean Corpuscular 32.7 32.8 Hemoglobin Concent Red Cell 13.4 13.6 Distribution Width Platelet Count 179 164 Mean Platelet Volume 11.1 H 11.2 H Immature 0.700 H 0.300 Granulocytes % Neutrophils % 74.3 63.6 Lymphocytes % 12.0 L 18.1 Monocytes % 10.1 12.2 H Eosinophils % 2.4 5.3 Basophils % 0.5 0.5 Nucleated Red Blood 0.0 0.0 Cells % Immature 0.060 H 0.020 Granulocytes # Neutrophils # 6.3 4.1 Lymphocytes # 1.0 1.2 Monocytes # 0.9 0.8 Eosinophils # 0.2 0.3 Basophils # 0.0 0.0 Nucleated Red Blood 0.0 0.0 Cells # Prothrombin Time 13.4 Prothrombin Time 1.0 Ratio INR International 1.01 Normalized Ratio Activated 39.0 H Partial Thromboplast Time Sodium Level 138 140 Potassium Level 4.1 3.7 Chloride Level 110 112 H Carbon Dioxide Level 23 24 Anion Gap 5 4 L Blood Urea Nitrogen 44 H 42 H Creatinine 3.61 H 3.32 H Est Glomerular 18 L 19 L Filtrat Rate mL/min Glucose Level 131 110 Calcium Level 8.4 8.3 L Free Thyroxine 1.26 Hemoglobin A1c 8.1 H Phosphorus Level 5.6 H Magnesium Level 2.1 Triglycerides Level 169 H Cholesterol Level 175 LDL Cholesterol, 108 Calculated HDL Cholesterol 33 Cholesterol/HDL 5.3 Ratio Thyroid Stimulating 2.890 Hormone (TSH) Medications Medication Current Medications IV Flush (NS 3 ml) 3 ml PER PROTOCOL IV ; Start 06/16/18 at 19:00 Ondansetron HCl (Zofran Inj) 4 mg Q6H PRN IV NAUSEA/VOMITING; Start 06/16/18 at 19:00 Acetaminophen (Tylenol Tab) 650 mg Q6H PRN PO .PAIN 1-3 OR TEMP; Start 06/16/18 at 19:00 Acetaminophen/ Hydrocodone Bitart ([place] (5/325)) 1 tab Q6H PRN PO .MOD PAIN 4- 6; Start 06/16/18 at 19:00 Morphine Sulfate (morphine) 2 mg Q4H PRN IV .SEVERE PAIN 7-10; Start 06/16/18 at 19:00 Docusate Sodium (Colace) 100 mg Q12H PRN PO .CONSTIPATION; Start 06/16/18 at 19:00 Magnesium Hydroxide (Milk Of Mag) 30 ml DAILY PRN PO .CONSTIPATION; Start 06/16/18 at 19:00 Lorazepam (Ativan) 0.5 mg Q6H PRN IV ANXIETY; Start 06/16/18 at 19:00 Albuterol/ Ipratropium (Duoneb) 3 ml Q4H RESP THERAPY PRN HHN SHORTNESS OF BREATH; Start 06/16/18 at 19:00 Hydralazine HCl (Apresoline) 10 mg Q6H PRN IV ELEVATED BLOOD PRESSURE; Start 06/16/18 at 19:00 Nitroglycerin (Nitroglycerin (Sl Tab) 0.4 Mg) 1 tab Q5M PRN SL ANGINA; Start 06/16/18 at 19:00 Aspirin (Ecotrin) 325 mg DAILY PO Last administered on 06/17/18at 08:18; Admin Dose 325 MG; Start 06/17/18 at 09:00 Insulin Aspart (Novolog Insulin Pen) NOVOLOG *MILD* ALGORITHM WITH MEALS BEDTIME SC ; Start 06/17/18 at 08:00 Carvedilol (Coreg) 6.25 mg BID PO Last administered on 06/17/18at 08:19; Admin Dose 6.25 MG; Start 2/27/19 at 09:00 Ferrous Sulfate (Ferrous Sulfate (Ec)) 325 mg BID PO Last administered on 06/17/18at 08:18; Admin Dose 325 MG; Start 06/17/18 at 09:00 Minoxidil (Loniten) 5 mg DAILY PO Last administered on 06/17/18at 08:17; Admin Dose 5 MG; Start 06/17/18 at 09:00 Nifedipine (Procardia Xl) 30 mg BID PO Last administered on 06/17/18at 08:17; Admin Dose 30 MG; Start 06/17/18 at 09:00 Miscellaneous Information 1 ea NOTE XX ; Start 06/16/18 at 23:00 Glucose (Glutose) 15 gm Q15M PRN PO DECREASED GLUCOSE; Start 06/16/18 at 23:00 Glucose (Glutose) 22.5 gm Q15M PRN PO DECREASED GLUCOSE; Start 06/16/18 at 23:00 Dextrose (D50w Syringe) 25 ml Q15M PRN IV DECREASED GLUCOSE; Start 06/16/18 at 23:00 Dextrose (D50w Syringe) 50 ml Q15M PRN IV DECREASED GLUCOSE; Start 06/16/18 at 23:00 Glucagon (Glucagen) 1 mg Q15M PRN IM DECREASED GLUCOSE; Start 06/16/18 at 23:00 Glucose (Glutose) 15 gm Q15M PRN BUCCAL DECREASED GLUCOSE; Start 06/16/18 at 23:00 Bumetanide (Bumex) 1 mg DAILY IV ; Start 06/17/18 at 09:00 RODRIGO CARTER NP Jun 17, 2018 10:36
[2018-06-17] MEDS: BUMETANIDE 1 MG INJ IV SCH (12:26)
[2018-06-17] MEDS: INSULIN GLARGINE [LANTus] (100 UNITS/ML) SYG SC SCH (12:32)
[2018-06-18 00:08] VITALS: BP 99/54; PULSE 82; RESP 20
[2018-06-18 00:17] VITALS: PULSE 79
--- NOTE | 2018-06-18 01:14 | CONS ---
DATE OF ADMISSION: 06/16/2018 DATE OF CONSULTATION: 06/17/2018 TYPE OF CONSULTATION: Neurology. Thank you for your kind referral for evaluation of bilateral visual impairment. HISTORY OF PRESENT ILLNESS: The patient is a 57-year-old gentleman with past medical history of diab etes, hemoglobin A1c 8.8, acute on chronic kidney insufficiency, recent admission last week for hyper tensive urgency, hypertension of course, who yesterday and the day of admission drove to work an d then asked to stop by some grocery when he drove to the grocery store, he felt somewhat tired and h e was not sure what exactly happened to him whether he fell asleep in the parking lot, but when he wo ke up, he stated that he could not see anything but was seeing very bright lights in both eyes like a strong flashlights pointing to the eyes. That sensation lasted for approximately 10 to 15 minutes a nd started improving gradually. He was able to ask someone in the parking lot passing by to dial his daughter who came to pick him up and brought to emergency room. Gradually over several hours, maybe 3 hours, his symptoms resolved. Initially bright light disappeared. He was still seeing blurry but that went away as well. He had CAT scan of the head, which did not show any acute abnormality, foll owed by MRI of the brain, which was also read as normal study. He did not have any headache with or following the visual abnormality. He does not have any history of seizures. He never had similar ep isodes before. He did not have any eye pain. On admission sugars and blood pressure was within norm al limits. LABORATORY DATA: On admission, hemoglobin 9.0, hematocrit 27, normal WBCs and platelets. BUN was 44 , creatinine 3.61. Normal basic metabolic panel otherwise. He had similar numbers or almost similar numbers maybe slightly worsening of renal function since few days ago. ALLERGIES: NONE. MEDICATIONS: Prior to admission were: 1. Iron. 2. Minoxidil. 3. Coreg. 4. Bumex. 5. Nifedipine. 6. Carvedilol. 7. Nifedipine. 8. Januvia. 9. Currently, he is on insulin. 10. Aspirin. IMAGING: He had carotid ultrasound within normal limits as well. ALLERGIES: NONE. SOCIAL HISTORY: No alcohol, tobacco, or drug use. FAMILY HISTORY: Noncontributory. PHYSICAL EXAMINATION: VITAL SIGNS: Temperature 98.3, pulse 56, respirations 20, blood pressure 129/61. GENERAL: Not in acute distress, lying in bed. HEENT: Normocephalic, atraumatic. NECK: No carotid bruits. No thyromegaly. LUNGS: Clear to auscultation bilaterally. CARDIAC: Normal cardiac rhythm and sounds. ABDOMEN: Soft, nontender. EXTREMITIES: No cyanosis, clubbing or edema. NEUROLOGIC: He is awake, alert, and oriented x3 with fluent speech. Cranial nerve examination shows intact visual beverly bilaterally. Pupils sluggishly reactive from 3 to 2 mm. Extraocular movements intact without nystagmus. Symmetrical face. Preserved facial strength and sensation. Tongue is in midline. Palate elevates symmetrically. Motor strength examination seems to be preserved in all ex tremities. Normal bulk, tone, and strength. Sensory examination grossly intact to light touch and p ain. Deep tendon reflexes 2+ upper extremities, absent in lower extremities. Downgoing toes bilater ally. Coordination preserved on qlmexf-sp-oanjhj testing. No dysmetria or tremor. Gait was not ass essed. He denied any gait abnormality. IMPRESSION AND PLAN: Transient episode of visual impairment. The patient was seeing very bright lig ht in both eyes, especially severe for 10-15 minutes gradually resolved with transient blurry vision and a full recovery in about 3 hours. Etiology of the symptoms is unclear to me. I doubt that the e pisode was related to transient ischemic attack given that he develops not visual loss but he was see ing light. I doubt seizure, given that I would think that a bilateral symptom would not be possible without alteration of consciousness. The patient had episode of hypertensive urgency or emergency la week and at times it could be associated with so-called PRES syndrome, which is a transient cook vegetable ior reversible encephalopathy syndrome, but usually it is accompanied by abnormality on MRI, which ara daley does not have plus his blood pressure resolved and he does not have any headaches. Another pos sibility of migraine would be probably on differential, although he did have headache either during o r after this episode so such a variety as a migraine variant, which is or without true headache is di fferential, though patient has no previous history of similar episodes so not very likely. Also I do not think that primarily ophthalmologic etiology of the symptoms could occur at the same time bilate rally though modulation should be needed. We do not know if maybe the patient had a low blood pressu re, somehow it was responsible for visual changes, I am not sure, at least it seems that we are not m issing any abnormality, his workup essentially is done. I will review EEG, which was recorded. I th ink the most plausible possibility is migraine variants. Keep patient normotensive, euglycemic. Continue aspirin. Venous thrombosis, probably also not on differential, given there is no abnormality on MRI and sympto ms were very transient. Thank you very much for this interesting consultation. Dictated By: ELOY ZABALA MD YV/LUPE Conf#: [id number] DID#: [id number] CC: ELOY ZABALA MD; ERIC IVAN MD;*End*
[2018-06-18 04:16] VITALS: BP 106/57; PULSE 78; RESP 20
[2018-06-18 04:25] VITALS: PULSE 81
[2018-06-18 07:29] VITALS: BP 122/62; PULSE 80; RESP 20
[2018-06-18] MEDS: INSULIN ASPART [NOVOLOG] 3 ML PEN SC SCH (07:46)
[2018-06-18] MEDS: INSULIN GLARGINE [LANTus] (100 UNITS/ML) SYG SC SCH (08:06)
[2018-06-18 08:19] VITALS: PULSE 85
[2018-06-18] MEDS: FERROUS SULFATE (EC) 325 MG TAB PO SCH (08:29)
[2018-06-18] MEDS: ASPIRIN (EC) 325 MG TAB PO SCH (08:30)
[2018-06-18] MEDS: MINOXIDIL 2.5 MG TAB PO SCH (08:31)
[2018-06-18] MEDS: NIFEdipine (XL) 30 MG TAB PO SCH (08:31)
[2018-06-18] MEDS: BUMETANIDE 1 MG INJ IV SCH (08:32)
--- NOTE | 2018-06-18 08:47 | PN ---
DATE: 06/18/2018 SUBJECTIVE: The patient is stable, no events overnight. OBJECTIVE: VITAL SIGNS: Blood pressure is 122/62, pulse 85, respirations 20, temperature 98.1. HEENT: Head is normocephalic. NECK: Supple. HEART: Regular rate. LUNGS: Show diminished breath sounds at the base. ABDOMEN: Soft, nontender to palpation without rebound or guarding. EXTREMITIES: Negative for clubbing, cyanosis. Positive edema. DERMATOLOGIC: No rashes. MUSCULOSKELETAL: No joint effusion. NEUROLOGIC: No change in exam. MEDICATIONS: The patient's medications have been reviewed. LABORATORY DATA: Shows white count 7.2, hemoglobin 7.8, platelet count is 173. Sodium 140, BUN 41, creatinine 3.34. ASSESSMENT AND PLAN: 1. Nonoliguric acute kidney injury on top of chronic kidney disease stage IV with previous baseline creatinine of 3.0 to 3.3 mg/dL. Etiology of acute kidney injury is secondary to hemodynamics. The p atient's renal function appears to have stabilized. At this point, we will continue current treatmen t plan, supportive care, renally dose all medicines. Urinalysis was reviewed, no evidence of active sediment. 2. Nephrotic syndrome secondary to diabetic nephropathy. The possibility of primary glomerulopathy is less likely but cannot be definitively ruled out. The patient's serological workup has been negat bobby to date. At this point, we would continue current treatment plan as stated above. We will rené nue disease factor modification, good glycemic and blood pressure control. Continue diuretic therapy . If renal function remains stable, we would then reintroduce NIKOLAS inhibitor and monitor closely. Pl ease note I did speak with the patient about the possibility of renal biopsy. The patient is to foll ow up with his primary military technology specialist for further evaluation. 3. Hypertension. The patient had a secondary workup, which was noted to be negative. At this point , continue current medical management. Continue diuretics and adjust blood pressure medications as n eeded. 4. Hyperkalemia, improved. 5. Anemia. Monitor hemoglobin and hematocrit levels. 6. Mineral bone disorder. Continue to monitor calcium and phosphorus levels. 7. Syncope, etiology is unclear, possible vasovagal, continue to monitor. Follow up with neurology. The patient is pending EEG to rule out seizures. Dictated By: LULÚ CONLEY/LUPE Conf#: [id number] [facility]#: [id number] CC: ELOY ZABALA MD; ERIC IVAN MD;*[facility]*
[2018-06-18] MEDS ORDERED: HEPARIN 5,000 UNIT/1 ML VIAL SC SCH (09:00)
[2018-06-18] MEDS ORDERED: LISINOPRIL 5 MG TAB PO SCH (09:00)
--- NOTE | 2018-06-18 09:46 | PDOCDIS ---
Discharge Instructions CONDITION [id number] Patient Condition: [id number] Stable HOME CARE INSTRUCTIONS: [id number] Your diet recommendation is: [id number] Carbohydrate controlled/renal diet. FOLLOW UP/APPOINTMENTS Follow-up Plan Follow-up with primary care physician in 1 week Follow-up with chisel trimmer after discharge. If you did not have a chisel trimmer, you may call Dr. López's office and check with him if he can see you in his clinic. RODRIGO CARTER NP Jun 18, 2018 09:46
[2018-06-18] MEDS ORDERED: LISI-313 PO (09:48)
[2018-06-18] MEDS ORDERED: ASPI-817 PO (09:48)
--- NOTE | 2018-06-18 09:58 | DS ---
Date/Time of Note Date/Time of Note DATE: 06/18/18 TIME: 09:51 Discharge Summary Admission/Discharge Info Admit Date/Time Jun 16, 2018 at 18:54 Discharge Date/Time Discharge Diagnosis 1. Syncope w/ transient loss of vision, etiology unclear. Ruled out for acute cardiac/neurovascular/ophthalmology events. 2. Essential hypertension 3. Acute kidney injury on CKD stage IV. Baseline creatinine 3-3.3. 4. Nephrotic syndrome, likely diabetic nephropathy. 5. Anemia of CKD. 6 Type 2 diabetes. Patient Condition: Stable Consults Dr. López, nephrology , neurologist Procedures 06.16.2018. Orbits ultrasound. IMPRESSION: 1. No retinal detachment. 2. Multiple punctate low level echoes in bilateral posterior chambers which can be seen with age related vitreous degeneration. No convincing evidence of vitreous hemorrhage. 06/17/2018. MRI brain without contrast. IMPRESSION: No definite acute intracranial abnormality. 06/16/2018. CT head noncontrast. IMPRESSION: No acute intracranial hemorrhage or extra-axial fluid collection. Further findings as detailed above. 06/16/2018. Carotid duplex. IMPRESSION: No evidence for hemodynamically significant stenosis in the bilateral internal carotid arteries - validated velocity measurements with angiographic measurements, velocity criteria are extrapolated from diameter data as defined by the Society of Radiologists in Ultrasound Consensus Conference Radiology 2003; 229;340-346. This study does indirectly reference the measurement of the distal ICA diameter as the denominator for stenosis measurement. Normal antegrade flow in the vertebral arteries bilaterally. Hospital Course 57-year-old male with a history of chronic kidney disease, hypertension, type 2 diabetes, admitted with syncopal episode with loss of vision lasting for more than 30 minutes happened while he was driving. Patient had extensive workup, unrevealing for any acute abnormalities, cardiac ischemic events, neurovascular events, seizure activities, retinal detachment or others. Patient was being followed by neurologist and principal statistical scientist. Patient also has chronic kidney disease stage IV with a baseline creatinine 3-3.3 mg per dilution. Could also have nephrotic syndrome secondary to diabetes. Patient's renal function remained at this baseline. He was able to make urine adequate. Patient's labs and vital signs remained stable. At this time, etiology of his symptoms remain unclear although patient could have a migraine variant or possible hypoglycemic events or blood pressure variance. Patient did not have any further symptoms. He was able to tolerate activities well. At this time, no further inpatient medical workup indicated and patient to follow-up with his primary care physician, principal statistical scientist and an official ophthalmology evaluation. Patient verbalized understanding. Approximately 60 minutes was spent on coordinating the discharge on this patient. Patient was seen in collaboration with Dr. Reinoso. Home Meds Active Scripts Aspirin* (Aspirin* EC) 81 Mg Tablet., 81 MG PO DAILY, #30 TAB Prov:RODRIGO CARTER V. SERVICE DELIVERY MANAGEMENT CONSULTANT 06/18/18 Lisinopril* (Lisinopril*) 5 Mg Tablet, 5 MG PO DAILY, #30 TAB Prov:RODRIGO CARTER V. SERVICE DELIVERY MANAGEMENT CONSULTANT 06/18/18 Ferrous Sulfate* (Ferrous Sulfate*) 325 Mg Tabec, 325 MG PO BID, #60 TAB Prov:LUZ HELLER SERVICE DELIVERY MANAGEMENT CONSULTANT 06/14/18 Repaglinide* (Prandin*) 1 Mg Tablet, 1 MG PO AC MEALS, #90 TAB Prov:LUZ HELLER SERVICE DELIVERY MANAGEMENT CONSULTANT 06/14/18 Sitagliptin* (Januvia*) 50 Mg Tablet, 50 MG PO DAILY, #30 TAB Prov:LUZ HELLER SERVICE DELIVERY MANAGEMENT CONSULTANT 06/14/18 Nifedipine (Procardia Xl) 30 Mg Tab.er.24, 30 MG PO BID, #60 TAB Prov:LUZ HELLER SERVICE DELIVERY MANAGEMENT CONSULTANT 06/14/18 Carvedilol* (Carvedilol*) 6.25 Mg Tablet, 6.25 MG PO BID, #60 TAB Prov:LUZ HELLER SERVICE DELIVERY MANAGEMENT CONSULTANT 06/14/18 Reported Medications Minoxidil* (Lonitin*) 2.5 Mg Tab, 5 MG PO DAILY for 30 Days, #120 06/10/18 Discontinued Reported Medications Furosemide* (Furosemide*) 40 Mg Tablet, 40 MG DAILY for 30 Days, #30 06/10/18 Metoprolol Succinate* (Toprol XL*) 25 Mg Tab.sr.24h, 25 MG PO DAILY for 30 Days, #30 06/10/18 Furosemide* (Furosemide*) 20 Mg Tablet, 20 MG PO DAILY for 30 Days, #30 06/10/18 Potassium Chloride* (Potassium Chloride*) 20 Meq Tablet.er, 20 MEQ PO DAILY for 30 Days, #30 06/10/18 Lisinopril* (Lisinopril*) 40 Mg Tablet, 40 MG PO DAILY for 30 Days, #30 06/10/18 Metformin* (Glucophage*) Unknown Strength Tab, PO BID, #20 TAB 02/27/16 Discontinued Scripts Albuterol Sulfate* (Proair HFA*) 8.5 Gm Hfa.aer.ad, 2 PUFF INH Q4H PRN for WHEEZING AND SOB, #1 INHALER Prov:BINTA GARNER NP 05/23/16 Follow-up Plan Follow-up with primary care physician in 1 week Follow-up with principal statistical scientist after discharge. If you did not have a principal statistical scientist, you may call Dr. López's office and check with him if he can see you in his clinic. Primary Care Provider Not On Staff Doctor Pending Labs Laboratory Tests Test 06/17/18 11:34 06/17/18 15:58 06/17/18 17:08 06/17/18 20:33 Bedside 169 122 155 Glucose mg/dL (70-220) mg/dL (70-220) mg/dL (70-220) Urine Color STRAW (YELLOW) Urine Clarity CLEAR (CLEAR) Urine pH 5.0 (5.0-9.0) Urine Specific 1.009 (1.003-1 [place] .030) Urine Ketones NEGATIVE mg/dL (NEGATIV E) Urine Nitrite NEGATIVE mg/dL (NEGATIV E) Urine NEGATIVE Bilirubin mg/dL (NEGATIV E) Urine NEGATIVE Urobilinogen mg/dL (NEGATIV E) Urine Leukocyte NEGATIVE David/u Esterase l Urine 6 /HPF (0-5) Microscopic RBC Urine 1 /HPF (0-5) Microscopic WBC Urine Bacteria FEW /HPF (NONE SEEN) Urine 1+ Hemoglobin mg/dL (NEGATIV E) Urine Random 37.41 Creatinine mg/dl (20-370) Urine Random 94 Sodium mmol/L (30-90) Urine Glucose 2+ mg/dL (NEGATIV E) Urine Total 304.0 Protein mg/dl (0.0-11. 9) Test 06/18/18 06:00 06/18/18 07:43 White Blood 7.2 Count 10^3/ul (4.8-10 .8) Red Blood 2.74 Count 10^6/ul (4.70-6 .10) Hemoglobin 7.8 g/dl (14.0-18.0 ) Hematocrit 23.7 % (42.0-52.0) Mean 86.5 Corpuscular fl (82.0-101.0) Volume Mean 28.5 Corpuscular pg (29.0-33.0) Hemoglobin Mean 32.9 Corpuscular g/dl (32.0-37.0 Hemoglobin Conc ) ent Red Cell 13.5 Distribution % (11.5-14.5) Width Platelet Count 173 10^3/UL (140-41 5) Mean Platelet 11.2 Volume fl (7.4-10.4) Immature 0.700 Granulocytes % % (0.001-0.429) Neutrophils % 65.8 % (39.0-77.0) Lymphocytes % 17.6 % (15.0-51.0) Monocytes % 11.5 % (0.0-11.0) Eosinophils % 4.0 % (0.0-7.0) Basophils % 0.4 % (0.0-2.0) Nucleated Red 0.0 Blood Cells % /100WBC (0.0-0. 0) Immature 0.050 Granulocytes # 10^3/ul (0.0-0. 031) Neutrophils # 4.7 10^3/ul (1.6-7. 5) Lymphocytes # 1.3 10^3/ul (0.8-2. 9) Monocytes # 0.8 10^3/ul (0.3-0. 9) Eosinophils # 0.3 10^3/ul (0.0-0. 5) Basophils # 0.0 10^3/ul (0.0-0. 1) Nucleated Red 0.0 Blood Cells # 10^3/ul (0.0-0. 0) Sodium Level 140 mmol/L (135-144 ) Potassium 3.6 Level mmol/L (3.5-5.1 ) Chloride Level 108 mmol/L (97-110) Carbon Dioxide 26 Level mmol/L (21-31) Anion Gap 6 (5-13) Blood Urea 41 mg/dl (7-20) Nitrogen Creatinine 3.34 mg/dl (0.61-1.2 4) Est Glomerular 19 mL/min (>60) Filtrat Rate mL/min Glucose Level 92 mg/dl (70-220) Calcium Level 8.1 mg/dl (8.4-10.2 ) Bedside 105 Glucose mg/dL (70-220) RODRIGO CARTER NP Jun 18, 2018 09:58
--- NOTE | 2018-06-18 10:38 | SP ---
DATE OF PROCEDURE: 06/17/2018 INDICATION: The patient is a 57-year-old gentleman with episodes of transient visual changes. DESCRIPTION OF PROCEDURE: Routine EEG was recorded digitally. Onxrz-rx-zxqeb and pqmox-cj-veu cierra ges were recorded and reviewed. All impedances were measured and recorded. Cap electrodes were plac ed in accordance with International 10-20 system of electrode placement. FINDINGS: Symmetrically distributed background activity of low amplitude ranging in frequency, most of the recording 2 to 4 cycles per second, at times builds up to 8 cycles per second was seen. Photi c stimulation produces no definite driving. Eye opening attenuates the background. Hyperventilation elicits no epileptiform activity. No definite epileptiform transients were seen. There are intermi ttent movement and muscle artifacts present. No signs of ongoing electrographic seizures or laterali zed slowing. IMPRESSION: Mildly abnormal study secondary to generalized intermittent background slowing which may reflect encephalopathy, possibly toxic metabolic etiology. Correlate clinically. The patient has baseline renal insufficiency. Dictated By: ELOY ALVARADO/LUPE Conf#: [id number] DID#: [id number] CC: ERIC IVAN MD;*EndCC*
== END 2018-06-18 11:10 | disposition home or self-care (01) ==
LOC: E/R 15:39 → 6WM 18:54
PROVIDERS: ADMIT Internal Medicine; ATTEND Internal Medicine
DX: R55 Syncope and collapse (principal); H54.7 Unspecified visual loss; H53.9 Unspecified visual disturbance; I12.9 Hypertensive chronic kidney disease with stage 1 through stage 4 chronic kidney disease, or unspecified chronic kidney disease; N18.4 Chronic kidney disease, stage 4 (severe); E11.21 Type 2 diabetes mellitus with diabetic nephropathy; D63.1 Anemia in chronic kidney disease
CPT/HCPCS: 36415; 70450; 70551; 76536; 80048; 80061; 81001; 81003; 82043; 82962; 83036; 83735; 84100; 84155; 84300; 84439; 84443; 85025; 85610; 85730; 92610; 93005; 93880; 95819; 97116; 97162; 97166; J1644; J1815; Z7500; Z7502; Z7610; G0378

== ENCOUNTER 2018-11-08 00:27 | Inpatient (IN) | payer OTHER ==
[~2018-11-08] VITALS: Ht 170.2 cm; Wt 87.3 kg
[~2018-11-08 00:27] MED LIST changes: +ASPI-817 PO; +LISI-313 PO
--- NOTE | 2018-11-08 00:41 | ERD ---
ER Documentation Chief Complaint Chief Complaint HPI This is a 58-year-old man with a history of multiple medical conditions brought [facility] by EMS [facility] for complaints of chest pain. Patient is an extremely poor historian and does not recall anything about why he is here but simply states he had chest pain which was uncomfortable and felt like his previous episode of heart attack. He denies fevers or chills, no cough, no vomiting or diarrhea. ROS All systems reviewed and are negative except as per history of present illness. Medications Home Meds Active Scripts Aspirin* (Aspirin* EC) 81 Mg Tablet.dr, 81 MG PO DAILY, #30 TAB Prov:RODRIGO CARTER V. FIRE BATTALION CHIEF 06/18/18 Lisinopril* (Lisinopril*) 5 Mg Tablet, 5 MG PO DAILY, #30 TAB Prov:RODRIGO CARTER V. FIRE BATTALION CHIEF 06/18/18 Ferrous Sulfate* (Ferrous Sulfate*) 325 Mg Tabec, 325 MG PO BID, #60 TAB Prov:LUZ HELLER FIRE BATTALION CHIEF 06/14/18 Repaglinide* (Prandin*) 1 Mg Tablet, 1 MG PO AC MEALS, #90 TAB Prov:LUZ HELLER FIRE BATTALION CHIEF 06/14/18 Sitagliptin* (Januvia*) 50 Mg Tablet, 50 MG PO DAILY, #30 TAB Prov:LUZ HELLER FIRE BATTALION CHIEF 06/14/18 Nifedipine (Procardia Xl) 30 Mg Tab.er.24, 30 MG PO BID, #60 TAB Prov:LUZ HELLER NP 06/14/18 Carvedilol* (Carvedilol*) 6.25 Mg Tablet, 6.25 MG PO BID, #60 TAB Prov:LUZ HELLER FIRE BATTALION CHIEF 06/14/18 Reported Medications Minoxidil* (Lonitin*) 2.5 Mg Tab, 5 MG PO DAILY for 30 Days, #120 06/10/18 Allergies Allergies: Coded Allergies: No Known Allergy (Unverified , 06/16/18) PMhx/Soc CAD, history of NV, history of intracranial hemorrhage and residual dysphagia and bedbound state, chronic kidney disease has had hemodialysis, hypertension, diabetes mellitus, BPH, GERD, gastritis, nephrotic syndrome History of Surgery: No Anesthesia Reaction: No Hx Neurological Disorder: No Hx Respiratory Disorders: No Hx Cardiac Disorders: Yes (HTN, Hyperlipidemia) Hx Psychiatric Problems: No Hx Miscellaneous Medical Probl: Yes (HTN, dysplipidemia, anemia, CKD, DMII) Hx Alcohol Use: No Hx Substance Use: No Hx Tobacco Use: No Physical Exam Vitals Vital Signs Date Temp Pulse Resp B/P (MAP) Pulse Ox O2 O2 Flow FiO2 Time Delivery Rate 11/08/18 73 22 123/62 99 Room Air 00:40 (82) 11/08/18 96.6 72 20 124/60 99 00:37 (81) Per nurse's records Physical Exam Const: No acute distress, nontoxic in appearance, afebrile Resp: Poor breath sounds bilaterally, crackles, no wheezing or stridor Cardio: Regular rate and rhythm, no murmurs Ext: No cyanosis, 2+ pitting edema in the lower extremities bilaterally, calves are symmetrical, distal pulses equal bilateral Neur: Awake and alert x2, no focal deficits or facial asymmetry, patient able to answer simple questions and follow simple commands Psych: Normal Mood and Affect Result Diagram: 11/08/18 0138 11/08/18 0050 Results 24 hrs Laboratory Tests Test 11/08/18 00:50 11/08/18 01:38 Sodium Level 137 mmol/L Potassium Level 4.0 mmol/L Chloride Level 107 mmol/L Carbon Dioxide Level 25 mmol/L Anion Gap 5 Blood Urea Nitrogen 9 mg/dl Creatinine 1.97 mg/dl Est Glomerular Filtrat Rate mL/min 35 mL/min Glucose Level 90 mg/dl Calcium Level 8.1 mg/dl Total Bilirubin 0.3 mg/dl Direct Bilirubin 0.00 mg/dl Indirect Bilirubin 0.3 mg/dl Aspartate Amino Transf (AST/SGOT) 25 IU/L Alanine Aminotransferase (ALT/SGPT) 17 IU/L Alkaline Phosphatase 116 IU/L Troponin I < 0.012 ng/ml B-Type Natriuretic Peptide 7980 PG/ML Total Protein 5.5 g/dl Albumin 2.3 g/dl Globulin 3.20 g/dl Albumin/Globulin Ratio 0.71 Lipase 14 U/L White Blood Count 5.5 10^3/ul Red Blood Count 3.12 10^6/ul Hemoglobin 8.8 g/dl Hematocrit 27.0 % Mean Corpuscular Volume 86.5 fl Mean Corpuscular Hemoglobin 28.2 pg Mean Corpuscular Hemoglobin Concent 32.6 g/dl Red Cell Distribution Width 14.7 % Platelet Count 141 10^3/UL Mean Platelet Volume 9.9 fl Immature Granulocytes % 0.700 % Neutrophils % 69.6 % Lymphocytes % 13.2 % Monocytes % 11.8 % Eosinophils % 3.8 % Basophils % 0.9 % Nucleated Red Blood Cells % 0.0 /100WBC Immature Granulocytes # 0.040 10^3/ul Neutrophils # 3.9 10^3/ul Lymphocytes # 0.7 10^3/ul Monocytes # 0.7 10^3/ul Eosinophils # 0.2 10^3/ul Basophils # 0.1 10^3/ul Nucleated Red Blood Cells # 0.0 10^3/ul Procedures/MDM IV line was established patient was placed on hall monitor rhythm strip revealed a sinus rhythm at about 70 bpm with upright P and T waves. Patient was afebrile EKG performed, read by me revealed a normal sinus rhythm at 72 bpm, left axis deviation, right ventricular conduction delay QRS duration of 106 ms, diffuse flattened P and T waves, no concerning ST elevations or depressions noted 1 view chest x-ray performed, read by me reveals cardiomegaly and bilateral vascular congestion, no acute infiltrates, no pneumothorax. Patient did receive aspirin 324 mg p.o. prior to arrival. CBC reveals anemia with a hemoglobin of 8.8, electrolytes are unremarkable, liver function tests are normal, troponin was negative, BNP was elevated Patient is without complaints of chest pain at this time although he has a concerning past medical history and did have chest pain prior to arrival, he will be admitted to telemetry for continued medical management and cardiology consultation Departure Diagnosis: Primary Impression: Chest pain Chest pain type: unspecified Qualified Codes: R07.9 - Chest pain, uns pecified Additional Impressions: Acute pulmonary edema Nephrotic syndrome End stage kidney disease Condition: MIRELA Espana MD Nov 08, 2018 00:41
[2018-11-08 03:26] VITALS: BP 154/73; PULSE 76; RESP 20
[2018-11-08 03:31] VITALS: Ht 170.2 cm; Wt 87.3 kg
[2018-11-08] MEDS ORDERED: ONDANSETRON 4 MG INJ IV PRN (04:30)
[2018-11-08] MEDS ORDERED: NACL 0.9% 3 ML SYG IV SCH (04:30)
[2018-11-08] MEDS ORDERED: NITROGLYCERIN (SL) 0.4 MG TAB SL PRN (04:30)
[2018-11-08] MEDS ORDERED: ALBUTEROL/IPRATROPIUM (NEB) 3 ML AMP HHN PRN (04:30)
[2018-11-08] MEDS ORDERED: ACETAMINOPHEN 325 MG TAB PO PRN (04:30)
--- NOTE | 2018-11-08 07:11 | HP ---
Date/Time of Note Date/Time of Note DATE: 11/08/18 TIME: 07:06 Assessment/Plan VTE Prophylaxis Pharmacological prophylaxis: heparin Lines/Catheters IV Catheter Type (from Nrs): Saline Lock Urinary Cath still in place: No (CONDOM CATH) Assessment/Plan Assessment/Plan 1. Chest pain: Rule out ACS -Aspirin, statin. As needed nitro -Serial troponin -2D echo cardiology consult 2. CVA with left-sided deficit -Continue antiplatelet and statin -Obtain head CT to make sure there is no acute component 3. Type 2 diabetes: Insulin while in-house 4. CKD: Nephrology consult 5. Hypertension: Adjust BP meds as needed 6. Anemia of chronic disease: Monitor H&H and transfuse as needed Result Diagram: 11/08/18 0138 11/08/18 0050 Results 24hrs Laboratory Tests Test 11/08/18 00:50 11/08/18 01:38 11/08/18 04:48 Sodium Level 137 Potassium Level 4.0 Chloride Level 107 Carbon Dioxide Level 25 Anion Gap 5 Blood Urea Nitrogen 9 Creatinine 1.97 H Est Glomerular Filtrat Rate mL/min 35 L Glucose Level 90 Calcium Level 8.1 L Total Bilirubin 0.3 Direct Bilirubin 0.00 Indirect Bilirubin 0.3 Aspartate Amino Transf (AST/SGOT) 25 Alanine Aminotransferase (ALT/SGPT) 17 Alkaline Phosphatase 116 Troponin I < 0.012 < 0.012 B-Type Natriuretic Peptide 7980 H Total Protein 5.5 L Albumin 2.3 L Globulin 3.20 Albumin/Globulin Ratio 0.71 Lipase 14 L White Blood Count 5.5 # Red Blood Count 3.12 L Hemoglobin 8.8 L Hematocrit 27.0 L Mean Corpuscular Volume 86.5 Mean Corpuscular Hemoglobin 28.2 L Mean Corpuscular Hemoglobin Concent 32.6 Red Cell Distribution Width 14.7 H Platelet Count 141 Mean Platelet Volume 9.9 Immature Granulocytes % 0.700 H Neutrophils % 69.6 Lymphocytes % 13.2 L Monocytes % 11.8 H Eosinophils % 3.8 Basophils % 0.9 Nucleated Red Blood Cells % 0.0 Immature Granulocytes # 0.040 H Neutrophils # 3.9 Lymphocytes # 0.7 L Monocytes # 0.7 Eosinophils # 0.2 Basophils # 0.1 Nucleated Red Blood Cells # 0.0 Creatine Kinase 107 Creatine Kinase Index 2.6 Creatinine Kinase MB (Mass) 2.76 H HPI/ROS Admit Date/Time Admit Date/Time Nov 08, 2018 at 01:53 Hx of Present Illness Patient is a 58-year-old male with a history of hypertension, type 2 diabetes, CKD, CVA, self-reported " mild heart attack". Patient presents the ER from [facility] complaining of chest pain. Pain is mainly left-sided and he said is been going on for the past several days. Patient has issue with memory and is not a very good historian. He also told me that " I have a stroke in the past 48 hours". On further questioning however, he said he had 2 strokes in the past, less than a year ago. He does have significant left upper extremity weakness, which he said was from previous stroke. He is aware of his memory problem. He also asked to contact his daughter and other family members for more information. When he presented to ER, vitals were stable. First troponin is negative and EKG without ST-T wave abnormalities. Chest x-ray shows mild pulmonary vascular congestion. PMH/Family/Social Past Medical History Medical History: other (see hpi) Medications Current Medications IV Flush (NS 3 ml) 3 ml PER PROTOCOL IV ; Start 11/08/18 at 04:30 Ondansetron HCl (Zofran Inj) 4 mg Q6H PRN IV NAUSEA/VOMITING; Start 11/08/18 at 04:30 Nitroglycerin (Nitroglycerin (Sl Tab) 0.4 Mg) 1 tab Q5M PRN SL .CHEST PAIN; Start 11/08/18 at 04:30 Acetaminophen (Tylenol Tab) 650 mg Q6H PRN PO .PAIN 1-3 OR TEMP; Start 11/08/18 at 04:30 Heparin Sodium (Porcine) (Heparin (5000 Units/1ml)) 5,000 unit Q12 SC ; Start 11/08/18 at 09:00 Albuterol/ Ipratropium (Duoneb) 3 ml Q2H RESP THERAPY PRN HHN SHORTNESS OF BREATH; Start 11/08/18 at 04:30 Aspirin (Halfprin) 81 mg DAILY PO ; Start 11/08/18 at 09:00 Carvedilol (Coreg) 6.25 mg BID PO ; Start 11/08/18 at 09:00 Ferrous Sulfate (Ferrous Sulfate (Ec)) 325 mg BID PO ; Start 11/08/18 at 09:00 Lisinopril (Zestril) 5 mg DAILY PO ; Start 11/08/18 at 09:00 Minoxidil (Loniten) 5 mg DAILY PO ; Start 11/08/18 at 09:00 Nifedipine (Procardia Xl) 30 mg BID PO ; Start 11/08/18 at 09:00 Coded Allergies: No Known Allergy (Unverified , 06/16/18) Past Surgical History Past Surgical Hx: other (see hpi) Family History Significant Family History: no pertinent family hx Social History Alcohol Use: other (unknown) Smoking Status: Never smoker Drug Use: other (unknown) Exam/Review of Systems Vital Signs Vitals Vital Signs Date Temp Pulse Resp B/P (MAP) Pulse Ox O2 O2 Flow FiO2 Time Delivery Rate 11/08/18 Nasal 04:17 Cannula 11/08/18 98.1 76 20 154/73 95 03:26 (100) Exam Constitutional: other (no fully oriented) Head: normocephalic, atraumatic Eyes: PERRL Respiratory: normal air movement Cardiovascular: regular rate and rhythm Gastrointestinal: soft Extremities: normal pulses Neurological: other (left UE weakness, not fully oriented) ERIC IVAN MD Nov 08, 2018 07:11
[2018-11-08 07:42] VITALS: BP 151/70; PULSE 72; RESP 20
[2018-11-08] MEDS ORDERED: ASPIRIN (EC) 81 MG TAB PO SCH (09:00)
[2018-11-08] MEDS: HEPARIN 5,000 UNIT/1 ML VIAL SC SCH ×2 (10:00→20:40)
[2018-11-08] MEDS: FERROUS SULFATE (EC) 325 MG TAB PO SCH ×2 (10:01→20:37)
[2018-11-08] MEDS: NIFEdipine (XL) 30 MG TAB PO SCH ×2 (10:02→20:37)
[2018-11-08] MEDS: LISINOPRIL 5 MG TAB PO SCH (10:02)
[2018-11-08] MEDS: MINOXIDIL 2.5 MG TAB PO SCH (10:02)
[2018-11-08 12:02] VITALS: BP 163/80; PULSE 86; RESP 18
--- NOTE | 2018-11-08 13:15 | PN ---
Date/Time of Note Date/Time of Note DATE: 11/08/18 TIME: 13:07 Assessment/Plan VTE Prophylaxis Risk score (from Ns)>0 risk: 5 SCD applied (from Ns): No SCD contraindicated: other Pharmacological prophylaxis: NA/contraindicated Pharm contraindication: other (Possible hemorrhagic brain bleed) Lines/Catheters [facility] Saline Lock Urinary Cath still in place: No Assessment/Plan Hospital Course Assessment and plan #Chest pain Rule out ACS Family Resource Management Specialist follow Monitor troponin Follow-up on echocardiogram Monitor on telemetry Continue on ASA, statin #CVA with left-sided deficit Recent CT scan of the brain with showed: Limited study. Probable subacute right MCA territory infarct with hemorrhage within posteriorly. Discussed case with patient's family. They did report patient did have recent hospitalization at [facility] around Father's Day for intracranial hemorrhage in which patient was hospitalized for 3 weeks and did have bleed evacuation at that time. Patient was [facility] care. Per baseline according to family he did already have right-sided facial droop and left-sided paralysis after his stroke. Discussed with neurosurgeon. We will plan for repeat CT scan of the brain to reevaluate possible bleed as initial scan was limited due to patient movement during study. #Diabetes Continue insulin regimen. Will adjust as needed. #CKD Circulation Manager following. #Hypertension Continue antihypertensives. Will adjust as needed. #Anemia of chronic disease Continue to monitor H&H trend Disposition and plan. Follow-up on brain imaging. PT/OT to follow. Family Resource Management Specialist follow for reported chest pain. Patient reportedly having some urinary retention. Padilla catheter replaced. Discussed POC with Dr. Blank Result Diagram: 11/08/18 0138 11/08/18 0050 Results 24hrs Laboratory Tests Test 11/08/18 00:50 11/08/18 01:38 11/08/18 04:48 11/08/18 08:25 Sodium Level 137 Potassium Level 4.0 Chloride Level 107 Carbon Dioxide Level 25 Anion Gap 5 Blood Urea Nitrogen 9 Creatinine 1.97 H Est Glomerular 35 L Filtrat Rate mL/min Glucose Level 90 Calcium Level 8.1 L Total Bilirubin 0.3 Direct Bilirubin 0.00 Indirect Bilirubin 0.3 Aspartate Amino 25 Transf (AST/SGOT) Alanine 17 Aminotransferase (AL T/SGPT) Alkaline Phosphatase 116 Troponin I < 0.012 < 0.012 0.014 B-Type Natriuretic 7980 H Peptide Total Protein 5.5 L Albumin 2.3 L Globulin 3.20 Albumin/Globulin 0.71 Ratio Lipase 14 L White Blood Count 5.5 # Red Blood Count 3.12 L Hemoglobin 8.8 L Hematocrit 27.0 L Mean Corpuscular 86.5 Volume Mean Corpuscular 28.2 L Hemoglobin Mean Corpuscular 32.6 Hemoglobin Concent Red Cell 14.7 H Distribution Width Platelet Count 141 Mean Platelet Volume 9.9 Immature 0.700 H Granulocytes % Neutrophils % 69.6 Lymphocytes % 13.2 L Monocytes % 11.8 H Eosinophils % 3.8 Basophils % 0.9 Nucleated Red Blood 0.0 Cells % Immature 0.040 H Granulocytes # Neutrophils # 3.9 Lymphocytes # 0.7 L Monocytes # 0.7 Eosinophils # 0.2 Basophils # 0.1 Nucleated Red Blood 0.0 Cells # Creatine Kinase 107 98 Creatine Kinase 2.6 2.6 Index Creatinine Kinase MB 2.76 H 2.57 H (Mass) Test 11/08/18 10:24 Prothrombin Time 14.7 Prothrombin Time 1.1 Ratio INR International 1.14 Normalized Ratio Activated 44.5 H Partial Thromboplast Time Subjective 24 Hr Interval Summary Free Text/Dictation Patient alert and appears to be oriented. States that he has fullness in his bladder. Family at bedside. Discussed with family and per our discussion patient is reportedly more alert today. He still has a motor deficits as noted status post his recent CVA. Exam/Review of Systems Exam Vitals Vital Signs Date Temp Pulse Resp B/P (MAP) Pulse Ox O2 O2 Flow FiO2 Time Delivery Rate 11/08/18 98.7 86 18 163/80 95 12:02 (107) 11/08/18 Nasal 2.0 07:31 Cannula Constitutional: alert Psych: anxiety Head: normocephalic Respiratory: clear to auscultation, normal air movement Cardiovascular: other (regular rate ) Gastrointestinal: soft, non-tender Neurological: other (Noted with left side paralysis and right facial droop); No CARDIOLOGY PHYSICIAN ASSISTANT II-XII intact Results Results 24hrs Laboratory Tests Test 11/08/18 00:50 11/08/18 01:38 11/08/18 04:48 11/08/18 08:25 Sodium Level 137 Potassium Level 4.0 Chloride Level 107 Carbon Dioxide Level 25 Anion Gap 5 Blood Urea Nitrogen 9 Creatinine 1.97 H Est Glomerular 35 L Filtrat Rate mL/min Glucose Level 90 Calcium Level 8.1 L Total Bilirubin 0.3 Direct Bilirubin 0.00 Indirect Bilirubin 0.3 Aspartate Amino 25 Transf (AST/SGOT) Alanine 17 Aminotransferase (AL T/SGPT) Alkaline Phosphatase 116 Troponin I < 0.012 < 0.012 0.014 B-Type Natriuretic 7980 H Peptide Total Protein 5.5 L Albumin 2.3 L Globulin 3.20 Albumin/Globulin 0.71 Ratio Lipase 14 L White Blood Count 5.5 # Red Blood Count 3.12 L Hemoglobin 8.8 L Hematocrit 27.0 L Mean Corpuscular 86.5 Volume Mean Corpuscular 28.2 L Hemoglobin Mean Corpuscular 32.6 Hemoglobin Concent Red Cell 14.7 H Distribution Width Platelet Count 141 Mean Platelet Volume 9.9 Immature 0.700 H Granulocytes % Neutrophils % 69.6 Lymphocytes % 13.2 L Monocytes % 11.8 H Eosinophils % 3.8 Basophils % 0.9 Nucleated Red Blood 0.0 Cells % Immature 0.040 H Granulocytes # Neutrophils # 3.9 Lymphocytes # 0.7 L Monocytes # 0.7 Eosinophils # 0.2 Basophils # 0.1 Nucleated Red Blood 0.0 Cells # Creatine Kinase 107 98 Creatine Kinase 2.6 2.6 Index Creatinine Kinase MB 2.76 H 2.57 H (Mass) Test 11/08/18 10:24 Prothrombin Time 14.7 Prothrombin Time 1.1 Ratio INR International 1.14 Normalized Ratio Activated 44.5 H Partial Thromboplast Time Medications Medication Current Medications IV Flush (NS 3 ml) 3 ml PER PROTOCOL IV ; Start 11/08/18 at 04:30 Ondansetron HCl (Zofran Inj) 4 mg Q6H PRN IV NAUSEA/VOMITING; Start 11/08/18 at 04:30 Nitroglycerin (Nitroglycerin (Sl Tab) 0.4 Mg) 1 tab Q5M PRN SL .CHEST PAIN; Start 11/08/18 at 04:30 Acetaminophen (Tylenol Tab) 650 mg Q6H PRN PO .PAIN 1-3 OR TEMP; Start 11/08/18 at 04:30 Heparin Sodium (Porcine) (Heparin (5000 Units/1ml)) 5,000 unit Q12 SC ; Start 11/08/18 at 09:00 Albuterol/ Ipratropium (Duoneb) 3 ml Q2H RESP THERAPY PRN HHN SHORTNESS OF BREATH; Start 11/08/18 at 04:30 Carvedilol (Coreg) 6.25 mg BID PO Last administered on 11/08/18at 10:01; Admin Dose 6.25 MG; Start 11/08/18 at 09:00 Ferrous Sulfate (Ferrous Sulfate (Ec)) 325 mg BID PO Last administered on 11/08/18 10:01; Admin Dose 325 MG; Start 11/08/18 at 09:00 Lisinopril (Zestril) 5 mg DAILY PO Last administered on 11/08/18 10:02; Admin Dose 5 MG; Start 11/08/18 at 09:00 Minoxidil (Loniten) 5 mg DAILY PO Last administered on 11/08/18 10:02; Admin Dose 5 MG; Start 11/08/18 at 09:00 Nifedipine (Procardia Xl) 30 mg BID PO Last administered on 11/08/18 10:02; Admin Dose 30 MG; Start 11/08/18 at 09:00 ARSH SOUTH NP Nov 08, 2018 13:15
--- NOTE | 2018-11-08 15:32 | CONS ---
Assessment/Plan Assessment/Plan Hospital Course (Demo Recall) Assessment: Atypical chest pain Hypertension Chronic kidney disease Diabetes mellitus Recent intracranial hemorrhage - within past one month at [facility] Recommendations: Ruled out for myocardial infarction by troponins. Obtain EKG (not found in chart). Recent echocardiogram here 06/10/2018 reported preserved left ventricular ejection fraction, will not repeat at this time. Defer antiplatelet therapy given recent intracranial hemorrhage. As such, will defer additional cardiac work up as well. -increase carvedilol to 12.5mg BID -continue lisinopril 5mg daily, minoxidil 5mg daily, nifedipine 30mg BID Consultation Date/Type/Reason Admit Date/Time Nov 08, 2018 at 01:53 Type of Consult Cardiology Reason for Consultation chest pain Date/Time of Note DATE: 11/08/18 TIME: 15:25 Hx of Present Illness The patient is a 58 year-old male who presented with chest pain. He describes a sharp, nonexertional chest pain that lasted for several hours, but has now improved since hospital admission. EKG not found in chart. Troponins have been negative x 3. He was reportedly hospitalized at [facility] within the past one month with intracranial hemorrhage requiring surgical evacuation of the bleeding. Current head CT shows evidence of subacute right MCA infarct with hemorrhage. 14 point review of systems negative other than per HPI. Past Medical History Hypertension Chronic kidney disease Diabetes mellitus Recent intracranial hemorrhage Home Meds Active Scripts Aspirin* (Aspirin* EC) 81 Mg Tablet.dr, 81 MG PO DAILY, #30 TAB Prov:RODRIGO CARTER NP 06/18/18 Lisinopril* (Lisinopril*) 5 Mg Tablet, 5 MG PO DAILY, #30 TAB Prov:RODRIGO CARTER V. BANQUET DIRECTOR 06/18/18 Ferrous Sulfate* (Ferrous Sulfate*) 325 Mg Tabec, 325 MG PO BID, #60 TAB Prov:LUZ HELLER NP 06/14/18 Repaglinide* (Prandin*) 1 Mg Tablet, 1 MG PO AC MEALS, #90 TAB Prov:LUZ HELLER BANQUET DIRECTOR 06/14/18 Sitagliptin* (Januvia*) 50 Mg Tablet, 50 MG PO DAILY, #30 TAB Prov:LUZ HELLER NP 06/14/18 Nifedipine (Procardia Xl) 30 Mg Tab.er.24, 30 MG PO BID, #60 TAB Prov:PINALUZ BANQUET DIRECTOR 06/14/18 Carvedilol* (Carvedilol*) 6.25 Mg Tablet, 6.25 MG PO BID, #60 TAB Prov:LUZ HELLER BANQUET DIRECTOR 06/14/18 Reported Medications Minoxidil* (Lonitin*) 2.5 Mg Tab, 5 MG PO DAILY for 30 Days, #120 06/10/18 Medications Current Medications IV Flush (NS 3 ml) 3 ml PER PROTOCOL IV ; Start 11/08/18 at 04:30 Ondansetron HCl (Zofran Inj) 4 mg Q6H PRN IV NAUSEA/VOMITING; Start 11/08/18 at 04:30 Nitroglycerin (Nitroglycerin (Sl Tab) 0.4 Mg) 1 tab Q5M PRN SL .CHEST PAIN; Start 11/08/18 at 04:30 Acetaminophen (Tylenol Tab) 650 mg Q6H PRN PO .PAIN 1-3 OR TEMP; Start 11/08/18 at 04:30 Heparin Sodium (Porcine) (Heparin (5000 Units/1ml)) 5,000 unit Q12 SC ; Start 11/08/18 at 09:00 Albuterol/ Ipratropium (Duoneb) 3 ml Q2H RESP THERAPY PRN HHN SHORTNESS OF BR EATH; Start 11/08/18 at 04:30 Carvedilol (Coreg) 6.25 mg BID PO Last administered on 11/08/18at 10:01; Admin Dose 6.25 MG; Start 11/08/18 at 09:00 Ferrous Sulfate (Ferrous Sulfate (Ec)) 325 mg BID PO Last administered on 11/08/18at 10:01; Admin Dose 325 MG; Start 11/08/18 at 09:00 Lisinopril (Zestril) 5 mg DAILY PO Last administered on 11/08/18at 10:02; Admin Dose 5 MG; Start 11/08/18 at 09:00 Minoxidil (Loniten) 5 mg DAILY PO Last administered on 11/08/18at 10:02; Admin Dose 5 MG; Start 11/08/18 at 09:00 Nifedipine (Procardia Xl) 30 mg BID PO Last administered on 11/08/18at 10:02; Admin Dose 30 MG; Start 11/08/18 at 09:00 Allergies: Coded Allergies: No Known Allergy (Unverified , 06/16/18) Family History Significant Family History: no pertinent family hx Social History Smoking Status: Never smoker Exam/Review of Systems Vital Signs Vitals Vital Signs Date Temp Pulse Resp B/P (MAP) Pulse Ox O2 O2 Flow FiO2 Time Delivery Rate 11/08/18 98.7 86 18 163/80 95 12:02 (107) 11/08/18 Nasal 2.0 07:31 Cannula Exam Constitutional: alert, well developed Psych: no complaints, nl mood/affect Head: normocephalic, atraumatic Eyes: nl conjunctiva, nl lids ENMT: nl external ears & nose, nl nasal mucosa & septum Neck: supple, non-tender Respiratory: clear to auscultation Cardiovascular: regular rate and rhythm Gastrointestinal: soft, non-tender Musculoskeletal: nl extremities to inspection Extremities: No cyanosis, No clubbing, No edema Neurological: nl speech Labs Result Diagram: 11/08/18 0138 11/08/18 0050 Results 24hrs Laboratory Tests Test 11/08/18 00:50 11/08/18 01:38 11/08/18 04:48 11/08/18 08:25 Sodium Level 137 Potassium Level 4.0 Chloride Level 107 Carbon Dioxide Level 25 Anion Gap 5 Blood Urea Nitrogen 9 Creatinine 1.97 H Est Glomerular 35 L Filtrat Rate mL/min Glucose Level 90 Calcium Level 8.1 L Total Bilirubin 0.3 Direct Bilirubin 0.00 Indirect Bilirubin 0.3 Aspartate Amino 25 Transf (AST/SGOT) Alanine 17 Aminotransferase (AL T/SGPT) Alkaline Phosphatase 116 Troponin I < 0.012 < 0.012 0.014 B-Type Natriuretic 7980 H Peptide Total Protein 5.5 L Albumin 2.3 L Globulin 3.20 Albumin/Globulin 0.71 Ratio Lipase 14 L White Blood Count 5.5 # Red Blood Count 3.12 L Hemoglobin 8.8 L Hematocrit 27.0 L Mean Corpuscular 86.5 Volume Mean Corpuscular 28.2 L Hemoglobin Mean Corpuscular 32.6 Hemoglobin Concent Red Cell 14.7 H Distribution Width Platelet Count 141 Mean Platelet Volume 9.9 Immature 0.700 H Granulocytes % Neutrophils % 69.6 Lymphocytes % 13.2 L Monocytes % 11.8 H Eosinophils % 3.8 Basophils % 0.9 Nucleated Red Blood 0.0 Cells % Immature 0.040 H Granulocytes # Neutrophils # 3.9 Lymphocytes # 0.7 L Monocytes # 0.7 Eosinophils # 0.2 Basophils # 0.1 Nucleated Red Blood 0.0 Cells # Creatine Kinase 107 98 Creatine Kinase 2.6 2.6 Index Creatinine Kinase MB 2.76 H 2.57 H (Mass) Test 11/08/18 10:24 Prothrombin Time 14.7 Prothrombin Time 1.1 Ratio INR International 1.14 Normalized Ratio Activated 44.5 H Partial Thromboplast Time Medications Medications Current Medications IV Flush (NS 3 ml) 3 ml PER PROTOCOL IV ; Start 11/08/18 at 04:30 Ondansetron HCl (Zofran Inj) 4 mg Q6H PRN IV NAUSEA/VOMITING; Start 11/08/18 at 04:30 Nitroglycerin (Nitroglycerin (Sl Tab) 0.4 Mg) 1 tab Q5M PRN SL .CHEST PAIN; Start 11/08/18 at 04:30 Acetaminophen (Tylenol Tab) 650 mg Q6H PRN PO .PAIN 1-3 OR TEMP; Start 11/08/18 at 04:30 Heparin Sodium (Porcine) (Heparin (5000 Units/1ml)) 5,000 unit Q12 SC ; Start 11/08/18 at 09:00 Albuterol/ Ipratropium (Duoneb) 3 ml Q2H RESP THERAPY PRN HHN SHORTNESS OF BREATH; Start 11/08/18 at 04:30 Carvedilol (Coreg) 6.25 mg BID PO Last administered on 11/08/18at 10:01; Admin Dose 6.25 MG; Start 11/08/18 at 09:00 Ferrous Sulfate (Ferrous Sulfate (Ec)) 325 mg BID PO Last administered on 11/08/18at 10:01; Admin Dose 325 MG; Start 11/08/18 at 09:00 Lisinopril (Zestril) 5 mg DAILY PO Last administered on 11/08/18at 10:02; Admin Dose 5 MG; Start 11/08/18 at 09:00 Minoxidil (Loniten) 5 mg DAILY PO Last administered on 11/08/18at 10:02; Admin Dose 5 MG; Start 11/08/18 at 09:00 Nifedipine (Procardia Xl) 30 mg BID PO Last administered on 11/08/18at 10:02; Admin Dose 30 MG; Start 11/08/18 at 09:00 IRIS VALLE MD Nov 08, 2018 15:32
[2018-11-08 16:16] VITALS: BP 159/74; PULSE 74; RESP 20
--- NOTE | 2018-11-08 19:31 | CONS ---
Assessment/Plan Assessment/Plan Assessment/Plan (Daily) 1. acute kidney injury on CKD III vs baseline CKD 2. subacute Right MCA territorial infarct 3. h/o HTN 4. H/o HL 5/ Ho DM II Plan: Uric acid, CK total, Urine prot/cr ration, Urine Eosinphisl, Nifedipine Xl 30 mg PO BID, Minoxidil 5 mg po daily , Coreg 12.5 mg BID, lisinopril 5 mg po daily Renal US in AM to assess for CKD Uric acid, CK total, Urine prot/cr ration, Urine Eosinophils, CK total, Thanks for consultation, I will continue to zaki craig Consultation Date/Type/Reason Admit Date/Time Nov 08, 2018 at 01:53 Date of Consultation: Nov 08, 2018 Type of Consult NEPHROLOGY Reason for Consultation Acute kidney injury Requesting Provider: ARSH SOUTH NP Date/Time of Note DATE: 11/08/18 TIME: 19:30 58-year-old male with a history of hypertension, type 2 diabetes, CKD, CVA, self-reported " mild heart attack". Patient presents the ER from SNF complaining of chest pain. Pain is mainly left-sided and he said is been going on for the past several days. Patient has issue with memory and is not a very good historian. He also told me that " I have a stroke in the past 48 hours". On further questioning however, he said he had 2 strokes in the past, less than a year ago. He does have significant left upper extremity weakness, which he said was from previous stroke. He is aware of his memory problem. He also asked to contact his daughter and other family members for more information. When he presented to ER, vitals were stable. First troponin is negative and EKG without ST-T wave abnormalities. Chest x-ray shows mild pulmonary vascular congestion. Cr 1.97 on admission . Renal has been consulted for acute kidney injury Constitutional: no complaints Eyes: no complaints ENT: no complaints Respiratory: no complaints Cardiovascular: chest pain Gastrointestinal: no complaints Genitourinary: no complaints Musculoskeletal: no complaints Skin: no complaints Neurologic: no complaints Endocrine: no complaints Lymphatic: no complaints Psychological: no complaints Immunologic: no complaints Past Medical History Medical History: diabetes, high cholesterol, hypertension, other (H/o CVA ) Home Meds Active Scripts Aspirin* (Aspirin* EC) 81 Mg Tablet., 81 MG PO DAILY, #30 TAB Prov:RODRIGO CARTER V. TYPE COPYIST 06/18/18 Lisinopril* (Lisinopril*) 5 Mg Tablet, 5 MG PO DAILY, #30 TAB Prov:RODRIGO CARTER V. TYPE COPYIST 06/18/18 Ferrous Sulfate* (Ferrous Sulfate*) 325 Mg Tabec, 325 MG PO BID, #60 TAB Prov:LUZ HELLER TYPE COPYIST 06/14/18 Repaglinide* (Prandin*) 1 Mg Tablet, 1 MG PO AC MEALS, #90 TAB Prov:LUZ HELLER TYPE COPYIST 06/14/18 Sitagliptin* (Januvia*) 50 Mg Tablet, 50 MG PO DAILY, #30 TAB Prov:LUZ HELLER TYPE COPYIST 06/14/18 Nifedipine (Procardia Xl) 30 Mg Tab.er.24, 30 MG PO BID, #60 TAB Prov:LUZ HELLER TYPE COPYIST 06/14/18 Carvedilol* (Carvedilol*) 6.25 Mg Tablet, 6.25 MG PO BID, #60 TAB Prov:LUZ HELLER TYPE COPYIST 06/14/18 Reported Medications Minoxidil* (Lonitin*) 2.5 Mg Tab, 5 MG PO DAILY for 30 Days, #120 06/10/18 Medications Current Medications IV Flush (NS 3 ml) 3 ml PER PROTOCOL IV ; Start 11/08/18 at 04:30 Ondansetron HCl (Zofran Inj) 4 mg Q6H PRN IV NAUSEA/VOMITING; Start 11/08/18 at 04:30 Nitroglycerin (Nitroglycerin (Sl Tab) 0.4 Mg) 1 tab Q5M PRN SL .CHEST PAIN; Start 11/08/18 at 04:30 Acetaminophen (Tylenol Tab) 650 mg Q6H PRN PO .PAIN 1-3 OR TEMP; Start 11/08/18 at 04:30 Heparin Sodium (Porcine) (Heparin (5000 Units/1ml)) 5,000 unit Q12 SC ; Start 11/08/18 at 09:00 Albuterol/ Ipratropium (Duoneb) 3 ml Q2H RESP THERAPY PRN HHN SHORTNESS OF BREATH; Start 11/08/18 at 04:30 Ferrous Sulfate (Ferrous Sulfate (Ec)) 325 mg BID PO Last administered on 11/08/18at 10:01; Admin Dose 325 MG; Start 11/08/18 at 09:00 Lisinopril (Zestril) 5 mg DAILY PO Last administered on 11/08/18at 10:02; Admin Dose 5 MG; Start 11/08/18 at 09:00 Minoxidil (Loniten) 5 mg DAILY PO Last administered on 11/08/18at 10:02; Admin Dose 5 MG; Start 11/08/18 at 09:00 Nifedipine (Procardia Xl) 30 mg BID PO Last administered on 11/08/18at 10:02; Admin Dose 30 MG; Start 11/08/18 at 09:00 Carvedilol (Coreg) 12.5 mg BID PO ; Start 11/08/18 at 21:00 Allergies: Coded Allergies: No Known Allergy (Unverified , 06/16/18) Past Surgical History Past Surgical Hx: other (H/o permacath HD placement befor e) Family History Significant Family History: no pertinent family hx Social History Alcohol Use: none Smoking Status: Current every day smoker Drug Use: none Exam/Review of Systems Exam Vitals Vital Signs Date Temp Pulse Resp B/P (MAP) Pulse Ox O2 O2 Flow FiO2 Time Delivery Rate 11/08/18 97.8 74 20 159/74 94 16:16 (102) 11/08/18 Nasal 2.0 07:31 Cannula Exam Constitutional: alert Psych: anxiety Head: normocephalic Respiratory: clear to auscultation, normal air movement Cardiovascular: other (regular rate ) Gastrointestinal: soft, non-tender Neurological: other (Noted with left side paralysis and right facial droop); No ADMISSION NURSE COORDINATOR II-XII intact Results Result Diagram: 11/08/18 0138 11/08/18 0050 Results 24hrs Laboratory Tests Test 11/08/18 00:50 11/08/18 01:38 11/08/18 04:48 11/08/18 08:25 Sodium Level 137 Potassium Level 4.0 Chloride Level 107 Carbon Dioxide Level 25 Anion Gap 5 Blood Urea Nitrogen 9 Creatinine 1.97 H Est Glomerular 35 L Filtrat Rate mL/min Glucose Level 90 Calcium Level 8.1 L Total Bilirubin 0.3 Direct Bilirubin 0.00 Indirect Bilirubin 0.3 Aspartate Amino 25 Transf (AST/SGOT) Alanine 17 Aminotransferase (AL T/SGPT) Alkaline Phosphatase 116 Troponin I < 0.012 < 0.012 0.014 B-Type Natriuretic 7980 H Peptide Total Protein 5.5 L Albumin 2.3 L Globulin 3.20 Albumin/Globulin 0.71 Ratio Lipase 14 L White Blood Count 5.5 # Red Blood Count 3.12 L Hemoglobin 8.8 L Hematocrit 27.0 L Mean Corpuscular 86.5 Volume Mean Corpuscular 28.2 L Hemoglobin Mean Corpuscular 32.6 Hemoglobin Concent Red Cell 14.7 H Distribution Width Platelet Count 141 Mean Platelet Volume 9.9 Immature 0.700 H Granulocytes % Neutrophils % 69.6 Lymphocytes % 13.2 L Monocytes % 11.8 H Eosinophils % 3.8 Basophils % 0.9 Nucleated Red Blood 0.0 Cells % Immature 0.040 H Granulocytes # Neutrophils # 3.9 Lymphocytes # 0.7 L Monocytes # 0.7 Eosinophils # 0.2 Basophils # 0.1 Nucleated Red Blood 0.0 Cells # Creatine Kinase 107 98 Creatine Kinase 2.6 2.6 Index Creatinine Kinase MB 2.76 H 2.57 H (Mass) Test 11/08/18 10:24 11/08/18 16:12 Prothrombin Time 14.7 Prothrombin Time 1.1 Ratio INR International 1.14 Normalized Ratio Activated 44.5 H Partial Thromboplast Time Urine Color YELLOW Urine Clarity TURBID A Urine pH 6.0 Urine Specific 1.016 [place] Urine Ketones TRACE A Urine Nitrite NEGATIVE Urine Bilirubin NEGATIVE Urine Urobilinogen NEGATIVE Urine Leukocyte 2+ H Esterase Urine Microscopic 30 H RBC Urine Microscopic > 182 H WBC Urine Squamous MODERATE Epithelial Cells Urine Bacteria FEW A Urine Hemoglobin 1+ H Urine Glucose NEGATIVE Urine Total Protein 3+ H Medications Medication Current Medications IV Flush (NS 3 ml) 3 ml PER PROTOCOL IV ; Start 11/08/18 at 04:30 Ondansetron HCl (Zofran Inj) 4 mg Q6H PRN IV NAUSEA/VOMITING; Start 11/08/18 at 04:30 Nitroglycerin (Nitroglycerin (Sl Tab) 0.4 Mg) 1 tab Q5M PRN SL .CHEST PAIN; Start 11/08/18 at 04:30 Acetaminophen (Tylenol Tab) 650 mg Q6H PRN PO .PAIN 1-3 OR TEMP; Start 11/08/18 at 04:30 Heparin Sodium (Porcine) (Heparin (5000 Units/1ml)) 5,000 unit Q12 SC ; Start 11/08/18 at 09:00 Albuterol/ Ipratropium (Duoneb) 3 ml Q2H RESP THERAPY PRN HHN SHORTNESS OF BREATH; Start 11/08/18 at 04:30 Ferrous Sulfate (Ferrous Sulfate (Ec)) 325 mg BID PO Last administered on 11/08/18at 10:01; Admin Dose 325 MG; Start 11/08/18 at 09:00 Lisinopril (Zestril) 5 mg DAILY PO Last administered on 11/08/18at 10:02; Admin Dose 5 MG; Start 11/08/18 at 09:00 Minoxidil (Loniten) 5 mg DAILY PO Last administered on 11/08/18at 10:02; Admin Dose 5 MG; Start 11/08/18 at 09:00 Nifedipine (Procardia Xl) 30 mg BID PO Last administered on 11/08/18at 10:02; Admin Dose 30 MG; Start 11/08/18 at 09:00 Carvedilol (Coreg) 12.5 mg BID PO ; Start 11/08/18 at 21:00 LEIDA SMITH MD Nov 08, 2018 19:31
[2018-11-08 20:00] VITALS: BP 145/66; PULSE 76; RESP 19
[2018-11-09] VITALS: BP 156/71; PULSE 84; RESP 18
[2018-11-09 04:00] VITALS: BP 128/59; PULSE 78; RESP 19
[2018-11-09] MEDS: HYDROCODONE/APAP (5/325) TAB PO PRN ×2 (04:30→17:45)
[2018-11-09 07:13] VITALS: BP 113/55; PULSE 74; RESP 18
[2018-11-09] MEDS: FERROUS SULFATE (EC) 325 MG TAB PO SCH ×2 (08:45→22:06)
[2018-11-09] MEDS: MINOXIDIL 2.5 MG TAB PO SCH (08:45)
[2018-11-09] MEDS: NIFEdipine (XL) 30 MG TAB PO SCH ×2 (08:45→22:06)
[2018-11-09] MEDS: LISINOPRIL 5 MG TAB PO SCH (08:45)
--- NOTE | 2018-11-09 10:29 | CONSI ---
Assessment/Plan Assessment/Plan Assessment/Plan (Recall) 58 M c/ reported recent stroke, who presents for evaluation of left sided pain, including his chest... Was noted on head CT to have a subacute appearing R MCA infarct w/ possible hemorrhagic transformation...for which neurology is consulted.. LDL 113 PTT 45 P: Repeat Head CT today for further characterization Agree w/ holding asa in the short term Start Lipitor for secondary stroke prevention...to goal LDL < 70 Add low dose neurontin for pain Other management and supportive care per primary PT/OT/ST as necessary Will follow clinically Consultation Date/Type/Reason Admit Date/Time Nov 08, 2018 at 01:53 Type of Consult Neurology Reason for Consultation stroke Requesting Provider: ARSH SOUTH NP Date/Time of Note DATE: 11/09/18 TIME: 10:16 Hx of Present Illness Patient is a 58-year-old male with a history of hypertension, type 2 diabetes, CKD, CVA, self-reported " mild heart attack". Patient presents the ER from SNF complaining of chest pain. Pain is mainly left-sided and he said is been going on for the past several days. Patient has issue with memory and is not a very good historian. He also told me that " I have a stroke in the past 48 hours". On further questioning however, he said he had 2 strokes in the past, less than a year ago. He does have significant left upper extremity weakness, which he said was from previous stroke. He is aware of his memory problem. He also asked to contact his daughter and other family members for more information. When he presented to ER, vitals were stable. First troponin is negative and EKG without ST-T wave abnormalities. Chest x-ray shows mild pulmonary vascular congestion. per HPI Objective Exam Vitals Vital Signs Date Temp Pulse Resp B/P (MAP) Pulse Ox O2 O2 Flow FiO2 Time Delivery Rate 11/09/18 98.1 74 18 113/55 95 07:13 (74) 11/08/18 Nasal 2.0 07:31 Cannula Intake and Output 11/08/18 11/08/18 11/09/18 1515:00 23:00 07:00 IntakeIntake Total 40 ml OutputOutput Total 135 ml BalanceBalance -95 ml Exam PE: Gen Appearance: No Apparent Distress HEENT: Normocephalic Cardiovascular: Regular rate Lungs: Clear bilaterally Abdomen: Soft Extremities: Dry NE: The patient was alert and oriented. Language was normal. Fund of knowledge was adequate. Pupils were equal and reactive to light. There was no afferent pupillary defect. Visual beverly were normal. Funduscopic examination was limited. Extra-ocular movements were full. Ptosis was absent. There was no nystagmus. Facial sensation was normal. Face was symmetric with normal strength. Hearing was intact. Palate movements were normal. Neck strength was normal. There was normal tongue bulk and speed of movement. Tone was normal. Muscle bulk was normal. I did not see fasciculations. L side was severely weak. Vibration sensation was normal. Temperature and pinprick sensation was normal. Rapid alternating movements were normal. There was no dysmetria. There was no intention tremor. Gait was deferred due to bedrest. Arm and leg reflexes were brisk on the left. Golden's sign was absent. Plantar response was extensor on the left. Results Result Diagram: 11/09/18 0512 11/09/18 0512 Results 24hrs Laboratory Tests Test 11/08/18 10:24 11/08/18 16:12 11/09/18 05:12 11/09/18 06:50 Prothrombin Time 14.7 Prothrombin Time 1.1 Ratio INR International 1.14 Normalized Ratio Activated 44.5 H Partial Thromboplast Time Urine Color YELLOW Urine Clarity TURBID A Urine pH 6.0 Urine Specific 1.016 [place] Urine Ketones TRACE A Urine Nitrite NEGATIVE Urine Bilirubin NEGATIVE Urine Urobilinogen NEGATIVE Urine Leukocyte 2+ H Esterase Urine Microscopic 30 H RBC Urine Microscopic > 182 H WBC Urine Squamous MODERATE Epithelial Cells Urine Bacteria FEW A Urine Hemoglobin 1+ H Urine Glucose NEGATIVE Urine Total Protein 3+ H Pending White Blood Count 5.1 Red Blood Count 3.02 L Hemoglobin 8.5 L Hematocrit 26.3 L Mean Corpuscular 87.1 Volume Mean Corpuscular 28.1 L Hemoglobin Mean Corpuscular 32.3 Hemoglobin Concent Red Cell 14.6 H Distribution Width Platelet Count 146 Mean Platelet Volume 10.4 Immature 0.800 H Granulocytes % Neutrophils % 66.3 Lymphocytes % 16.4 Monocytes % 11.4 H Eosinophils % 4.1 Basophils % 1.0 Nucleated Red Blood 0.0 Cells % Immature 0.040 H Granulocytes # Neutrophils # 3.4 Lymphocytes # 0.8 Monocytes # 0.6 Eosinophils # 0.2 Basophils # 0.1 Nucleated Red Blood 0.0 Cells # Sodium Level 139 Potassium Level 3.8 Chloride Level 108 Carbon Dioxide Level 24 Anion Gap 7 Blood Urea Nitrogen 11 Creatinine 2.54 H Est Glomerular 26 L Filtrat Rate mL/min Glucose Level 70 Hemoglobin A1c 5.3 Uric Acid 4.0 Calcium Level 7.9 L Magnesium Level 1.7 Total Bilirubin 0.2 Direct Bilirubin 0.00 Indirect Bilirubin 0.2 Aspartate Amino 25 Transf (AST/SGOT) Alanine 16 Aminotransferase (AL T/SGPT) Alkaline Phosphatase 108 Creatine Kinase 113 Total Protein 5.4 L Albumin 2.3 L Globulin 3.10 Albumin/Globulin 0.74 Ratio Triglycerides Level 164 H Cholesterol Level 172 LDL Cholesterol, 113 Calculated HDL Cholesterol 26 L Cholesterol/HDL 6.6 Ratio Urine Eosinophils % 0.0 Urine Random 123.31 Creatinine Urine Random Sodium 29 L Urine Pending Protein/Creatinine Ratio Test 11/09/18 08:02 11/09/18 08:24 11/09/18 08:29 11/09/18 09:09 Bedside Glucose 66 L 66 L 66 L 70 Past Medical History Medical History: other (see hpi) Home Meds Active Scripts Aspirin* (Aspirin* EC) 81 Mg Tablet.dr, 81 MG PO DAILY, #30 TAB Prov:RODRIGO CARTER V. MUSHROOM CULTIVATOR 06/18/18 Lisinopril* (Lisinopril*) 5 Mg Tablet, 5 MG PO DAILY, #30 TAB Prov:RODRIGO CARTER V. MUSHROOM CULTIVATOR 06/18/18 Ferrous Sulfate* (Ferrous Sulfate*) 325 Mg Tabec, 325 MG PO BID, #60 TAB Prov:LUZ HELLER MUSHROOM CULTIVATOR 06/14/18 Repaglinide* (Prandin*) 1 Mg Tablet, 1 MG PO AC MEALS, #90 TAB Prov:LUZ HELLER MUSHROOM CULTIVATOR 06/14/18 Sitagliptin* (Januvia*) 50 Mg Tablet, 50 MG PO DAILY, #30 TAB Prov:LUZ HELLER MUSHROOM CULTIVATOR 06/14/18 Nifedipine (Procardia Xl) 30 Mg Tab.er.24, 30 MG PO BID, #60 TAB Prov:LUZ HELLER MUSHROOM CULTIVATOR 06/14/18 Carvedilol* (Carvedilol*) 6.25 Mg Tablet, 6.25 MG PO BID, #60 TAB Prov:LUZ HELLER MUSHROOM CULTIVATOR 06/14/18 Reported Medications Minoxidil* (Lonitin*) 2.5 Mg Tab, 5 MG PO DAILY for 30 Days, #120 06/10/18 Medications Current Medications IV Flush (NS 3 ml) 3 ml PER PROTOCOL IV ; Start 11/08/18 at 04:30 Ondansetron HCl (Zofran Inj) 4 mg Q6H PRN IV NAUSEA/VOMITING; Start 11/08/18 at 04:30 Nitroglycerin (Nitroglycerin (Sl Tab) 0.4 Mg) 1 tab Q5M PRN SL .CHEST PAIN; Start 11/08/18 at 04:30 Acetaminophen (Tylenol Tab) 650 mg Q6H PRN PO .PAIN 1-3 OR TEMP; Start 11/08/18 at 04:30 Albuterol/ Ipratropium (Duoneb) 3 ml Q2H RESP THERAPY PRN HHN SHORTNESS OF BREATH; Start 11/08/18 at 04:30 Ferrous Sulfate (Ferrous Sulfate (Ec)) 325 mg BID PO Last administered on 11/09/18at 08:45; Admin Dose 325 MG; Start 11/08/18 at 09:00 Lisinopril (Zestril) 5 mg DAILY PO Last administered on 11/09/18at 08:45; Admin Dose 5 MG; Start 11/08/18 at 09:00 Minoxidil (Loniten) 5 mg DAILY PO Last administered on 11/09/18at 08:45; Admin Dose 5 MG; Start 11/08/18 at 09:00 Nifedipine (Procardia Xl) 30 mg BID PO Last administered on 11/09/18at 08:45; Admin Dose 30 MG; Start 11/08/18 at 09:00 Carvedilol (Coreg) 12.5 mg BID PO Last administered on 11/09/18at 08:45; Admin Dose 12.5 MG; Start 11/08/18 at 21:00 Acetaminophen/ Hydrocodone Bitart ([place] (5/325)) 1 tab Q6H PRN PO PAIN LEVEL 4-10 Last administered on 11/09/18at 04:30; Admin Dose 1 TAB; Start 11/09/18 at 04:00 Allergies: Coded Allergies: No Known Allergy (Unverified , 06/16/18) Past Surgical History Past Surgical Hx: other (see hpi) Social History Alcohol Use: other (unknown) Smoking Status: Current every day smoker Drug Use: other (unknown) ESTRADA BOLES Nov 09, 2018 10:29
--- NOTE | 2018-11-09 10:30 | RADRPT ---
Echocardiogram Report Patient Name: MIKAYLA TRANPatient ID: [id number] : 1960 (58y 4m)Study Date: 11/08/2018 2:18:13 PM Gender: MAccession #: [id number] Tech: MAC Location: [facility] Ref.Physician: ARSH SOUTH Height(Cm): 170 BSA: 2.03Weight(Kg): 87.1 Quality: Technically Difficult StudyOrder Physician: ARSH SOUTH Account #: Procedures: Echocardiographic Report: Transthoracic echocardiogram examination; limited exam patient became uncooperative. Indications: Chest Pain. Measurements: 2D/M Mode Doppler Measurement Value Normal Range Measurement Value Normal Range LVIDd 2D 4.8 [ 4.2 - 5.8 ] cm PV Peak Luis 1.1 [ 40.0 - 80.0 ] cm/sec LVIDs 2D 3.3 [ 2.5 - 4.0 ] cm PV Peak PG 4.0 mmHg IVSd 2D 1.5 [ 0.6 - 1.0 ] cm AoR Diam 2D 3.5 [ 2.6 - 3.4 ] cm LA Dimen 2D 3.6 [ 3.0 - 4.0 ] cm Findings: Left Ventricle: Normal left ventricular cavity size, wall thickness and systolic function. There is probably normal left ventricular systolic function to extent imaged; apical 2C/3C not obtained. The EF was done using [employer] in the A4C view. Moderate concentric left ventricular hypertrophy. The left ventricular ejection fraction is visually estimated at 65 %. Right Ventricle: Normal right ventricular size. Normal right ventricular systolic function. Left Atrium: There is moderate enlargement of left atrium. Right Atrium: Mild RA enlargement (40mm-45mm). Atrial Septum: The atrial septum is not well visualized. Mitral Valve: Normal appearance of the mitral valve leaflets. Trivial mitral regurgitation. Aortic Valve: Normal appearance and function of the aortic valve, without apical images. No aortic regurgitation. Tricuspid Valve: Normal appearance of the tricuspid valve. There is trivial tricuspid regurgitation. Pulmonic Valve: Normal pulmonic valve appearance and function with trivial (physiologic) regurgitation. No evidence of pulmonic regurgitation. Pericardium: Trivial effusion. Left pleural effusion seen. Aorta: Normal aortic root. IVC: The inferior vena cava is not well visualized. Pulmonary Artery: Normal pulmonary artery size. Conclusions: Patient reportedly uncooperative with exam so it was limited. Normal left ventricular cavity size, wall thickness and systolic function. There is probably normal left ventricular systolic function to extent imaged; apical 2C/3C not obtained. The EF was done using [employer] in the A4C view. Moderate concentric left ventricular hypertrophy. The left ventricular ejection fraction is visually estimated at 65 %. No significant valvular abnormalities. Unable to estimate PA or RA pressures. Electronically Signed By: Fredis Ramos 2018-11-09 10:29:55 PDT
--- NOTE | 2018-11-09 10:37 | CONS ---
Assessment/Plan Assessment/Plan Hospital Course (Demo Recall) Atypical chest pain: normal troponins and echo. No workup with recent ICH Acute on chronic diastolic CHF: EF preserved. On HD and probably has not had HD for a few days ESRD on HD: right IJ tunneled catheter. Needs HD for volume management Hypertension Diabetes mellitus Recent intracranial hemorrhage/CVA - within past one month at [facility]. CT head with evidence of subacute CVA with hemorrhage -needs HD for volume management -no ASA -d/c SQ heparin until ok per neurology -carvedilol 12.5mg BID -continue lisinopril 5mg daily, minoxidil 5mg daily, nifedipine 30mg BID Consultation Date/Type/Reason Admit Date/Time Nov 08, 2018 at 01:53 Initial Consult Date 11/08/18 Type of Consult Cardiology Requesting Provider: ARSH SOUTH NP Date/Time of Note DATE: 11/09/18 TIME: 10:34 24 HR Interval Summary Free Text/Dictation No events. No complaints. Confused on exam at times. Exam/Review of Systems Vital Signs Vitals Vital Signs Date Temp Pulse Resp B/P (MAP) Pulse Ox O2 O2 Flow FiO2 Time Delivery Rate 11/09/18 98.1 74 18 113/55 95 07:13 (74) 11/08/18 Nasal 2.0 07:31 Cannula Intake and Output 11/08/18 11/08/18 11/09/18 1515:00 23:00 07:00 IntakeIntake Total 40 ml OutputOutput Total 135 ml BalanceBalance -95 ml Exam Constitutional: alert; No oriented Psych: confusion Head: normocephalic, atraumatic Neck: jvd (9-10cm) Respiratory: crackles/rales (bases); No clear to auscultation Cardiovascular: regular rate and rhythm, edema (1+ ankles); No systolic murmur Gastrointestinal: soft, non-tender; No distended Neurological: nl mental status, nl speech Labs Result Diagram: 11/09/1851111/09/18511 Results 24hrs Laboratory Tests Test 11/08/18 16:12 11/09/18 05:12 11/09/18 06:50 11/09/18 08:02 Urine Color YELLOW Urine Clarity TURBID A Urine pH 6.0 Urine Specific 1.016 [place] Urine Ketones TRACE A Urine Nitrite NEGATIVE Urine Bilirubin NEGATIVE Urine Urobilinogen NEGATIVE Urine Leukocyte 2+ H Esterase Urine Microscopic 30 H RBC Urine Microscopic > 182 H WBC Urine Squamous MODERATE Epithelial Cells Urine Bacteria FEW A Urine Hemoglobin 1+ H Urine Glucose NEGATIVE Urine Total Protein 3+ H Pending White Blood Count 5.1 Red Blood Count 3.02 L Hemoglobin 8.5 L Hematocrit 26.3 L Mean Corpuscular 87.1 Volume Mean Corpuscular 28.1 L Hemoglobin Mean Corpuscular 32.3 Hemoglobin Concent Red Cell 14.6 H Distribution Width Platelet Count 146 Mean Platelet Volume 10.4 Immature 0.800 H Granulocytes % Neutrophils % 66.3 Lymphocytes % 16.4 Monocytes % 11.4 H Eosinophils % 4.1 Basophils % 1.0 Nucleated Red Blood 0.0 Cells % Immature 0.040 H Granulocytes # Neutrophils # 3.4 Lymphocytes # 0.8 Monocytes # 0.6 Eosinophils # 0.2 Basophils # 0.1 Nucleated Red Blood 0.0 Cells # Sodium Level 139 Potassium Level 3.8 Chloride Level 108 Carbon Dioxide Level 24 Anion Gap 7 Blood Urea Nitrogen 11 Creatinine 2.54 H Est Glomerular 26 L Filtrat Rate mL/min Glucose Level 70 Hemoglobin A1c 5.3 Uric Acid 4.0 Calcium Level 7.9 L Magnesium Level 1.7 Total Bilirubin 0.2 Direct Bilirubin 0.00 Indirect Bilirubin 0.2 Aspartate Amino 25 Transf (AST/SGOT) Alanine 16 Aminotransferase (AL T/SGPT) Alkaline Phosphatase 108 Creatine Kinase 113 Total Protein 5.4 L Albumin 2.3 L Globulin 3.10 Albumin/Globulin 0.74 Ratio Triglycerides Level 164 H Cholesterol Level 172 LDL Cholesterol, 113 Calculated HDL Cholesterol 26 L Cholesterol/HDL 6.6 Ratio Urine Eosinophils % 0.0 Urine Random 123.31 Creatinine Urine Random Sodium 29 L Urine Pending Protein/Creatinine Ratio Bedside Glucose 66 L Test 11/09/18 08:24 11/09/18 08:29 11/09/18 09:09 Bedside Glucose 66 L 66 L 70 Medications Medications Current Medications IV Flush (NS 3 ml) 3 ml PER PROTOCOL IV ; Start 11/08/18 at 04:30 Ondansetron HCl (Zofran Inj) 4 mg Q6H PRN IV NAUSEA/VOMITING; Start 11/08/18 at 04:30 Nitroglycerin (Nitroglycerin (Sl Tab) 0.4 Mg) 1 tab Q5M PRN SL .CHEST PAIN; Start 11/08/18 at 04:30 Acetaminophen (Tylenol Tab) 650 mg Q6H PRN PO .PAIN 1-3 OR TEMP; Start 11/08/18 at 04:30 Albuterol/ Ipratropium (Duoneb) 3 ml Q2H RESP THERAPY PRN HHN SHORTNESS OF BREATH; Start 11/08/18 at 04:30 Ferrous Sulfate (Ferrous Sulfate (Ec)) 325 mg BID PO Last administered on 11/09/18at 08:45; Admin Dose 325 MG; Start 11/08/18 at 09:00 Lisinopril (Zestril) 5 mg DAILY PO Last administered on 11/09/18 08:45; Admin Dose 5 MG; Start 11/08/18 at 09:00 Minoxidil (Loniten) 5 mg DAILY PO Last administered on 11/09/18 08:45; Admin Dose 5 MG; Start 11/08/18 at 09:00 Nifedipine (Procardia Xl) 30 mg BID PO Last administered on 11/09/18at 08:45; Admin Dose 30 MG; Start 11/08/18 at 09:00 Carvedilol (Coreg) 12.5 mg BID PO Last administered on 11/09/18 08:45; Admin Dose 12.5 MG; Start 11/08/18 at 21:00 Acetaminophen/ Hydrocodone Bitart ([place] (5/325)) 1 tab Q6H PRN PO PAIN LEVEL 4-10 Last administered on 11/09/18 04:30; Admin Dose 1 TAB; Start 11/09/18 at 04:00 MEREDITH FARRELL Nov 09, 2018 10:37
--- NOTE | 2018-11-09 11:34 | CONS ---
DATE OF ADMISSION: 11/08/2018 DATE OF CONSULTATION: 11/09/2018 REQUESTING PHYSICIAN: Dr. Arsh South. INDICATION FOR CONSULTATION: Intracranial hemorrhage. HISTORY OF PRESENT ILLNESS: Patient is a 58-year-old male with a history of hypertension, type 2 graham betes, chronic kidney disease, who came to the ER from snf facility with complaints of ne ck pain. The patient was not a good historian and had left-sided weakness and reported history of a stroke. The patient apparently was not able to convey accurately this issue. Hence, a CT scan of e head was performed despite the patient did not complain of any new neurologic issues. The patient apparently had had a stroke almost a month ago and taken to [facility] and had been discharg ed about 2 weeks after to a fdc, per report from the . She as well is not clear on the exact dates. The patient, however, denies any headache, nausea, vomiting, and only reports weakness on his left side as well as some numbness though he states that this has been present since the strok e, though he cannot state exactly when he had a stroke. The patient had a CT scan which there was si gnificant motion artifact but the radiologist interpreted as having possible bleed. I reviewed this study and there is significant motion artifact, but there appears to be some slight increase in signa l intensity within the basal ganglia with surrounding edema suggestive of a subacute or chronic resol ving basal ganglia hemorrhagic stroke. PAST MEDICAL HISTORY: Per HPI. PAST SURGICAL HISTORY: Per HPI. SOCIAL HISTORY: The patient is a nonsmoker. Alcohol use unknown, drug abuse unknown. FAMILY HISTORY: No reported history of easy bruising or bleeding. No inherited bleeding disorders. ALLERGIES: NO KNOWN DRUG ALLERGIES. OUTPATIENT MEDICATIONS: Include: 1. Minoxidil. 2. Lisinopril. 3. Coreg. PHYSICAL EXAMINATION: VITAL SIGNS: The patient's temperature 98, pulse 74, respirations 20, blood pressure 159/74, saturat ing 94% on room air. GENERAL: The patient is a mildly obese, middle-aged male lying in the hospital bed in no acute distr ess. HEAD AND NECK: Normocephalic, atraumatic. NECK: Supple, nontender. CARDIAC: Regular rate and rhythm. LUNGS: Clear to auscultation. ABDOMEN: Nontender, nondistended, soft. EXTREMITIES: No clubbing, cyanosis, or edema. NEUROLOGIC: Patient is awake, alert. He is oriented to self and place but not the exact date. He d oes not appear to have a good perception of time though he does understand what has happened to him. His cranial nerves II through XII are serially tested and are grossly intact except for reporting so me left facial numbness (5) as well as he may have a slight left facial droop (7). His motor exam i s 5/5 in his right upper extremity, left upper extremity is 0/5 proximally and 3/5 distally. He is a ble to close his fingers to command. His lower extremity is similar with 1/5 proximally, but he is a ble to slightly dorsiflex and plantar flex his feet and wiggle his toes perhaps 4-/5 in strength. Th e patient's deep tendon reflexes were absent throughout with no clonus, Babinski, or Negro sign de spite his left hemiplegia. He reported decreased sensation in his left lower extremity and slightly on his hand to light touch. Gait not assessed secondary to condition. LABORATORY DATA: White count 5.5, hemoglobin 8.8, platelets 141. His coagulation panel was INR 1.14 and PT of 14.7. His sodium was 137, BUN and creatinine 5 and 1.97 and a glucose of 90. The patient did have an elevated APTT of 44.5. IMAGING: I reviewed the patient's CT scan of the head. The radiologist states that this is a limite d study with a probable subacute right MCA territory infarct with hemorrhage within posteriorly and a followup study was recommended. An underlying mass lesion cannot be excluded. ASSESSMENT AND PLAN: A 58-year-old male with a prior CVA with possible hemorrhage. I discussed eugene ent's signs, symptoms, physical examination, and radiographic findings with the patient's family. Th e patient has a history of a prior stroke and it would appear to me that the bleed that is seen is li ovidio simply residual of the stroke. The blood grossly appears to be more of a blush and suggestive of a resolving hemorrhage rather than an acute hemorrhage and given the history, this is most likely wh at this is. The patient also does not report any new symptoms and has had these symptoms for some ti me and indeed had been admitted to hospital for stroke. I believe this is more of a historical issue and a comparison from outside studies would be helpful. I attempt to see if I can evaluate those ou tside studies from [place] on their digital network. However, a repeat CT scan can be performed t omorrow simply to ensure stability and if there is no significant change, I did not see any indicatio n for further observation for this issue as it is likely chronic and changing. It should be noted th at the patient does have an elevated coagulation panel, and this should be corrected if there is conc manan of a bleed as the hemorrhage has yet to resolve. Dictated By: CYNTHIA STATON MD LG/NTS Conf#: [id number] DID#: [id number] CC: ERIC IVAN MD; ARSH SOUTH NP;*[facility]*
[2018-11-09 11:35] VITALS: BP 104/54; PULSE 72; RESP 18
--- NOTE | 2018-11-09 11:55 | CONS ---
Assessment/Plan Assessment/Plan Assessment/Plan (Daily) 1. ESRD On HD - MWF schedule 2. subacute Right MCA territorial infarct 3. h/o HTN 4. H/o HL 5/ Ho DM II 6. left kidney 3.5 cm complex lesion- rule out renal mass Plan: Plan for HD on Friday, Pt regular schedule is MWF Continue Nifedipine Xl 30 mg PO BID, Minoxidil 5 mg po daily , Coreg 12.5 mg BID, Lisinopril 5 mg po daily - IV hydralazine prn as needed Uric acid 4.0,CK total 113 Renal US showed both kidneys are normal in Echogenicity- There is 3.5 x 3.7 cm complex lesion in the upper pole of the left kidney which is previously described as a simple cyst. will order MRI abdomen w/o Contrast has been ordered to better Evaluate for left renal lesion Consultation Date/Type/Reason Admit Date/Time Nov 08, 2018 at 01:53 Initial Consult Date 11/08/18 Type of Consult NEPHROLOGY Requesting Provider: ARSH SOUTH NP Date/Time of Note DATE: 11/09/18 TIME: 11:55 24 HR Interval Summary Free Text/Dictation pt c/o lower abdominal pain, BP stable, Cr 2.5 Exam/Review of Systems Exam Vitals Vital Signs Date Temp Pulse Resp B/P (MAP) Pulse Ox O2 O2 Flow FiO2 Time Delivery Rate 11/09/18 98.2 72 18 104/54 100 11:35 (71) 11/08/18 Nasal 2.0 07:31 Cannula Intake and Output 11/08/18 11/08/18 11/09/18 1515:00 23:00 07:00 IntakeIntake Total 40 ml OutputOutput Total 135 ml BalanceBalance -95 ml Exam Constitutional: alert Psych: anxiety Head: normocephalic Respiratory: clear to auscultation, normal air movement Cardiovascular: other (regular rate ) Gastrointestinal: soft, non-tender Neurological: other (Noted with left side paralysis and right facial droop); No INVESTIGATION OFFICER II-XII intact Results Result Diagram: 11/09/1851111/09/18511 Results 24hrs Laboratory Tests Test 11/08/18 16:12 11/09/18 05:12 11/09/18 06:50 11/09/18 08:02 Urine Color YELLOW Urine Clarity TURBID A Urine pH 6.0 Urine Specific 1.016 [place] Urine Ketones TRACE A Urine Nitrite NEGATIVE Urine Bilirubin NEGATIVE Urine Urobilinogen NEGATIVE Urine Leukocyte 2+ H Esterase Urine Microscopic 30 H RBC Urine Microscopic > 182 H WBC Urine Squamous MODERATE Epithelial Cells Urine Bacteria FEW A Urine Hemoglobin 1+ H Urine Glucose NEGATIVE Urine Total Protein 3+ H White Blood Count 5.1 Red Blood Count 3.02 L Hemoglobin 8.5 L Hematocrit 26.3 L Mean Corpuscular 87.1 Volume Mean Corpuscular 28.1 L Hemoglobin Mean Corpuscular 32.3 Hemoglobin Concent Red Cell 14.6 H Distribution Width Platelet Count 146 Mean Platelet Volume 10.4 Immature 0.800 H Granulocytes % Neutrophils % 66.3 Lymphocytes % 16.4 Monocytes % 11.4 H Eosinophils % 4.1 Basophils % 1.0 Nucleated Red Blood 0.0 Cells % Immature 0.040 H Granulocytes # Neutrophils # 3.4 Lymphocytes # 0.8 Monocytes # 0.6 Eosinophils # 0.2 Basophils # 0.1 Nucleated Red Blood 0.0 Cells # Sodium Level 139 Potassium Level 3.8 Chloride Level 108 Carbon Dioxide Level 24 Anion Gap 7 Blood Urea Nitrogen 11 Creatinine 2.54 H Est Glomerular 26 L Filtrat Rate mL/min Glucose Level 70 Hemoglobin A1c 5.3 Uric Acid 4.0 Calcium Level 7.9 L Magnesium Level 1.7 Total Bilirubin 0.2 Direct Bilirubin 0.00 Indirect Bilirubin 0.2 Aspartate Amino 25 Transf (AST/SGOT) Alanine 16 Aminotransferase (AL T/SGPT) Alkaline Phosphatase 108 Creatine Kinase 113 Total Protein 5.4 L Albumin 2.3 L Globulin 3.10 Albumin/Globulin 0.74 Ratio Triglycerides Level 164 H Cholesterol Level 172 LDL Cholesterol, 113 Calculated HDL Cholesterol 26 L Cholesterol/HDL 6.6 Ratio Urine Eosinophils % 0.0 Urine Random 123.31 Creatinine Urine Random Sodium 29 L Urine 4.86 Protein/Creatinine Ratio Bedside Glucose 66 L Test 11/09/18 08:24 11/09/18 08:29 11/09/18 09:09 Bedside Glucose 66 L 66 L 70 Medications Medication Current Medications IV Flush (NS 3 ml) 3 ml PER PROTOCOL IV ; Start 11/08/18 at 04:30 Ondansetron HCl (Zofran Inj) 4 mg Q6H PRN IV NAUSEA/VOMITING; Start 11/08/18 at 04:30 Nitroglycerin (Nitroglycerin (Sl Tab) 0.4 Mg) 1 tab Q5M PRN SL .CHEST PAIN; Start 11/08/18 at 04:30 Acetaminophen (Tylenol Tab) 650 mg Q6H PRN PO .PAIN 1-3 OR TEMP; Start 11/08/18 at 04:30 Albuterol/ Ipratropium (Duoneb) 3 ml Q2H RESP THERAPY PRN HHN SHORTNESS OF BREATH; Start 11/08/18 at 04:30 Ferrous Sulfate (Ferrous Sulfate (Ec)) 325 mg BID PO Last administered on 11/09/18at 08:45; Admin Dose 325 MG; Start 11/08/18 at 09:00 Lisinopril (Zestril) 5 mg DAILY PO Last administered on 11/09/18at 08:45; Admin Dose 5 MG; Start 11/08/18 at 09:00 Minoxidil (Loniten) 5 mg DAILY PO Last administered on 11/09/18at 08:45; Admin Dose 5 MG; Start 11/08/18 at 09:00 Nifedipine (Procardia Xl) 30 mg BID PO Last administered on 11/09/18at 08:45; Admin Dose 30 MG; Start 11/08/18 at 09:00 Carvedilol (Coreg) 12.5 mg BID PO Last administered on 11/09/18at 08:45; Admin Dose 12.5 MG; Start 11/08/18 at 21:00 Acetaminophen/ Hydrocodone Bitart ([place] (5/325)) 1 tab Q6H PRN PO PAIN LEVEL 4-10 Last administered on 11/09/18at 04:30; Admin Dose 1 TAB; Start 11/09/18 at 04:00 Gabapentin (Neurontin) 100 mg TID PO ; Start 11/09/18 at 13:00 Atorvastatin Calcium (Lipitor) 40 mg HS PO ; Start 11/09/18 at 21:00 LEIDA SMITH MD Nov 09, 2018 11:55
--- NOTE | 2018-11-09 12:12 | PN ---
Date/Time of Note Date/Time of Note DATE: 11/09/18 TIME: 12:12 Assessment/Plan VTE Prophylaxis Risk score (from Nsg)>0 risk: 2 SCD applied (from Nsg): Yes Pharmacological prophylaxis: NA/contraindicated Pharm contraindication: other Lines/Catheters IV Catheter Type (from Nrs): Saline Lock Urinary Cath still in place: Yes Reason Cath still needed: urinary retention Assessment/Plan Hospital Course SUBJECTIVE: Denies any chest pain. Complains of discomfort in the suprapubic area. OBJECTIVE: Physical Exam General: Obese, 58 year-old male lying in bed in no apparent distress. HEENT: Normocephalic, atraumatic. Eyes: Anicteric sclerae, conjunctivae clear. ENT: Nasal septum midline, oral mucosa moist. Neck supple, no JVD noticed. Respiratory: Bilaterally clear breath sounds. No use of accessory muscles of respiration. No adventitious breath sounds. Cardiovascular: S1, S2 heard. Regular rate and rhythm. Abdomen: Soft, nontender, and nondistended. Bowel sounds positive in all 4 quadrants. Genitourinary: Deferred. Extremities: No cyanosis, no clubbing. LUE edema. Peripheral pulses palpable. Neurologic: Left upper extremity flaccid. Left lower extremity weak. Awake and alert. Oriented to self and place. Skin: Normal skin turgor. No skin rashes. Labs & Vitals per chart ASSESSMENT & PLAN 58 year old male with comorbidities including, hypertension, ESRD on HD M/W/F, nephrotic syndrome, diabetes mellitus type 2, recent stroke with left-sided weakness, and anemia of chronic disease, who was transferred from a residential facility for complaints of chest pain. 1. Chest pain. ACS ruled out. Being followed by cardiology. 2. Acute on chronic diastolic heart failure. Continue ultrafiltration. 3. Diabetes mellitus type 2. Hemoglobin A1c 5.3. Continue sliding scale insulin. 4. Subacute right MCA territory infarct with hemorrhage. Status post evaluation by neurosurgery. Repeat brain CT scan pending. 5. Hypertension. Continue antihypertensives. 6. ESRD on HD M/W/F. Ultrafiltration as per nephrology. 7. Urinary tract infection. Urine culture showing Gram-negative rods some more than 100,000 CFU per mL. Start appropriate antimicrobials. 8. Fluids, electrolytes, and nutrition. Carbohydrate controlled, low-cholesterol diet. 9. DVT prophylaxis. Bilateral SCDs. Heparin has been discontinued because of brain CT scan findings. 10. Plan. Continue current management. Physical therapy evaluation. The patient was seen in collaboration with Dr. Minor. Result Diagram: 11/09/18 0512 11/09/18 0512 Results 24hrs Laboratory Tests Test 11/08/18 16:12 11/09/18 05:12 11/09/18 06:50 11/09/18 08:02 Urine Color YELLOW Urine Clarity TURBID A Urine pH 6.0 Urine Specific 1.016 [place] Urine Ketones TRACE A Urine Nitrite NEGATIVE Urine Bilirubin NEGATIVE Urine Urobilinogen NEGATIVE Urine Leukocyte 2+ H Esterase Urine Microscopic 30 H RBC Urine Microscopic > 182 H WBC Urine Squamous MODERATE Epithelial Cells Urine Bacteria FEW A Urine Hemoglobin 1+ H Urine Glucose NEGATIVE Urine Total Protein 3+ H White Blood Count 5.1 Red Blood Count 3.02 L Hemoglobin 8.5 L Hematocrit 26.3 L Mean Corpuscular 87.1 Volume Mean Corpuscular 28.1 L Hemoglobin Mean Corpuscular 32.3 Hemoglobin Concent Red Cell 14.6 H Distribution Width Platelet Count 146 Mean Platelet Volume 10.4 Immature 0.800 H Granulocytes % Neutrophils % 66.3 Lymphocytes % 16.4 Monocytes % 11.4 H Eosinophils % 4.1 Basophils % 1.0 Nucleated Red Blood 0.0 Cells % Immature 0.040 H Granulocytes # Neutrophils # 3.4 Lymphocytes # 0.8 Monocytes # 0.6 Eosinophils # 0.2 Basophils # 0.1 Nucleated Red Blood 0.0 Cells # Sodium Level 139 Potassium Level 3.8 Chloride Level 108 Carbon Dioxide Level 24 Anion Gap 7 Blood Urea Nitrogen 11 Creatinine 2.54 H Est Glomerular 26 L Filtrat Rate mL/min Glucose Level 70 Hemoglobin A1c 5.3 Uric Acid 4.0 Calcium Level 7.9 L Magnesium Level 1.7 Total Bilirubin 0.2 Direct Bilirubin 0.00 Indirect Bilirubin 0.2 Aspartate Amino 25 Transf (AST/SGOT) Alanine 16 Aminotransferase (AL T/SGPT) Alkaline Phosphatase 108 Creatine Kinase 113 Total Protein 5.4 L Albumin 2.3 L Globulin 3.10 Albumin/Globulin 0.74 Ratio Triglycerides Level 164 H Cholesterol Level 172 LDL Cholesterol, 113 Calculated HDL Cholesterol 26 L Cholesterol/HDL 6.6 Ratio Urine Eosinophils % 0.0 Urine Random 123.31 Creatinine Urine Random Sodium 29 L Urine 4.86 Protein/Creatinine Ratio Bedside Glucose 66 L Test 7/22/19 08:24 11/09/18 08:29 11/09/18 09:09 Bedside Glucose 66 L 66 L 70 Exam/Review of Systems Exam Vitals Vital Signs Date Temp Pulse Resp B/P (MAP) Pulse Ox O2 O2 Flow FiO2 Time Delivery Rate 11/09/18 98.2 72 18 104/54 100 11:35 (71) 11/08/18 Nasal 2.0 07:31 Cannula Intake and Output 11/08/18 11/08/18 11/09/18 1414:59 22:59 06:59 IntakeIntake Total 40 ml OutputOutput Total 135 ml BalanceBalance -95 ml Results Results 24hrs Laboratory Tests Test 11/08/18 16:12 11/09/18 05:12 11/09/18 06:50 11/09/18 08:02 Urine Color YELLOW Urine Clarity TURBID A Urine pH 6.0 Urine Specific 1.016 [place] Urine Ketones TRACE A Urine Nitrite NEGATIVE Urine Bilirubin NEGATIVE Urine Urobilinogen NEGATIVE Urine Leukocyte 2+ H Esterase Urine Microscopic 30 H RBC Urine Microscopic > 182 H WBC Urine Squamous MODERATE Epithelial Cells Urine Bacteria FEW A Urine Hemoglobin 1+ H Urine Glucose NEGATIVE Urine Total Protein 3+ H White Blood Count 5.1 Red Blood Count 3.02 L Hemoglobin 8.5 L Hematocrit 26.3 L Mean Corpuscular 87.1 Volume Mean Corpuscular 28.1 L Hemoglobin Mean Corpuscular 32.3 Hemoglobin Concent Red Cell 14.6 H Distribution Width Platelet Count 146 Mean Platelet Volume 10.4 Immature 0.800 H Granulocytes % Neutrophils % 66.3 Lymphocytes % 16.4 Monocytes % 11.4 H Eosinophils % 4.1 Basophils % 1.0 Nucleated Red Blood 0.0 Cells % Immature 0.040 H Granulocytes # Neutrophils # 3.4 Lymphocytes # 0.8 Monocytes # 0.6 Eosinophils # 0.2 Basophils # 0.1 Nucleated Red Blood 0.0 Cells # Sodium Level 139 Potassium Level 3.8 Chloride Level 108 Carbon Dioxide Level 24 Anion Gap 7 Blood Urea Nitrogen 11 Creatinine 2.54 H Est Glomerular 26 L Filtrat Rate mL/min Glucose Level 70 Hemoglobin A1c 5.3 Uric Acid 4.0 Calcium Level 7.9 L Magnesium Level 1.7 Total Bilirubin 0.2 Direct Bilirubin 0.00 Indirect Bilirubin 0.2 Aspartate Amino 25 Transf (AST/SGOT) Alanine 16 Aminotransferase (AL T/SGPT) Alkaline Phosphatase 108 Creatine Kinase 113 Total Protein 5.4 L Albumin 2.3 L Globulin 3.10 Albumin/Globulin 0.74 Ratio Triglycerides Level 164 H Cholesterol Level 172 LDL Cholesterol, 113 Calculated HDL Cholesterol 26 L Cholesterol/HDL 6.6 Ratio Urine Eosinophils % 0.0 Urine Random 123.31 Creatinine Urine Random Sodium 29 L Urine 4.86 Protein/Creatinine Ratio Bedside Glucose 66 L Test 11/09/18 08:24 11/09/18 08:29 11/09/18 09:09 Bedside Glucose 66 L 66 L 70 Medications Medication Current Medications IV Flush (NS 3 ml) 3 ml PER PROTOCOL IV ; Start 11/08/18 at 04:30 Ondansetron HCl (Zofran Inj) 4 mg Q6H PRN IV NAUSEA/VOMITING; Start 11/08/18 at 04:30 Nitroglycerin (Nitroglycerin (Sl Tab) 0.4 Mg) 1 tab Q5M PRN SL .CHEST PAIN; Start 11/08/18 at 04:30 Acetaminophen (Tylenol Tab) 650 mg Q6H PRN PO .PAIN 1-3 OR TEMP; Start 11/08/18 at 04:30 Albuterol/ Ipratropium (Duoneb) 3 ml Q2H RESP THERAPY PRN HHN SHORTNESS OF BREATH; Start 11/08/18 at 04:30 Ferrous Sulfate (Ferrous Sulfate (Ec)) 325 mg BID PO Last administered on 11/09/18at 08:45; Admin Dose 325 MG; Start 11/08/18 at 09:00 Minoxidil (Loniten) 5 mg DAILY PO Last administered on 11/09/18at 08:45; Admin Dose 5 MG; Start 11/08/18 at 09:00 Nifedipine (Procardia Xl) 30 mg BID PO Last administered on 11/09/18at 08:45; Admin Dose 30 MG; Start 11/08/18 at 09:00 Carvedilol (Coreg) 12.5 mg BID PO Last administered on 11/09/18at 08:45; Admin Dose 12.5 MG; Start 11/08/18 at 21:00 Acetaminophen/ Hydrocodone Bitart ([place] (5/325)) 1 tab Q6H PRN PO PAIN LEVEL 4-10 Last administered on 11/09/18at 04:30; Admin Dose 1 TAB; Start 11/09/18 at 04:00 Gabapentin (Neurontin) 100 mg TID PO ; Start 11/09/18 at 13:00 Atorvastatin Calcium (Lipitor) 40 mg HS PO ; Start 11/09/18 at 21:00 Sodium Chloride 1,000 ml @ 80 mls/hr [id number] IV ; Start 11/09/18 at 12:00; Stop 11/10/18 at 11:59 Ceftriaxone Sodium 50 ml @ 100 mls/hr Q24H IVPB ; Start 11/09/18 at 12:30; Status UNV LUZ HELLER NP Nov 09, 2018 12:12
[2018-11-09] MEDS: GABAPENTIN 100 MG CAP PO SCH ×2 (13:02→21:00)
[2018-11-09] MEDS: SOD CHLORIDE 0.9% 1,000 ML IV SCH (13:02)
[2018-11-09] MEDS: CEFTRIAXONE 2 GM/50 ML (PMX) 50 ML IVPB SCH (13:03)
[2018-11-09 15:38] VITALS: BP 107/56; PULSE 67; RESP 18
[2018-11-09 20:06] VITALS: BP 128/60; PULSE 72; RESP 18
[2018-11-09] MEDS: ATORVASTATIN 40 MG TAB PO SCH (22:06)
[2018-11-10] VITALS (19 sets, daily range): BP systolic 107–153; BP diastolic 60–80; PULSE 72–80; RESP 16–18
[2018-11-10] MEDS: SOD CHLORIDE 0.9% 1,000 ML IV SCH ×2 (00:20→05:37)
--- NOTE | 2018-11-10 07:57 | CONS ---
Assessment/Plan Assessment/Plan Hospital Course (Demo Recall) Atypical chest pain: normal troponins and echo. No workup with recent ICH Acute on chronic diastolic CHF: EF preserved. On HD and probably has not had HD for a few days ESRD on HD: right IJ tunneled catheter. Needs HD for volume management Hypertension Diabetes mellitus Recent intracranial hemorrhage/CVA - within past one month at [facility]. CT head with evidence of subacute CVA with hemorrhage -when ok per neurology, should restart ASA -continue lipitor -d/c IVF -needs HD for volume management -carvedilol 12.5mg BID -continue lisinopril 5mg daily, minoxidil 5mg daily, nifedipine 30mg BID Consultation Date/Type/Reason Admit Date/Time Nov 08, 2018 at 01:53 Initial Consult Date 11/08/18 Type of Consult Cardiology Requesting Provider: ARSH SOUTH NP Date/Time of Note DATE: 11/10/18 TIME: 07:53 24 HR Interval Summary Free Text/Dictation No events. Complains of generalized abdominal discomfort and states "the water needs to be removed". Upset with frequent testing Exam/Review of Systems Vital Signs Vitals Vital Signs Date Temp Pulse Resp B/P (MAP) Pulse Ox O2 O2 Flow FiO2 Time Delivery Rate 11/10/18 98.9 74 18 120/60 93 Room Air 00:43 (80) 11/08/18 2.0 07:31 Intake and Output 11/09/18 11/09/18 11/10/18 1515:00 23:00 07:00 IntakeIntake Total 50 ml 700 ml 600 ml BalanceBalance 50 ml 700 ml 600 ml Exam Constitutional: alert, oriented Head: normocephalic, atraumatic Neck: jvd (9cm) Respiratory: crackles/rales (mild), diminished breath sounds; No clear to auscultation Cardiovascular: regular rate and rhythm, edema (1+ ankles), systolic murmur (2/6 DREA) Gastrointestinal: soft, non-tender; No distended Neurological: nl mental status, nl speech Labs Result Diagram: 11/10/18 0440 11/10/18 0439 Results 24hrs Laboratory Tests Test 11/09/18 08:02 11/09/18 08:24 11/09/18 08:29 11/09/18 09:09 Bedside Glucose 66 L 66 L 66 L 70 Test 11/09/18 12:08 11/09/18 17:29 11/09/18 23:59 11/10/18 04:39 Bedside Glucose 86 71 85 Sodium Level 139 Potassium Level 3.9 Chloride Level 110 Carbon Dioxide Level 23 Anion Gap 6 Blood Urea Nitrogen 15 Creatinine 3.11 H Est Glomerular 21 L Filtrat Rate mL/min Glucose Level 86 Calcium Level 7.6 L Phosphorus Level 3.8 Magnesium Level 1.8 Test 11/10/18 04:40 White Blood Count 4.7 L Red Blood Count 2.85 L Hemoglobin 8.1 L Hematocrit 25.0 L Mean Corpuscular 87.7 Volume Mean Corpuscular 28.4 L Hemoglobin Mean Corpuscular 32.4 Hemoglobin Concent Red Cell 14.4 Distribution Width Platelet Count 139 L Mean Platelet Volume 10.1 Immature 0.400 Granulocytes % Neutrophils % 61.1 Lymphocytes % 19.8 Monocytes % 13.3 H Eosinophils % 4.6 Basophils % 0.8 Nucleated Red Blood 0.0 Cells % Immature 0.020 Granulocytes # Neutrophils # 2.9 Lymphocytes # 0.9 Monocytes # 0.6 Eosinophils # 0.2 Basophils # 0.0 Nucleated Red Blood 0.0 Cells # Medications Medications Current Medications IV Flush (NS 3 ml) 3 ml PER PROTOCOL IV ; Start 11/08/18 at 04:30 Ondansetron HCl (Zofran Inj) 4 mg Q6H PRN IV NAUSEA/VOMITING; Start 11/08/18 at 04:30 Nitroglycerin (Nitroglycerin (Sl Tab) 0.4 Mg) 1 tab Q5M PRN SL .CHEST PAIN; Start 11/08/18 at 04:30 Acetaminophen (Tylenol Tab) 650 mg Q6H PRN PO .PAIN 1-3 OR TEMP; Start 11/08/18 at 04:30 Albuterol/ Ipratropium (Duoneb) 3 ml Q2H RESP THERAPY PRN HHN SHORTNESS OF BREATH; Start 11/08/18 at 04:30 Ferrous Sulfate (Ferrous Sulfate (Ec)) 325 mg BID PO Last administered on 11/09/18at 22:06; Admin Dose 325 MG; Start 11/08/18 at 09:00 Minoxidil (Loniten) 5 mg DAILY PO Last administered on 11/09/18at 08:45; Admin Dose 5 MG; Start 11/08/18 at 09:00 Nifedipine (Procardia Xl) 30 mg BID PO Last administered on 11/09/18 22:06; Admin Dose 30 MG; Start 11/08/18 at 09:00 Carvedilol (Coreg) 12.5 mg BID PO Last administered on 11/09/18 22:06; Admin Dose 12.5 MG; Start 11/08/18 at 21:00 Acetaminophen/ Hydrocodone Bitart ([place] (5/325)) 1 tab Q6H PRN PO PAIN LEVEL 4-10 Last administered on 11/09/18 17:45; Admin Dose 1 TAB; Start 11/09/18 at 04:00 Gabapentin (Neurontin) 100 mg TID PO Last administered on 11/09/18 21:00; Admin Dose 100 MG; Start 11/09/18 at 13:00 Atorvastatin Calcium (Lipitor) 40 mg HS PO Last administered on 11/09/18 22:06; Admin Dose 40 MG; Start 11/09/18 at 21:00 Sodium Chloride 1,000 ml @ 80 mls/hr [id number] IV Last administered on 11/10/18 05:37; Admin Dose 80 MLS/HR; Start 11/09/18 at 12:00; Stop 11/10/18 at 11:59 Ceftriaxone Sodium 50 ml @ 100 mls/hr Q24H IVPB Last administered on 11/09/18 13:03; Admin Dose 100 MLS/HR; Start 11/09/18 at 13:00 MEREDITH FARRELL Nov 10, 2018 07:56
[2018-11-10] MEDS: HYDROCODONE/APAP (5/325) TAB PO PRN (08:20)
--- NOTE | 2018-11-10 08:28 | CONS ---
Assessment/Plan Assessment/Plan Assessment/Plan (Daily) subacute/chronic ICH. Stable. Unlikely to progress given chronicity and stability bleed at this point. No indication for neurosurgical intervention for this issue. Will sign off. Please call with any questions or concerns. Consultation Date/Type/Reason Admit Date/Time Nov 08, 2018 at 01:53 Initial Consult Date 11/08/18 Type of Consult Neurosurgery Reason for Consultation ICH Requesting Provider: ARSH SOUTH NP Date/Time of Note DATE: 11/10/18 TIME: 08:24 24 HR Interval Summary Free Text/Dictation Patient without new neurological complaints. Denies headaches, nausea or vomiting. Complaining about abdomen, feels that he has to urinate. Exam/Review of Systems Exam Vitals Vital Signs Date Temp Pulse Resp B/P (MAP) Pulse Ox O2 O2 Flow FiO2 Time Delivery Rate 11/10/18 98.0 78 18 130/61 92 08:17 (84) 11/10/18 Room Air 00:43 11/08/18 2.0 07:31 Intake and Output 11/09/18 11/09/18 11/10/18 1515:00 23:00 07:00 IntakeIntake Total 50 ml 700 ml 600 ml BalanceBalance 50 ml 700 ml 600 ml Constitutional: alert, oriented Neurological: RECRUIT INSTRUCTOR II-XII intact, nl speech, other (left dense hemiparesis.) Results Result Diagram: 11/10/18 0440 11/10/18 0439 Results 24hrs Laboratory Tests Test 11/09/18 08:29 11/09/18 09:09 11/09/18 12:08 11/09/18 17:29 Bedside Glucose 66 L 70 86 71 Test 11/09/18 23:59 11/10/18 04:39 11/10/18 04:40 Bedside Glucose 85 Sodium Level 139 Potassium Level 3.9 Chloride Level 110 Carbon Dioxide Level 23 Anion Gap 6 Blood Urea Nitrogen 15 Creatinine 3.11 H Est Glomerular 21 L Filtrat Rate mL/min Glucose Level 86 Calcium Level 7.6 L Phosphorus Level 3.8 Magnesium Level 1.8 White Blood Count 4.7 L Red Blood Count 2.85 L Hemoglobin 8.1 L Hematocrit 25.0 L Mean Corpuscular 87.7 Volume Mean Corpuscular 28.4 L Hemoglobin Mean Corpuscular 32.4 Hemoglobin Concent Red Cell 14.4 Distribution Width Platelet Count 139 L Mean Platelet Volume 10.1 Immature 0.400 Granulocytes % Neutrophils % 61.1 Lymphocytes % 19.8 Monocytes % 13.3 H Eosinophils % 4.6 Basophils % 0.8 Nucleated Red Blood 0.0 Cells % Immature 0.020 Granulocytes # Neutrophils # 2.9 Lymphocytes # 0.9 Monocytes # 0.6 Eosinophils # 0.2 Basophils # 0.0 Nucleated Red Blood 0.0 Cells # Imaging Imaging CT yesterday stable. ICH appears subacute/ chronic, no significant mass effect or shift. Medications Medication Current Medications IV Flush (NS 3 ml) 3 ml PER PROTOCOL IV ; Start 11/08/18 at 04:30 Ondansetron HCl (Zofran Inj) 4 mg Q6H PRN IV NAUSEA/VOMITING; Start 11/08/18 at 04:30 Nitroglycerin (Nitroglycerin (Sl Tab) 0.4 Mg) 1 tab Q5M PRN SL .CHEST PAIN; Start 11/08/18 at 04:30 Acetaminophen (Tylenol Tab) 650 mg Q6H PRN PO .PAIN 1-3 OR TEMP; Start 11/08/18 at 04:30 Albuterol/ Ipratropium (Duoneb) 3 ml Q2H RESP THERAPY PRN HHN SHORTNESS OF BREATH; Start 11/08/18 at 04:30 Ferrous Sulfate (Ferrous Sulfate (Ec)) 325 mg BID PO Last administered on 11/09/18at 22:06; Admin Dose 325 MG; Start 11/08/18 at 09:00 Minoxidil (Loniten) 5 mg DAILY PO Last administered on 11/09/18at 08:45; Admin Dose 5 MG; Start 11/08/18 at 09:00 Nifedipine (Procardia Xl) 30 mg BID PO Last administered on 11/09/18at 22:06; Admin Dose 30 MG; Start 11/08/18 at 09:00 Carvedilol (Coreg) 12.5 mg BID PO Last administered on 11/09/18at 22:06; Admin Dose 12.5 MG; Start 11/08/18 at 21:00 Acetaminophen/ Hydrocodone Bitart ([place] (5/325)) 1 tab Q6H PRN PO PAIN LEVEL 4-10 Last administered on 11/10/18at 08:20; Admin Dose 1 TAB; Start 11/09/18 at 04:00 Gabapentin (Neurontin) 100 mg TID PO Last administered on 11/09/18at 21:00; Admin Dose 100 MG; Start 11/09/18 at 13:00 Atorvastatin Calcium (Lipitor) 40 mg HS PO Last administered on 11/09/18at 22:06; Admin Dose 40 MG; Start 11/09/18 at 21:00 Ceftriaxone Sodium 50 ml @ 100 mls/hr Q24H IVPB Last administered on 11/09/18at 13:03; Admin Dose 100 MLS/HR; Start 11/09/18 at 13:00 CYNTHIA STATON MD Nov 10, 2018 08:28
--- NOTE | 2018-11-10 09:09 | PN ---
Date/Time of Note Date/Time of Note DATE: 11/10/18 TIME: 09:08 Assessment/Plan VTE Prophylaxis Risk score (from Ns)>0 risk: 1 SCD applied (from Ns): No SCD contraindicated: other Pharmacological prophylaxis: NA/contraindicated Pharm contraindication: other Lines/Catheters [facility]from [facility] dialysis cath Urinary Cath still in place: No Assessment/Plan Hospital Course SUBJECTIVE: Denies any chest pain. Complains of discomfort in the suprapubic area. OBJECTIVE: Physical Exam General: Obese, 58 year-old male lying in bed in no apparent distress. HEENT: Normocephalic, atraumatic. Eyes: Anicteric sclerae, conjunctivae clear. ENT: Nasal septum midline, oral mucosa moist. Neck supple, no JVD noticed. Respiratory: Bilaterally clear breath sounds. No use of accessory muscles of respiration. No adventitious breath sounds. Cardiovascular: S1, S2 heard. Regular rate and rhythm. Abdomen: Soft, nontender, and nondistended. Bowel sounds positive in all 4 quadrants. Genitourinary: Deferred. Extremities: No cyanosis, no clubbing. LUE edema. Peripheral pulses palpable. Neurologic: Left upper extremity flaccid. Left lower extremity weak. Awake and alert. Oriented to self and place. Skin: Normal skin turgor. No skin rashes. Labs & Vitals per chart ASSESSMENT & PLAN 58 year old male with comorbidities including, hypertension, CKD, nephrotic syndrome, diabetes mellitus type 2, recent stroke with left-sided weakness, and anemia of chronic disease, who was transferred from a shelter facility for complaints of chest pain. 1. Chest pain. ACS ruled out. Being followed by cardiology. 2. Acute on chronic diastolic heart failure. Continue ultrafiltration. 3. Diabetes mellitus type 2. Hemoglobin A1c 5.3. Continue sliding scale insulin. 4. Subacute right MCA territory infarct with hemorrhage. Status post evaluation by neurosurgery. Repeat brain CT scan showing no interval changes. 5. Hypertension. Continue antihypertensives. 6. Acute on chronic kidney disease. Continue ultrafiltration as per nephrology. 7. Urinary tract infection. Urine culture showing Gram-negative rods some more than 100,000 CFU per mL. Continue appropriate antimicrobials. 8. Fluids, electrolytes, and nutrition. Carbohydrate controlled, low-cholesterol diet. 9. DVT prophylaxis. Bilateral SCDs. Heparin has been discontinued because of brain CT scan findings. 10. Plan. Continue current management. Bladder scan and if significant amount of urine in bladder, catheterize the vicente dder. Physical therapy evaluation. The patient was seen in collaboration with Dr. Minor. Result Diagram: 11/10/18 0440 11/10/18 0439 Results 24hrs Laboratory Tests Test 11/09/18 09:09 11/09/18 12:08 11/09/18 17:29 11/09/18 23:59 Bedside Glucose 70 86 71 85 Test 11/10/18 04:39 11/10/18 04:40 11/10/18 08:48 Sodium Level 139 Potassium Level 3.9 Chloride Level 110 Carbon Dioxide Level 23 Anion Gap 6 Blood Urea Nitrogen 15 Creatinine 3.11 H Est Glomerular 21 L Filtrat Rate mL/min Glucose Level 86 Calcium Level 7.6 L Phosphorus Level 3.8 Magnesium Level 1.8 White Blood Count 4.7 L Red Blood Count 2.85 L Hemoglobin 8.1 L Hematocrit 25.0 L Mean Corpuscular 87.7 Volume Mean Corpuscular 28.4 L Hemoglobin Mean Corpuscular 32.4 Hemoglobin Concent Red Cell 14.4 Distribution Width Platelet Count 139 L Mean Platelet Volume 10.1 Immature 0.400 Granulocytes % Neutrophils % 61.1 Lymphocytes % 19.8 Monocytes % 13.3 H Eosinophils % 4.6 Basophils % 0.8 Nucleated Red Blood 0.0 Cells % Immature 0.020 Granulocytes # Neutrophils # 2.9 Lymphocytes # 0.9 Monocytes # 0.6 Eosinophils # 0.2 Basophils # 0.0 Nucleated Red Blood 0.0 Cells # Bedside Glucose 82 Exam/Review of Systems Exam Vitals Vital Signs Date Temp Pulse Resp B/P (MAP) Pulse Ox O2 O2 Flow FiO2 Time Delivery Rate 11/10/18 98.0 78 18 130/61 92 08:17 (84) 11/10/18 Room Air 00:43 11/08/18 2.0 07:31 Intake and Output 11/09/18 11/09/18 11/10/18 1515:00 23:00 07:00 IntakeIntake Total 50 ml 700 ml 600 ml BalanceBalance 50 ml 700 ml 600 ml Results Results 24hrs Laboratory Tests Test 11/09/18 09:09 11/09/18 12:08 11/09/18 17:29 11/09/18 23:59 Bedside Glucose 70 86 71 85 Test 11/10/18 04:39 11/10/18 04:40 11/10/18 08:48 Sodium Level 139 Potassium Level 3.9 Chloride Level 110 Carbon Dioxide Level 23 Anion Gap 6 Blood Urea Nitrogen 15 Creatinine 3.11 H Est Glomerular 21 L Filtrat Rate mL/min Glucose Level 86 Calcium Level 7.6 L Phosphorus Level 3.8 Magnesium Level 1.8 White Blood Count 4.7 L Red Blood Count 2.85 L Hemoglobin 8.1 L Hematocrit 25.0 L Mean Corpuscular 87.7 Volume Mean Corpuscular 28.4 L Hemoglobin Mean Corpuscular 32.4 Hemoglobin Concent Red Cell 14.4 Distribution Width Platelet Count 139 L Mean Platelet Volume 10.1 Immature 0.400 Granulocytes % Neutrophils % 61.1 Lymphocytes % 19.8 Monocytes % 13.3 H Eosinophils % 4.6 Basophils % 0.8 Nucleated Red Blood 0.0 Cells % Immature 0.020 Granulocytes # Neutrophils # 2.9 Lymphocytes # 0.9 Monocytes # 0.6 Eosinophils # 0.2 Basophils # 0.0 Nucleated Red Blood 0.0 Cells # Bedside Glucose 82 Medications Medication Current Medications IV Flush (NS 3 ml) 3 ml PER PROTOCOL IV ; Start 11/08/18 at 04:30 Ondansetron HCl (Zofran Inj) 4 mg Q6H PRN IV NAUSEA/VOMITING; Start 11/08/18 at 04:30 Nitroglycerin (Nitroglycerin (Sl Tab) 0.4 Mg) 1 tab Q5M PRN SL .CHEST PAIN; Start 11/08/18 at 04:30 Acetaminophen (Tylenol Tab) 650 mg Q6H PRN PO .PAIN 1-3 OR TEMP; Start 11/08/18 at 04:30 Albuterol/ Ipratropium (Duoneb) 3 ml Q2H RESP THERAPY PRN HHN SHORTNESS OF BREATH; Start 11/08/18 at 04:30 Ferrous Sulfate (Ferrous Sulfate (Ec)) 325 mg BID PO Last administered on 11/09at 22:06; Admin Dose 325 MG; Start 11/08/18 at 09:00 Minoxidil (Loniten) 5 mg DAILY PO Last administered on 11/09/18at 08:45; Admin Dose 5 MG; Start 11/08/18 at 09:00 Nifedipine (Procardia Xl) 30 mg BID PO Last administered on 11/09/18 22:06; Admin Dose 30 MG; Start 11/08/18 at 09:00 Carvedilol (Coreg) 12.5 mg BID PO Last administered on 11/09/18 22:06; Admin Dose 12.5 MG; Start 11/08/18 at 21:00 Acetaminophen/ Hydrocodone Bitart ([place] (5/325)) 1 tab Q6H PRN PO PAIN LEVEL 4-10 Last administered on 11/10/18 08:20; Admin Dose 1 TAB; Start 11/09/18 at 04:00 Gabapentin (Neurontin) 100 mg TID PO Last administered on 11/09/18 21:00; Admin Dose 100 MG; Start 11/09/18 at 13:00 Atorvastatin Calcium (Lipitor) 40 mg HS PO Last administered on 11/09/18 22:06; Admin Dose 40 MG; Start 11/09/18 at 21:00 Ceftriaxone Sodium 50 ml @ 100 mls/hr Q24H IVPB Last administered on 11/09/18 13:03; Admin Dose 100 MLS/HR; Start 11/09/18 at 13:00 LUZ HELLER NP Nov 10, 2018 09:09
--- NOTE | 2018-11-10 09:25 | CONS ---
Assessment/Plan Assessment/Plan Assessment/Plan (Daily) 1. ESRD On HD - MWF schedule 2. subacute Right MCA territorial infarct 3. h/o HTN 4. H/o HL 5/ Ho DM II 6. left kidney 3.5 cm complex lesion- rule out renal mass Plan: Plan for HD on Friday, Pt regular schedule is MWF-another scheduled HD ordered for Continue Nifedipine Xl 30 mg PO BID, Minoxidil 5 mg po daily , Coreg 12.5 mg BID, Lisinopril 5 mg po daily - IV hydralazine prn as needed Uric acid 4.0,CK total 113 Renal US showed both kidneys are normal in Echogenicity- There is 3.5 x 3.7 cm complex lesion in the upper pole of the left kidney which is previously described as a simple cyst. will order MRI abdomen w/o Contrast has been ordered to better Evaluate for left renal lesion will follow up Consultation Date/Type/Reason Admit Date/Time Nov 08, 2018 at 01:53 Initial Consult Date 11/08/18 Type of Consult NEPHROLOGY Requesting Provider: ARSH SOUTH NP Date/Time of Note DATE: 11/10/18 TIME: 09:24 Exam/Review of Systems Exam Vitals Vital Signs Date Temp Pulse Resp B/P (MAP) Pulse Ox O2 O2 Flow FiO2 Time Delivery Rate 11/10/18 98.0 78 18 130/61 92 08:17 (84) 11/10/18 Room Air 00:43 11/08/18 2.0 07:31 Intake and Output 11/09/18 11/09/18 11/10/18 1515:00 23:00 07:00 IntakeIntake Total 50 ml 700 ml 600 ml BalanceBalance 50 ml 700 ml 600 ml Exam Constitutional: alert Psych: anxiety Head: normocephalic Respiratory: clear to auscultation, normal air movement Cardiovascular: other (regular rate ) Gastrointestinal: soft, non-tender Neurological: other (Noted with left side paralysis and right facial droop); No STOCKROOM COORDINATOR II-XII intact Results Result Diagram: 11/10/18 0440 11/10/18 0439 Results 24hrs Laboratory Tests Test 11/09/18 12:08 11/09/18 17:29 11/09/18 23:59 11/10/18 04:39 Bedside Glucose 86 71 85 Sodium Level 139 Potassium Level 3.9 Chloride Level 110 Carbon Dioxide Level 23 Anion Gap 6 Blood Urea Nitrogen 15 Creatinine 3.11 H Est Glomerular 21 L Filtrat Rate mL/min Glucose Level 86 Calcium Level 7.6 L Phosphorus Level 3.8 Magnesium Level 1.8 Test 11/10/18 04:40 11/10/18 08:48 White Blood Count 4.7 L Red Blood Count 2.85 L Hemoglobin 8.1 L Hematocrit 25.0 L Mean Corpuscular 87.7 Volume Mean Corpuscular 28.4 L Hemoglobin Mean Corpuscular 32.4 Hemoglobin Concent Red Cell 14.4 Distribution Width Platelet Count 139 L Mean Platelet Volume 10.1 Immature 0.400 Granulocytes % Neutrophils % 61.1 Lymphocytes % 19.8 Monocytes % 13.3 H Eosinophils % 4.6 Basophils % 0.8 Nucleated Red Blood 0.0 Cells % Immature 0.020 Granulocytes # Neutrophils # 2.9 Lymphocytes # 0.9 Monocytes # 0.6 Eosinophils # 0.2 Basophils # 0.0 Nucleated Red Blood 0.0 Cells # Bedside Glucose 82 Medications Medication Current Medications IV Flush (NS 3 ml) 3 ml PER PROTOCOL IV ; Start 11/08/18 at 04:30 Ondansetron HCl (Zofran Inj) 4 mg Q6H PRN IV NAUSEA/VOMITING; Start 11/08/18 at 04:30 Nitroglycerin (Nitroglycerin (Sl Tab) 0.4 Mg) 1 tab Q5M PRN SL .CHEST PAIN; Start 11/08/18 at 04:30 Acetaminophen (Tylenol Tab) 650 mg Q6H PRN PO .PAIN 1-3 OR TEMP; Start 11/08/18 at 04:30 Albuterol/ Ipratropium (Duoneb) 3 ml Q2H RESP THERAPY PRN HHN SHORTNESS OF BREATH; Start 11/08/18 at 04:30 Ferrous Sulfate (Ferrous Sulfate (Ec)) 325 mg BID PO Last administered on 11/09/18at 22:06; Admin Dose 325 MG; Start 11/08/18 at 09:00 Minoxidil (Loniten) 5 mg DAILY PO Last administered on 11/09/18at 08:45; Admin Dose 5 MG; Start 11/08/18 at 09:00 Nifedipine (Procardia Xl) 30 mg BID PO Last administered on 11/09/18at 22:06; Admin Dose 30 MG; Start 11/08/18 at 09:00 Carvedilol (Coreg) 12.5 mg BID PO Last administered on 11/09/18at 22:06; Admin Dose 12.5 MG; Start 11/08/18 at 21:00 Acetaminophen/ Hydrocodone Bitart ([place] (5/325)) 1 tab Q6H PRN PO PAIN LEVEL 4-10 Last administered on 11/10/18 08:20; Admin Dose 1 TAB; Start 11/09/18 at 04:00 Gabapentin (Neurontin) 100 mg TID PO Last administered on 11/09/18at 21:00; Admin Dose 100 MG; Start 11/09/18 at 13:00 Atorvastatin Calcium (Lipitor) 40 mg HS PO Last administered on 11/09/18at 22:06; Admin Dose 40 MG; Start 11/09/18 at 21:00 Ceftriaxone Sodium 50 ml @ 100 mls/hr Q24H IVPB Last administered on 11/09/18at 13:03; Admin Dose 100 MLS/HR; Start 11/09/18 at 13:00 Morphine Sulfate (morphine) 2 mg Q4H PRN IV SEVERE PAIN LEVEL 7-10; Start 11/10/18 at 09:30 Mupirocin (Bactroban) 1 applic BID TOP ; Start 11/10/18 at 10:30 Heparin Sodium (Porcine) (Heparin (1000 Units/ml)) 4,000 unit AFTER DIALYSIS CATHETER ; Start 11/10/18 at 09:30; Status UNV Albumin Human 100 ml @ 100 mls/hr WITH DIALYSIS PRN IV SBP <90 DURING DIAL YSIS; Start 11/10/18 at 09:30; Status UNV Sodium Chloride (NS) -To prime the dialy... DIRECTED FOR HD PRN IV HD; Start 11/10/18 at 09:30; Status UNV LEIDA SMITH MD Nov 10, 2018 09:25
[2018-11-10] MEDS ORDERED: SODIUM CHLORIDE 0.9% 1L BAG IV PRN (09:30)
[2018-11-10] MEDS ORDERED: ALBUMIN HUMAN 25% 100 ML IV PRN (09:30)
[2018-11-10] MEDS: morphine 2 MG INJ IV PRN ×3 (09:50→23:13)
[2018-11-10] MEDS: MINOXIDIL 2.5 MG TAB PO SCH (09:51)
[2018-11-10] MEDS: NIFEdipine (XL) 30 MG TAB PO SCH ×2 (09:51→21:25)
[2018-11-10] MEDS: GABAPENTIN 100 MG CAP PO SCH ×3 (09:51→21:24)
[2018-11-10] MEDS: FERROUS SULFATE (EC) 325 MG TAB PO SCH ×2 (09:51→21:24)
[2018-11-10] MEDS: MUPIROCIN 2% 22 GM OINT TOP SCH ×2 (10:30→21:25)
[2018-11-10] MEDS: CEFTRIAXONE 2 GM/50 ML (PMX) 50 ML IVPB SCH (12:03)
--- NOTE | 2018-11-10 13:24 | CONS ---
Assessment/Plan Assessment/Plan Assessment/Plan (Recall) 58 M c/ reported recent stroke, who presents for evaluation of left sided pain, including his chest... Was noted on head CT to have a subacute appearing R MCA infarct w/ hemorrhagic transformation...for which neurology is consulted.. On surveillance imaging, his infarct and hemorrhage both appear to be subacute to chronic. LDL 113 PTT 45 P: Resume low dose asa cautiously Continue Lipitor for secondary stroke prevention...to goal LDL < 70 Continue low dose neurontin for pain Other management and supportive care per primary PT/OT/ST as necessary Will follow clinically Consultation Date/Type/Reason Admit Date/Time Nov 08, 2018 at 01:53 Type of Consult Neurology Reason for Consultation stroke Requesting Provider: ARSH SOUTH NP Date/Time of Note DATE: 11/10/18 TIME: 13:22 24 HR Interval Summary Free Text/Dictation Continues acute care Exam/Review of Systems Exam Vitals Vital Signs Date Temp Pulse Resp B/P (MAP) Pulse Ox O2 O2 Flow FiO2 Time Delivery Rate 11/10/18 98.0 78 18 130/61 92 08:17 (84) 11/10/18 Room Air 00:43 11/08/18 2.0 07:31 Intake and Output 11/09/18 11/09/18 11/10/18 1515:00 23:00 07:00 IntakeIntake Total 50 ml 700 ml 600 ml BalanceBalance 50 ml 700 ml 600 ml Results Result Diagram: 11/10/18 0440 11/10/18 0439 Results 24hrs Laboratory Tests Test 11/09/18 17:29 11/09/18 23:59 11/10/18 04:39 11/10/18 04:40 Bedside Glucose 71 85 Sodium Level 139 Potassium Level 3.9 Chloride Level 110 Carbon Dioxide Level 23 Anion Gap 6 Blood Urea Nitrogen 15 Creatinine 3.11 H Est Glomerular 21 L Filtrat Rate mL/min Glucose Level 86 Calcium Level 7.6 L Phosphorus Level 3.8 Magnesium Level 1.8 Prostate Specific 1.4 Antigen White Blood Count 4.7 L Red Blood Count 2.85 L Hemoglobin 8.1 L Hematocrit 25.0 L Mean Corpuscular 87.7 Volume Mean Corpuscular 28.4 L Hemoglobin Mean Corpuscular 32.4 Hemoglobin Concent Red Cell 14.4 Distribution Width Platelet Count 139 L Mean Platelet Volume 10.1 Immature 0.400 Granulocytes % Neutrophils % 61.1 Lymphocytes % 19.8 Monocytes % 13.3 H Eosinophils % 4.6 Basophils % 0.8 Nucleated Red Blood 0.0 Cells % Immature 0.020 Granulocytes # Neutrophils # 2.9 Lymphocytes # 0.9 Monocytes # 0.6 Eosinophils # 0.2 Basophils # 0.0 Nucleated Red Blood 0.0 Cells # Test 11/10/18 08:48 11/10/18 12:04 Bedside Glucose 82 73 Medications Medication Current Medications IV Flush (NS 3 ml) 3 ml PER PROTOCOL IV ; Start 11/08/18 at 04:30 Ondansetron HCl (Zofran Inj) 4 mg Q6H PRN IV NAUSEA/VOMITING; Start 11/08/18 at 04:30 Nitroglycerin (Nitroglycerin (Sl Tab) 0.4 Mg) 1 tab Q5M PRN SL .CHEST PAIN; Start 11/08/18 at 04:30 Acetaminophen (Tylenol Tab) 650 mg Q6H PRN PO .PAIN 1-3 OR TEMP; Start 11/08/18 at 04:30 Albuterol/ Ipratropium (Duoneb) 3 ml Q2H RESP THERAPY PRN HHN SHORTNESS OF BREATH; Start 11/08/18 at 04:30 Ferrous Sulfate (Ferrous Sulfate (Ec)) 325 mg BID PO Last administered on 11/10/18at 09:51; Admin Dose 325 MG; Start 11/08/18 at 09:00 Minoxidil (Loniten) 5 mg DAILY PO Last administered on 11/10/18at 09:51; Admin Dose 5 MG; Start 11/08/18 at 09:00 Nifedipine (Procardia Xl) 30 mg BID PO Last administered on 11/10/18 09:51; Admin Dose 30 MG; Start 11/08/18 at 09:00 Carvedilol (Coreg) 12.5 mg BID PO Last administered on 11/10/18at 09:52; Admin Dose 12.5 MG; Start 11/08/18 at 21:00 Acetaminophen/ Hydrocodone Bitart ([place] (5/325)) 1 tab Q6H PRN PO PAIN LEVEL 4 -10 Last administered on 11/10/18at 08:20; Admin Dose 1 TAB; Start 11/09/18 at 04:00 Gabapentin (Neurontin) 100 mg TID PO Last administered on 11/10/18 12:03; Admin Dose 100 MG; Start 11/09/18 at 13:00 Atorvastatin Calcium (Lipitor) 40 mg HS PO Last administered on 11/09/18at 22:06; Admin Dose 40 MG; Start 11/09/18 at 21:00 Ceftriaxone Sodium 50 ml @ 100 mls/hr Q24H IVPB Last administered on 11/10/18 12:03; Admin Dose 100 MLS/HR; Start 11/09/18 at 13:00 Morphine Sulfate (morphine) 2 mg Q4H PRN IV SEVERE PAIN LEVEL 7-10 Last administered on 11/10/18 09:50; Admin Dose 2 MG; Start 11/10/18 at 09:30 Mupirocin (Bactroban) 1 applic BID TOP ; Start 11/10/18 at 10:30 Heparin Sodium (Porcine) (Heparin (1000 Units/ml)) 4,000 unit AFTER DIALYSIS CATHETER ; Start 11/10/18 at 09:30 Albumin Human 100 ml @ 100 mls/hr WITH DIALYSIS PRN IV SBP <90 DURING DIALYSIS; Start 11/10/18 at 09:30 Sodium Chloride (NS) -To prime the dialy... DIRECTED FOR HD PRN IV HD; Start 11/10/18 at 09:30 ESTRADA BOLES Nov 10, 2018 13:24
[2018-11-10] MEDS: HEPARIN 1000 UNITS/ML 10 ML INJ CATHETER SCH (18:13)
[2018-11-10] MEDS: ATORVASTATIN 40 MG TAB PO SCH (21:24)
[2018-11-11] VITALS (19 sets, daily range): BP systolic 84–137; BP diastolic 55–68; PULSE 73–300; RESP 17–20
--- NOTE | 2018-11-11 05:52 | PN ---
Date/Time of Note Date/Time of Note DATE: 11/11/18 TIME: 05:52 Assessment/Plan VTE Prophylaxis Risk score (from Nsg)>0 risk: 2 SCD applied (from Nsg): Yes Pharmacological prophylaxis: NA/contraindicated Pharm contraindication: other Lines/Catheters IV Catheter Type (from Nrsg): Central Line Central line still needed: Yes Urinary Cath still in place: Yes Reason Cath still needed: urinary retention Assessment/Plan Hospital Course SUBJECTIVE: Denies any chest pain. Complains of discomfort in the suprapubic area. OBJECTIVE: Physical Exam General: Obese, 58 year-old male lying in bed in no apparent distress. HEENT: Normocephalic, atraumatic. Eyes: Anicteric sclerae, conjunctivae clear. ENT: Nasal septum midline, oral mucosa moist. Neck supple, no JVD noticed. Respiratory: Bilaterally clear breath sounds. No use of accessory muscles of respiration. No adventitious breath sounds. Cardiovascular: S1, S2 heard. Regular rate and rhythm. Abdomen: Soft, nontender, and nondistended. Bowel sounds positive in all 4 quadrants. Genitourinary: Deferred. Extremities: No cyanosis, no clubbing. LUE edema. Peripheral pulses palpable. Neurologic: Left upper extremity flaccid. Left lower extremity weak. Awake and alert. Oriented to self and place. Skin: Normal skin turgor. No skin rashes. Labs & Vitals per chart ASSESSMENT & PLAN 58 year old male with comorbidities including, hypertension, ESRD on HD M/W/F, nephrotic syndrome, diabetes mellitus type 2, recent stroke with left-sided weakness, and anemia of chronic disease, who was transferred from a retirement facility for complaints of chest pain. 1. Chest pain. ACS ruled out. Being followed by cardiology. 2. Acute on chronic diastolic heart failure. Continue ultrafiltration. 3. Diabetes mellitus type 2. Hemoglobin A1c 5.3. Continue sliding scale insulin. 4. Subacute right MCA territory infarct with hemorrhage. Status post evaluation by neurosurgery. Repeat brain CT showing no changes. 5. Hypertension. Continue antihypertensives. 6. ESRD on HD M/W/F. Ultrafiltration as per nephrology. 7. Urinary tract infection. Urine culture showing SERRATIA MARCESCENS more than 100,000 CFU per mL. Continue appropriate antimicrobials. 8. Fluids, electrolytes, and nutrition. Carbohydrate controlled, low-cholesterol diet. 9. DVT prophylaxis. Bilateral SCDs. Heparin has been discontinued because of brain CT scan findings. 10. Plan. Continue current management. Continue physical therapy. Disposition to SNF once clinically stable. The patient was seen in collaboration with Dr. Minor. Result Diagram: 11/11/1844011/11/18440 Results 24hrs Laboratory Tests Test 11/10/18 08:48 11/10/18 12:04 11/11/18 04:41 Bedside Glucose 82 73 White Blood Count 4.6 L Red Blood Count 3.14 L Hemoglobin 8.9 L Hematocrit 27.2 L Mean Corpuscular Volume 86.6 Mean Corpuscular Hemoglobin 28.3 L Mean Corpuscular Hemoglobin Concent 32.7 Red Cell Distribution Width 14.3 Platelet Count 129 L Mean Platelet Volume 9.7 Immature Granulocytes % 0.700 H Neutrophils % 56.6 Lymphocytes % 19.6 Monocytes % 14.6 H Eosinophils % 7.6 H Basophils % 0.9 Nucleated Red Blood Cells % 0.0 Immature Granulocytes # 0.030 Neutrophils # 2.6 Lymphocytes # 0.9 Monocytes # 0.7 Eosinophils # 0.4 Basophils # 0.0 Nucleated Red Blood Cells # 0.0 Sodium Level 139 Potassium Level 3.9 Chloride Level 107 Carbon Dioxide Level 30 Anion Gap 2 L Blood Urea Nitrogen 9 Creatinine 2.22 H Est Glomerular Filtrat Rate mL/min 31 L Glucose Level 86 Calcium Level 7.6 L Phosphorus Level 3.0 Magnesium Level 1.8 Exam/Review of Systems Exam Vitals Vital Signs Date Temp Pulse Resp B/P (MAP) Pulse Ox O2 O2 Flow FiO2 Time Delivery Rate 11/11/18 99.0 78 18 137/63 94 02:13 (87) 11/10/18 Room Air 20:01 11/08/18 2.0 07:31 Intake and Output 11/10/18 11/10/18 11/11/18 1515:00 23:00 07:00 IntakeIntake Total 450 ml 150 ml OutputOutput Total 3200 ml BalanceBalance 450 ml -3050 ml Results Results 24hrs Laboratory Tests Test 11/10/18 08:48 11/10/18 12:04 11/11/18 04:41 Bedside Glucose 82 73 White Blood Count 4.6 L Red Blood Count 3.14 L Hemoglobin 8.9 L Hematocrit 27.2 L Mean Corpuscular Volume 86.6 Mean Corpuscular Hemoglobin 28.3 L Mean Corpuscular Hemoglobin Concent 32.7 Red Cell Distribution Width 14.3 Platelet Count 129 L Mean Platelet Volume 9.7 Immature Granulocytes % 0.700 H Neutrophils % 56.6 Lymphocytes % 19.6 Monocytes % 14.6 H Eosinophils % 7.6 H Basophils % 0.9 Nucleated Red Blood Cells % 0.0 Immature Granulocytes # 0.030 Neutrophils # 2.6 Lymphocytes # 0.9 Monocytes # 0.7 Eosinophils # 0.4 Basophils # 0.0 Nucleated Red Blood Cells # 0.0 Sodium Level 139 Potassium Level 3.9 Chloride Level 107 Carbon Dioxide Level 30 Anion Gap 2 L Blood Urea Nitrogen 9 Creatinine 2.22 H Est Glomerular Filtrat Rate mL/min 31 L Glucose Level 86 Calcium Level 7.6 L Phosphorus Level 3.0 Magnesium Level 1.8 Medications Medication Current Medications IV Flush (NS 3 ml) 3 ml PER PROTOCOL IV ; Start 11/08/18 at 04:30 Ondansetron HCl (Zofran Inj) 4 mg Q6H PRN IV NAUSEA/VOMITING; Start 11/08/18 at 04:30 Nitroglycerin (Nitroglycerin (Sl Tab) 0.4 Mg) 1 tab Q5M PRN SL .CHEST PAIN; Start 11/08/18 at 04:30 Acetaminophen (Tylenol Tab) 650 mg Q6H PRN PO .PAIN 1-3 OR TEMP; Start 11/08/18 at 04:30 Albuterol/ Ipratropium (Duoneb) 3 ml Q2H RESP THERAPY PRN HHN SHORTNESS OF BREATH; Start 11/08/18 at 04:30 Ferrous Sulfate (Ferrous Sulfate (Ec)) 325 mg BID PO Last administered on 11/10/18at 21:24; Admin Dose 325 MG; Start 11/08/18 at 09:00 Minoxidil (Loniten) 5 mg DAILY PO Last administered on 11/10/18at 09:51; Admin Dose 5 MG; Start 11/08/18 at 09:00 Nifedipine (Procardia Xl) 30 mg BID PO Last administered on 11/10/18at 21:25; Admin Dose 30 MG; Start 11/08/18 at 09:00 Carvedilol (Coreg) 12.5 mg BID PO Last administered on 11/10/18at 21:24; Admin Dose 12.5 MG; Start 11/08/18 at 21:00 Acetaminophen/ Hydrocodone Bitart ([place] (5/325)) 1 tab Q6H PRN PO PAIN LEVEL 4-10 Last administered on 11/10/18 08:20; Admin Dose 1 TAB; Start 11/09/18 at 04:00 Gabapentin (Neurontin) 100 mg TID PO Last administered on 11/10/18 21:24; Admin Dose 100 MG; Start 11/09/18 at 13:00 Atorvastatin Calcium (Lipitor) 40 mg HS PO Last administered on 11/10/18 21:24; Admin Dose 40 MG; Start 11/09/18 at 21:00 Ceftriaxone Sodium 50 ml @ 100 mls/hr Q24H IVPB Last administered on 11/10/18 12:03; Admin Dose 100 MLS/HR; Start 11/09/18 at 13:00 Morphine Sulfate (morphine) 2 mg Q4H PRN IV SEVERE PAIN LEVEL 7-10 Last administered on 11/10/18 23:13; Admin Dose 2 MG; Start 11/10/18 at 09:30 Mupirocin (Bactroban) 1 applic BID TOP Last administered on 11/10/18 21:25; Admin Dose 1 APPLIC; Start 11/10/18 at 10:30 Heparin Sodium (Porcine) (Heparin (1000 Units/ml)) 4,000 unit AFTER DIALYSIS CATHETER Last administered on 11/10/18 18:13; Admin Dose 4,000 UNIT; Start 11/10/18 at 09:30 Albumin Human 100 ml @ 100 mls/hr WITH DIALYSIS PRN IV SBP <90 DURING DIALYSIS; Start 11/10/18 at 09:30 Sodium Chloride (NS) -To prime the dialy... DIRECTED FOR HD PRN IV HD; Start 11/10/18 at 09:30 LUZ HELLER NP Nov 11, 2018 05:52
[2018-11-11] MEDS: morphine 2 MG INJ IV PRN ×2 (07:15→14:25)
[2018-11-11] MEDS ORDERED: HEPARIN 1000 UNITS/ML 10 ML INJ HE SCH ×3 (08:00)
[2018-11-11] MEDS: GABAPENTIN 100 MG CAP PO SCH ×3 (09:00→21:31)
[2018-11-11] MEDS ORDERED: BISACODYL (EC) 5 MG TAB PO PRN (09:00)
[2018-11-11] MEDS: MUPIROCIN 2% 22 GM OINT TOP SCH ×2 (09:00→21:31)
[2018-11-11] MEDS ORDERED: LEVOFLOXACIN 750MG/D5W (PMX) 150 ML IVPB SCH (09:00)
--- NOTE | 2018-11-11 09:26 | CONS ---
Assessment/Plan Assessment/Plan Assessment/Plan (Recall) 58 M c/ reported recent stroke, who presents for evaluation of left sided pain, including his chest... Was noted on head CT to have a subacute appearing R MCA infarct w/ hemorrhagic transformation...for which neurology is consulted.. On surveillance imaging, his infarct and hemorrhage both appear to be subacute to chronic. LDL 113 PTT 45 P: OK to resume low dose asa cautiously Continue Lipitor for secondary stroke prevention...to goal LDL < 70 Continue low dose neurontin for pain Other management and supportive care per primary PT/OT/ST as necessary Will follow clinically Consultation Date/Type/Reason Admit Date/Time Nov 08, 2018 at 01:53 Type of Consult Neurology Reason for Consultation stroke Requesting Provider: ARSH SOUTH NP Date/Time of Note DATE: 11/11/18 TIME: 09:25 24 HR Interval Summary Free Text/Dictation Continues acute care Exam/Review of Systems Exam Vitals Vital Signs Date Temp Pulse Resp B/P (MAP) Pulse Ox O2 O2 Flow FiO2 Time Delivery Rate 11/11/18 75 08:45 11/11/18 98.5 18 124/64 97 Room Air 08:03 (84) 11/08/18 2.0 07:31 Intake and Output 11/10/18 11/10/18 11/11/18 1515:00 23:00 07:00 IntakeIntake Total 450 ml 150 ml OutputOutput Total 3200 ml BalanceBalance 450 ml -3050 ml Results Result Diagram: 11/11/18 0441 11/11/18 0441 Results 24hrs Laboratory Tests Test 11/10/18 12:04 11/11/18 04:41 Bedside Glucose 73 White Blood Count 4.6 L Red Blood Count 3.14 L Hemoglobin 8.9 L Hematocrit 27.2 L Mean Corpuscular Volume 86.6 Mean Corpuscular Hemoglobin 28.3 L Mean Corpuscular Hemoglobin Concent 32.7 Red Cell Distribution Width 14.3 Platelet Count 129 L Mean Platelet Volume 9.7 Immature Granulocytes % 0.700 H Neutrophils % 56.6 Lymphocytes % 19.6 Monocytes % 14.6 H Eosinophils % 7.6 H Basophils % 0.9 Nucleated Red Blood Cells % 0.0 Immature Granulocytes # 0.030 Neutrophils # 2.6 Lymphocytes # 0.9 Monocytes # 0.7 Eosinophils # 0.4 Basophils # 0.0 Nucleated Red Blood Cells # 0.0 Sodium Level 139 Potassium Level 3.9 Chloride Level 107 Carbon Dioxide Level 30 Anion Gap 2 L Blood Urea Nitrogen 9 Creatinine 2.22 H Est Glomerular Filtrat Rate mL/min 31 L Glucose Level 86 Calcium Level 7.6 L Phosphorus Level 3.0 Magnesium Level 1.8 Medications Medication Current Medications IV Flush (NS 3 ml) 3 ml PER PROTOCOL IV ; Start 11/08/18 at 04:30 Ondansetron HCl (Zofran Inj) 4 mg Q6H PRN IV NAUSEA/VOMITING; Start 11/08/18 at 04:30 Nitroglycerin (Nitroglycerin (Sl Tab) 0.4 Mg) 1 tab Q5M PRN SL .CHEST PAIN; Start 11/08/18 at 04:30 Acetaminophen (Tylenol Tab) 650 mg Q6H PRN PO .PAIN 1-3 OR TEMP; Start 11/08/18 at 04:30 Albuterol/ Ipratropium (Duoneb) 3 ml Q2H RESP THERAPY PRN HHN SHORTNESS OF BREATH; Start 11/08/18 at 04:30 Ferrous Sulfate (Ferrous Sulfate (Ec)) 325 mg BID PO Last administered on 11/10/18at 21:24; Admin Dose 325 MG; Start 11/08/18 at 09:00 Minoxidil (Loniten) 5 mg DAILY PO Last administered on 11/10/18at 09:51; Admin Dose 5 MG; Start 11/08/18 at 09:00 Nifedipine (Procardia Xl) 30 mg BID PO Last administered on 11/10/18 21:25; Admin Dose 30 MG; Start 11/08/18 at 09:00 Carvedilol (Coreg) 12.5 mg BID PO Last administered on 11/10/18 21:24; Admin Dose 12.5 MG; Start 11/08/18 at 21:00 Acetaminophen/ Hydrocodone Bitart ([place] (5/325)) 1 tab Q6H PRN PO PAIN LEVEL 4-10 Last administered on 11/10/18at 08:20; Admin Dose 1 TAB; Start 11/09/18 at 04:00 Gabapentin (Neurontin) 100 mg TID PO Last administered on 11/10/18at 21:24; Admin Dose 100 MG; Start 11/09/18 at 13:00 Atorvastatin Calcium (Lipitor) 40 mg HS PO Last administered on 11/10/18 21:24; Admin Dose 40 MG; Start 11/09/18 at 21:00 Morphine Sulfate (morphine) 2 mg Q4H PRN IV SEVERE PAIN LEVEL 7-10 Last administered on 11/11/18 07:15; Admin Dose 2 MG; Start 11/10/18 at 09:30 Mupirocin (Bactroban) 1 applic BID TOP Last administered on 11/10/18 21:25; Admin Dose 1 APPLIC; Start 11/10/18 at 10:30 Heparin Sodium (Porcine) (Heparin (1000 Units/ml)) 4,000 unit AFTER DIALYSIS CATHETER Last administered on 11/10/18 18:13; Admin Dose 4,000 UNIT; Start 11/10/18 at 09:30 Albumin Human 100 ml @ 100 mls/hr WITH DIALYSIS PRN IV SBP <90 DURING DIALYSIS Last administered on 11/11/18 09:14; Admin Dose 100 MLS/HR; Start 11/10/18 at 09:30 Sodium Chloride (NS) -To prime the dialy... DIRECTED FOR HD PRN IV HD; Start 11/10/18 at 09:30 Heparin Sodium (Porcine) (Heparin (1000 Units/ml)) 500 unit WITH DIALYSIS HE Last administered on 11/11/18 08:08; Admin Dose 500 UNIT; Start 11/11/18 at 08: 00 Heparin Sodium (Porcine) (Heparin (1000 Units/ml)) 1,500 unit WITH DIALYSIS HE Last administered on 11/11/18 08:09; Admin Dose 1,500 UNIT; Start 11/11/18 at 08:00 Polyethylene Glycol (Miralax) 17 gm BID PO ; Start 11/11/18 at 09:00; Status UNV Bisacodyl (Dulcolax) 10 mg DAILY PRN PO CONSTIPATION; Start 11/11/18 at 09:00; Status UNV Levofloxacin/ Dextrose 150 ml @ 100 mls/hr Q48H IVPB ; Start 11/11/18 at 09:00; Status UNV ESTRADA BOLES Nov 11, 2018 09:25
[2018-11-11] MEDS: HEPARIN 1000 UNITS/ML 10 ML INJ CATHETER SCH (11:22)
[2018-11-11] MEDS: FERROUS SULFATE (EC) 325 MG TAB PO SCH ×2 (11:32→21:31)
[2018-11-11] MEDS: POLYETHYLENE GLYCOL 17 GM PACKET PO SCH ×2 (11:33→21:30)
[2018-11-11] MEDS: MINOXIDIL 2.5 MG TAB PO SCH (11:33)
[2018-11-11] MEDS: NIFEdipine (XL) 30 MG TAB PO SCH ×2 (11:33→21:30)
--- NOTE | 2018-11-11 13:12 | CONS ---
Assessment/Plan Assessment/Plan Assessment/Plan (Daily) 1. ESRD On HD - MWF schedule 2. subacute Right MCA territorial infarct 3. h/o HTN 4. H/o HL 5/ Ho DM II 6. left kidney 3.5 cm complex lesion- rule out renal mass Plan: pt c/o abdominal distension and wants to have paracentesis even though there is no ascites, his US abdomen done that showed no ascites, and no need for paracentesis- explained to pt but he did not like it s/p HD today AM 2.3 L removed , will keep pt on MWF schedule, US guided paracentesis has been ordered Continue Nifedipine Xl 30 mg PO BID, Minoxidil 5 mg po daily , Coreg 12.5 mg BID, Lisinopril 5 mg po daily - IV hydralazine prn as needed Renal US showed both kidneys are normal in Echogenicity- There is 3.5 x 3.7 cm complex lesion in the upper pole of the left kidney which is previously described as a simple cyst. pt refused to have MRI at this time, will readdress with him in next 1-2 days will follow up Consultation Date/Type/Reason Admit Date/Time Nov 08, 2018 at 01:53 Initial Consult Date 11/08/18 Type of Consult NEPHROLOGY Requesting Provider: ARSH SOUTH NP Date/Time of Note DATE: 11/11/18 TIME: 13:12 24 HR Interval Summary Free Text/Dictation pt c/o abdominal distension and wants to have paracentesis, BP stable, , s/p HD today AM 2.3 L removed Exam/Review of Systems Exam Vitals Vital Signs Date Temp Pulse Resp B/P (MAP) Pulse Ox O2 O2 Flow FiO2 Time Delivery Rate 11/11/18 77 11:05 11/11/18 98.5 18 124/64 97 Room Air 08:03 (84) 11/08/18 2.0 07:31 Intake and Output 11/10/18 11/10/18 11/11/18 1515:00 23:00 07:00 IntakeIntake Total 450 ml 150 ml OutputOutput Total 3200 ml BalanceBalance 450 ml -3050 ml Exam Constitutional: alert, awake no acute distress Psych: anxiety Head: normocephalic Respiratory: clear to auscultation, normal air movement Cardiovascular: other (regular rate ) Gastrointestinal: soft, non-tender, Results Result Diagram: 11/11/18 0441 11/11/18 0441 Results 24hrs Laboratory Tests Test 11/11/18 04:41 11/11/18 11:12 White Blood Count 4.6 L Red Blood Count 3.14 L Hemoglobin 8.9 L Hematocrit 27.2 L Mean Corpuscular Volume 86.6 Mean Corpuscular Hemoglobin 28.3 L Mean Corpuscular Hemoglobin Concent 32.7 Red Cell Distribution Width 14.3 Platelet Count 129 L Mean Platelet Volume 9.7 Immature Granulocytes % 0.700 H Neutrophils % 56.6 Lymphocytes % 19.6 Monocytes % 14.6 H Eosinophils % 7.6 H Basophils % 0.9 Nucleated Red Blood Cells % 0.0 Immature Granulocytes # 0.030 Neutrophils # 2.6 Lymphocytes # 0.9 Monocytes # 0.7 Eosinophils # 0.4 Basophils # 0.0 Nucleated Red Blood Cells # 0.0 Sodium Level 139 Potassium Level 3.9 Chloride Level 107 Carbon Dioxide Level 30 Anion Gap 2 L Blood Urea Nitrogen 9 Creatinine 2.22 H Est Glomerular Filtrat Rate mL/min 31 L Glucose Level 86 Calcium Level 7.6 L Phosphorus Level 3.0 Magnesium Level 1.8 Lab Scanned Report REFERENCE LAB Medications Medication Current Medications IV Flush (NS 3 ml) 3 ml PER PROTOCOL IV ; Start 11/08/18 at 04:30 Ondansetron HCl (Zofran Inj) 4 mg Q6H PRN IV NAUSEA/VOMITING; Start 11/08/18 at 04:30 Nitroglycerin (Nitroglycerin (Sl Tab) 0.4 Mg) 1 tab Q5M PRN SL .CHEST PAIN; Start 11/08/18 at 04:30 Acetaminophen (Tylenol Tab) 650 mg Q6H PRN PO .PAIN 1-3 OR TEMP; Start 11/08/18 at 04:30 Albuterol/ Ipratropium (Duoneb) 3 ml Q2H RESP THERAPY PRN HHN SHORTNESS OF BREATH; Start 11/08/18 at 04:30 Ferrous Sulfate (Ferrous Sulfate (Ec)) 325 mg BID PO Last administered on 11/11/18at 11:32; Admin Dose 325 MG; Start 11/08/18 at 09:00 Minoxidil (Loniten) 5 mg DAILY PO Last administered on 11/11/18at 11:33; Admin Dose 5 MG; Start 11/08/18 at 09:00 Nifedipine (Procardia Xl) 30 mg BID PO Last administered on 11/11/18 11:33; Admin Dose 30 MG; Start 11/08/18 at 09:00 Carvedilol (Coreg) 12.5 mg BID PO Last administered on 11/11/18 11:33; Admin Dose 12.5 MG; Start 11/08/18 at 21:00 Acetaminophen/ Hydrocodone Bitart ([place] (5/325)) 1 tab Q6H PRN PO PAIN LEVEL 4-10 Last administered on 11/10/18 08:20; Admin Dose 1 TAB; Start 11/09/18 at 04:00 Gabapentin (Neurontin) 100 mg TID PO Last administered on 11/11/18 12:00; Admin Dose 100 MG; Start 11/09/18 at 13:00 Atorvastatin Calcium (Lipitor) 40 mg HS PO Last administered on 11/10/18 21:24; Admin Dose 40 MG; Start 11/09/18 at 21:00 Morphine Sulfate (morphine) 2 mg Q4H PRN IV SEVERE PAIN LEVEL 7-10 Last administered on 11/11/18 07:15; Admin Dose 2 MG; Start 11/10/18 at 09:30 Mupirocin (Bactroban) 1 applic BID TOP Last administered on 11/10/18 21:25; Admin Dose 1 APPLIC; Start 11/10/18 at 10:30 Heparin Sodium (Porcine) (Heparin (1000 Units/ml)) 4,000 unit AFTER DIALYSIS CATHETER Last administered on 11/11/18 11:22; Admin Dose 3,200 UNIT; Start 11/10/18 at 09:30 Albumin Human 100 ml @ 100 mls/hr WITH DIALYSIS PRN IV SBP <90 DURING DIALYSIS Last administered on 11/11/18 09:14; Admin Dose 100 MLS/HR; Start 11/10/18 at 09:30 Sodium Chloride (NS) -To prime the dialy... DIRECTED FOR HD PRN IV HD; Start 11/10/18 at 09:30 Heparin Sodium (Porcine) (Heparin (1000 Units/ml)) 500 unit WITH DIALYSIS HE Last administered on 11/11/18 08:08; Admin Dose 500 UNIT; Start 11/11/18 at 08 :00 Heparin Sodium (Porcine) (Heparin (1000 Units/ml)) 1,500 unit WITH DIALYSIS HE Last administered on 11/11/18at 08:09; Admin Dose 1,500 UNIT; Start 11/11/18 at 08:00 Polyethylene Glycol (Miralax) 17 gm BID PO Last administered on 11/11/18at 11:33; Admin Dose 17 GM; Start 11/11/18 at 09:00 Bisacodyl (Dulcolax) 10 mg DAILY PRN PO CONSTIPATION; Start 11/11/18 at 09:00 Levofloxacin/ Dextrose 150 ml @ 100 mls/hr ONCE IVPB Last administered on 11/11/18at 11:34; Admin Dose 100 MLS/HR; Start 11/11/18 at 09:00; Stop 11/11/18 at 23:59 Levofloxacin/ Dextrose 100 ml @ 100 mls/hr Q48H IVPB ; Start 11/13/18 at 10:00 LEIDA SMITH MD Nov 11, 2018 13:12
[2018-11-11] MEDS ORDERED: HALOPERIDOL 5 MG INJ IM ONE (15:00)
[2018-11-11] MEDS: HYDROCODONE/APAP (5/325) TAB PO PRN (16:12)
[2018-11-11] MEDS: ATORVASTATIN 40 MG TAB PO SCH (21:31)
[2018-11-12] MEDS ORDERED: ZOLPIDEM 5 MG TAB PO ONE
[2018-11-12 00:12] VITALS: BP 111/57; PULSE 73; RESP 20
[2018-11-12] MEDS ORDERED: LORAZEPAM 2 MG INJ IV ONE (02:30)
[2018-11-12 08:39] VITALS: BP 111/53; PULSE 82; RESP 18
[2018-11-12] MEDS: FERROUS SULFATE (EC) 325 MG TAB PO SCH (09:00)
[2018-11-12] MEDS: MINOXIDIL 2.5 MG TAB PO SCH (09:00)
[2018-11-12] MEDS: GABAPENTIN 100 MG CAP PO SCH ×2 (09:00→13:00)
[2018-11-12] MEDS: NIFEdipine (XL) 30 MG TAB PO SCH (09:00)
[2018-11-12] MEDS: MUPIROCIN 2% 22 GM OINT TOP SCH (09:01)
[2018-11-12] MEDS: POLYETHYLENE GLYCOL 17 GM PACKET PO SCH (09:01)
--- NOTE | 2018-11-12 09:07 | CONS ---
Assessment/Plan Assessment/Plan Assessment/Plan (Recall) 58 M c/ reported recent stroke, who presents for evaluation of left sided pain, including his chest... Was noted on head CT to have a subacute appearing R MCA infarct w/ hemorrhagic transformation...for which neurology is consulted.. On surveillance imaging, his infarct and hemorrhage both appear to be subacute to chronic. LDL 113 PTT 45 P: OK to resume low dose asa cautiously Continue Lipitor for secondary stroke prevention...to goal LDL < 70 Continue low dose neurontin for pain Other management and supportive care per primary PT/OT/ST as necessary Will follow clinically Consultation Date/Type/Reason Admit Date/Time Nov 08, 2018 at 01:53 Type of Consult Neurology Reason for Consultation stroke Requesting Provider: ARSH SOUTH NP Date/Time of Note DATE: 11/12/18 TIME: 09:07 24 HR Interval Summary Free Text/Dictation Continues acute care Exam/Review of Systems Exam Vitals Vital Signs Date Temp Pulse Resp B/P (MAP) Pulse Ox O2 O2 Flow FiO2 Time Delivery Rate 11/12/18 98.9 82 18 111/53 90 Room Air 08:39 (72) 11/08/18 2.0 07:31 Intake and Output 11/11/18 11/11/18 11/12/18 1414:59 22:59 06:59 IntakeIntake Total 250 ml 50 ml OutputOutput Total 4000 ml BalanceBalance -3750 ml 50 ml Results Result Diagram: 11/12/18 0443 11/12/18 0444 Results 24hrs Laboratory Tests Test 11/11/18 11:12 11/12/18 04:43 11/12/18 04:44 Lab Scanned Report REFERENCE LAB White Blood Count 4.8 Red Blood Count 3.13 L Hemoglobin 8.7 L Hematocrit 26.9 L Mean Corpuscular Volume 85.9 Mean Corpuscular Hemoglobin 27.8 L Mean Corpuscular 32.3 Hemoglobin Concent Red Cell Distribution Width 14.3 Platelet Count 130 L Mean Platelet Volume 10.4 Immature Granulocytes % 0.600 H Neutrophils % 57.7 Lymphocytes % 17.0 Monocytes % 15.8 H Eosinophils % 8.5 H Basophils % 0.4 Nucleated Red Blood Cells % 0.0 Immature Granulocytes # 0.030 Neutrophils # 2.8 Lymphocytes # 0.8 Monocytes # 0.8 Eosinophils # 0.4 Basophils # 0.0 Nucleated Red Blood Cells # 0.0 Sodium Level 139 Potassium Level 4.0 Chloride Level 106 Carbon Dioxide Level 31 Anion Gap 2 L Blood Urea Nitrogen 8 Creatinine 2.18 H Est Glomerular Filtrat 31 L Rate mL/min Glucose Level 81 Calcium Level 7.8 L Phosphorus Level 2.8 Magnesium Level 1.8 Medications Medication Current Medications IV Flush (NS 3 ml) 3 ml PER PROTOCOL IV ; Start 11/08/18 at 04:30 Ondansetron HCl (Zofran Inj) 4 mg Q6H PRN IV NAUSEA/VOMITING; Start 11/08/18 at 04:30 Nitroglycerin (Nitroglycerin (Sl Tab) 0.4 Mg) 1 tab Q5M PRN SL .CHEST PAIN; Start 11/08/18 at 04:30 Acetaminophen (Tylenol Tab) 650 mg Q6H PRN PO .PAIN 1-3 OR TEMP; Start 11/08/18 at 04:30 Albuterol/ Ipratropium (Duoneb) 3 ml Q2H RESP THERAPY PRN HHN SHORTNESS OF BREATH; Start 11/08/18 at 04:30 Ferrous Sulfate (Ferrous Sulfate (Ec)) 325 mg BID PO Last administered on 11/12/18 09:00; Admin Dose 325 MG; Start 11/08/18 at 09:00 Minoxidil (Loniten) 5 mg DAILY PO Last administered on 11/12/18 09:00; Admin Dose 5 MG; Start 11/08/18 at 09:00 Nifedipine (Procardia Xl) 30 mg BID PO Last administered on 11/12/18 09:00; Admin Dose 30 MG; Start 11/08/18 at 09:00 Carvedilol (Coreg) 12.5 mg BID PO Last administered on 11/12/18 09:01; Admin Dose 12.5 MG; Start 11/08/18 at 21:00 Acetaminophen/ Hydrocodone Bitart ([place] (5/325)) 1 tab Q6H PRN PO PAIN LEVEL 4-10 Last administered on 11/11/18at 16:12; Admin Dose 1 TAB; Start 11/09/18 at 04:00 Gabapentin (Neurontin) 100 mg TID PO Last administered on 11/12/18 09:00; Admin Dose 100 MG; Start 11/09/18 at 13:00 Atorvastatin Calcium (Lipitor) 40 mg HS PO Last administered on 11/11/18 21:31; Admin Dose 40 MG; Start 11/09/18 at 21:00 Morphine Sulfate (morphine) 2 mg Q4H PRN IV SEVERE PAIN LEVEL 7-10 Last administered on 11/11/18 14:25; Admin Dose 2 MG; Start 11/10/18 at 09:30 Mupirocin (Bactroban) 1 applic BID TOP Last administered on 11/12/18 09:01; Admin Dose 1 APPLIC; Start 11/10/18 at 10:30 Heparin Sodium (Porcine) (Heparin (1000 Units/ml)) 4,000 unit AFTER DIALYSIS CATHETER Last administered on 11/11/18 11:22; Admin Dose 3,200 UNIT; Start 11/10/18 at 09:30 Albumin Human 100 ml @ 100 mls/hr WITH DIALYSIS PRN IV SBP <90 DURING DIALYSIS Last administered on 11/11/18 09:14; Admin Dose 100 MLS/HR; Start 11/10/18 at 09:30 Sodium Chloride (NS) -To prime the dialy... DIRECTED FOR HD PRN IV HD; Start 11/10/18 at 09:30 Heparin Sodium (Porcine) (Heparin (1000 Units/ml)) 500 unit WITH DIALYSIS HE Last administered on 11/11/18 08:08; Admin Dose 500 UNIT; Start 11/11/18 at 08:00 Heparin Sodium (Porcine) (Heparin (1000 Units/ml)) 1,500 unit WITH DIALYSIS HE Last administered on 11/11/18 08:09; Admin Dose 1,500 UNIT; Start 11/11/18 at 08:00 Polyethylene Glycol (Miralax) 17 gm BID PO Last administered on 11/12/18 09:01; Admin Dose 17 GM; Start 11/11/18 at 09:00 Bisacodyl (Dulcolax) 10 mg DAILY PRN PO CONSTIPATION; Start 11/11/18 at 09:00 Levofloxacin/ Dextrose 100 ml @ 100 mls/hr Q48H IVPB ; Start 11/13/18 at 10:00 ESTRADA BOLES Nov 12, 2018 09:07
--- NOTE | 2018-11-12 09:25 | PN ---
Date/Time of Note Date/Time of Note Assessment/Plan VTE Prophylaxis Risk score (from Ns)>0 risk: 8 Pharm contraindication: other Assessment/Plan Result Diagram: 11/12/18 0443 11/12/18 0444 Exam/Review of Systems Exam Vitals Medications Medication LUZ HELLER NP Nov 12, 2018 09:25
--- NOTE | 2018-11-12 10:31 | CONS ---
Assessment/Plan Assessment/Plan Assessment/Plan (Daily) 1. ESRD On HD -TTS schedule 2. subacute Right MCA territorial infarct 3. h/o HTN 4. H/o HL 5/ Ho DM II 6. left kidney 3.5 cm complex lesion- rule out renal mass Plan: pt outside [facility] is TTS, s/p HD on friday, next HD will be on friday, ok to d/c Continue Nifedipine Xl 30 mg PO BID, Minoxidil 5 mg po daily , Coreg 12.5 mg BID, Lisinopril 5 mg po daily - IV hydralazine prn as needed Renal US showed both kidneys are normal in Echogenicity- There is 3.5 x 3.7 cm complex lesion in the upper pole of the left kidney which is previously described as a simple cyst. pt refused to have MRI at this time, will readdress with him in next 1-2 days will follow up Consultation Date/Type/Reason Admit Date/Time Nov 08, 2018 at 01:53 Initial Consult Date 11/08/18 Type of Consult NEPHROLOGY Requesting Provider: ARSH SOUTH NP Date/Time of Note DATE: 11/12/18 TIME: 10:31 Exam/Review of Systems Exam Vitals Vital Signs Date Temp Pulse Resp B/P (MAP) Pulse Ox O2 O2 Flow FiO2 Time Delivery Rate 11/12/18 98.9 82 18 111/53 90 Room Air 08:39 (72) 11/08/18 2.0 07:31 Intake and Output 11/11/18 11/11/18 11/12/18 1414:59 22:59 06:59 IntakeIntake Total 250 ml 50 ml OutputOutput Total 4000 ml BalanceBalance -3750 ml 50 ml Results Result Diagram: 11/12/18 0443 11/12/18 0444 Results 24hrs Laboratory Tests Test 11/11/18 11:12 11/12/18 04:43 11/12/18 04:44 Lab Scanned Report REFERENCE LAB White Blood Count 4.8 Red Blood Count 3.13 L Hemoglobin 8.7 L Hematocrit 26.9 L Mean Corpuscular Volume 85.9 Mean Corpuscular Hemoglobin 27.8 L Mean Corpuscular 32.3 Hemoglobin Concent Red Cell Distribution Width 14.3 Platelet Count 130 L Mean Platelet Volume 10.4 Immature Granulocytes % 0.600 H Neutrophils % 57.7 Lymphocytes % 17.0 Monocytes % 15.8 H Eosinophils % 8.5 H Basophils % 0.4 Nucleated Red Blood Cells % 0.0 Immature Granulocytes # 0.030 Neutrophils # 2.8 Lymphocytes # 0.8 Monocytes # 0.8 Eosinophils # 0.4 Basophils # 0.0 Nucleated Red Blood Cells # 0.0 Sodium Level 139 Potassium Level 4.0 Chloride Level 106 Carbon Dioxide Level 31 Anion Gap 2 L Blood Urea Nitrogen 8 Creatinine 2.18 H Est Glomerular Filtrat 31 L Rate mL/min Glucose Level 81 Calcium Level 7.8 L Phosphorus Level 2.8 Magnesium Level 1.8 Medications Medication Current Medications IV Flush (NS 3 ml) 3 ml PER PROTOCOL IV ; Start 11/08/18 at 04:30 Ondansetron HCl (Zofran Inj) 4 mg Q6H PRN IV NAUSEA/VOMITING; Start 11/08/18 at 04:30 Nitroglycerin (Nitroglycerin (Sl Tab) 0.4 Mg) 1 tab Q5M PRN SL .CHEST PAIN; Start 11/08/18 at 04:30 Acetaminophen (Tylenol Tab) 650 mg Q6H PRN PO .PAIN 1-3 OR TEMP; Start 11/08/18 at 04:30 Albuterol/ Ipratropium (Duoneb) 3 ml Q2H RESP THERAPY PRN HHN SHORTNESS OF BREATH; Start 11/08/18 at 04:30 Ferrous Sulfate (Ferrous Sulfate (Ec)) 325 mg BID PO Last administered on 11/12/18 09:00; Admin Dose 325 MG; Start 11/08/18 at 09:00 Minoxidil (Loniten) 5 mg DAILY PO Last administered on 11/12/18 09:00; Admin Dose 5 MG; Start 11/08/18 at 09:00 Nifedipine (Procardia Xl) 30 mg BID PO Last administered on 11/12/18 09:00; Admin Dose 30 MG; Start 11/08/18 at 09:00 Carvedilol (Coreg) 12.5 mg BID PO Last administered on 11/12/18 09:01; Admin Dose 12.5 MG; Start 11/08/18 at 21:00 Acetaminophen/ Hydrocodone Bitart ([place] (5/325)) 1 tab Q6H PRN PO PAIN LEVEL 4-10 Last administered on 11/11/18at 16:12; Admin Dose 1 TAB; Start 11/09/18 at 04:00 Gabapentin (Neurontin) 100 mg TID PO Last administered on 11/12/18 09:00; Admin Dose 100 MG; Start 11/09/18 at 13:00 Atorvastatin Calcium (Lipitor) 40 mg HS PO Last administered on 11/11/18 21:31; Admin Dose 40 MG; Start 11/09/18 at 21:00 Morphine Sulfate (morphine) 2 mg Q4H PRN IV SEVERE PAIN LEVEL 7-10 Last administered on 11/11/18 14:25; Admin Dose 2 MG; Start 11/10/18 at 09:30 Mupirocin (Bactroban) 1 applic BID TOP Last administered on 11/12/18 09:01; Admin Dose 1 APPLIC; Start 11/10/18 at 10:30 Heparin Sodium (Porcine) (Heparin (1000 Units/ml)) 4,000 unit AFTER DIALYSIS CATHETER Last administered on 11/11/18 11:22; Admin Dose 3,200 UNIT; Start 11/10/18 at 09:30 Albumin Human 100 ml @ 100 mls/hr WITH DIALYSIS PRN IV SBP <90 DURING DIALYSIS Last administered on 11/11/18 09:14; Admin Dose 100 MLS/HR; Start 11/10/18 at 09:30 Sodium Chloride (NS) -To prime the dialy... DIRECTED FOR HD PRN IV HD; Start 11/10/18 at 09:30 Heparin Sodium (Porcine) (Heparin (1000 Units/ml)) 500 unit WITH DIALYSIS HE Last administered on 11/11/18 08:08; Admin Dose 500 UNIT; Start 11/11/18 at 08:00 Heparin Sodium (Porcine) (Heparin (1000 Units/ml)) 1,500 unit WITH DIALYSIS HE Last administered on 11/11/18 08:09; Admin Dose 1,500 UNIT; Start 11/11/18 at 08:00 Polyethylene Glycol (Miralax) 17 gm BID PO Last administered on 11/12/18 0 9:01; Admin Dose 17 GM; Start 11/11/18 at 09:00 Bisacodyl (Dulcolax) 10 mg DAILY PRN PO CONSTIPATION; Start 11/11/18 at 09:00 Levofloxacin/ Dextrose 100 ml @ 100 mls/hr Q48H IVPB ; Start 11/13/18 at 10:00 Aspirin (Halfprin) 81 mg DAILY PO ; Start 11/13/18 at 09:00 LEIDA SMITH MD Nov 12, 2018 10:31
[2018-11-12] MEDS ORDERED: CARV12.579 PO (11:06)
[2018-11-12] MEDS ORDERED: LEVO750T25 PO (11:06)
[2018-11-12] MEDS ORDERED: MUPI22OI2 TOP (11:06)
--- NOTE | 2018-11-12 11:11 | DS ---
Date/Time of Note Date/Time of Note DATE: 11/12/18 TIME: 11:11 Discharge Summary Admission/Discharge Info Admit Date/Time Nov 08, 2018 at 01:53 Discharge Date/Time Discharge Diagnosis 1. Atypical chest pain. 2. Acute on chronic diastolic heart failure. 3. Diabetes mellitus type 2. Hemoglobin A1c 5.3. 4. 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 5. Hypertension. 6. ESRD on HD M/W/F. 7. Urinary tract infection w/ SERRATIA MARCESCENS. 8. MRSA colonization of the nares. 9. Obesity. BMI 30. Patient Condition: Stable Consults 1. Fredis Ramos MD Cardiology. 2. Montrell Ferrara MD, Nephrology. 3. Ree Myles MD, Neurology. 4. Tony Hatch MD, Neurosurgery. Procedures Brain CT IMPRESSION: Old residual blood products measuring approximately 1 cm within the central portion of the previously seen right middle cerebral artery chronic infarct. Unchanged appearance of chronic infarct involving the right basal ganglia, insula, right temporal lobe and right frontal operculum. 2D Echocardiogram Conclusions: Patient reportedly uncooperative with exam so it was limited. Normal left ventricular cavity size, wall thickness and systolic function. There is probably normal left ventricular systolic function to extent imaged; apical 2C/3C not obtained. The EF was done using Simpsons in the A4C view. Moderate concentric left ventricular hypertrophy. The left ventricular ejection fraction is visually estimated at 65 %. No significant valvular abnormalities. Unable to estimate PA or RA pressures. Hx of Present Illness This is a 58 year old male with comorbidities including, hypertension, ESRD on HD M/W/F, nephrotic syndrome, diabetes mellitus type 2, recent stroke with left- sided weakness, and anemia of chronic disease, who was transferred from a [facility] facility for complaints of chest pain. Hospital Course The patient was admitted to inpatient setting. A cardiology consult was obtained. The patient's serial troponins remained negative. The patient's 2D echocardiogram was showing preserved left ventricular ejection fraction. The patient was ruled out for any underlying acute coronary syndrome. Patient had evidence of acute on chronic diastolic heart failure. Heart failure was treated with ultrafiltration since the patient is an end-stage renal disease patient on hemodialysis. The patient had a recent MCA territory infarct. Therefore, the patient underwent a brain CT scan that was showing evidence of hemorrhagic transform ation. The patient was evaluated by neurosurgery. The patient's repeat brain CT scan was showing old residual blood products measuring approximately 1 cm within the central portion of the previously seen middle right cerebral artery chronic infarct. The patient was also being followed by neurology. Since the brain CT represented a subacute to chronic intracranial hemorrhage, the patient was resumed on a aspirin as per the recommendations of neurology. The patient's chronic problems include hypertension. He was maintained on antihypertensives for the same. He is also has underlying diabetes. He was not on any sliding scale insulin since the patient had good glycemic trends. The patient's hemoglobin A1c was found to be 5.3. Patient was also noticed to have urinary tract infection with Serratia marcescens with colony count more than 100,000 CFU per mL. He was also complaining of urinary symptoms including burning on urination. Therefore, the patient was started on antimicrobial therapy with improvement of symptoms. The patient was also noticed to have left upper extremity edema. The patient's venous Doppler study of the left upper extremity was negative for any DVT. He also had MRSA colonization of the nares. The patient was started on Bactroban twice daily. The patient has left-sided weakness secondary to his recent stroke. The patient was being followed by occupational therapy and physical therapy during the hospitalization. The patient is stable to be discharged and the patient can have further physical therapy at the [facility] facility where the patient will be sent. At this time I would like to thank all the consultants for seeing the patient and providing clinical recommendations. The patient was seen in collaboration with Dr. Minor. Home Meds Active Scripts Levofloxacin* (Levaquin*) 750 Mg Tablet, 750 MG PO Q48H, #5 TAB Last day 11/19/2018 Prov:LUZ HELLER NP 11/12/18 Mupirocin* (Bactroban*) 2% -22 Gram Oint...g., 1 APPLIC TOP BID for 5 Days Prov:LUZ HELLER NP 11/12/18 Carvedilol* (Carvedilol*) 12.5 Mg Tablet, 12.5 MG PO BID, #60 TAB Prov:LUZ HELLER NP 11/12/18 Aspirin* (Aspirin* EC) 81 Mg Tablet.dr 81 MG PO DAILY, #30 TAB Prov:RODRIGO CARTER NP 06/18/18 Lisinopril* (Lisinopril*) 5 Mg Tablet, 5 MG PO DAILY, #30 TAB Prov:RODRIGO CARTER V. USER SUPPORT ANALYST 06/18/18 Ferrous Sulfate* (Ferrous Sulfate*) 325 Mg Tabec, 325 MG PO BID, #60 TAB Prov:EMELY HELLERY USER SUPPORT ANALYST 06/14/18 Nifedipine (Procardia Xl) 30 Mg Tab.er.24, 30 MG PO BID, #60 TAB Prov:LUZ HELLER USER SUPPORT ANALYST 06/14/18 Reported Medications Minoxidil* (Lonitin*) 2.5 Mg Tab, 5 MG PO DAILY for 30 Days, #120 06/10/18 Discontinued Scripts Repaglinide* (Prandin*) 1 Mg Tablet, 1 MG PO AC MEALS, #90 TAB Prov:LUZ HELLER USER SUPPORT ANALYST 06/14/18 Sitagliptin* (Januvia*) 50 Mg Tablet, 50 MG PO DAILY, #30 TAB Prov:LUZ HELLER USER SUPPORT ANALYST 06/14/18 Carvedilol* (Carvedilol*) 6.25 Mg Tablet, 6.25 MG PO BID, #60 TAB Prov:LUZ HELLER USER SUPPORT ANALYST 06/14/18 Follow-up Plan The patient being transferred to a SNF. Primary Care Provider Not On Staff Doctor Time spent on discharge: > 30 minutes Pending Labs Laboratory Tests Test 11/11/18 11:12 11/12/18 04:43 11/12/18 04:44 Lab Scanned Report REFERENCE LAB [id number] White Blood Count 4.8 10^3/ul (4.8-10.8) Red Blood Count 3.13 10^6/ul (4.70-6.10 ) Hemoglobin 8.7 g/dl (14.0-18.0) Hematocrit 26.9 % (42.0-52.0) Mean Corpuscular 85.9 Volume fl (82.0-101.0) Mean Corpuscular 27.8 Hemoglobin pg (29.0-33.0) Mean Corpuscular 32.3 Hemoglobin Concent g/dl (32.0-37.0) Red Cell 14.3 % (11.5-14.5) Distribution Width Platelet Count 130 10^3/UL (140-415) Mean Platelet 10.4 fl (7.4-10.4) Volume Immature 0.600 Granulocytes % % (0.001-0.429) Neutrophils % 57.7 % (39.0-77.0) Lymphocytes % 17.0 % (15.0-51.0) Monocytes % 15.8 % (0.0-11.0) Eosinophils % 8.5 % (0.0-7.0) Basophils % 0.4 % (0.0-2.0) Nucleated Red Blood 0.0 Cells % /100WBC (0.0-0.0) Immature 0.030 Granulocytes # 10^3/ul (0.0-0.031 ) Neutrophils # 2.8 10^3/ul (1.6-7.5) Lymphocytes # 0.8 10^3/ul (0.8-2.9) Monocytes # 0.8 10^3/ul (0.3-0.9) Eosinophils # 0.4 10^3/ul (0.0-0.5) Basophils # 0.0 10^3/ul (0.0-0.1) Nucleated Red Blood 0.0 Cells # 10^3/ul (0.0-0.0) Sodium Level 139 mmol/L (135-144) Potassium Level 4.0 mmol/L (3.5-5.1) Chloride Level 106 mmol/L (97-110) Carbon Dioxide 31 mmol/L (21-31) Level Anion Gap 2 (5-13) Blood Urea Nitrogen 8 mg/dl (7-20) Creatinine 2.18 mg/dl (0.61-1.24) Est Glomerular 31 mL/min (>60) Filtrat Rate mL/min Glucose Level 81 mg/dl (70-220) Calcium Level 7.8 mg/dl (8.4-10.2) Phosphorus Level 2.8 mg/dl (2.5-4.9) Magnesium Level 1.8 mg/dl (1.7-2.5) LUZ HELLER NP Nov 12, 2018 11:11
[2018-11-12 15:46] VITALS: BP 117/55; PULSE 82; RESP 18
[2018-11-13] MEDS ORDERED: ASPIRIN (EC) 81 MG TAB PO SCH (09:00)
[2018-11-13] MEDS ORDERED: LEVOFLOXACIN 500MG/D5W (PMX) 100 ML IVPB SCH (10:00)
[2018-11-13] MEDS ORDERED: LEVOFLOXACIN 750 MG TABLET PO SCH (12:00)
--- NOTE | 2018-11-16 09:26 | RADRPT ---
Vent Rate: 75 bpm RR Interval: [address] Interval: 157 msec QRS Duration: 106 msec QT Interval: 385 msec QTC Interval: 432 msec P-R-T Gypsy: 41 - -45 - 120 degrees Sinus rhythm...normal P axis, V-rate 50- 99 LAD, consider left anterior fascicular block...axis(240,-40), S>R II III aVF Nonspecific T abnormalities, lateral leads...T <-0.10mV, I aVL V5 V6 Electronically Signed By: Mitch Gambino
== END 2018-11-12 18:51 | DRG 291 ==
LOC: E/R 00:27 → 6WM 01:53 → MS1 03:02
PROVIDERS: ADMIT Internal Medicine; ATTEND Internal Medicine
DX: I13.2 Hypertensive heart and chronic kidney disease with heart failure and with stage 5 chronic kidney disease, or end stage renal disease (principal); I50.33 Acute on chronic diastolic (congestive) heart failure; I63.511 Cerebral infarction due to unspecified occlusion or stenosis of right middle cerebral artery; I61.4 Nontraumatic intracerebral hemorrhage in cerebellum; N18.6 End stage renal disease; N17.9 Acute kidney failure, unspecified; N39.0 Urinary tract infection, site not specified; I69.254 Hemiplegia and hemiparesis following other nontraumatic intracranial hemorrhage affecting left non-dominant side; D63.8 Anemia in other chronic diseases classified elsewhere; E11.22 Type 2 diabetes mellitus with diabetic chronic kidney disease; E78.5 Hyperlipidemia, unspecified; E66.9 Obesity, unspecified; F17.200 Nicotine dependence, unspecified, uncomplicated; I25.10 Atherosclerotic heart disease of native coronary artery without angina pectoris; I25.2 Old myocardial infarction; I69.391 Dysphagia following cerebral infarction; R13.10 Dysphagia, unspecified; R07.89 Other chest pain; B96.89 Other specified bacterial agents as the cause of diseases classified elsewhere; Z22.322 Carrier or suspected carrier of Methicillin resistant Staphylococcus aureus; Z68.30 Body mass index [BMI] 30.0-30.9, adult; Z74.01 Bed confinement status; Z79.82 Long term (current) use of aspirin; Z79.84 Long term (current) use of oral hypoglycemic drugs
CPT/HCPCS: 36415; 70450; 71045; 74181; 76705; 76775; 80048; 80053; 80061; 81001; 81003; 82550; 82553; 82570; 82962; 83036; 83690; 83735; 83880; 84100; 84153; 84154; 84300; 84484; 84560; 85025; 85610; 85730; 86706; 87081; 87086; 87340; 89190; 90935; 92610; 93005; 93306; 93971; 97110; 97163; 97167; 97530; 97535; J0696; J1630; J1644; J1956; J2270; J7030; P9047

== ENCOUNTER 2018-11-17 18:46 | Observation (INO) | payer OTHER ==
[~2018-11-17] VITALS: Ht 175.3 cm; Wt 84.4 kg
[~2018-11-17 18:46] MED LIST changes: +ACET-2047 PO; +ACET325T45 PO; +ASPI-903 PO; +CARV12.579 PO; -CARV6.2579 PO; +HYDR-4011 PO; +LEVO750T25 PO; +MEG40/1 PO; +MUPI22OI2 TOP; +NEPH PO; +NIFE30TA23 PO; -REPA1TAB14 PO; -SITA50TA2 PO
--- NOTE | 2018-11-17 18:57 | ERD ---
ER Documentation Chief Complaint Chief Complaint bib ra from [facility] for right chest wall catheter malfunction HPI The patient is a 58-year-old male, presenting to the ER because of nonfunctioning right chest wall hemodialysis catheter with redness. He went to dialysis yesterday and was unable to have dialysis because the dialysis catheter was nonfunctional. He complains of dizziness today and unable to urinate and dyspnea. He denies fever, chills, neck pain, chest pain, vomiting, diarrhea, constipation. He does not smoke nor drink Past medical history: Chronic kidney disease on hemodialysis Friday/Friday/Friday the last 3 to 4 months, history of hemorrhagic stroke, diabetes mellitus, hypertension, history of CHF. Past surgical history: Right chest hemodialysis catheter ROS All systems reviewed and are negative except as per history of present illness. Medications Home Meds Active Scripts Carvedilol* (Carvedilol*) 12.5 Mg Tablet, 12.5 MG PO BID, #60 TAB Prov:LUZ HELLER NP 11/12/18 Aspirin* (Aspirin* EC) 81 Mg Tablet.dr, 81 MG PO DAILY, #30 TAB Prov:RODRIGO CARTER NP 06/18/18 Lisinopril* (Lisinopril*) 5 Mg Tablet, 5 MG PO DAILY, #30 TAB Prov:RODRIGO CARTER NP 06/18/18 Nifedipine (Procardia Xl) 30 Mg Tab.er.24, 30 MG PO BID, #60 TAB Prov:LUZ HELLER NP 06/14/18 Reported Medications Minoxidil* (Lonitin*) 2.5 Mg Tab, 5 MG PO DAILY for 30 Days, #120 06/10/18 Discontinued Scripts Levofloxacin* (Levaquin*) 750 Mg Tablet, 750 MG PO Q48H, #5 TAB Last day 11/19/2018 Prov:LUZ HELLER NP 11/12/18 Mupirocin* (Bactroban*) 2% -22 Gram Oint...g., 1 APPLIC TOP BID for 5 Days Prov:LUZ HELLER NP 11/12/18 Ferrous Sulfate* (Ferrous Sulfate*) 325 Mg Tabec, 325 MG PO BID, #60 TAB Prov:LUZ HELLER NP 06/14/18 Repaglinide* (Prandin*) 1 Mg Tablet, 1 MG PO AC MEALS, #90 TAB Prov:MACIDO,LUZ MATERIAL PREPARATION WORKER 06/14/18 Sitagliptin* (Januvia*) 50 Mg Tablet, 50 MG PO DAILY, #30 TAB Prov:MACIDO,LUZ MATERIAL PREPARATION WORKER 06/14/18 Carvedilol* (Carvedilol*) 6.25 Mg Tablet, 6.25 MG PO BID, #60 TAB Prov:MACIDO,LUZ MATERIAL PREPARATION WORKER 06/14/18 Allergies Allergies: Coded Allergies: No Known Allergy (Unverified , 11/17/18) PMhx/Soc History of Surgery: Yes (PERMA CATH PLACEMENT) Anesthesia Reaction: No Hx Neurological Disorder: Yes (CVA) Hx Respiratory Disorders: Yes (BRONCHITIS, ASTHMA) Hx Cardiac Disorders: Yes (HTN) Hx Psychiatric Problems: No Hx Miscellaneous Medical Probl: Yes (hypertension, type 2 diabetes, CKD, CVA) Hx Alcohol Use: No Hx Substance Use: No Hx Tobacco Use: No Physical Exam Vitals Vital Signs Date Temp Pulse Resp B/P (MAP) Pulse Ox O2 O2 Flow FiO2 Time Delivery Rate 11/17/18 98.0 74 20 117/61 99 Room Air 22:34 (79) 11/17/18 78 22 122/65 99 Room Air 21:15 (84) 11/17/18 98.9 77 20 142/81 100 18:48 (101) Physical Exam Const: No acute distress. Head: Atraumatic. Eyes: Normal Conjunctiva. ENT: Normal External Ears, Nose and Mouth. Neck: Full range of motion. No meningismus. Resp: Five bibasilar crackle Cardio: Regular rate and rhythm. Right chest hemodialysis catheter with mild erythematous surrounding the insertion site Abd: Soft, non distended, normal bowel sounds, non tender. Skin: No petechiae or rashes. Back: No midline or flank tenderness. Ext: No cyanosis, or edema. Neur: Awake and alert. Limited due to his condition Psych: Normal Mood and Affect. : Penile gland ulcer Result Diagram: 11/17/18190911/17/181909 Results 24 hrs Laboratory Tests Test 11/17/18 19:07 11/17/18 19:10 11/17/18 19:18 POC Venous Lactate 0.7 mmol/L White Blood Count 7.1 10^3/ul Red Blood Count 2.93 10^6/ul Hemoglobin 8.2 g/dl Hematocrit 25.6 % Mean Corpuscular Volume 87.4 fl Mean Corpuscular Hemoglobin 28.0 pg Mean Corpuscular 32.0 g/dl Hemoglobin Concent Red Cell Distribution Width 14.1 % Platelet Count 128 10^3/UL Mean Platelet Volume 10.1 fl Immature Granulocytes % 1.300 % Neutrophils % 68.4 % Lymphocytes % 12.3 % Monocytes % 9.5 % Eosinophils % 8.1 % Basophils % 0.4 % Nucleated Red Blood Cells % 0.0 /100WBC Immature Granulocytes # 0.090 10^3/ul Neutrophils # 4.8 10^3/ul Lymphocytes # 0.9 10^3/ul Monocytes # 0.7 10^3/ul Eosinophils # 0.6 10^3/ul Basophils # 0.0 10^3/ul Nucleated Red Blood Cells # 0.0 10^3/ul Prothrombin Time 15.5 Sec Prothrombin Time Ratio 1.2 INR International Normalized Ratio 1.22 Activated Partial Thromboplast 77.4 Sec Time Sodium Level 137 mmol/L Potassium Level 4.4 mmol/L Chloride Level 107 mmol/L Carbon Dioxide Level 26 mmol/L Anion Gap 4 Blood Urea Nitrogen 16 mg/dl Creatinine 4.44 mg/dl Est Glomerular Filtrat Rate mL/min 14 mL/min Glucose Level 75 mg/dl Calcium Level 8.2 mg/dl Troponin I < 0.012 ng/ml Bedside Urine pH (LAB) 6.0 Bedside Urine Protein (LAB) 3+ Bedside Urine Glucose (UA) 0.1% Bedside Urine Ketones (LAB) Trace Bedside Urine Blood Trace-intact Bedside Urine Nitrite (LAB) Negative Bedside Urine Leukocyte Esterase Negative (L Current Medications Medications Dose Sig/Miguelito Start Time Status Last (Trade) Ordered Route PRN Stop Time Admin Dose Reason Admin Vancomycin 250 ml @ ONCE ONCE 11/17/18 DC 11/17/18 HCl 125 mls/hr IVPB 21:00 21:34 11/17/18 22:59 Ceftriaxone 50 ml @ ONCE ONCE 11/17/18 DC 11/17/18 Sodium 100 mls/hr IVPB 21:00 21:13 11/17/18 21:29 1 tab ONCE ONCE 11/17/18 DC 11/17/18 Acetaminophen PO 23:00 22:45 / 11/17/18 23:01 Hydrocodone Bitart ([place] (5/325)) Procedures/MDM [place] [id number] Radiology Main Line: [phone] DIAGNOSTIC IMAGING REPORT Patient: MIKAYLA TRAN : 1960 Age: 58 Sex: M MR #: [id number] DOS: 11/17/18 1855 Ordering MD: DANDRE DIALLO MD Location: E/R Room/Bed: PROCEDURE: Chest 1 views. CLINICAL INDICATION: Shortness of breath. TECHNIQUE: Single view of the chest was obtained. COMPARISON: DR TOVAR 11/08/2018 FINDINGS: Support lines and tubes: Right-sided dialysis catheter with its tip over the expected location of the mid right atrium. Mediastinum: Enlarged heart. Lungs: Hypoinflated lungs. Retrocardiac opacity. Scattered atelectasis in both lungs. No pneumothorax. Osseous structures: Intact. Osteopenia. Degenerative changes in the left shoulder. Other: None. IMPRESSION: Cardiomegaly. Retrocardiac opacity that may reflect left lower lobe atelectasis or infiltrate combined with small pleural effusion. Atelectasis in the right lung. Hypoinflated lungs. RPTAT: AA .Андрей Stein MD, MD Date Time Electronically viewed and signed by .Андрей Stein MD, MD on 11/17/2018 19:37 .P/ CC: DANDRE DIALLO MD [id number] EKG: Read by emergency physician Rate/Rhythm: Normal Sinus Rhythm 75 beats/min QRS, ST, T-waves: No ST elevation, lateral ST and T abnormality Impression: Abnormal EKG MEDICAL MAKING DECISION: The patient is a 58-year-old male, presenting with acute malfunction of the dialysis catheter, possible acute cellulitis of the chest wall, urinary retention He was treated with a Padilla catheter to drain out more than 1000 mL of urine was produced relief, vancomycin IV and Rocephin IV for possible acute chest wall cellulitis The differential diagnoses considered include but are not limited to infected dialysis catheter, fluid overload, CHF, ACS, UTI, pyelonephritis, urethral stricture, prostatitis Departure Diagnosis: Primary Impression: Complication of vascular access for dialysis Additional Impressions: Cellulitis of chest wall Anemia Thrombocytopenia Condition: Stable Comments I discussed the findings with the patient. I notified the patient with Dr. Arreaga at 8:50 PM via [employer], who was made aware of the lab, the treatment, the patient condition. The patient is admitted to [facility] Disclaimer: Inadvertent spelling and grammatical errors are likely due to EHR/d ictation software use and do not reflect on the overall quality of patient care. Also, please note that the electronic time recorded on this note does not necessarily reflect the actual time of the patient encounter. DANDRE DIALLO MD Nov 17, 2018 18:57
[2018-11-17] MEDS ORDERED: CEFTRIAXONE 1 GM/50 ML (PMX) 50 ML IVPB ONE (21:00)
[2018-11-17] MEDS ORDERED: VANCOMYCIN 1 GM (PMX) 250 ML IVPB ONE (21:00)
[2018-11-17] MEDS ORDERED: HYDROCODONE/APAP (5/325) TAB PO ONE (23:00)
[2018-11-18] MEDS ORDERED: ONDANSETRON 4 MG INJ IV PRN (00:30)
[2018-11-18] MEDS ORDERED: ALBUTEROL/IPRATROPIUM (NEB) 3 ML AMP HHN PRN (00:30)
[2018-11-18] MEDS ORDERED: NACL 0.9% 3 ML SYG IV SCH (00:30)
[2018-11-18 05:12] VITALS: Ht 175.3 cm; Wt 84.4 kg
[2018-11-18 05:47] VITALS: BP 128/64; PULSE 76; RESP 18
--- NOTE | 2018-11-18 06:29 | HP ---
Date/Time of Note Date/Time of Note DATE: 11/18/18 TIME: 06:23 Assessment/Plan VTE Prophylaxis Pharmacological prophylaxis: heparin Lines/Catheters IV Catheter Type (from Nrsg): Saline Lock Assessment/Plan Assessment/Plan 1. HD catheter malfunction -Vascular vs IR consult. 2. ESRD on HD: Patient was not able to be dialyzed because of a catheter m alfunction -Nephrology consult 3. History of DM II: Recent A1c 5.3. 4. CVA x2 (with recent hemorrhagic conversion) 5. Hypertension: Continue home meds. Adjust as needed 6. Anemia of chronic disease: Epogen per nephrology 7. Retrocardiac opacity that may reflect left lower lobe atelectasis or infiltrate: No clinical sign of pneumonia -Monitor closely -Additional imaging including chest CT as needed Result Diagram: 11/17/18190911/17/181909 Results 24hrs Laboratory Tests Test 11/17/18 19:07 11/17/18 19:10 11/17/18 19:18 POC Venous Lactate 0.7 White Blood Count 7.1 # Red Blood Count 2.93 L Hemoglobin 8.2 L Hematocrit 25.6 L Mean Corpuscular Volume 87.4 Mean Corpuscular Hemoglobin 28.0 L Mean Corpuscular 32.0 Hemoglobin Concent Red Cell Distribution Width 14.1 Platelet Count 128 L Mean Platelet Volume 10.1 Immature Granulocytes % 1.300 H Neutrophils % 68.4 Lymphocytes % 12.3 L Monocytes % 9.5 Eosinophils % 8.1 H Basophils % 0.4 Nucleated Red Blood Cells % 0.0 Immature Granulocytes # 0.090 H Neutrophils # 4.8 Lymphocytes # 0.9 Monocytes # 0.7 Eosinophils # 0.6 H Basophils # 0.0 Nucleated Red Blood Cells # 0.0 Prothrombin Time 15.5 H Prothrombin Time Ratio 1.2 INR International 1.22 Normalized Ratio Activated Partial Thromboplast 77.4 *H Time Sodium Level 137 Potassium Level 4.4 Chloride Level 107 Carbon Dioxide Level 26 Anion Gap 4 L Blood Urea Nitrogen 16 Creatinine 4.44 H Est Glomerular Filtrat 14 L Rate mL/min Glucose Level 75 Calcium Level 8.2 L Troponin I < 0.012 Bedside Urine pH (LAB) 6.0 Bedside Urine Protein (LAB) 3+ H Bedside Urine Glucose (UA) 0.1% H Bedside Urine Ketones (LAB) Trace H Bedside Urine Blood Trace-intact H Bedside Urine Nitrite (LAB) Negative Bedside Urine Leukocyte Esterase Negative (L HPI/ROS Admit Date/Time Admit Date/Time Nov 17, 2018 at 23:58 Hx of Present Illness Patient is a 58-year-old male with a history of hypertension, type 2 diabetes, CVA (with hemorrhagic conversion), ESRD on HD, anemia. Patient presents the ER for evaluation of HD catheter malfunction. Patient was unable to be dialyzed yesterday because of it. Patient has a history of CVA x2 and has been forgetful. He said he did not know why he came to the hospital. He does have left upper extremity residual weakness from stroke. Only complaint was back pain, which he attributed to lying in bed all the time. PMH/Family/Social Past Medical History Medical History: other (See HPI) Medications Current Medications IV Flush (NS 3 ml) 3 ml PER PROTOCOL IV ; Start 11/18/18 at 00:30 Ondansetron HCl (Zofran Inj) 4 mg Q6H PRN IV NAUSEA/VOMITING; Start 11/18/18 at 00:30 Acetaminophen (Tylenol Tab) 650 mg Q6H PRN PO .PAIN 1-3 OR TEMP; Start 11/18/18 at 00:30 Albuterol/ Ipratropium (Duoneb) 3 ml Q2H RESP THERAPY PRN HHN SHORTNESS OF BREATH; Start 11/18/18 at 00:30 Aspirin (Halfprin) 81 mg DAILY PO ; Start 11/18/18 at 09:00 Carvedilol (Coreg) 12.5 mg BID PO ; Start 11/18/18 at 09:00 Lisinopril (Zestril) 5 mg DAILY PO ; Start 11/18/18 at 09:00 Nifedipine (Procardia Xl) 30 mg BID PO ; Start 11/18/18 at 09:00 Coded Allergies: No Known Allergy (Unverified , 11/17/18) Past Surgical History Past Surgical Hx: other (See HPI) Family History Significant Family History: no pertinent family hx Social History Alcohol Use: none Smoking Status: Never smoker Drug Use: none Exam/Review of Systems Vital Signs Vitals Vital Signs Date Temp Pulse Resp B/P (MAP) Pulse Ox O2 O2 Flow FiO2 Time Delivery Rate 11/18/18 97.9 76 18 128/64 94 05:47 (85) 11/18/18 Room Air 04:01 Exam Constitutional: other (No acute distress. Not fully oriented) Head: normocephalic, atraumatic Eyes: PERRL Respiratory: clear to auscultation Cardiovascular: regular rate and rhythm, nl pulses Gastrointestinal: soft Extremities: normal pulses Neurological: other (Left upper extremity weakness) ERIC IVAN MD Nov 18, 2018 06:29
[2018-11-18 07:18] VITALS: BP 134/63; PULSE 78; RESP 17
[2018-11-18] MEDS: LISINOPRIL 5 MG TAB PO SCH (08:42)
[2018-11-18] MEDS: ASPIRIN (EC) 81 MG TAB PO SCH (08:42)
[2018-11-18] MEDS: NIFEdipine (XL) 30 MG TAB PO SCH ×2 (08:42→21:35)
--- NOTE | 2018-11-18 09:46 | CONS ---
Assessment/Plan Assessment/Plan Assessment/Plan (Daily) 1. acute fluid overload due to missed HD 2. Missed HD due to HD catheter malfunction 3. ESRD on HD TTS 4. h/o HTN 5. H/O CVA x 2 6. H/o DM II Plan: seen in ER Unfortunately new catheter placement can not be done due to schedule conflict K normal today, will paln for HD tomorrow after New catheter placement pt regular schedule for HD is TTS, start pt on Diet and keep pt NPO after midnight will follow up Consultation Date/Type/Reason Admit Date/Time Nov 17, 2018 at 23:58 Date of Consultation: Nov 18, 2018 Type of Consult NEPHROLOGY Reason for Consultation ESRD on HD, missed HD due to malfunctioning Catheter Requesting Provider: ERIC IVAN MD Date/Time of Note DATE: 11/18/18 TIME: 09:45 Hx of Present Illness 58-year-old male with a history of hypertension, type 2 diabetes, CVA (with hemorrhagic conversion), ESRD on HD, anemia. Patient presents the ER for evaluation of HD catheter malfunction. Patient was unable to be dialyzed yesterday because of it. Patient has a history of CVA x2 and has been forgetful. he gets Hd on TTS schedule and he follows at [facility] Constitutional: poor po Respiratory: pleuritic pain, shortness of breath Past Medical History Medical History: high cholesterol, hypertension, renal disease, other (ESRD on HD ) Home Meds Active Scripts Carvedilol* (Carvedilol*) 12.5 Mg Tablet, 12.5 MG PO BID, #60 TAB Prov:LUZ HELLER NETWORK SUPPORT ADMINISTRATOR 11/12/18 Aspirin* (Aspirin* EC) 81 Mg Tablet.dr, 81 MG PO DAILY, #30 TAB Prov:CARTERRODRIGO V. NETWORK SUPPORT ADMINISTRATOR 06/18/18 Lisinopril* (Lisinopril*) 5 Mg Tablet, 5 MG PO DAILY, #30 TAB Prov:CARTERGIOVANNY PETERSONA Cas NETWORK SUPPORT ADMINISTRATOR 06/18/18 Nifedipine (Procardia Xl) 30 Mg Tab.er.24, 30 MG PO BID, #60 TAB Prov:LUZ HELLER NETWORK SUPPORT ADMINISTRATOR 06/14/18 Reported Medications Minoxidil* (Lonitin*) 2.5 Mg Tab, 5 MG PO DAILY for 30 Days, #120 06/10/18 Discontinued Scripts Levofloxacin* (Levaquin*) 750 Mg Tablet, 750 MG PO Q48H, #5 TAB Last day 11/19/2018 Prov:LUCILLEELISEOLUZ KEENAN 11/12/18 Mupirocin* (Bactroban*) 2% -22 Gram Oint...g., 1 APPLIC TOP BID for 5 Days Prov:LUZ HELLER NP 11/12/18 Ferrous Sulfate* (Ferrous Sulfate*) 325 Mg Tabec, 325 MG PO BID, #60 TAB Prov:LUZ HELLER NP 06/14/18 Repaglinide* (Prandin*) 1 Mg Tablet, 1 MG PO AC MEALS, #90 TAB Prov:PINALUZ NP 06/14/18 Sitagliptin* (Januvia*) 50 Mg Tablet, 50 MG PO DAILY, #30 TAB Prov:LUZ HELLER NP 06/14/18 Carvedilol* (Carvedilol*) 6.25 Mg Tablet, 6.25 MG PO BID, #60 TAB Prov:PINALUZ NP 06/14/18 Medications Current Medications IV Flush (NS 3 ml) 3 ml PER PROTOCOL IV ; Start 11/18/18 at 00:30 Ondansetron HCl (Zofran Inj) 4 mg Q6H PRN IV NAUSEA/VOMITING; Start 11/18/18 at 00:30 Acetaminophen (Tylenol Tab) 650 mg Q6H PRN PO .PAIN 1-3 OR TEMP; Start 11/18/18 at 00:30 Albuterol/ Ipratropium (Duoneb) 3 ml Q2H RESP THERAPY PRN HHN SHORTNESS OF BREATH; Start 11/18/18 at 00:30 Aspirin (Halfprin) 81 mg DAILY PO Last administered on 11/18/18at 08:42; Admin Dose 81 MG; Start 11/18/18 at 09:00 Carvedilol (Coreg) 12.5 mg BID PO Last administered on 11/18/18at 08:42; Admin Dose 12.5 MG; Start 11/18/18 at 09:00 Lisinopril (Zestril) 5 mg DAILY PO Last administered on 11/18/18at 08:42; Admin Dose 5 MG; Start 11/18/18 at 09:00 Nifedipine (Procardia Xl) 30 mg BID PO Last administered on 11/18/18at 08:42; Admin Dose 30 MG; Start 11/18/18 at 09:00 Allergies: Coded Allergies: No Known Allergy (Unverified , 11/17/18) Past Surgical History Past Surgical Hx: other (Permacath right chest ) Family History Significant Family History: no pertinent family hx Social History Alcohol Use: none Smoking Status: Never smoker Drug Use: none Exam/Review of Systems Exam Vitals Vital Signs Date Temp Pulse Resp B/P (MAP) Pulse Ox O2 O2 Flow FiO2 Time Delivery Rate 11/18/18 97.6 78 17 134/63 95 07:18 (86) 11/18/18 Room Air 04:01 Constitutional: alert Psych: no complaints Head: normocephalic ENMT: nl external ears & nose Neck: supple, non-tender Respiratory: clear to auscultation, diminished breath sounds Cardiovascular: regular rate and rhythm, nl pulses Gastrointestinal: soft, non-tender Musculoskeletal: nl extremities to inspection, muscle weakness Extremities: normal pulses Neurological: DOBBY LOOM WEAVER II-XII intact, nl mental status, nl speech, nl strength Skin: nl turgor Results Result Diagram: 11/18/18 0537 11/18/18 0537 Results 24hrs Laboratory Tests Test 11/17/18 19:07 11/17/18 19:10 11/17/18 19:18 11/18/18 05:37 POC Venous Lactate 0.7 White Blood Count 7.1 # 7.0 Red Blood Count 2.93 L 3.11 L Hemoglobin 8.2 L 8.8 L Hematocrit 25.6 L 27.3 L Mean Corpuscular 87.4 87.8 Volume Mean Corpuscular 28.0 L 28.3 L Hemoglobin Mean Corpuscular 32.0 32.2 Hemoglobin Concent Red Cell 14.1 14.1 Distribution Width Platelet Count 128 L 133 L Mean Platelet 10.1 10.4 Volume Immature 1.300 H 1.700 H Granulocytes % Neutrophils % 68.4 66.8 Lymphocytes % 12.3 L 11.9 L Monocytes % 9.5 10.2 Eosinophils % 8.1 H 8.7 H Basophils % 0.4 0.7 Nucleated Red 0.0 0.0 Blood Cells % Immature 0.090 H 0.120 H Granulocytes # Neutrophils # 4.8 4.7 Lymphocytes # 0.9 0.8 Monocytes # 0.7 0.7 Eosinophils # 0.6 H 0.6 H Basophils # 0.0 0.1 Nucleated Red 0.0 0.0 Blood Cells # Prothrombin Time 15.5 H Prothrombin Time 1.2 Ratio INR International 1.22 Normalized Ratio Activated 77.4 *H Partial Thrombopla st Time Sodium Level 137 139 Potassium Level 4.4 4.7 Chloride Level 107 107 Carbon Dioxide 26 25 Level Anion Gap 4 L 7 Blood Urea 16 18 Nitrogen Creatinine 4.44 H 4.54 H Est Glomerular 14 L 13 L Filtrat Rate mL/min Glucose Level 75 60 #L Calcium Level 8.2 L 8.5 Troponin I < 0.012 Bedside Urine pH 6.0 (LAB) Bedside Urine 3+ H Protein (LAB) Bedside Urine 0.1% H Glucose (UA) Bedside Urine Trace H Ketones (LAB) Bedside Urine Trace-intact H Blood Bedside Urine Negative Nitrite (LAB) Bedside Urine Negative Leukocyte Esterase (L Magnesium Level 1.8 Total Bilirubin 0.2 Direct Bilirubin 0.00 Indirect Bilirubin 0.2 Aspartate Amino 27 Transf (AST/SGOT) Alanine 17 Aminotransferase ( ALT/SGPT) Alkaline 125 H Phosphatase Total Protein 6.1 Albumin 2.6 L Globulin 3.50 H Albumin/Globulin 0.74 Ratio Medications Medication Current Medications IV Flush (NS 3 ml) 3 ml PER PROTOCOL IV ; Start 11/18/18 at 00:30 Ondansetron HCl (Zofran Inj) 4 mg Q6H PRN IV NAUSEA/VOMITING; Start 11/18/18 at 00:30 Acetaminophen (Tylenol Tab) 650 mg Q6H PRN PO .PAIN 1-3 OR TEMP; Start 11/18/18 at 00:30 Albuterol/ Ipratropium (Duoneb) 3 ml Q2H RESP THERAPY PRN HHN SHORTNESS OF BREATH; Start 11/18/18 at 00:30 Aspirin (Halfprin) 81 mg DAILY PO Last administered on 11/18/18at 08:42; Admin Dose 81 MG; Start 11/18/18 at 09:00 Carvedilol (Coreg) 12.5 mg BID PO Last administered on 11/18/18at 08:42; Admin Dose 12.5 MG; Start 11/18/18 at 09:00 Lisinopril (Zestril) 5 mg DAILY PO Last administered on 7/31/19at 08:42; Admin Dose 5 MG; Start 11/18/18 at 09:00 Nifedipine (Procardia Xl) 30 mg BID PO Last administered on 11/18/18at 08:42; Admin Dose 30 MG; Start 11/18/18 at 09:00 LEIDA SMITH MD Nov 18, 2018 09:46
[2018-11-18] MEDS ORDERED: SODIUM CHLORIDE 0.9% 1L BAG IV PRN (10:00)
[2018-11-18] MEDS ORDERED: HEPARIN 1000 UNITS/ML 10 ML INJ CATHETER SCH (10:00)
[2018-11-18] MEDS ORDERED: ALBUMIN HUMAN 25% 100 ML IV PRN (10:00)
[2018-11-18 11:17] VITALS: BP 85/47; PULSE 72; RESP 17
[2018-11-18 12:15] VITALS: BP 100/57; RESP 18
--- NOTE | 2018-11-18 13:30 | PN ---
Date/Time of Note Date/Time of Note DATE: 11/18/18 TIME: 13:26 Assessment/Plan VTE Prophylaxis Risk score (from Ns)>0 risk: 5 SCD applied (from Nsg): Yes Pharmacological prophylaxis: other Lines/Catheters IV Catheter Type (from Nrsg): Saline Lock Urinary Cath still in place: Yes Reason Cath still needed: urinary retention Assessment/Plan Hospital Course S: Patient waiting for IR guided catheter exchange. No acute events overnight. Evaluated by renal team earlier. O: VS - see below PE: Constitutional: lying in bed Head: normocephalic, atraumatic Eyes: PERRL Respiratory: clear to auscultation Cardiovascular: regular rate and rhythm, nl pulses Gastrointestinal: soft Extremities: normal pulses Neurological: other (Left upper extremity weakness) Assessment/Plan: This 58-year-old male who presents with: 1. HD catheter malfunction -Patient now awaiting possible intervention by IR consult later today, follow-up post procedure recommendations on this 2. ESRD on HD: Patient was not able to be dialyzed because of a catheter malfunction -Monitor, follow-up recognitions from nephrology consult 3. History of DM II: Recent A1c 5.3. -Monitor sugars 4. CVA x2 (with recent hemorrhagic conversion): Patient initially was lethargic on admission -Monitor for now, if worsens consider neurosurgery eval or other 5. Hypertension: Continue home meds. Adjust as needed 6. Anemia of chronic disease: Epogen per nephrology 7. Retrocardiac opacity that may reflect left lower lobe atelectasis or infiltrate: No clinical sign of pneumonia -Monitor closely -Additional imaging including chest CT as needed Result Diagram: 11/18/18 0537 11/18/18 0537 Results 24hrs Laboratory Tests Test 11/17/18 19:07 11/17/18 19:10 11/17/18 19:18 11/18/18 05:37 POC Venous Lactate 0.7 White Blood Count 7.1 # 7.0 Red Blood Count 2.93 L 3.11 L Hemoglobin 8.2 L 8.8 L Hematocrit 25.6 L 27.3 L Mean Corpuscular 87.4 87.8 Volume Mean Corpuscular 28.0 L 28.3 L Hemoglobin Mean Corpuscular 32.0 32.2 Hemoglobin Concent Red Cell 14.1 14.1 Distribution Width Platelet Count 128 L 133 L Mean Platelet 10.1 10.4 Volume Immature 1.300 H 1.700 H Granulocytes % Neutrophils % 68.4 66.8 Lymphocytes % 12.3 L 11.9 L Monocytes % 9.5 10.2 Eosinophils % 8.1 H 8.7 H Basophils % 0.4 0.7 Nucleated Red 0.0 0.0 Blood Cells % Immature 0.090 H 0.120 H Granulocytes # Neutrophils # 4.8 4.7 Lymphocytes # 0.9 0.8 Monocytes # 0.7 0.7 Eosinophils # 0.6 H 0.6 H Basophils # 0.0 0.1 Nucleated Red 0.0 0.0 Blood Cells # Prothrombin Time 15.5 H Prothrombin Time 1.2 Ratio INR International 1.22 Normalized Ratio Activated 77.4 *H Partial Thrombopla st Time Sodium Level 137 139 Potassium Level 4.4 4.7 Chloride Level 107 107 Carbon Dioxide 26 25 Level Anion Gap 4 L 7 Blood Urea 16 18 Nitrogen Creatinine 4.44 H 4.54 H Est Glomerular 14 L 13 L Filtrat Rate mL/min Glucose Level 75 60 #L Calcium Level 8.2 L 8.5 Troponin I < 0.012 Bedside Urine pH 6.0 (LAB) Bedside Urine 3+ H Protein (LAB) Bedside Urine 0.1% H Glucose (UA) Bedside Urine Trace H Ketones (LAB) Bedside Urine Trace-intact H Blood Bedside Urine Negative Nitrite (LAB) Bedside Urine Negative Leukocyte Esterase (L Magnesium Level 1.8 Total Bilirubin 0.2 Direct Bilirubin 0.00 Indirect Bilirubin 0.2 Aspartate Amino 27 Transf (AST/SGOT) Alanine 17 Aminotransferase ( ALT/SGPT) Alkaline 125 H Phosphatase Total Protein 6.1 Albumin 2.6 L Globulin 3.50 H Albumin/Globulin 0.74 Ratio Test 11/18/18 10:33 11/18/18 11:49 Activated 47.[address] Time Bedside Glucose 65 L Exam/Review of Systems Exam Vitals Vital Signs Date Temp Pulse Resp B/P (MAP) Pulse Ox O2 O2 Flow FiO2 Time Delivery Rate 11/18/18 18 100/57 98 12:15 (71) 11/18/18 97.8 72 11:17 11/18/18 Room Air 04:01 Results Results 24hrs Laboratory Tests Test 11/17/18 19:07 11/17/18 19:10 11/17/18 19:18 11/18/18 05:37 POC Venous Lactate 0.7 White Blood Count 7.1 # 7.0 Red Blood Count 2.93 L 3.11 L Hemoglobin 8.2 L 8.8 L Hematocrit 25.6 L 27.3 L Mean Corpuscular 87.4 87.8 Volume Mean Corpuscular 28.0 L 28.3 L Hemoglobin Mean Corpuscular 32.0 32.2 Hemoglobin Concent Red Cell 14.1 14.1 Distribution Width Platelet Count 128 L 133 L Mean Platelet 10.1 10.4 Volume Immature 1.300 H 1.700 H Granulocytes % Neutrophils % 68.4 66.8 Lymphocytes % 12.3 L 11.9 L Monocytes % 9.5 10.2 Eosinophils % 8.1 H 8.7 H Basophils % 0.4 0.7 Nucleated Red 0.0 0.0 Blood Cells % Immature 0.090 H 0.120 H Granulocytes # Neutrophils # 4.8 4.7 Lymphocytes # 0.9 0.8 Monocytes # 0.7 0.7 Eosinophils # 0.6 H 0.6 H Basophils # 0.0 0.1 Nucleated Red 0.0 0.0 Blood Cells # Prothrombin Time 15.5 H Prothrombin Time 1.2 Ratio INR International 1.22 Normalized Ratio Activated 77.4 *H Partial Thrombopla st Time Sodium Level 137 139 Potassium Level 4.4 4.7 Chloride Level 107 107 Carbon Dioxide 26 25 Level Anion Gap 4 L 7 Blood Urea 16 18 Nitrogen Creatinine 4.44 H 4.54 H Est Glomerular 14 L 13 L Filtrat Rate mL/min Glucose Level 75 60 #L Calcium Level 8.2 L 8.5 Troponin I < 0.012 Bedside Urine pH 6.0 (LAB) Bedside Urine 3+ H Protein (LAB) Bedside Urine 0.1% H Glucose (UA) Bedside Urine Trace H Ketones (LAB) Bedside Urine Trace-intact H Blood Bedside Urine Negative Nitrite (LAB) Bedside Urine Negative Leukocyte Esterase (L Magnesium Level 1.8 Total Bilirubin 0.2 Direct Bilirubin 0.00 Indirect Bilirubin 0.2 Aspartate Amino 27 Transf (AST/SGOT) Alanine 17 Aminotransferase ( ALT/SGPT) Alkaline 125 H Phosphatase Total Protein 6.1 Albumin 2.6 L Globulin 3.50 H Albumin/Globulin 0.74 Ratio Test 11/18/18 10:33 11/18/18 11:49 Activated 47.[address] Time Bedside Glucose 65 L Medications Medication Current Medications IV Flush (NS 3 ml) 3 ml PER PROTOCOL IV ; Start 11/18/18 at 00:30 Ondansetron HCl (Zofran Inj) 4 mg Q6H PRN IV NAUSEA/VOMITING; Start 11/18/18 at 00:30 Acetaminophen (Tylenol Tab) 650 mg Q6H PRN PO .PAIN 1-3 OR TEMP; Start 11/18/18 at 00:30 Albuterol/ Ipratropium (Duoneb) 3 ml Q2H RESP THERAPY PRN HHN SHORTNESS OF BREATH; Start 11/18/18 at 00:30 Aspirin (Halfprin) 81 mg DAILY PO Last administered on 11/18/18at 08:42; Admin Dose 81 MG; Start 11/18/18 at 09:00 Carvedilol (Coreg) 12.5 mg BID PO Last administered on 11/18/18at 08:42; Admin Dose 12.5 MG; Start 11/18/18 at 09:00 Lisinopril (Zestril) 5 mg DAILY PO Last administered on 11/18/18at 08:42; Admin Dose 5 MG; Start 11/18/18 at 09:00 Nifedipine (Procardia Xl) 30 mg BID PO Last administered on 11/18/18at 08:42; Admin Dose 30 MG; Start 11/18/18 at 09:00 Heparin Sodium (Porcine) (Heparin (1000 Units/ml)) 4,000 unit AFTER DIALYSIS CATHETER ; Start 11/18/18 at 10:00 Albumin Human 100 ml @ 100 mls/hr WITH DIALYSIS PRN IV SBP <90 DURING DIALYSIS; Start 11/18/18 at 10:00 Sodium Chloride (NS) -To prime the dialy... DIRECTED FOR HD PRN IV HD; Start 11/18/18 at 10:00 NIDHI BAIN Nov 18, 2018 13:30
[2018-11-18] MEDS: ACETAMINOPHEN 325 MG TAB PO PRN (14:13)
[2018-11-18 16:00] VITALS: BP 106/51; PULSE 75; RESP 17
[2018-11-18 20:26] VITALS: BP 127/63; PULSE 78; RESP 18
[2018-11-19] VITALS (20 sets, daily range): BP systolic 122–165; BP diastolic 64–84; PULSE 78–87; RESP 16–20
[2018-11-19] MEDS ORDERED: LIDOCAINE 1%/EPI (1:100,000) (MDV) 20 ML ONE (07:27)
[2018-11-19] MEDS ORDERED: MIDAZOLAM 1 MG/ML 2 ML INJ ONE (07:59)
[2018-11-19] MEDS ORDERED: FENTAnyl 50 MCG/ML VIAL ONE (07:59)
[2018-11-19] MEDS ORDERED: HEPARIN 1000 UNITS/ML 10 ML INJ ONE (08:12)
[2018-11-19] MEDS ORDERED: SOD CHLORIDE 0.9% 500 ML ONE (08:20)
[2018-11-19] MEDS: LISINOPRIL 5 MG TAB PO SCH (09:00)
[2018-11-19] MEDS: NIFEdipine (XL) 30 MG TAB PO SCH ×2 (09:00→20:33)
[2018-11-19] MEDS: ASPIRIN (EC) 81 MG TAB PO SCH (09:54)
--- NOTE | 2018-11-19 10:51 | PN ---
Date/Time of Note Date/Time of Note DATE: 11/19/18 TIME: 10:50 Assessment/Plan VTE Prophylaxis Risk score (from Ns)>0 risk: 3 SCD applied (from Nsg): Yes Pharmacological prophylaxis: other Lines/Catheters IV Catheter Type (from Nrsg): Saline Lock Urinary Cath still in place: Yes Reason Cath still needed: urinary retention Assessment/Plan Hospital Course S: Patient had the IR guided catheter exchange performed. Waiting for dialysis for later today. O: VS - see below PE: Constitutional: lying in bed Head: normocephalic, atraumatic Eyes: PERRL Respiratory: clear to auscultation Cardiovascular: regular rate and rhythm, nl pulses Gastrointestinal: soft Extremities: normal pulses Neurological: other (Left upper extremity weakness) Assessment/Plan: This 58-year-old male who presents with: 1. HD catheter malfunction-Patient now status post exchange by IR team now. - Follow-up post procedure recommendations on this 2. ESRD on HD: Now that dialysis catheter has been exchanged, and functioning now, will plan for dialysis today. -Monitor, follow-up further recommendations from nephrology consult 3. History of DM II: Recent A1c 5.3 from November 09, 2018. -Monitor sugars 4. CVA x2 (with recent hemorrhagic conversion): Patient initially was lethargic on admission -Monitor for now, if worsens consider neurosurgery eval or other 5. Hypertension: Continue home meds. Adjust as needed 6. Anemia of chronic disease: Epogen per nephrology 7. Retrocardiac opacity that may reflect left lower lobe atelectasis or infiltrate: No clinical sign of pneumonia -Monitor closely -Additional imaging including chest CT as needed Result Diagram: 11/19/1862111/19/18 0622 Results 24hrs Laboratory Tests Test 11/18/18 11:49 11/18/18 18:03 11/18/18 20:46 11/19/18 02:13 Bedside Glucose 65 L 65 L 64 L 78 Test 11/19/18 06:22 11/19/18 08:51 White Blood Count 8.3 Red Blood Count 3.14 L Hemoglobin 8.7 L Hematocrit 27.2 L Mean Corpuscular 86.6 Volume Mean Corpuscular 27.7 L Hemoglobin Mean Corpuscular 32.0 Hemoglobin Concent Red Cell Distribution 14.1 Width Platelet Count 147 Mean Platelet Volume 10.3 Immature Granulocytes 2.500 H % Neutrophils % 71.5 Lymphocytes % 9.6 L Monocytes % 10.0 Eosinophils % 5.4 Basophils % 1.0 Nucleated Red Blood 0.0 Cells % Immature Granulocytes 0.210 H # Neutrophils # 6.0 Lymphocytes # 0.8 Monocytes # 0.8 Eosinophils # 0.5 Basophils # 0.1 Nucleated Red Blood 0.0 Cells # Sodium Level 138 Potassium Level 4.8 Chloride Level 108 Carbon Dioxide Level 24 Anion Gap 6 Blood Urea Nitrogen 21 H Creatinine 5.10 H Est Glomerular 12 L Filtrat Rate mL/min Glucose Level 65 L Calcium Level 8.3 L Phosphorus Level 4.4 Magnesium Level 1.9 Bedside Glucose 78 Exam/Review of Systems Exam Vitals Vital Signs Date Temp Pulse Resp B/P (MAP) Pulse Ox O2 O2 Flow FiO2 Time Delivery Rate 11/19/18 98.0 87 20 150/65 96 Room Air 07:14 (93) Intake and Output 11/18/18 11/18/18 11/19/18 1515:00 23:00 07:00 IntakeIntake Total 200 ml OutputOutput Total 250 ml 100 ml BalanceBalance -50 ml -100 ml Results Results 24hrs Laboratory Tests Test 11/18/18 11:49 11/18/18 18:03 11/18/18 20:46 11/19/18 02:13 Bedside Glucose 65 L 65 L 64 L 78 Test 11/19/18 06:22 11/19/18 08:51 White Blood Count 8.3 Red Blood Count 3.14 L Hemoglobin 8.7 L Hematocrit 27.2 L Mean Corpuscular 86.6 Volume Mean Corpuscular 27.7 L Hemoglobin Mean Corpuscular 32.0 Hemoglobin Concent Red Cell Distribution 14.1 Width Platelet Count 147 Mean Platelet Volume 10.3 Immature Granulocytes 2.500 H % Neutrophils % 71.5 Lymphocytes % 9.6 L Monocytes % 10.0 Eosinophils % 5.4 Basophils % 1.0 Nucleated Red Blood 0.0 Cells % Immature Granulocytes 0.210 H # Neutrophils # 6.0 Lymphocytes # 0.8 Monocytes # 0.8 Eosinophils # 0.5 Basophils # 0.1 Nucleated Red Blood 0.0 Cells # Sodium Level 138 Potassium Level 4.8 Chloride Level 108 Carbon Dioxide Level 24 Anion Gap 6 Blood Urea Nitrogen 21 H Creatinine 5.10 H Est Glomerular 12 L Filtrat Rate mL/min Glucose Level 65 L Calcium Level 8.3 L Phosphorus Level 4.4 Magnesium Level 1.9 Bedside Glucose 78 Medications Medication Current Medications IV Flush (NS 3 ml) 3 ml PER PROTOCOL IV ; Start 11/18/18 at 00:30 Ondansetron HCl (Zofran Inj) 4 mg Q6H PRN IV NAUSEA/VOMITING; Start 11/18/18 at 00:30 Acetaminophen (Tylenol Tab) 650 mg Q6H PRN PO .PAIN 1-3 OR TEMP Last administered on 11/18/18at 14:13; Admin Dose 650 MG; Start 11/18/18 at 00:30 Albuterol/ Ipratropium (Duoneb) 3 ml Q2H RESP THERAPY PRN HHN SHORTNESS OF BREATH; Start 11/18/18 at 00:30 Aspirin (Halfprin) 81 mg DAILY PO Last administered on 11/19/18at 09:54; Admin Dose 81 MG; Start 11/18/18 at 09:00 Carvedilol (Coreg) 12.5 mg BID PO Last administered on 11/18/18at 21:34; Admin Dose 12.5 MG; Start 11/18/18 at 09:00 Lisinopril (Zestril) 5 mg DAILY PO Last administered on 11/18/18at 08:42; Admin Dose 5 MG; Start 11/18/18 at 09:00 Nifedipine (Procardia Xl) 30 mg BID PO Last administered on 11/18/18at 21:35; Admin Dose 30 MG; Start 11/18/18 at 09:00 Heparin Sodium (Porcine) (Heparin (1000 Units/ml)) 4,000 unit AFTER DIALYSIS CATHETER ; Start 11/18/18 at 10:00 Albumin Human 100 ml @ 100 mls/hr WITH DIALYSIS PRN IV SBP <90 DURING DIALYSIS; Start 11/18/18 at 10:00 Sodium Chloride (NS) -To prime the dialy... DIRECTED FOR HD PRN IV HD; Start 11/18/18 at 10:00 NIDHI BAIN Nov 19, 2018 10:51
--- NOTE | 2018-11-19 12:55 | CONS ---
Assessment/Plan Assessment/Plan Assessment/Plan (Daily) 1. acute fluid overload due to missed HD 2. Missed HD due to HD catheter malfunction 3. ESRD on HD TTS 4. h/o HTN 5. H/O CVA x 2 6. H/o DM II Plan: s/p Placement of new permacath, plan for HD today which will be his scheduled HD no plan for HD tomorrow, ok to d/c home tomorrow will follow up Consultation Date/Type/Reason Admit Date/Time Nov 17, 2018 at 23:58 Initial Consult Date 11/18/18 Type of Consult NEPHROLOGY Requesting Provider: ERIC IVAN MD Date/Time of Note DATE: 11/19/18 TIME: 12:55 Exam/Review of Systems Exam Vitals Vital Signs Date Temp Pulse Resp B/P (MAP) Pulse Ox O2 O2 Flow FiO2 Time Delivery Rate 11/19/18 98.2 82 20 152/70 98 Room Air 11:36 (97) Intake and Output 11/18/18 11/18/18 11/19/18 1515:00 23:00 07:00 IntakeIntake Total 200 ml OutputOutput Total 250 ml 100 ml BalanceBalance -50 ml -100 ml Results Result Diagram: 11/19/18 0622 11/19/18 0622 Results 24hrs Laboratory Tests Test 11/18/18 18:03 11/18/18 20:46 11/19/18 02:13 11/19/18 06:22 Bedside Glucose 65 L 64 L 78 White Blood Count 8.3 Red Blood Count 3.14 L Hemoglobin 8.7 L Hematocrit 27.2 L Mean Corpuscular 86.6 Volume Mean Corpuscular 27.7 L Hemoglobin Mean Corpuscular 32.0 Hemoglobin Concent Red Cell Distribution 14.1 Width Platelet Count 147 Mean Platelet Volume 10.3 Immature Granulocytes 2.500 H % Neutrophils % 71.5 Lymphocytes % 9.6 L Monocytes % 10.0 Eosinophils % 5.4 Basophils % 1.0 Nucleated Red Blood 0.0 Cells % Immature Granulocytes 0.210 H # Neutrophils # 6.0 Lymphocytes # 0.8 Monocytes # 0.8 Eosinophils # 0.5 Basophils # 0.1 Nucleated Red Blood 0.0 Cells # Sodium Level 138 Potassium Level 4.8 Chloride Level 108 Carbon Dioxide Level 24 Anion Gap 6 Blood Urea Nitrogen 21 H Creatinine 5.10 H Est Glomerular Filtrat 12 L Rate mL/min Glucose Level 65 L Calcium Level 8.3 L Phosphorus Level 4.4 Magnesium Level 1.9 Test 11/19/18 08:51 Bedside Glucose 78 Medications Medication Current Medications IV Flush (NS 3 ml) 3 ml PER PROTOCOL IV ; Start 11/18/18 at 00:30 Ondansetron HCl (Zofran Inj) 4 mg Q6H PRN IV NAUSEA/VOMITING; Start 11/18/18 at 00:30 Acetaminophen (Tylenol Tab) 650 mg Q6H PRN PO .PAIN 1-3 OR TEMP Last administered on 11/18/18at 14:13; Admin Dose 650 MG; Start 11/18/18 at 00:30 Albuterol/ Ipratropium (Duoneb) 3 ml Q2H RESP THERAPY PRN HHN SHORTNESS OF BREATH; Start 11/18/18 at 00:30 Aspirin (Halfprin) 81 mg DAILY PO Last administered on 11/19/18at 09:54; Admin Dose 81 MG; Start 11/18/18 at 09:00 Carvedilol (Coreg) 12.5 mg BID PO Last administered on 11/18/18at 21:34; Admin Dose 12.5 MG; Start 11/18/18 at 09:00 Lisinopril (Zestril) 5 mg DAILY PO Last administered on 11/18/18at 08:42; Admin Dose 5 MG; Start 11/18/18 at 09:00 Nifedipine (Procardia Xl) 30 mg BID PO Last administered on 11/18/18at 21:35; Admin Dose 30 MG; Start 11/18/18 at 09:00 Heparin Sodium (Porcine) (Heparin (1000 Units/ml)) 4,000 unit AFTER DIALYSIS CATHETER ; Start 11/18/18 at 10:00 Albumin Human 100 ml @ 100 mls/hr WITH DIALYSIS PRN IV SBP <90 DURING DIALYSIS; Start 11/18/18 at 10:00 Sodium Chloride (NS) -To prime the dialy... DIRECTED FOR HD PRN IV HD; Start 11/18/18 at 10:00 LEIDA SMITH MD Nov 19, 2018 12:55
[2018-11-19] MEDS ORDERED: ALTEPLASE (CATHFLO) 2 MG INJ CATHETER ONE (16:30)
[2018-11-20] VITALS: BP 145/68; PULSE 82; RESP 18
[2018-11-20 04:30] VITALS: BP 168/76; PULSE 84; RESP 18
[2018-11-20 07:20] VITALS: BP 169/76; PULSE 80; RESP 22
[2018-11-20] MEDS: ACETAMINOPHEN 325 MG TAB PO PRN (09:09)
[2018-11-20] MEDS: ASPIRIN (EC) 81 MG TAB PO SCH (09:10)
[2018-11-20] MEDS: LISINOPRIL 5 MG TAB PO SCH (09:10)
[2018-11-20] MEDS: NIFEdipine (XL) 30 MG TAB PO SCH (09:10)
--- NOTE | 2018-11-20 11:02 | RADRPT ---
PROCEDURE: Over the wire exchange of right internal jugular vein tunneled dialysis catheter. CLINICAL INDICATION: Renal failure. The existing dialysis catheter is not functioning. TECHNIQUE: Prior to the procedure, informed consent was obtained. Risks including bleeding, infection, and pneum othorax were explained to the patient. The patient understood and was willing to proceed. A procedura l pause was performed. The patient's name, date of , and procedure to be performed were verified . The central line was inserted with all elements of maximal sterile barrier technique. All of the foll owing were used: head covering, facial mask, sterile gown, sterile gloves, a large sterile sheet, tirado d hygiene, and 2% chlorhexidine for cutaneous antisepsis. The right neck and anterior/superior chest wall was prepped and draped in usual sterile fashion. Following the local injection of Xylocaine, a 1 cm incision was made at the site of the entry of the tunneled dialysis catheter in the right anterior chest wall. The existing right internal jugular vei n dialysis catheter was dissected out using blunt dissection. The catheter was removed with fluorosc opic guidance over a 0.035-inch guide wire. The new 14.5 Italian 23 cm long AngiodynamAdynxxFlo DuraMax dialysis catheter was advanced over the g uide wire. The guidewire was removed. The tip of the catheter was confirmed in position within the u pper right atrium. The 2 ports were each flushed with 2.3 ml of 1:1000 heparin. The incision in the chest wall was close d with 4-0 Vicryl suture. The catheter was secured to the skin with 2-0 silk. The site was dressed. Specimens: None. Blood loss: 5 ml. Complications: None. Slope Hoist Operator: None. Anesthesia: Local and moderate sedation. Graft/Implant: Tunneled dialysis catheter. COMPARISON: None. FINDINGS: Final images demonstrate the tip of the catheter in the upper right atrium. A total of 1.5 minutes o f fluoroscopy time was used. 2images of the chest were obtained with image intensifier. IMPRESSION: 1. Percutaneous replacement of right internal jugular dialysis tunneled dialysis catheter with fluoro scopic guidance. RPTAT: QQ Kishore Gardner, Physician Date Time Electronically viewed and signed by Kishore Gardner, Physician on 11/20/2018 11:02 RD/
[2018-11-20 11:15] VITALS: BP 148/66; PULSE 78; RESP 16
--- NOTE | 2018-11-20 11:33 | CONS ---
Assessment/Plan Assessment/Plan Assessment/Plan (Daily) 1. acute fluid overload due to missed HD 2. Missed HD due to HD catheter malfunction 3. ESRD on HD TTS 4. h/o HTN 5. H/O CVA x 2 6. H/o DM II Plan: s/p HD yesterda y3 L removed, Catheter worked goog ok to d/c home today will follow up Consultation Date/Type/Reason Admit Date/Time Nov 17, 2018 at 23:58 Initial Consult Date 11/18/18 Type of Consult NEPHROLOGY Requesting Provider: ERIC IVAN MD Date/Time of Note DATE: 11/20/18 TIME: 11:33 Exam/Review of Systems Exam Vitals Vital Signs Date Temp Pulse Resp B/P (MAP) Pulse Ox O2 O2 Flow FiO2 Time Delivery Rate 11/20/18 98.0 78 16 148/66 97 Room Air 11:15 (93) Intake and Output 11/19/18 11/19/18 11/20/18 1515:00 23:00 07:00 OutputOutput Total 3500 ml BalanceBalance -3500 ml Exam Constitutional: alert Respiratory: clear to auscultation, diminished breath sounds Cardiovascular: regular rate and rhythm, nl pulses Gastrointestinal: soft, non-tender Musculoskeletal: nl extremities to inspection, muscle weakness Extremities: normal pulses Neurological: LOAN OPERATIONS SPECIALIST II-XII intact, nl mental status, nl speech, nl strength Skin: nl turgor Results Result Diagram: 11/20/18 0646 11/20/18 0646 Results 24hrs Laboratory Tests Test 11/20/18 06:46 White Blood Count 7.5 Red Blood Count 3.28 L Hemoglobin 9.0 L Hematocrit 28.6 L Mean Corpuscular Volume 87.2 Mean Corpuscular Hemoglobin 27.4 L Mean Corpuscular Hemoglobin Concent 31.5 L Red Cell Distribution Width 14.2 Platelet Count 154 Mean Platelet Volume 10.3 Immature Granulocytes % 1.700 H Neutrophils % 71.6 Lymphocytes % 12.0 L Monocytes % 10.3 Eosinophils % 3.7 Basophils % 0.7 Nucleated Red Blood Cells % 0.0 Immature Granulocytes # 0.130 H Neutrophils # 5.4 Lymphocytes # 0.9 Monocytes # 0.8 Eosinophils # 0.3 Basophils # 0.1 Nucleated Red Blood Cells # 0.0 Sodium Level 140 Potassium Level 4.1 Chloride Level 106 Carbon Dioxide Level 27 Anion Gap 7 Blood Urea Nitrogen 13 Creatinine 3.25 #H Est Glomerular Filtrat Rate mL/min 20 L Glucose Level 79 Calcium Level 8.0 L Phosphorus Level 3.4 Magnesium Level 1.8 Medications Medication Current Medications IV Flush (NS 3 ml) 3 ml PER PROTOCOL IV ; Start 11/18/18 at 00:30 Ondansetron HCl (Zofran Inj) 4 mg Q6H PRN IV NAUSEA/VOMITING; Start 11/18/18 at 00:30 Acetaminophen (Tylenol Tab) 650 mg Q6H PRN PO .PAIN 1-3 OR TEMP Last administered on 11/20/18 09:09; Admin Dose 650 MG; Start 11/18/18 at 00:30 Albuterol/ Ipratropium (Duoneb) 3 ml Q2H RESP THERAPY PRN HHN SHORTNESS OF BREATH; Start 11/18/18 at 00:30 Aspirin (Halfprin) 81 mg DAILY PO Last administered on 11/20/18 09:10; Admin Dose 81 MG; Start 11/18/18 at 09:00 Carvedilol (Coreg) 12.5 mg BID PO Last administered on 11/20/18 09:11; Admin Dose 12.5 MG; Start 11/18/18 at 09:00 Lisinopril (Zestril) 5 mg DAILY PO Last administered on 11/20/18 09:10; Admin Dose 5 MG; Start 11/18/18 at 09:00 Nifedipine (Procardia Xl) 30 mg BID PO Last administered on 11/20/18 09:10; Admin Dose 30 MG; Start 11/18/18 at 09:00 Heparin Sodium (Porcine) (Heparin (1000 Units/ml)) 4,000 unit AFTER DIALYSIS CATHETER ; Start 11/18/18 at 10:00 Albumin Human 100 ml @ 100 mls/hr WITH DIALYSIS PRN IV SBP <90 DURING DIALYSIS; Start 11/18/18 at 10:00 Sodium Chloride (NS) -To prime the dialy... DIRECTED FOR HD PRN IV HD; Start 11/18/18 at 10:00 LEIDA SMITH MD Nov 20, 2018 11:33
--- NOTE | 2018-11-20 11:38 | PDOCDIS ---
Discharge Instructions CONDITION [id number] Patient Condition: [id number] Stable HOME CARE INSTRUCTIONS: [id number] Diet Instructions: [id number] Low Fat /Cholesterol ACTIVITY: [id number] Activity Restrictions: [id number] Slowly Increase Activity Rest between Activity Avoid heavy lifting FOLLOW UP/APPOINTMENTS Follow-up Plan Please take your medications as prescribed, see your doctor in the clinic in the next 1 week. NIDHI BAIN Nov 20, 2018 11:38
--- NOTE | 2018-11-20 11:41 | DS ---
Date/Time of Note Date/Time of Note DATE: 11/20/18 TIME: 11:40 Discharge Summary Admission/Discharge Info Admit Date/Time Nov 17, 2018 at 23:58 Discharge Date/Time Patient Condition: Stable Hospital Course S: Patient had the IR guided catheter exchange performed. Waiting for dialysis for later today. O: VS - see below PE: Constitutional: lying in bed Head: normocephalic, atraumatic Eyes: PERRL Respiratory: clear to auscultation Cardiovascular: regular rate and rhythm, nl pulses Gastrointestinal: soft Extremities: normal pulses Neurological: other (Left upper extremity weakness) Assessment/Plan: This 58-year-old male who presents with: 1. HD catheter malfunction-Patient now status post exchange by IR team now. - Follow-up post procedure recommendations on this 2. ESRD on HD: Now that dialysis catheter has been exchanged, and functioning now, will plan for dialysis today. -Monitor, follow-up further recommendations from nephrology consult 3. History of DM II: Recent A1c 5.3 from November 09, 2018. -Monitor sugars 4. CVA x2 (with recent hemorrhagic conversion): Patient initially was lethargic on admission -Monitor for now, if worsens consider neurosurgery eval or other 5. Hypertension: Continue home meds. Adjust as needed 6. Anemia of chronic disease: Epogen per nephrology 7. Retrocardiac opacity that may reflect left lower lobe atelectasis or infiltrate: No clinical sign of pneumonia -Monitor closely -Additional imaging including chest CT as needed Home Meds Active Scripts Carvedilol* (Carvedilol*) 12.5 Mg Tablet, 12.5 MG PO BID, #60 TAB Prov:LUZ HELLER FIBERGLASS FINISHER 11/12/18 Aspirin* (Aspirin* EC) 81 Mg Tablet.dr, 81 MG PO DAILY, #30 TAB Prov:RODRIGO CARTER V. FIBERGLASS FINISHER 06/18/18 Lisinopril* (Lisinopril*) 5 Mg Tablet, 5 MG PO DAILY, #30 TAB Prov:RODRIGO CARTER V. FIBERGLASS FINISHER 06/18/18 Nifedipine (Procardia Xl) 30 Mg Tab.er.24, 30 MG PO BID, #60 TAB Prov:LUZ HELLER FIBERGLASS FINISHER 06/14/18 Reported Medications Minoxidil* (Lonitin*) 2.5 Mg Tab, 5 MG PO DAILY for 30 Days, #120 2/20/19 Discontinued Scripts Levofloxacin* (Levaquin*) 750 Mg Tablet, 750 MG PO Q48H, #5 TAB Last day 11/19/2018 Prov:LUZ HELLER FIBERGLASS FINISHER 11/12/18 Mupirocin* (Bactroban*) 2% -22 Gram Oint...g., 1 APPLIC TOP BID for 5 Days Prov:LUZ HELLER FIBERGLASS FINISHER 11/12/18 Ferrous Sulfate* (Ferrous Sulfate*) 325 Mg Tabec, 325 MG PO BID, #60 TAB Prov:LUZ HELLER FIBERGLASS FINISHER 06/14/18 Follow-up Plan Please take your medications as prescribed, see your doctor in the clinic in the next 1 week. Primary Care Provider Not On Staff Doctor Time spent on discharge: > 30 minutes Pending Labs Laboratory Tests Test 11/20/18 06:46 White Blood Count 7.5 10^3/ul (4.8-10.8) Red Blood Count 3.28 10^6/ul (4.70-6.10) Hemoglobin 9.0 g/dl (14.0-18.0) Hematocrit 28.6 % (42.0-52.0) Mean Corpuscular Volume 87.2 fl (82.0-101.0) Mean Corpuscular Hemoglobin 27.4 pg (29.0-33.0) Mean Corpuscular Hemoglobin Concent 31.5 g/dl (32.0-37.0) Red Cell Distribution Width 14.2 % (11.5-14.5) Platelet Count 154 10^3/UL (140-415) Mean Platelet Volume 10.3 fl (7.4-10.4) Immature Granulocytes % 1.700 % (0.001-0.429) Neutrophils % 71.6 % (39.0-77.0) Lymphocytes % 12.0 % (15.0-51.0) Monocytes % 10.3 % (0.0-11.0) Eosinophils % 3.7 % (0.0-7.0) Basophils % 0.7 % (0.0-2.0) Nucleated Red Blood Cells % 0.0 /100WBC (0.0-0.0) Immature Granulocytes # 0.130 10^3/ul (0.0-0.031) Neutrophils # 5.4 10^3/ul (1.6-7.5) Lymphocytes # 0.9 10^3/ul (0.8-2.9) Monocytes # 0.8 10^3/ul (0.3-0.9) Eosinophils # 0.3 10^3/ul (0.0-0.5) Basophils # 0.1 10^3/ul (0.0-0.1) Nucleated Red Blood Cells # 0.0 10^3/ul (0.0-0.0) Sodium Level 140 mmol/L (135-144) Potassium Level 4.1 mmol/L (3.5-5.1) Chloride Level 106 mmol/L (97-110) Carbon Dioxide Level 27 mmol/L (21-31) Anion Gap 7 (5-13) Blood Urea Nitrogen 13 mg/dl (7-20) Creatinine 3.25 mg/dl (0.61-1.24) Est Glomerular Filtrat Rate mL/min 20 mL/min (>60) Glucose Level 79 mg/dl (70-220) Calcium Level 8.0 mg/dl (8.4-10.2) Phosphorus Level 3.4 mg/dl (2.5-4.9) Magnesium Level 1.8 mg/dl (1.7-2.5) NIDHI BAIN Nov 20, 2018 11:41
--- NOTE | 2018-11-20 11:46 | DS ---
Date/Time of Note Date/Time of Note DATE: 11/20/18 TIME: 11:43 Discharge Summary Admission/Discharge Info Admit Date/Time Nov 17, 2018 at 23:58 Discharge Date/Time Discharge Diagnosis 1. HD catheter malfunction-Patient now status post exchange by IR team now. 2. ESRD on HD 3. History of DM II: Recent A1c 5.3 from November 09, 2018. 4. CVA x2 (with recent hemorrhagic conversion): Patient initially was lethargic on admission 5. Hypertension: Continue home meds. Adjust as needed 6. Anemia of chronic disease: Epogen per nephrology 7. Retrocardiac opacity that may reflect left lower lobe atelectasis or infiltrate: No clinical sign of pneumonia Patient Condition: Stable Procedures Head CT November 18, 2018: IMPRESSION: CT of the brain demonstrates further resolution of hemorrhagic conversion now more hypodense in appearance. Likewise the vasogenic edema involving the right external capsule and anterior temporal lobe have decreased. No new hemorrhage is seen. Hospital Course Patient was admitted and seen by renal team during this hospital stay. Patient underwent malfunction dialysis catheter exchange by interventional radiology. Patient tolerated the procedure well and this was successful. Afterwards patient was able to undergo dialysis successfully. Vital signs remained stable. Patient appeared to be back at baseline status. Because the patient was admitted over 1 week ago on a prior admission for intracranial bleed, a repeat head CT was done this admission that did not show any further acute changes of this abnormality found 1 week ago. After getting clearance from the contaminated land consultant team [facility] improved condition. See printed medicine reconciliation sheet for full list of discharge medications. Home Meds Active Scripts Carvedilol* (Carvedilol*) 12.5 Mg Tablet, 12.5 MG PO BID, #60 TAB Prov:LUZ HELLER PAINTER MAINTENANCE 11/12/18 Aspirin* (Aspirin* EC) 81 Mg Tablet.dr, 81 MG PO DAILY, #30 TAB Prov:RODRIGO CARTER V. PAINTER MAINTENANCE 06/18/18 Lisinopril* (Lisinopril*) 5 Mg Tablet, 5 MG PO DAILY, #30 TAB Prov:RODRIGO CARTER V. PAINTER MAINTENANCE 06/18/18 Nifedipine (Procardia Xl) 30 Mg Tab.er.24, 30 MG PO BID, #60 TAB Prov:LUZ HELLER PAINTER MAINTENANCE 06/14/18 Reported Medications Minoxidil* (Lonitin*) 2.5 Mg Tab, 5 MG PO DAILY for 30 Days, #120 06/10/18 Discontinued Scripts Levofloxacin* (Levaquin*) 750 Mg Tablet, 750 MG PO Q48H, #5 TAB Last day 11/19/2018 Prov:LUZ HELLER PAINTER MAINTENANCE 11/12/18 Mupirocin* (Bactroban*) 2% -22 Gram Oint...g., 1 APPLIC TOP BID for 5 Days Prov:LUZ HELLER PAINTER MAINTENANCE 11/12/18 Ferrous Sulfate* (Ferrous Sulfate*) 325 Mg Tabec, 325 MG PO BID, #60 TAB Prov:LUZ HELLER PAINTER MAINTENANCE 06/14/18 Follow-up Plan Please take your medications as prescribed, see your doctor in the clinic in the next 1 week. Primary Care Provider Not On Staff Doctor Time spent on discharge: > 30 minutes Pending Labs Laboratory Tests Test 11/20/18 06:46 White Blood Count 7.5 10^3/ul (4.8-10.8) Red Blood Count 3.28 10^6/ul (4.70-6.10) Hemoglobin 9.0 g/dl (14.0-18.0) Hematocrit 28.6 % (42.0-52.0) Mean Corpuscular Volume 87.2 fl (82.0-101.0) Mean Corpuscular Hemoglobin 27.4 pg (29.0-33.0) Mean Corpuscular Hemoglobin Concent 31.5 g/dl (32.0-37.0) Red Cell Distribution Width 14.2 % (11.5-14.5) Platelet Count 154 10^3/UL (140-415) Mean Platelet Volume 10.3 fl (7.4-10.4) Immature Granulocytes % 1.700 % (0.001-0.429) Neutrophils % 71.6 % (39.0-77.0) Lymphocytes % 12.0 % (15.0-51.0) Monocytes % 10.3 % (0.0-11.0) Eosinophils % 3.7 % (0.0-7.0) Basophils % 0.7 % (0.0-2.0) Nucleated Red Blood Cells % 0.0 /100WBC (0.0-0.0) Immature Granulocytes # 0.130 10^3/ul (0.0-0.031) Neutrophils # 5.4 10^3/ul (1.6-7.5) Lymphocytes # 0.9 10^3/ul (0.8-2.9) Monocytes # 0.8 10^3/ul (0.3-0.9) Eosinophils # 0.3 10^3/ul (0.0-0.5) Basophils # 0.1 10^3/ul (0.0-0.1) Nucleated Red Blood Cells # 0.0 10^3/ul (0.0-0.0) Sodium Level 140 mmol/L (135-144) Potassium Level 4.1 mmol/L (3.5-5.1) Chloride Level 106 mmol/L (97-110) Carbon Dioxide Level 27 mmol/L (21-31) Anion Gap 7 (5-13) Blood Urea Nitrogen 13 mg/dl (7-20) Creatinine 3.25 mg/dl (0.61-1.24) Est Glomerular Filtrat Rate mL/min 20 mL/min (>60) Glucose Level 79 mg/dl (70-220) Calcium Level 8.0 mg/dl (8.4-10.2) Phosphorus Level 3.4 mg/dl (2.5-4.9) Magnesium Level 1.8 mg/dl (1.7-2.5) NIDHI BAIN Nov 20, 2018 11:46
[2018-11-20 15:32] VITALS: BP 155/78; PULSE 88; RESP 18
== END 2018-11-20 18:52 ==
LOC: E/R 18:46 → TEL 23:58 → EDBEDREQ 11-18 00:04 → CANBEDREQ 11-18 01:03 → TEL 11-20 08:22
PROVIDERS: ADMIT Internal Medicine; ATTEND Hospitalist
DX: T82.41XA Breakdown (mechanical) of vascular dialysis catheter, initial encounter (principal); I12.0 Hypertensive chronic kidney disease with stage 5 chronic kidney disease or end stage renal disease; E11.22 Type 2 diabetes mellitus with diabetic chronic kidney disease; N18.6 End stage renal disease; Z99.2 Dependence on renal dialysis; D63.8 Anemia in other chronic diseases classified elsewhere; Z86.73 Personal history of transient ischemic attack (TIA), and cerebral infarction without residual deficits; Y84.1 Kidney dialysis as the cause of abnormal reaction of the patient, or of later complication, without mention of misadventure at the time of the procedure
CPT/HCPCS: 36415; 36581; 51702; 70450; 71045; 80048; 80053; 81003; 82962; 83605; 83735; 84100; 84484; 85025; 85610; 85730; 87081; 90935; 93005; 96374; 96375; J0696; J1644; J2250; J2997; J3010; J3370; J7040; Z7500; Z7502; Z7610; 36561; 36590; G0378

== ENCOUNTER 2018-11-26 18:58 | Inpatient (IN) | payer OTHER ==
[~2018-11-26] VITALS: Ht 175.3 cm; Wt 80.0 kg
[~2018-11-26 18:58] MED LIST changes: -FER325 PO; -LEVO750T25 PO; -MUPI22OI2 TOP
--- NOTE | 2018-11-26 19:16 | ERD ---
ER Documentation Chief Complaint Chief Complaint bib ra from dialysis for catheter problem, [facility] This is a 58-year-old man brought in by EMS from hemodialysis center for malfunctioning right subclavian hemodialysis line, although patient did receive 2 hours of hemodialysis. Patient denies chest pain or shortness of breath, no fevers or chills. HPI was limited as patient was refusing to provide further details. Patient was transported here by EMS without complications ROS All systems reviewed and are negative except as per history of present illness. Medications Home Meds Reported Medications Multivit/Ca Carb/B Cmplx/Fa* (Susan-Dana*) 1 Tab Tab, 1 TAB PO DAILY, TAB 11/26/18 Nifedipine* (Nifedipine ER*) 30 Mg Tablet.sa, 30 MG PO BID, TAB.SA HOLD FOR SBP<110 OR SC<60 11/26/18 Hydrocodone/Acetaminophen ([place] 5-325 Tablet) 1 Each Tablet, 1 EACH PO Q4H PRN for PAIN -01/28, TAB 11/26/18 Megestrol Acetate* (Megestrol Acetate*) 400 Mg/10 Ml Susp, 10 ML PO BID, ML STOP DATE 12/25/18 11/26/18 Lisinopril* (Lisinopril*) 5 Mg Tablet, 5 MG PO DAILY, #30 TAB HOLD FOR SBP<110 OR SC<60 11/26/18 Carvedilol* (Carvedilol*) 12.5 Mg Tablet, 12.5 MG PO BID, #60 TAB HOLD FOR SBP<110 OR SC<60 11/26/18 Aspirin* (Aspirin* Chew) 81 Mg Tab.chew, 81 MG PO DAILY, TAB.CHEW 11/26/18 Acetaminophen* (Acetaminophen*) 650 Mg Tablet, 650 MG PO Q4H PRN for PAIN 1- 08/28, #30 TAB 11/26/18 Discontinued Reported Medications Acetaminophen* (Acetaminophen*) 325 Mg Tablet, 325 MG PO Q4H PRN for PAIN 1-, #30 TAB 11/26/18 Minoxidil* (Lonitin*) 2.5 Mg Tab, 5 MG PO DAILY for 30 Days, #120 06/10/18 Discontinued Scripts Carvedilol* (Carvedilol*) 12.5 Mg Tablet, 12.5 MG PO BID, #60 TAB Prov:LUZ HELLER NP 11/12/18 Aspirin* (Aspirin* EC) 81 Mg Tablet.dr, 81 MG PO DAILY, #30 TAB Prov:EMMARODRIGOARIAN Cardozo [employer]ING [employer]IL ASSEMBLER 06/18/18 Lisinopril* (Lisinopril*) 5 Mg Tablet, 5 MG PO DAILY, #30 TAB Prov:RODRIGO CARTER V. 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, unable to ambulate, hypothyroidism, hypertension, anemia History of Surgery: No Anesthesia Reaction: No Hx Neurological Disorder: Yes (CVA x2 last was September 2018,forgetful) Hx Respiratory Disorders: Yes (acute resp failure,hypoxia) Hx Cardiac Disorders: Yes (HPN) Hx Psychiatric Problems: No Hx Miscellaneous Medical Probl: Yes (Obesity,Hydrocephalus) Hx Alcohol Use: No Hx Substance Use: No Hx Tobacco Use: No FmHx Family History: No diabetes Physical Exam Vitals Vital Signs Date Temp Pulse Resp B/P (MAP) Pulse Ox O2 O2 Flow FiO2 Time Delivery Rate 11/26/18 98.9 76 19 158/78 100 19:05 (104) 11/26/18 74 18 158/78 99 Room Air 19:03 (104) Physical Exam GENERAL: Well-developed, elderly appearing man, no apparent distress, afebrile NEURO: Alert and oriented 3, pupils equal round reactive to light, left upper lower extremity paresis, no facial asymmetry CARDIAC: Regular rate and rhythm, no murmurs rubs or gallops LUNGS: Clear bilaterally no wheezing crackles or stridor ABDOMEN: Soft nontender, no guarding, no rigidity, no rebound, no psoas sign no obturator sign. SKIN: Warm and dry to touch, no abrasions, contusions, or hematomas, no lacerations, no ecchymosis, no target lesions, and without ulcers Result Diagram: 11/26/18194411/26/181944 Results 24 hrs Laboratory Tests Test 11/26/18 19:45 White Blood Count 5.5 10^3/ul Red Blood Count 4.00 10^6/ul Hemoglobin 11.0 g/dl Hematocrit 34.4 % Mean Corpuscular Volume 86.0 fl Mean Corpuscular Hemoglobin 27.5 pg Mean Corpuscular Hemoglobin Concent 32.0 g/dl Red Cell Distribution Width 14.9 % Platelet Count 154 10^3/UL Mean Platelet Volume 10.4 fl Immature Granulocytes % 1.500 % Neutrophils % 59.7 % Lymphocytes % 20.7 % Monocytes % 12.8 % Eosinophils % 3.7 % Basophils % 1.6 % Nucleated Red Blood Cells % 0.0 /100WBC Immature Granulocytes # 0.080 10^3/ul Neutrophils # 3.3 10^3/ul Lymphocytes # 1.1 10^3/ul Monocytes # 0.7 10^3/ul Eosinophils # 0.2 10^3/ul Basophils # 0.1 10^3/ul Nucleated Red Blood Cells # 0.0 10^3/ul Prothrombin Time 14.8 Sec Prothrombin Time Ratio 1.2 INR International Normalized Ratio 1.15 Activated Partial Thromboplast Time 37.5 Sec Sodium Level 138 mmol/L Potassium Level 3.6 mmol/L Chloride Level 106 mmol/L Carbon Dioxide Level 26 mmol/L Anion Gap 6 Blood Urea Nitrogen 19 mg/dl Creatinine 3.55 mg/dl Est Glomerular Filtrat Rate mL/min 18 mL/min Glucose Level 98 mg/dl Calcium Level 8.5 mg/dl Total Bilirubin 0.3 mg/dl Direct Bilirubin 0.00 mg/dl Indirect Bilirubin 0.3 mg/dl Aspartate Amino Transf (AST/SGOT) 23 IU/L Alanine Aminotransferase (ALT/SGPT) 18 IU/L Alkaline Phosphatase 124 IU/L Troponin I < 0.012 ng/ml Total Protein 6.8 g/dl Albumin 3.0 g/dl Globulin 3.80 g/dl Albumin/Globulin Ratio 0.78 Lipase 56 U/L Procedures/MDM IV line was established patient was placed on school bus monitor rhythm strip revealed a sinus rhythm at about 80 bpm with upright P and T waves. Patient was afebrile EKG performed, read by me revealed a normal sinus rhythm at 75 bpm, left axis deviation, right ventricular conduction delay QRS duration 104 ms, no concerning ST elevations or depressions noted Chest X-ray 1V Interpreted by me: Soft Tissue: No acute abnormalities Bones: No acute abnormalities Mediastinum/Cardiac Silhouette/Lungs: Catheter in the right chest CBC and electrolytes are unremarkable, liver function test normal, troponin negative. Patient will be admitted to telemetry setting for continued medical management and hemodialysis catheter replacement Departure Diagnosis: Primary Impression: Other complication of vascular dialysis catheter, initial encounter Additional Impression: End stage kidney disease Condition: MIRELA Espana MD Nov 26, 2018 19:16
[2018-11-26] MEDS ORDERED: BISACODYL (EC) 5 MG TAB PO PRN (20:30)
[2018-11-26] MEDS ORDERED: DOCUSATE SODIUM 100 MG CAP PO PRN (20:30)
[2018-11-26] MEDS ORDERED: ACETAMINOPHEN 325 MG TAB PO PRN ×2 (20:30→21:00)
[2018-11-26] MEDS ORDERED: NACL 0.9% 3 ML SYG IV SCH (20:30)
[2018-11-26] MEDS ORDERED: ONDANSETRON 4 MG INJ IV PRN (20:30)
--- NOTE | 2018-11-26 20:48 | HP ---
Date/Time of Note Date/Time of Note DATE: 11/26/18 TIME: 20:46 Assessment/Plan VTE Prophylaxis SCD applied (from Nsg): Yes Pharmacological prophylaxis: NA/contraindicated Pharm contraindication: low risk/ambulating Lines/Catheters IV Catheter Type (from Nrsg): Saline Lock Assessment/Plan Hospital Course This is a 58-year-old male being admitted to the telemetry floor for observation for: 1. HD catheter malfunction: Patient previously had malfunction as well and had IR replace the tunneled catheter. I have put in a consult for IR for replacement. If IR is unable to do we may need vascular surgery consultation. I have also consulted nephrology Dr. Ferrara. 2. ESRD on HD: Patient apparently was only able to be dialyzed 2 hours. His electrolytes appear within acceptable values at the current time. Will consult nephrology Dr. Ferrara. 3. History of DM II: Recent A1c 5.3. 4. CVA x2 (with recent hemorrhagic conversion): Supportive care 5. Hypertension: Continue home meds. Adjust as needed 6. Anemia of chronic disease: Epogen per nephrology 7. DVT GI prophylaxis: SCDs, no GI prophylaxis indicated Further treatment strategy will be implemented as per the clinical course Result Diagram: 11/26/18194411/26/181944 Results 24hrs Laboratory Tests Test 11/26/18 19:45 White Blood Count 5.5 # Red Blood Count 4.00 #L Hemoglobin 11.0 #L Hematocrit 34.4 #L Mean Corpuscular Volume 86.0 Mean Corpuscular Hemoglobin 27.5 L Mean Corpuscular Hemoglobin Concent 32.0 Red Cell Distribution Width 14.9 H Platelet Count 154 Mean Platelet Volume 10.4 Immature Granulocytes % 1.500 H Neutrophils % 59.7 Lymphocytes % 20.7 Monocytes % 12.8 H Eosinophils % 3.7 Basophils % 1.6 Nucleated Red Blood Cells % 0.0 Immature Granulocytes # 0.080 H Neutrophils # 3.3 Lymphocytes # 1.1 Monocytes # 0.7 Eosinophils # 0.2 Basophils # 0.1 Nucleated Red Blood Cells # 0.0 Prothrombin Time 14.8 Prothrombin Time Ratio 1.2 INR International Normalized Ratio 1.15 Activated Partial Thromboplast Time 37.5 H Sodium Level 138 Potassium Level 3.6 Chloride Level 106 Carbon Dioxide Level 26 Anion Gap 6 Blood Urea Nitrogen 19 Creatinine 3.55 H Est Glomerular Filtrat Rate mL/min 18 L Glucose Level 98 Calcium Level 8.5 Total Bilirubin 0.3 Direct Bilirubin 0.00 Indirect Bilirubin 0.3 Aspartate Amino Transf (AST/SGOT) 23 Alanine Aminotransferase (ALT/SGPT) 18 Alkaline Phosphatase 124 H Troponin I < 0.012 Total Protein 6.8 Albumin 3.0 L Globulin 3.80 H Albumin/Globulin Ratio 0.78 Lipase 56 HPI/ROS Admit Date/Time Admit Date/Time Hx of Present Illness Chief complaint: HD catheter malfunction This is a 58-year-old male with a history of hypertension, type 2 diabetes, CVA (with hemorrhagic conversion), ESRD on HD, anemia. Patient presented to the ER for evaluation of HD catheter malfunction. She went to the dialysis center and was only able to be dialyzed for 2 hours. Patient has a history of CVA x2 and has been forgetful. He does have left upper extremity residual weakness from stroke. Allergies: NKDA Medications: See ALONDRA Const: As per HPI Eyes : No pain discharge or redness or change in visual acuity ENT: No pain, sore throat, congestion, congestion, dysphagia or discharge Respiratory: No shortness of breath, cough, sputum, wheezing, or pleuritic pain Cardiovascular: No chest pain, palpitation, PND, or edema GI : no change in appetite, abdominal pain, nausea, vomiting, diarrhea, constipation, or change in the color his stool Genitourinary: As per HPI Musculoskeletal: No joint pain, back pain, neck pain, restricted range of motion in neck or joints Skin: No rash, bruising or hives Neuro: No headache, dizziness, syncope, seizure, focal weakness Endocrine: No polyuria, polydipsia, temperature intolerance Psych: No hallucination, depression, anxiety or suicidal ideation PMH/Family/Social Past Medical History end-stage kidney disease hemodialysis dependent on Friday, , Saturdays, history of diabetes mellitus type 2, history of CVA x2 with left upper extremity and lower extremity paresis, hypothyroidism, hypertension, anemia Medications Current Medications IV Flush (NS 3 ml) 3 ml PER PROTOCOL IV ; Start 11/26/18 at 20:30; Status UNV Ondansetron HCl (Zofran Inj) 4 mg Q6H PRN IV NAUSEA/VOMITING; Start 11/26/18 at 20:30; Status UNV Acetaminophen (Tylenol Tab) 650 mg Q6H PRN PO .PAIN 1-3 OR TEMP; Start 11/26/18 at 20:30; Status UNV Docusate Sodium (Colace) 100 mg Q12H PRN PO .CONSTIPATION; Start 11/26/18 at 20:30; Status UNV Bisacodyl (Dulcolax) 5 mg DAILY PRN PO .CONSTIPATION; Start 11/26/18 at 20:30; Status UNV Sodium Chloride 1,000 ml @ 40 mls/hr Q24H IV ; Start 11/27/18 at 00:00; Stop 11/27/18 at 07:59; Status UNV Coded Allergies: No Known Allergy (Unverified , 11/26/18) Past Surgical History dialysis catheter placement and replacement after malfunction Past Surgical Hx: other Family History Significant Family History: no pertinent family hx Social History Alcohol Use: none Smoking Status: Never smoker Drug Use: none Exam/Review of Systems Vital Signs Vitals Vital Signs Date Temp Pulse Resp B/P (MAP) Pulse Ox O2 O2 Flow FiO2 Time Delivery Rate 11/26/18 98.9 76 19 158/78 100 19:05 (104) 11/26/18 Room Air 19:03 Exam Exam General: Patient is currently lying in bed in no acute distress HEENT: Atraumatic, normocephalic. The pupils are equal, round and reactive. Extraocular motor are intact Neck: Supple with full range of motion. No rigidity or meningismus Chest: Right chest dialysis catheter Lungs: Clear to auscultation bilaterally no crackles rales or wheezing Heart: Normal S1-S2, Regular rhythm and rate. No murmur, S3, or S4 Abdomen: Soft , nontender, nondistended , bowel sounds are present. No guarding no rebound tenderness , No masses or organomegaly. No costovertebral temporal angle mass Extremities: Normal to inspection, no edema no cyanosis Neurologic: Normal mental status, speech normal. Chronic left upper and lower extremity paralysis from CVA JATIN MCCLAIN Nov 26, 2018 20:48
[2018-11-26] MEDS ORDERED: HYDROCODONE/APAP (5/325) TAB PO PRN (21:00)
[2018-11-26] MEDS ORDERED: LORAZEPAM 2 MG INJ ONE (21:41)
[2018-11-26] MEDS ORDERED: LORAZEPAM 2 MG INJ IV ONE (22:00)
--- NOTE | 2018-11-26 22:48 | CONS ---
Assessment/Plan Assessment/Plan Assessment/Plan (Daily) 1. ESRD on HD TTS 2. Incomplete HD today due to catheter malfunciton 3. HTN 4. HL 5. Anemia of ESRD Plan: will order IR to replace permacath plan for HD after catheter placement pt regular schedule for HD is TTS, will order another HD on Friday if he stays here will follow up Thanks for consultation Consultation Date/Type/Reason Admit Date/Time 11/26/18 Date of Consultation: Nov 26, 2018 Type of Consult NEPHROLOGY Reason for Consultation ESRD on HD with catheter malfunction Requesting Provider: JATIN MCCLAIN Date/Time of Note DATE: 11/26/18 TIME: 22:48 Hx of Present Illness 58 year old male with comorbidities including, hypertension, ESRD on HD M/W/F, nephrotic syndrome, diabetes mellitus type 2, recent stroke with left-sided weakness, and anemia of chronic disease, who was transferred from a hemodialysis clinic because of a malfunctioning hemodialysis catheter. renal has been consulted for HD need and catheter replacement Constitutional: no complaints Eyes: no complaints ENT: no complaints Respiratory: no complaints Cardiovascular: no complaints Gastrointestinal: no complaints Genitourinary: no complaints Musculoskeletal: no complaints Skin: no complaints Neurologic: no complaints Endocrine: no complaints Lymphatic: no complaints Psychological: no complaints Immunologic: no complaints Past Medical History Medical History: diabetes, high cholesterol, hypertension, other (ESRD on HD ) Home Meds Reported Medications Multivit/Ca Carb/B Cmplx/Fa* (Susan-Dana*) 1 Tab Tab, 1 TAB PO DAILY, TAB 11/26/18 Nifedipine* (Nifedipine ER*) 30 Mg Tablet.sa, 30 MG PO BID, TAB.SA HOLD FOR SBP<110 OR MA<60 11/26/18 Hydrocodone/Acetaminophen ([place] 5-325 Tablet) 1 Each Tablet, 1 EACH PO Q4H PRN for PAIN 6-01/28, TAB 11/26/18 Megestrol Acetate* (Megestrol Acetate*) 400 Mg/10 Ml Susp, 10 ML PO BID, ML STOP DATE 12/25/18 11/26/18 Lisinopril* (Lisinopril*) 5 Mg Tablet, 5 MG PO DAILY, #30 TAB HOLD FOR SBP<110 OR MA<60 11/26/18 Carvedilol* (Carvedilol*) 12.5 Mg Tablet, 12.5 MG PO BID, #60 TAB HOLD FOR SBP<110 OR MA<60 11/26/18 Aspirin* (Aspirin* Chew) 81 Mg Tab.chew, 81 MG PO DAILY, TAB.CHEW 11/26/18 Acetaminophen* (Acetaminophen*) 650 Mg Tablet, 650 MG PO Q4H PRN for PAIN 1- 08/28, #30 TAB 11/26/18 Discontinued Reported Medications Acetaminophen* (Acetaminophen*) 325 Mg Tablet, 325 MG PO Q4H PRN for PAIN 1- 08/28, #30 TAB 11/26/18 Minoxidil* (Lonitin*) 2.5 Mg Tab, 5 MG PO DAILY for 30 Days, #120 06/10/18 Discontinued Scripts Carvedilol* (Carvedilol*) 12.5 Mg Tablet, 12.5 MG PO BID, #60 TAB Prov:LUZ HELLER HYDROLOGY TECHNICIAN 11/12/18 Aspirin* (Aspirin* EC) 81 Mg Tablet.dr, 81 MG PO DAILY, #30 TAB Prov:RODRIGO CARTER V. HYDROLOGY TECHNICIAN 06/18/18 Lisinopril* (Lisinopril*) 5 Mg Tablet, 5 MG PO DAILY, #30 TAB Prov:RODRIGO CARTER V. HYDROLOGY TECHNICIAN 06/18/18 Nifedipine (Procardia Xl) 30 Mg Tab.er.24, 30 MG PO BID, #60 TAB Prov:LUZ HELLER HYDROLOGY TECHNICIAN 06/14/18 Medications Current Medications IV Flush (NS 3 ml) 3 ml PER PROTOCOL IV ; Start 11/26/18 at 20:30 Ondansetron HCl (Zofran Inj) 4 mg Q6H PRN IV NAUSEA/VOMITING; Start 11/26/18 at 20:30 Docusate Sodium (Colace) 100 mg Q12H PRN PO .CONSTIPATION; Start 11/26/18 at 20:30 Bisacodyl (Dulcolax) 5 mg DAILY PRN PO .CONSTIPATION; Start 11/26/18 at 20:30 Sodium Chloride 1,000 ml @ 40 mls/hr Q24H IV ; Start 11/27/18 at 00:00; Stop 11/27/18 at 07:59 Acetaminophen (Tylenol Tab) 650 mg Q4H PRN PO PAIN 1-10; Start 11/26/18 at 21:00 Aspirin (Aspirin) 81 mg DAILY PO ; Start 11/27/18 at 09:00 Carvedilol (Coreg) 12.5 mg BID PO ; Start 11/26/18 at 21:00 Acetaminophen/ Hydrocodone Bitart ([place] (5/325)) 5 tab Q4H PRN PO PAIN 6- 10/10; Start 11/26/18 at 21:00 Lisinopril (Zestril) 5 mg DAILY PO ; Start 11/27/18 at 09:00 Megestrol Acetate (Megace Susp) 400 mg BID PO ; Start 11/26/18 at 21:00 Multivit/Ca Carb/ B Cmplx/FA/Prenat (Susan-Dana) 1 tab DAILY PO ; Start 11/27/18 at 09:00 Nifedipine (Procardia Xl) 30 mg BID PO ; Start 11/26/18 at 21:00 Hydralazine HCl (Apresoline) 10 mg Q4H PRN IV ELEVATED BLOOD PRESSURE; Start 11/26/18 at 21:00 Allergies: Coded Allergies: No Known Allergy (Unverified , 11/26/18) Past Surgical History Past Surgical Hx: other (PErmacath for HD access ) Family History Significant Family History: no pertinent family hx Social History Alcohol Use: none Smoking Status: Never smoker Exam/Review of Systems Exam Vitals Vital Signs Date Temp Pulse Resp B/P (MAP) Pulse Ox O2 O2 Flow FiO2 Time Delivery Rate 11/26/18 73 15 168/79 100 Nasal 2.0 22:01 (108) Cannula 11/26/18 98.9 19:05 Constitutional: alert Psych: no complaints Head: normocephalic Eyes: nl conjunctiva ENMT: nl external ears & nose Neck: supple, non-tender Respiratory: clear to auscultation, diminished breath sounds Cardiovascular: regular rate and rhythm, nl pulses Gastrointestinal: soft, non-tender Musculoskeletal: muscle weakness, other (chest permacath ) Extremities: normal pulses Neurological: DOCK OPERATIONS SUPERVISOR II-XII intact, nl mental status, nl speech, nl strength Skin: nl turgor Lymph: nl lymph nodes Results Result Diagram: 11/26/18194411/26/181944 Results 24hrs Laboratory Tests Test 11/26/18 19:45 White Blood Count 5.5 # Red Blood Count 4.00 #L Hemoglobin 11.0 #L Hematocrit 34.4 #L Mean Corpuscular Volume 86.0 Mean Corpuscular Hemoglobin 27.5 L Mean Corpuscular Hemoglobin Concent 32.0 Red Cell Distribution Width 14.9 H Platelet Count 154 Mean Platelet Volume 10.4 Immature Granulocytes % 1.500 H Neutrophils % 59.7 Lymphocytes % 20.7 Monocytes % 12.8 H Eosinophils % 3.7 Basophils % 1.6 Nucleated Red Blood Cells % 0.0 Immature Granulocytes # 0.080 H Neutrophils # 3.3 Lymphocytes # 1.1 Monocytes # 0.7 Eosinophils # 0.2 Basophils # 0.1 Nucleated Red Blood Cells # 0.0 Prothrombin Time 14.8 Prothrombin Time Ratio 1.2 INR International Normalized Ratio 1.15 Activated Partial Thromboplast Time 37.5 H Sodium Level 138 Potassium Level 3.6 Chloride Level 106 Carbon Dioxide Level 26 Anion Gap 6 Blood Urea Nitrogen 19 Creatinine 3.55 H Est Glomerular Filtrat Rate mL/min 18 L Glucose Level 98 Calcium Level 8.5 Total Bilirubin 0.3 Direct Bilirubin 0.00 Indirect Bilirubin 0.3 Aspartate Amino Transf (AST/SGOT) 23 Alanine Aminotransferase (ALT/SGPT) 18 Alkaline Phosphatase 124 H Troponin I < 0.012 Total Protein 6.8 Albumin 3.0 L Globulin 3.80 H Albumin/Globulin Ratio 0.78 Lipase 56 Medications Medication Current Medications IV Flush (NS 3 ml) 3 ml PER PROTOCOL IV ; Start 11/26/18 at 20:30 Ondansetron HCl (Zofran Inj) 4 mg Q6H PRN IV NAUSEA/VOMITING; Start 11/26/18 at 20:30 Docusate Sodium (Colace) 100 mg Q12H PRN PO .CONSTIPATION; Start 11/26/18 at 20:30 Bisacodyl (Dulcolax) 5 mg DAILY PRN PO .CONSTIPATION; Start 11/26/18 at 20:30 Sodium Chloride 1,000 ml @ 40 mls/hr Q24H IV ; Start 11/27/18 at 00:00; Stop 11/27/18 at 07:59 Acetaminophen (Tylenol Tab) 650 mg Q4H PRN PO PAIN 1-5/10; Start 11/26/18 at 21:00 Aspirin (Aspirin) 81 mg DAILY PO ; Start 11/27/18 at 09:00 Carvedilol (Coreg) 12.5 mg BID PO ; Start 11/26/18 at 21:00 Acetaminophen/ Hydrocodone Bitart ([place] (5/325)) 5 tab Q4H PRN PO PAIN 6- 10; Start 11/26/18 at 21:00 Lisinopril (Zestril) 5 mg DAILY PO ; Start 11/27/18 at 09:00 Megestrol Acetate (Megace Susp) 400 mg BID PO ; Start 11/26/18 at 21:00 Multivit/Ca Carb/ B Cmplx/FA/Prenat (Susan-Dana) 1 tab DAILY PO ; Start 11/27/18 at 09:00 Nifedipine (Procardia Xl) 30 mg BID PO ; Start 11/26/18 at 21:00 Hydralazine HCl (Apresoline) 10 mg Q4H PRN IV ELEVATED BLOOD PRESSURE; Start 11/26/18 at 21:00 LEIDA SMITH MD Nov 26, 2018 22:48
[2018-11-26 22:56] VITALS: Ht 175.3 cm; Wt 80.0 kg
[2018-11-26] MEDS ORDERED: ALBUMIN HUMAN 25% 100 ML IV PRN (23:00)
[2018-11-26] MEDS ORDERED: SODIUM CHLORIDE 0.9% 1L BAG IV PRN (23:00)
[2018-11-26] MEDS ORDERED: HEPARIN 1000 UNITS/ML 10 ML INJ CATHETER SCH (23:00)
[2018-11-26 23:02] VITALS: BP 174/96; PULSE 70; RESP 18
[2018-11-27] VITALS (16 sets, daily range): BP systolic 92–173; BP diastolic 50–87; PULSE 75–89; RESP 18–20
[2018-11-27] MEDS ORDERED: SOD CHLORIDE 0.9% 1,000 ML IV SCH
[2018-11-27] MEDS: MEGESTROL (40 MG/ML) 10ML CUP PO SCH ×3 (00:06→21:00)
[2018-11-27] MEDS: NIFEdipine (XL) 30 MG TAB PO SCH ×3 (00:07→21:00)
[2018-11-27] MEDS: hydrALAzine 20 MG INJ IV PRN (00:24)
[2018-11-27] MEDS: MULTIVIT/CA CARB/B CMPLX/FA TAB PO SCH (08:47)
[2018-11-27] MEDS: ASPIRIN 81 MG TAB PO SCH ×2 (08:47→09:00)
[2018-11-27] MEDS: LISINOPRIL 5 MG TAB PO SCH (08:48)
[2018-11-27] MEDS ORDERED: FENTAnyl 50 MCG/ML VIAL ONE (09:46)
[2018-11-27] MEDS ORDERED: MIDAZOLAM 1 MG/ML 2 ML INJ ONE (09:46)
[2018-11-27] MEDS ORDERED: LIDOCAINE 1% (MPF) 5 ML VIAL ONE (09:49)
[2018-11-27] MEDS ORDERED: HEPARIN 1000 UNITS/ML 10 ML INJ ONE (09:51)
--- NOTE | 2018-11-27 11:04 | PN ---
Date/Time of Note Date/Time of Note DATE: 11/27/18 TIME: 10:59 Assessment/Plan VTE Prophylaxis Risk score (from Ns)>0 risk: 2 SCD applied (from Ns): Yes Pharmacological prophylaxis: NA/contraindicated Pharm contraindication: other Lines/Catheters IV Catheter Type (from [facility] Saline Lock Assessment/Plan Hospital Course SUBJECTIVE: Complains of burning with urination. OBJECTIVE: Physical Exam General: Obese, 58 year-old male lying in bed in no apparent distress. HEENT: Normocephalic, atraumatic. Eyes: Anicteric sclerae, conjunctivae clear. ENT: Nasal septum midline, oral mucosa moist. Neck supple, no JVD noticed. Respiratory: Bilaterally clear breath sounds. No use of accessory muscles of respiration. No adventitious breath sounds. Cardiovascular: S1, S2 heard. Regular rate and rhythm. Abdomen: Soft, nontender, and nondistended. Bowel sounds positive in all 4 quadrants. Genitourinary: Deferred. Extremities: No cyanosis, no clubbing. LUE edema. Peripheral pulses palpable. Neurologic: Left upper extremity flaccid. Left lower extremity weak. Awake and alert. Oriented to self and place. Skin: Normal skin turgor. No skin rashes. Labs & Vitals per chart ASSESSMENT & PLAN 58 year old male with comorbidities including, hypertension, ESRD on HD M/W/F, nephrotic syndrome, diabetes mellitus type 2, recent stroke with left-sided weakness, and anemia of chronic disease, who was transferred from a hemodialysis clinic because of a malfunctioning hemodialysis catheter. 1. Malfunctioning hemodialysis catheter. Management as per interventional radiology. 2. Burned out Diabetes mellitus type 2. Hemoglobin A1c 5.3 from 11/09/2018. 3. 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 Status post evaluation by neurosurgery on prior admission. Continue ASA. 4. Hypertension. Continue antihypertensives. 5. ESRD on HD M/W/F. Ultrafiltration as per nephrology. 6. Fluids, electrolytes, and nutrition. Renal, low-cholesterol diet. 7. DVT prophylaxis. Bilateral SCDs. 8. Plan. Continue current management. Await correcting the HD catheter malfunction. Send urine studies. The patient was seen in collaboration with Dr. Menjivar. Result Diagram: 11/27/18 0542 11/27/18 0542 Results 24hrs Laboratory Tests Test 8/8/19 19:45 11/27/18 05:42 White Blood Count 5.5 # 7.3 # Red Blood Count 4.00 #L 3.99 L Hemoglobin 11.0 #L 11.1 L Hematocrit 34.4 #L 34.7 L Mean Corpuscular Volume 86.0 87.0 Mean Corpuscular Hemoglobin 27.5 L 27.8 L Mean Corpuscular Hemoglobin Concent 32.0 32.0 Red Cell Distribution Width 14.9 H 14.7 H Platelet Count 154 141 Mean Platelet Volume 10.4 10.5 H Immature Granulocytes % 1.500 H 1.800 H Neutrophils % 59.7 62.7 Lymphocytes % 20.7 17.9 Monocytes % 12.8 H 12.5 H Eosinophils % 3.7 4.0 Basophils % 1.6 1.1 Nucleated Red Blood Cells % 0.0 0.0 Immature Granulocytes # 0.080 H 0.130 H Neutrophils # 3.3 4.6 Lymphocytes # 1.1 1.3 Monocytes # 0.7 0.9 Eosinophils # 0.2 0.3 Basophils # 0.1 0.1 Nucleated Red Blood Cells # 0.0 0.0 Prothrombin Time 14.8 Prothrombin Time Ratio 1.2 INR International Normalized Ratio 1.15 Activated Partial Thromboplast Time 37.5 H Sodium Level 138 137 Potassium Level 3.6 3.6 Chloride Level 106 109 Carbon Dioxide Level 26 23 Anion Gap 6 5 Blood Urea Nitrogen 19 20 Creatinine 3.55 H 3.37 H Est Glomerular Filtrat Rate mL/min 18 L 19 L Glucose Level 98 84 Calcium Level 8.5 8.4 Total Bilirubin 0.3 0.3 Direct Bilirubin 0.00 0.00 Indirect Bilirubin 0.3 0.3 Aspartate Amino Transf (AST/SGOT) 23 23 Alanine Aminotransferase (ALT/SGPT) 18 19 Alkaline Phosphatase 124 H 115 Troponin I < 0.012 Total Protein 6.8 6.0 L Albumin 3.0 L 2.6 L Globulin 3.80 H 3.40 H Albumin/Globulin Ratio 0.78 0.76 Lipase 56 Phosphorus Level 4.0 Magnesium Level 1.8 Exam/Review of Systems Exam Vitals Vital Signs Date Temp Pulse Resp B/P (MAP) Pulse Ox O2 O2 Flow FiO2 Time Delivery Rate 11/27/18 98.5 82 20 173/84 97 Room Air 07:19 (113) 11/26/18 2.0 22:01 Results Results 24hrs Laboratory Tests Test 11/26/18 19:45 11/27/18 05:42 White Blood Count 5.5 # 7.3 # Red Blood Count 4.00 #L 3.99 L Hemoglobin 11.0 #L 11.1 L Hematocrit 34.4 #L 34.7 L Mean Corpuscular Volume 86.0 87.0 Mean Corpuscular Hemoglobin 27.5 L 27.8 L Mean Corpuscular Hemoglobin Concent 32.0 32.0 Red Cell Distribution Width 14.9 H 14.7 H Platelet Count 154 141 Mean Platelet Volume 10.4 10.5 H Immature Granulocytes % 1.500 H 1.800 H Neutrophils % 59.7 62.7 Lymphocytes % 20.7 17.9 Monocytes % 12.8 H 12.5 H Eosinophils % 3.7 4.0 Basophils % 1.6 1.1 Nucleated Red Blood Cells % 0.0 0.0 Immature Granulocytes # 0.080 H 0.130 H Neutrophils # 3.3 4.6 Lymphocytes # 1.1 1.3 Monocytes # 0.7 0.9 Eosinophils # 0.2 0.3 Basophils # 0.1 0.1 Nucleated Red Blood Cells # 0.0 0.0 Prothrombin Time 14.8 Prothrombin Time Ratio 1.2 INR International Normalized Ratio 1.15 Activated Partial Thromboplast Time 37.5 H Sodium Level 138 137 Potassium Level 3.6 3.6 Chloride Level 106 109 Carbon Dioxide Level 26 23 Anion Gap 6 5 Blood Urea Nitrogen 19 20 Creatinine 3.55 H 3.37 H Est Glomerular Filtrat Rate mL/min 18 L 19 L Glucose Level 98 84 Calcium Level 8.5 8.4 Total Bilirubin 0.3 0.3 Direct Bilirubin 0.00 0.00 Indirect Bilirubin 0.3 0.3 Aspartate Amino Transf (AST/SGOT) 23 23 Alanine Aminotransferase (ALT/SGPT) 18 19 Alkaline Phosphatase 124 H 115 Troponin I < 0.012 Total Protein 6.8 6.0 L Albumin 3.0 L 2.6 L Globulin 3.80 H 3.40 H Albumin/Globulin Ratio 0.78 0.76 Lipase 56 Phosphorus Level 4.0 Magnesium Level 1.8 Medications Medication Current Medications IV Flush (NS 3 ml) 3 ml PER PROTOCOL IV ; Start 11/26/18 at 20:30 Ondansetron HCl (Zofran Inj) 4 mg Q6H PRN IV NAUSEA/VOMITING; Start 11/26/18 at 20:30 Docusate Sodium (Colace) 100 mg Q12H PRN PO .CONSTIPATION; Start 11/26/18 at 20:30 Bisacodyl (Dulcolax) 5 mg DAILY PRN PO .CONSTIPATION; Start 11/26/18 at 20:30 Acetaminophen (Tylenol Tab) 650 mg Q4H PRN PO PAIN 1-10; Start 11/26/18 at 21:00 Aspirin (Aspirin) 81 mg DAILY PO ; Start 11/27/18 at 09:00 Carvedilol (Coreg) 12.5 mg BID PO ; Start 11/26/18 at 21:00 Acetaminophen/ Hydrocodone Bitart ([place] (5/325)) 5 tab Q4H PRN PO PAIN 6- 10; Start 11/26/18 at 21:00 Lisinopril (Zestril) 5 mg DAILY PO Last administered on 11/27/18at 08:48; Admin Dose 5 MG; Start 11/27/18 at 09:00 Megestrol Acetate (Megace Susp) 400 mg BID PO Last administered on 11/27/18at 08:48; Admin Dose 400 MG; Start 11/26/18 at 21:00 Multivit/Ca Carb/ B Cmplx/FA/Prenat ([place]an-Dana) 1 tab DAILY PO Last administered on 11/27/18at 08:47; Admin Dose 1 TAB; Start 11/27/18 at 09:00 Nifedipine (Procardia Xl) 30 mg BID PO Last administered on 11/27/18at 08:47; Admin Dose 30 MG; Start 11/26/18 at 21:00 Hydralazine HCl (Apresoline) 10 mg Q4H PRN IV ELEVATED BLOOD PRESSURE Last administered on 11/27/18at 00:24; Admin Dose 10 MG; Start 11/26/18 at 21:00 Heparin Sodium (Porcine) (Heparin (1000 Units/ml)) 4,000 unit AFTER DIALYSIS CATHETER ; Start 11/26/18 at 23:00 Albumin Human 100 ml @ 100 mls/hr WITH DIALYSIS PRN IV SBP <90 DURING DI ALYSIS; Start 11/26/18 at 23:00 Sodium Chloride (NS) -To prime the dialy... DIRECTED FOR HD PRN IV HD; Start 11/26/18 at 23:00 LUZ HELLER NP Nov 27, 2018 11:04
--- NOTE | 2018-11-27 12:57 | CONS ---
Assessment/Plan Assessment/Plan Assessment/Plan (Daily) 1. ESRD on HD TTS 2. Tunneled dialysis Catheter malfunction s/p Placement of new Tunneled HD catheter on 11/27/18 3. HTN 4. HL 5. Anemia of ESRD 6. H/o nephrotic syndrome, 7. H/o diabetes mellitus type 2, 8. H/o recent stroke with left-sided weakness Plan: s/p Permacath exchange today. and pt had a HD today 2.5 L removed pt regular schedule for HD is TTS, will order another HD on Friday if he stays here continue Other BP meds, IV hydralazine Will follow up Consultation Date/Type/Reason Admit Date/Time Nov 26, 2018 at 20:28 Initial Consult Date Date/Time of Note DATE: 11/27/18 TIME: 12:57 24 HR Interval Summary Free Text/Dictation s/p permacath placement, Plan for HD today Exam/Review of Systems Exam Vitals Vital Signs Date Temp Pulse Resp B/P (MAP) Pulse Ox O2 O2 Flow FiO2 Time Delivery Rate 11/27/18 98.0 81 92/50 (64) 98 Room Air 11:25 11/27/18 20 07:19 11/26/18 2.0 22:01 Exam Constitutional: alert Respiratory: clear to auscultation, diminished breath sounds Cardiovascular: regular rate and rhythm, nl pulses Gastrointestinal: soft, non-tender Musculoskeletal: muscle weakness, other (chest permacath ) Extremities: normal pulses Neurological: CERTIFIED SKI PATROLLER II-XII intact, nl mental status, nl speech, nl strength Results Result Diagram: 11/27/18 0542 11/27/18 0542 Results 24hrs Laboratory Tests Test 11/26/18 19:45 11/27/18 05:42 White Blood Count 5.5 # 7.3 # Red Blood Count 4.00 #L 3.99 L Hemoglobin 11.0 #L 11.1 L Hematocrit 34.4 #L 34.7 L Mean Corpuscular Volume 86.0 87.0 Mean Corpuscular Hemoglobin 27.5 L 27.8 L Mean Corpuscular Hemoglobin Concent 32.0 32.0 Red Cell Distribution Width 14.9 H 14.7 H Platelet Count 154 141 Mean Platelet Volume 10.4 10.5 H Immature Granulocytes % 1.500 H 1.800 H Neutrophils % 59.7 62.7 Lymphocytes % 20.7 17.9 Monocytes % 12.8 H 12.5 H Eosinophils % 3.7 4.0 Basophils % 1.6 1.1 Nucleated Red Blood Cells % 0.0 0.0 Immature Granulocytes # 0.080 H 0.130 H Neutrophils # 3.3 4.6 Lymphocytes # 1.1 1.3 Monocytes # 0.7 0.9 Eosinophils # 0.2 0.3 Basophils # 0.1 0.1 Nucleated Red Blood Cells # 0.0 0.0 Prothrombin Time 14.8 Prothrombin Time Ratio 1.2 INR International Normalized Ratio 1.15 Activated Partial Thromboplast Time 37.5 H Sodium Level 138 137 Potassium Level 3.6 3.6 Chloride Level 106 109 Carbon Dioxide Level 26 23 Anion Gap 6 5 Blood Urea Nitrogen 19 20 Creatinine 3.55 H 3.37 H Est Glomerular Filtrat Rate mL/min 18 L 19 L Glucose Level 98 84 Calcium Level 8.5 8.4 Total Bilirubin 0.3 0.3 Direct Bilirubin 0.00 0.00 Indirect Bilirubin 0.3 0.3 Aspartate Amino Transf (AST/SGOT) 23 23 Alanine Aminotransferase (ALT/SGPT) 18 19 Alkaline Phosphatase 124 H 115 Troponin I < 0.012 Total Protein 6.8 6.0 L Albumin 3.0 L 2.6 L Globulin 3.80 H 3.40 H Albumin/Globulin Ratio 0.78 0.76 Lipase 56 Phosphorus Level 4.0 Magnesium Level 1.8 Medications Medication Current Medications IV Flush (NS 3 ml) 3 ml PER PROTOCOL IV ; Start 11/26/18 at 20:30 Ondansetron HCl (Zofran Inj) 4 mg Q6H PRN IV NAUSEA/VOMITING; Start 11/26/18 at 20:30 Docusate Sodium (Colace) 100 mg Q12H PRN PO .CONSTIPATION; Start 11/26/18 at 20:30 Bisacodyl (Dulcolax) 5 mg DAILY PRN PO .CONSTIPATION; Start 11/26/18 at 20:30 Acetaminophen (Tylenol Tab) 650 mg Q4H PRN PO PAIN 1-5/10; Start 11/26/18 at 21:00 Aspirin (Aspirin) 81 mg DAILY PO ; Start 11/27/18 at 09:00 Carvedilol (Coreg) 12.5 mg BID PO ; Start 11/26/18 at 21:00 Acetaminophen/ Hydrocodone Bitart ([place] (5/325)) 5 tab Q4H PRN PO PAIN 6-10/10; Start 11/26/18 at 21:00 Lisinopril (Zestril) 5 mg DAILY PO Last administered on 11/27/18 08:48; Admin Dose 5 MG; Start 11/27/18 at 09:00 Megestrol Acetate (Megace Susp) 400 mg BID PO Last administered on 11/27/18 08:48; Admin Dose 400 MG; Start 11/26/18 at 21:00 Multivit/Ca Carb/ B Cmplx/FA/Prenat ([place]) 1 tab DAILY PO Last administered on 11/27/18 08:47; Admin Dose 1 TAB; Start 11/27/18 at 09:00 Nifedipine (Procardia Xl) 30 mg BID PO Last administered on 11/27/18 08:47; Admin Dose 30 MG; Start 11/26/18 at 21:00 Hydralazine HCl (Apresoline) 10 mg Q4H PRN IV ELEVATED BLOOD PRESSURE Last a dministered on 11/27/18at 00:24; Admin Dose 10 MG; Start 11/26/18 at 21:00 Heparin Sodium (Porcine) (Heparin (1000 Units/ml)) 4,000 unit AFTER DIALYSIS CATHETER ; Start 11/26/18 at 23:00 Albumin Human 100 ml @ 100 mls/hr WITH DIALYSIS PRN IV SBP <90 DURING DIALYSIS; Start 11/26/18 at 23:00 Sodium Chloride (NS) -To prime the dialy... DIRECTED FOR HD PRN IV HD; Start 11/26/18 at 23:00 LEIDA SMITH MD Nov 27, 2018 12:57
[2018-11-27] MEDS: HYDROCODONE/APAP (5/325) TAB PO PRN (16:49)
[2018-11-27] MEDS ORDERED: ALTEPLASE (CATHFLO) 2 MG INJ CATHETER ONE (22:00)
[2018-11-28] VITALS (24 sets, daily range): BP systolic 80–190; BP diastolic 38–98; PULSE 80–90; RESP 16–20
[2018-11-28] MEDS: HYDROCODONE/APAP (5/325) TAB PO PRN ×4 (03:48→23:12)
[2018-11-28] MEDS: hydrALAzine 20 MG INJ IV PRN (07:48)
[2018-11-28] MEDS: ASPIRIN 81 MG TAB PO SCH (10:09)
[2018-11-28] MEDS: MEGESTROL (40 MG/ML) 10ML CUP PO SCH ×2 (10:09→23:11)
[2018-11-28] MEDS: MULTIVIT/CA CARB/B CMPLX/FA TAB PO SCH (10:09)
[2018-11-28] MEDS: LISINOPRIL 5 MG TAB PO SCH (10:10)
[2018-11-28] MEDS: NIFEdipine (XL) 30 MG TAB PO SCH ×2 (10:10→23:13)
--- NOTE | 2018-11-28 11:40 | PN ---
Date/Time of Note Date/Time of Note DATE: 11/28/18 TIME: 11:36 Assessment/Plan VTE Prophylaxis Risk score (from Nsg)>0 risk: 4 SCD applied (from Ns): Yes Pharmacological prophylaxis: NA/contraindicated Pharm contraindication: other Lines/Catheters IV [facility] (from [facility]): Saline Lock Urinary Cath still in place: Yes Reason Cath still needed: urinary retention Assessment/Plan Hospital Course SUBJECTIVE: Hypotensive. OBJECTIVE: Physical Exam General: Obese, 58 year-old male lying in bed in no apparent distress. HEENT: Normocephalic, atraumatic. Eyes: Anicteric sclerae, conjunctivae clear. ENT: Nasal septum midline, oral mucosa moist. Neck supple, no JVD noticed. Respiratory: Bilaterally clear breath sounds. No use of accessory muscles of respiration. No adventitious breath sounds. Cardiovascular: S1, S2 heard. Regular rate and rhythm. Abdomen: Soft, nontender, and nondistended. Bowel sounds positive in all 4 quadrants. Genitourinary: Deferred. Extremities: No cyanosis, no clubbing. LUE edema. Peripheral pulses palpable. Neurologic: Left upper extremity flaccid. Left lower extremity weak. Awake and alert. Oriented to self and place. Skin: Normal skin turgor. No skin rashes. Labs & Vitals per chart ASSESSMENT & PLAN 58 year old male with comorbidities including, hypertension, ESRD on HD M/W/, nephrotic syndrome, diabetes mellitus type 2, recent stroke with left-sided weakness, and anemia of chronic disease, who was transferred from a hemodialysis clinic because of a malfunctioning hemodialysis catheter. 1. Malfunctioning hemodialysis catheter. S/P replacement by IR on 11/27/2018. 2. Burned out Diabetes mellitus type 2. Hemoglobin A1c 5.3 from 11/09/2018. 3. 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 Status post evaluation by neurosurgery on prior admission. Continue ASA. 4. Hypertension. Continue antihypertensives. Hold if remains hypotensive. 5. ESRD on HD M/W/F. Ultrafiltration as per nephrology. 6. Fluids, electrolytes, and nutrition. Renal, low-cholesterol diet. 7. DVT prophylaxis. Bilateral SCDs. 8. Plan. Continue current management. Had a conversation with the patient's scoop machine operator, the sql report developer still has problems with dialyzing the patient through the new catheter. The patient has scheduled hemodialysis on 11/28/2018. If the catheter functions well and the patient is no longer hypotensive, the patient will be discharged to the halfway facility. The patient was seen in collaboration with Dr. Menjivar. Result Diagram: 11/27/18 0542 11/27/18 0542 Results 24hrs Laboratory Tests Test 11/27/18 15:15 Urine Color BRINDA Urine Clarity SLIGHTLY CLOUDY A Urine pH 6.0 Urine Specific [place] 1.023 Urine Ketones NEGATIVE Urine Nitrite NEGATIVE Urine Bilirubin NEGATIVE Urine Urobilinogen NEGATIVE Urine Leukocyte Esterase NEGATIVE Urine Microscopic RBC 4 Urine Microscopic WBC 6 H Urine Amorphous Crystals FEW A Urine Bacteria FEW A Urine Hemoglobin 1+ H Urine Glucose 1+ H Urine Total Protein 3+ H Exam/Review of Systems Exam Vitals Vital Signs Date Temp Pulse Resp B/P (MAP) Pulse Ox O2 O2 Flow FiO2 Time Delivery Rate 11/28/18 98.0 90 20 80/52 (61) 99 Nasal 11:21 Cannula 11/28/18 3.0 05:37 Intake and Output 11/27/18 11/27/18 11/28/18 1515:00 23:00 07:00 IntakeIntake Total 120 ml 250 ml OutputOutput Total 650 ml 3300 ml BalanceBalance -530 ml -3050 ml Results Results 24hrs Laboratory Tests Test 11/27/18 15:15 Urine Color BRINDA Urine Clarity SLIGHTLY CLOUDY A Urine pH 6.0 Urine Specific [place] 1.023 Urine Ketones NEGATIVE Urine Nitrite NEGATIVE Urine Bilirubin NEGATIVE Urine Urobilinogen NEGATIVE Urine Leukocyte Esterase NEGATIVE Urine Microscopic RBC 4 Urine Microscopic WBC 6 H Urine Amorphous Crystals FEW A Urine Bacteria FEW A Urine Hemoglobin 1+ H Urine Glucose 1+ H Urine Total Protein 3+ H Medications Medication Current Medications IV Flush (NS 3 ml) 3 ml PER PROTOCOL IV ; Start 11/26/18 at 20:30 Ondansetron HCl (Zofran Inj) 4 mg Q6H PRN IV NAUSEA/VOMITING; Start 11/26/18 at 20:30 Docusate Sodium (Colace) 100 mg Q12H PRN PO .CONSTIPATION; Start 11/26/18 at 20:30 Bisacodyl (Dulcolax) 5 mg DAILY PRN PO .CONSTIPATION; Start 11/26/18 at 20:30 Acetaminophen (Tylenol Tab) 650 mg Q4H PRN PO PAIN 1-5/; Start 11/26/18 at 21:00 Aspirin (Aspirin) 81 mg DAILY PO Last administered on 11/28/18 10:09; Admin Dose 81 MG; Start 11/27/18 at 09:00 Carvedilol (Coreg) 12.5 mg BID PO Last administered on 11/28/18 10:10; Admin Dose 12.5 MG; Start 11/26/18 at 21:00 Lisinopril (Zestril) 5 mg DAILY PO Last administered on 11/28/18 10:10; Admin Dose 5 MG; Start 11/27/18 at 09:00 Megestrol Acetate (Megace Susp) 400 mg BID PO Last administered on 11/28/18 10:09; Admin Dose 400 MG; Start 11/26/18 at 21:00 Multivit/Ca Carb/ B Cmplx/FA/Prenat ([place]) 1 tab DAILY PO Last administered on 11/28/18 10:09; Admin Dose 1 TAB; Start 11/27/18 at 09:00 Nifedipine (Procardia Xl) 30 mg BID PO Last administered on 11/28/18 10:10; Admin Dose 30 MG; Start 11/26/18 at 21:00 Hydralazine HCl (Apresoline) 10 mg Q4H PRN IV ELEVATED BLOOD PRESSURE Last administered on 11/28/18 07:48; Admin Dose 10 MG; Start 11/26/18 at 21:00 Heparin Sodium (Porcine) (Heparin (1000 Units/ml)) 4,000 unit AFTER DIALYSIS CATHETER ; Start 11/26/18 at 23:00 Albumin Human 100 ml @ 100 mls/hr WITH DIALYSIS PRN IV SBP <90 DURING DIALYSIS; Start 11/26/18 at 23:00 Sodium Chloride (NS) -To prime the dialy... DIRECTED FOR HD PRN IV HD; Start 11/26/18 at 23:00 Acetaminophen/ Hydrocodone Bitart ([place] (5/325)) 1 tab Q4H PRN PO PAIN -01/28 Last administered on 11/28/18 10:11; Admin Dose 1 TAB; Start 11/27/18 at 17:00 LUZ HELLER NP Nov 28, 2018 11:40
--- NOTE | 2018-11-28 13:15 | CONS ---
Assessment/Plan Assessment/Plan Assessment/Plan (Daily) 1. ESRD on HD TTS 2. Tunneled dialysis Catheter malfunction s/p Placement of new Tunneled HD catheter on 11/27/18 3. HTN 4. HL 5. Anemia of ESRD 6. H/o nephrotic syndrome, 7. H/o diabetes mellitus type 2, 8. H/o recent stroke with left-sided weakness Plan: s/p Permacath exchange yesterday. had a HD today 2.5 L removed pt regular schedule for HD is TTS, HD on today if he stays here continue Other BP meds, IV hydralazine Patient seen in collaboration with Dr Sid Ferrara. We will follow up. Consultation Date/Type/Reason Admit Date/Time Nov 28, 2018 at 11:35 Initial Consult Date 11/26/18 Type of Consult NEPHROLOGY Reason for Consultation ESRD Requesting Provider: JATIN MCCLAIN Date/Time of Note DATE: 11/28/18 TIME: 13:14 24 HR Interval Summary Free Text/Dictation nad afebrile HD today no events last night Detailed Summary Eyes: no complaints ENT: no complaints Respiratory: no complaints Cardiovascular: no complaints Gastrointestinal: decreased appetite Musculoskeletal: other (general weakness) Skin: no complaints Psychological: nl mood/affect Exam/Review of Systems Exam Vitals Vital Signs Date Temp Pulse Resp B/P (MAP) Pulse Ox O2 O2 Flow FiO2 Time Delivery Rate 11/28/18 101/58 12:49 (72) 11/28/18 98.0 90 20 99 Nasal 11:21 Cannula 11/28/18 2.0 07:40 Intake and Output 11/27/18 11/27/18 11/28/18 1515:00 23:00 07:00 IntakeIntake Total 120 ml 250 ml OutputOutput Total 650 ml 3300 ml BalanceBalance -530 ml -3050 ml Constitutional: alert, well developed Psych: nl mood/affect Head: normocephalic Eyes: nl lids, nl sclera ENMT: nl external ears & nose Neck: non-tender Respiratory: clear to auscultation Cardiovascular: nl pulses, other (s1s2) Gastrointestinal: soft, non-tender Musculoskeletal: muscle weakness Extremities: normal pulses Neurological: nl speech, other (alert/reponsive) Skin: other (no skin rash noted) Lymph: nontender Results Result Diagram: 11/27/18 0542 11/27/18 0542 Results 24hrs Laboratory Tests Test 11/27/18 15:15 Urine Color BRINDA Urine Clarity SLIGHTLY CLOUDY A Urine pH 6.0 Urine Specific [place] 1.023 Urine Ketones NEGATIVE Urine Nitrite NEGATIVE Urine Bilirubin NEGATIVE Urine Urobilinogen NEGATIVE Urine Leukocyte Esterase NEGATIVE Urine Microscopic RBC 4 Urine Microscopic WBC 6 H Urine Amorphous Crystals FEW A Urine Bacteria FEW A Urine Hemoglobin 1+ H Urine Glucose 1+ H Urine Total Protein 3+ H Medications Medication Current Medications IV Flush (NS 3 ml) 3 ml PER PROTOCOL IV ; Start 11/26/18 at 20:30 Ondansetron HCl (Zofran Inj) 4 mg Q6H PRN IV NAUSEA/VOMITING; Start 11/26/18 at 20:30 Docusate Sodium (Colace) 100 mg Q12H PRN PO .CONSTIPATION; Start 11/26/18 at 20:30 Bisacodyl (Dulcolax) 5 mg DAILY PRN PO .CONSTIPATION; Start 11/26/18 at 20:30 Acetaminophen (Tylenol Tab) 650 mg Q4H PRN PO PAIN 1-08/28; Start 11/26/18 at 21:00 Aspirin (Aspirin) 81 mg DAILY PO Last administered on 11/28/18 10:09; Admin Dose 81 MG; Start 11/27/18 at 09:00 Carvedilol (Coreg) 12.5 mg BID PO Last administered on 11/28/18 10:10; Admin Dose 12.5 MG; Start 11/26/18 at 21:00 Lisinopril (Zestril) 5 mg DAILY PO Last administered on 11/28/18 10:10; Admin Dose 5 MG; Start 11/27/18 at 09:00 Megestrol Acetate (Megace Susp) 400 mg BID PO Last administered on 11/28/18 10:09; Admin Dose 400 MG; Start 11/26/18 at 21:00 Multivit/Ca Carb/ B Cmplx/FA/Prenat ([place]) 1 tab DAILY PO Last administered on 11/28/18 10:09; Admin Dose 1 TAB; Start 11/27/18 at 09:00 Nifedipine (Procardia Xl) 30 mg BID PO Last administered on 11/28/18 10:10; Admin Dose 30 MG; Start 8/8/19 at 21:00 Hydralazine HCl (Apresoline) 10 mg Q4H PRN IV ELEVATED BLOOD PRESSURE Last administered on 11/28/18at 07:48; Admin Dose 10 MG; Start 11/26/18 at 21:00 Heparin Sodium (Porcine) (Heparin (1000 Units/ml)) 4,000 unit AFTER DIALYSIS CATHETER ; Start 11/26/18 at 23:00 Albumin Human 100 ml @ 100 mls/hr WITH DIALYSIS PRN IV SBP <90 DURING DIALYSIS; Start 11/26/18 at 23:00 Sodium Chloride (NS) -To prime the dialy... DIRECTED FOR HD PRN IV HD; Start 11/26/18 at 23:00 Acetaminophen/ Hydrocodone Bitart ([place] (5/325)) 1 tab Q4H PRN PO PAIN -01/28 Last administered on 11/28/18at 10:11; Admin Dose 1 TAB; Start 11/27/18 at 17:00 SAI GRECO Nov 28, 2018 13:15
[2018-11-28] MEDS ORDERED: LORAZEPAM 2 MG INJ IV ONE (19:30)
[2018-11-29 04:10] VITALS: BP 111/63; PULSE 86; RESP 18
[2018-11-29 07:36] VITALS: BP 165/80; PULSE 86; RESP 20
[2018-11-29] MEDS: MEGESTROL (40 MG/ML) 10ML CUP PO SCH (10:04)
[2018-11-29] MEDS: MULTIVIT/CA CARB/B CMPLX/FA TAB PO SCH (10:04)
[2018-11-29] MEDS: ASPIRIN 81 MG TAB PO SCH (10:04)
[2018-11-29] MEDS: LISINOPRIL 5 MG TAB PO SCH (10:05)
[2018-11-29] MEDS: NIFEdipine (XL) 30 MG TAB PO SCH (10:05)
[2018-11-29 10:56] VITALS: BP 140/69; PULSE 88; RESP 20
--- NOTE | 2018-11-29 11:01 | DS ---
Date/Time of Note Date/Time of Note DATE: 11/29/18 TIME: 10:58 Discharge Summary Admission/Discharge Info Admit Date/Time Nov 28, 2018 at 11:35 Discharge Date/Time Discharge Diagnosis 1. Malfunctioning hemodialysis catheter. S/P replacement by IR on 11/27/2018. 2. Burned out Diabetes mellitus type 2. Hemoglobin A1c 5.3 from 11/09/2018. 3. 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 4. Left hemiparesis. 5. Hypertension. 6. ESRD on HD T//. Patient Condition: Stable Consults 1. Montrell Ferrara MD, Nephrology. Procedures [place] [id number] Radiology Main Line: [phone] DIAGNOSTIC IMAGING REPORT Patient: MIKAYLA TRAN : 1960 Age: 58 Sex: M MR #: [id number] DOS: 11/27/18 0000 Ordering MD: JATIN MCCLAIN MD Location: [facility] Room/Bed: [facility] PROCEDURE: RIGHT INTERNAL JUGULAR PERMACATH REPLACEMENT CLINICAL INDICATION: Renal failure with poorly functioning permacath. TECHNIQUE: MEDICATIONS: Versed and Fentanyl were administered by the radiology nurse who monitored the patient. TECHNIQUE/FINDINGS: Informed consent was obtained following careful explanations of the risks and benefits of the procedure. Moderate sedation time: 30 min Fluoroscopy time: 0.2 min Number of fluoroscopic images: 2 This central venous catheter was inserted with all elements of maximal sterile barrier technique, cap AND mask AND sterile gown AND sterile gloves AND sterile full-body drape AND hand hygiene AND 2% chlorhexidine for cutaneous antisepsis. Sterile Ultrasound technique with sterile gel and sterile probe covers was also utilized. The patients chest, neck and existing permacath were prepped and draped in the usual sterile fashion. Following blunt dissection of the existing permacath cuff, the catheter was partially retracted. A stiff Glidewire was advanced into the IVC and the catheter was exchanged over the wire under direct fluoroscopic guidance. A new 23 cm tip to cuff Diogenes-Palindrome hemodialysis catheter was then advanced over the wire with its tip placed in the low right atrium. Both ports flush and aspirate well. The catheter was locked with heparin 1000 units per cc. The catheter was sutured the patient's skin. A sterile dressing was applied. The patient tolerated the procedure well COMPARISON: None FINDINGS: Perma-Cath tip is seen within the mid right atrium. RPTAT: AA IMPRESSION: 1. Uncomplicated replacement of a right-sided tunneled hemodialysis catheter. 2. The catheter is ready for use. Hx of Present Illness This is a 58 year old male with comorbidities including, hypertension, ESRD on HD M/W/F, nephrotic syndrome, diabetes mellitus type 2, recent stroke with left- sided weakness, and anemia of chronic disease, who was transferred from a hemodialysis clinic because of a malfunctioning hemodialysis catheter. Hospital Course The patient was admitted to inpatient telemetry floor. Nephrology consult was obtained. The patient had malfunctioning hemodialysis catheter replacement by interventional radiology on 11/27/2018. The patient had hemodialysis done following catheter replacement with no significant problems. The patient had an episode of hypotension on 11/28/2018, probably from the use of IV hydralazine on the top of his schedule antihypertensives. However, the blood pressure has recently returned to baseline. The patient has underlying burned-out diabetes mellitus. The patient's random blood glucose levels were within normal limits. The patient has underlying hypertension. The patient was maintained on antihypertensives. The patient's blood pressure was well controlled except for the episode of hypotension that he had on 11/28/2018. He is an end-stage renal disease patient on Tuesdays, , and Saturdays. Ultrafiltration was done as per nephrology recommendations. The patient also has history of right MCA territory infarct with hemorrhagic conversion with left-sided hemiparesis. The patient was maintained on aspirin. During the hospital stay, he was complaining of some urethral pain. The patient had a urinalysis done that was not significant. The patient's PSA was within normal limits. The patient had a Padilla catheter inserted with improvement in the patient's urinary symptoms. Upon discharge, this will be discontinued. If the patient continues to have a urethral pain, he may need outpatient urology follow-up. The patient had a stable hospital course. The patient's dialysis access has been functional. Therefore, the patient can be discharged back to the assisted facility. At this time I would like to thank all the consultants for seeing the patient and providing clinical recommendations. The patient was seen in collaboration with Dr. Menjivar. Home Meds Reported Medications Multivit/Ca Carb/B Cmplx/Fa* (Susan-Dana*) 1 Tab Tab, 1 TAB PO DAILY, TAB 11/26/18 Nifedipine* (Nifedipine ER*) 30 Mg Tablet.sa, 30 MG PO BID, TAB.SA HOLD FOR SBP<110 OR TN<60 11/26/18 Hydrocodone/Acetaminophen (Paramount 5-325 Tablet) 1 Each Tablet, 1 EACH PO Q4H PRN for PAIN -01/28, TAB 11/26/18 Megestrol Acetate* (Megestrol Acetate*) 400 Mg/10 Ml Susp, 10 ML PO BID, ML STOP DATE 12/25/18 11/26/18 Lisinopril* (Lisinopril*) 5 Mg Tablet, 5 MG PO DAILY, #30 TAB HOLD FOR SBP<110 OR TN<60 11/26/18 Carvedilol* (Carvedilol*) 12.5 Mg Tablet, 12.5 MG PO BID, #60 TAB HOLD FOR SBP<110 OR TN<60 11/26/18 Aspirin* (Aspirin* Chew) 81 Mg Tab.chew, 81 MG PO DAILY, TAB.CHEW 11/26/18 Acetaminophen* (Acetaminophen*) 650 Mg Tablet, 650 MG PO Q4H PRN for PAIN - 08/28, #30 TAB 11/26/18 Discontinued Reported Medications Acetaminophen* (Acetaminophen*) 325 Mg Tablet, 325 MG PO Q4H PRN for PAIN - 08/28, #30 TAB 11/26/18 Minoxidil* (Lonitin*) 2.5 Mg Tab, 5 MG PO DAILY for 30 Days, #120 06/10/18 Discontinued Scripts Carvedilol* (Carvedilol*) 12.5 Mg Tablet, 12.5 MG PO BID, #60 TAB Prov:LUZ HELLER [employer] 11/12/18 Aspirin* (Aspirin* EC) 81 Mg Tablet., 81 MG PO DAILY, #30 TAB Prov:RODRIGO CARTER V. [employer] 06/18/18 Lisinopril* (Lisinopril*) 5 Mg Tablet, 5 MG PO DAILY, #30 TAB Prov:CARTERGAMARODRIGOARIAN Cardozo [employer] 06/18/18 Nifedipine (Procardia Xl) 30 Mg Tab.er.24, 30 MG PO BID, #60 TAB Prov:LUZ HELLER [employer] 06/14/18 Follow-up Plan The patient being transferred to a SNF. Primary Care Provider Not On Staff Doctor Time spent on discharge: > 30 minutes Pending Labs Laboratory Tests Test 11/28/18 13:56 White Blood Count 7.3 10^3/ul (4.8-10.8) Red Blood Count 3.83 10^6/ul (4.70-6.10) Hemoglobin 10.6 g/dl (14.0-18.0) Hematocrit 33.4 % (42.0-52.0) Mean Corpuscular Volume 87.2 fl (82.0-101.0) Mean Corpuscular Hemoglobin 27.7 pg (29.0-33.0) Mean Corpuscular Hemoglobin Concent 31.7 g/dl (32.0-37.0) Red Cell Distribution Width 15.3 % (11.5-14.5) Platelet Count 177 10^3/UL (140-415) Mean Platelet Volume 11.1 fl (7.4-10.4) Immature Granulocytes % 0.700 % (0.001-0.429) Neutrophils % 64.5 % (39.0-77.0) Lymphocytes % 15.6 % (15.0-51.0) Monocytes % 13.8 % (0.0-11.0) Eosinophils % 4.2 % (0.0-7.0) Basophils % 1.2 % (0.0-2.0) Nucleated Red Blood Cells % 0.0 /100WBC (0.0-0.0) Immature Granulocytes # 0.050 10^3/ul (0.0-0.031) Neutrophils # 4.7 10^3/ul (1.6-7.5) Lymphocytes # 1.1 10^3/ul (0.8-2.9) Monocytes # 1.0 10^3/ul (0.3-0.9) Eosinophils # 0.3 10^3/ul (0.0-0.5) Basophils # 0.1 10^3/ul (0.0-0.1) Nucleated Red Blood Cells # 0.0 10^3/ul (0.0-0.0) Sodium Level 139 mmol/L (135-144) Potassium Level 3.5 mmol/L (3.5-5.1) Chloride Level 107 mmol/L (97-110) Carbon Dioxide Level 26 mmol/L (21-31) Anion Gap 6 (5-13) Blood Urea Nitrogen 14 mg/dl (7-20) Creatinine 2.91 mg/dl (0.61-1.24) Est Glomerular Filtrat Rate mL/min 23 mL/min (>60) Glucose Level 86 mg/dl (70-220) Calcium Level 8.3 mg/dl (8.4-10.2) Phosphorus Level 3.5 mg/dl (2.5-4.9) Magnesium Level 1.8 mg/dl (1.7-2.5) Prostate Specific Antigen 0.7 ng/ml (0.0-4.0) LUZ HELLER NP Nov 29, 2018 11:01
--- NOTE | 2018-11-29 14:07 | CONS ---
Assessment/Plan Assessment/Plan Assessment/Plan (Daily) 1. ESRD on HD TTS 2. Tunneled dialysis Catheter malfunction s/p Placement of new Tunneled HD catheter on 11/27/18 3. HTN 4. HL 5. Anemia of ESRD 6. H/o nephrotic syndrome, 7. H/o diabetes mellitus type 2, 8. H/o recent stroke with left-sided weakness Plan: s/p Permacath exchange 11/27/18 had a HD yesterday pt regular schedule for HD is TTS, HD on today if he stays here continue Other BP meds, IV hydralazine Patient seen in collaboration with Dr Sid Ferrara. We will follow up. Consultation Date/Type/Reason Admit Date/Time Nov 28, 2018 at 11:35 Initial Consult Date 11/26/18 Type of Consult NEPHROLOGY Requesting Provider: JATIN MCCLAIN Date/Time of Note DATE: 11/29/18 TIME: 14:05 24 HR Interval Summary Free Text/Dictation feels better family at bed side Constitutional: requiring O2 Detailed Summary Eyes: no complaints ENT: no complaints Respiratory: no complaints Cardiovascular: no complaints Gastrointestinal: decreased appetite, nausea (less than yesterday) Genitourinary: no complaints Musculoskeletal: other (tired) Skin: no complaints Neurologic: no complaints Endocrine: no complaints Lymphatic: no complaints Psychological: nl mood/affect Exam/Review of Systems Exam Vitals Vital Signs Date Temp Pulse Resp B/P (MAP) Pulse Ox O2 O2 Flow FiO2 Time Delivery Rate 11/29/18 98.7 88 20 140/69 99 Room Air 10:56 (92) 11/29/18 2.0 07:40 Intake and Output 11/28/18 11/28/18 11/29/18 1515:00 23:00 07:00 OutputOutput Total 3000 ml BalanceBalance -3000 ml Constitutional: alert, well developed Psych: nl mood/affect Head: atraumatic Eyes: nl lids, nl sclera ENMT: nl external ears & nose Neck: non-tender Respiratory: clear to auscultation Cardiovascular: nl pulses, other (s1s2) Gastrointestinal: soft, non-tender Musculoskeletal: nl extremities to inspection Extremities: normal pulses Neurological: nl speech Skin: other (no skin rash noted) Lymph: nontender Results Result Diagram: 11/28/18 1356 11/28/18 1356 Medications Medication Current Medications IV Flush (NS 3 ml) 3 ml PER PROTOCOL IV ; Start 11/26/18 at 20:30 Ondansetron HCl (Zofran Inj) 4 mg Q6H PRN IV NAUSEA/VOMITING; Start 11/26/18 at 20:30 Docusate Sodium (Colace) 100 mg Q12H PRN PO .CONSTIPATION; Start 11/26/18 at 20:30 Bisacodyl (Dulcolax) 5 mg DAILY PRN PO .CONSTIPATION; Start 11/26/18 at 20:30 Acetaminophen (Tylenol Tab) 650 mg Q4H PRN PO PAIN -08/28; Start 11/26/18 at 21:00 Aspirin (Aspirin) 81 mg DAILY PO Last administered on 11/29/18 10:04; Admin Dose 81 MG; Start 11/27/18 at 09:00 Carvedilol (Coreg) 12.5 mg BID PO Last administered on 11/29/18 10:05; Admin Dose 12.5 MG; Start 11/26/18 at 21:00 Lisinopril (Zestril) 5 mg DAILY PO Last administered on 11/29/18 10:05; Admin Dose 5 MG; Start 11/27/18 at 09:00 Megestrol Acetate (Megace Susp) 400 mg BID PO Last administered on 11/29/18 10:04; Admin Dose 400 MG; Start 11/26/18 at 21:00 Multivit/Ca Carb/ B Cmplx/FA/Prenat (Susan-Dana) 1 tab DAILY PO Last administered on 11/29/18 10:04; Admin Dose 1 TAB; Start 11/27/18 at 09:00 Nifedipine (Procardia Xl) 30 mg BID PO Last administered on 11/29/18 10:05; Admin Dose 30 MG; Start 11/26/18 at 21:00 Hydralazine HCl (Apresoline) 10 mg Q4H PRN IV ELEVATED BLOOD PRESSURE Last administered on 11/28/18 07:48; Admin Dose 10 MG; Start 11/26/18 at 21:00 Heparin Sodium (Porcine) (Heparin (1000 Units/ml)) 4,000 unit AFTER DIALYSIS CATHETER Last administered on 11/28/18 22:33; Admin Dose 4,000 UNIT; Start 11/26/18 at 23:00 Albumin Human 100 ml @ 100 mls/hr WITH DIALYSIS PRN IV SBP <90 DURING DIALYSIS; Start 11/26/18 at 23:00 Sodium Chloride (NS) -To prime the dialy... DIRECTED FOR HD PRN IV HD; Start 11/26/18 at 23:00 Acetaminophen/ Hydrocodone Bitart (Lititz (5/325)) 1 tab Q4H PRN PO PAIN -01/28 Last administered on 11/28/18at 23:12; Admin Dose 1 TAB; Start 11/27/18 at 17:00 SAI GRECO Nov 29, 2018 14:07
[2018-11-29 14:59] VITALS: BP 99/55; PULSE 78; RESP 20
== END 2018-11-29 18:04 | DRG 314 ==
LOC: E/R 18:58 → TEL 20:28 → OBSVTOIN 11-28 11:35
PROVIDERS: ADMIT Family Medicine; ATTEND Family Medicine
PROC: 5A1D70Z Performance of Urinary Filtration, Intermittent, Less than 6 Hours Per Day (ICD-10-PCS; 2018-11-26)
PROC: 5A1D70Z Performance of Urinary Filtration, Intermittent, Less than 6 Hours Per Day (ICD-10-PCS; principal; 2018-11-27)
DX: T82.41XA Breakdown (mechanical) of vascular dialysis catheter, initial encounter (principal); N18.6 End stage renal disease; I12.0 Hypertensive chronic kidney disease with stage 5 chronic kidney disease or end stage renal disease; I69.351 Hemiplegia and hemiparesis following cerebral infarction affecting right dominant side; Y84.8 Other medical procedures as the cause of abnormal reaction of the patient, or of later complication, without mention of misadventure at the time of the procedure; Y92.10 Unspecified residential institution as the place of occurrence of the external cause; E11.22 Type 2 diabetes mellitus with diabetic chronic kidney disease; Z99.2 Dependence on renal dialysis; Z79.4 Long term (current) use of insulin; D63.8 Anemia in other chronic diseases classified elsewhere; Z79.82 Long term (current) use of aspirin
CPT/HCPCS: 36415; 36581; 71045; 80048; 80053; 81001; 83690; 83735; 84100; 84153; 84154; 84484; 85025; 85610; 85730; 87086; 90935; 93005; 99217; C1750; G0378; J0360; J1644; J2060; J2250; J2997; J3010; J7030

== ENCOUNTER 2018-12-23 13:31 | Inpatient (IN) | payer OTHER ==
[~2018-12-23] VITALS: Ht 162.6 cm; Wt 75.0 kg
[~2018-12-23 13:31] MED LIST changes: -ACET-2047 PO; +ACET-2343 PO; -ACET325T45 PO; +AMIK500V2 IM; -ASPI-817 PO; +ATOR40TA68 PO; +FLUC200T PO; -MINO2.5T16 PO; +SENN-120 PO; +TAMS-14 PO; +ZOLP5TAB PO
[2018-12-23 13:40] VITALS: Ht 162.6 cm; Wt 75.0 kg
[2018-12-23] MEDS ORDERED: SOD CHLORIDE 0.9% 500 ML IV STA ×2 (13:46→14:41)
[2018-12-23] MEDS ORDERED: ONDANSETRON 4 MG INJ IV PRN ×2 (16:00→16:30)
[2018-12-23] MEDS ORDERED: ACETAMINOPHEN 325 MG TAB PO PRN ×2 (16:00→16:30)
[2018-12-23] MEDS ORDERED: NACL 0.9% 3 ML SYG IV SCH (16:30)
[2018-12-23 21:00] VITALS: BP 126/86; PULSE 86
[2018-12-23] MEDS ORDERED: HEPARIN 5,000 UNIT/1 ML VIAL SC SCH (21:00)
[2018-12-23] MEDS: ATORVASTATIN 40 MG TAB PO SCH (22:07)
[2018-12-23] MEDS: TAMSULOSIN (SR) 0.4 MG CAP PO SCH (22:07)
[2018-12-23] MEDS ORDERED: ALBUMIN HUMAN 25% 100 ML IV PRN (23:30)
[2018-12-23] MEDS ORDERED: SODIUM CHLORIDE 0.9% 1L BAG IV PRN (23:30)
[2018-12-24] VITALS (19 sets, daily range): BP systolic 121–181; BP diastolic 71–96; PULSE 71–84; RESP 18–20
[2018-12-24] MEDS: hydrALAzine 20 MG INJ IV PRN ×2 (02:25→20:32)
[2018-12-24] MEDS ORDERED: GLUCAGON 1 MG INJ IM PRN (05:30)
[2018-12-24] MEDS ORDERED: DEXTROSE 50% 50 ML SYRINGE IV PRN ×2 (05:30)
[2018-12-24] MEDS ORDERED: GLUCOSE GEL 15 GRAM TUBE BUCCAL PRN (05:30)
[2018-12-24] MEDS ORDERED: GLUCOSE GEL 15 GRAM TUBE PO PRN ×2 (05:30)
[2018-12-24] MEDS ORDERED: ACCU-CHEK XX SCH (07:30)
[2018-12-24] MEDS: MULTIVIT/CA CARB/B CMPLX/FA TAB PO SCH (09:59)
[2018-12-24] MEDS: ASPIRIN 81 MG TAB PO SCH (09:59)
[2018-12-24] MEDS: HEPARIN 1000 UNITS/ML 10 ML INJ CATHETER SCH (14:47)
[2018-12-24] MEDS: TAMSULOSIN (SR) 0.4 MG CAP PO SCH (20:32)
[2018-12-24] MEDS: ATORVASTATIN 40 MG TAB PO SCH (20:33)
[2018-12-25 02:00] VITALS: BP 108/57; PULSE 70; RESP 18
[2018-12-25 08:00] VITALS: BP 154/77; PULSE 72; RESP 20
[2018-12-25] MEDS: ASPIRIN 81 MG TAB PO SCH (08:37)
[2018-12-25] MEDS: MULTIVIT/CA CARB/B CMPLX/FA TAB PO SCH (08:39)
[2018-12-25] MEDS: LISINOPRIL 5 MG TAB PO SCH (08:39)
[2018-12-25 14:00] VITALS: BP 153/87; PULSE 73; RESP 18
[2018-12-25] MEDS ORDERED: CEFTRIAXONE 1 GM/50 ML (PMX) 50 ML IVPB SCH (15:30)
[2018-12-25] MEDS: LACTULOSE 30ML CUP PO PRN (16:09)
[2018-12-25 16:30] VITALS: BP 125/78; PULSE 78; RESP 19
[2018-12-25 20:38] VITALS: BP 150/67; PULSE 74; RESP 20
[2018-12-25] MEDS: ATORVASTATIN 40 MG TAB PO SCH (21:08)
[2018-12-25] MEDS: TAMSULOSIN (SR) 0.4 MG CAP PO SCH (21:08)
[2018-12-25] MEDS: SENNA TAB PO SCH (21:09)
[2018-12-26] VITALS (17 sets, daily range): BP systolic 86–166; BP diastolic 58–79; PULSE 67–82; RESP 16–20
[2018-12-26] MEDS: LISINOPRIL 5 MG TAB PO SCH (09:23)
[2018-12-26] MEDS: LACTULOSE 30ML CUP PO PRN (09:23)
[2018-12-26] MEDS: ASPIRIN 81 MG TAB PO SCH (09:23)
[2018-12-26] MEDS: SENNA TAB PO SCH ×2 (09:23→21:00)
[2018-12-26] MEDS: MULTIVIT/CA CARB/B CMPLX/FA TAB PO SCH (09:23)
[2018-12-26] MEDS: MEROPENEM 500MG/50 ML (PMX) 50 ML IVPB SCH (13:24)
[2018-12-26] MEDS: NIFEdipine (XL) 30 MG TAB PO SCH (13:27)
[2018-12-26] MEDS: HEPARIN 1000 UNITS/ML 10 ML INJ CATHETER SCH (17:12)
[2018-12-26] MEDS ORDERED: MEROPENEM 1 GM/50ML(PMX) 50 ML IVPB SCH (21:00)
[2018-12-26] MEDS: ATORVASTATIN 40 MG TAB PO SCH (21:00)
[2018-12-26] MEDS: TAMSULOSIN (SR) 0.4 MG CAP PO SCH (21:00)
[2018-12-26] MEDS: HYDROCODONE/APAP (5/325) TAB PO PRN (21:03)
[2018-12-27 02:00] VITALS: BP 122/75; PULSE 70; RESP 18
[2018-12-27 08:17] VITALS: BP 136/67; PULSE 74; RESP 19
[2018-12-27] MEDS: SENNA TAB PO SCH ×2 (09:00→20:28)
[2018-12-27] MEDS: ASPIRIN 81 MG TAB PO SCH (09:46)
[2018-12-27] MEDS: LISINOPRIL 5 MG TAB PO SCH (09:46)
[2018-12-27] MEDS: MULTIVIT/CA CARB/B CMPLX/FA TAB PO SCH (09:46)
[2018-12-27] MEDS: MEROPENEM 500MG/50 ML (PMX) 50 ML IVPB SCH (13:30)
[2018-12-27] MEDS: NIFEdipine (XL) 30 MG TAB PO SCH (13:32)
[2018-12-27 14:00] VITALS: BP 91/55; PULSE 78; RESP 19
[2018-12-27] MEDS: FLUCONAZOLE 200 MG TAB PO SCH (15:27)
[2018-12-27 19:47] VITALS: BP 105/56; PULSE 76; RESP 16
[2018-12-27] MEDS: HYDROCODONE/APAP (5/325) TAB PO PRN (20:27)
[2018-12-27] MEDS: TAMSULOSIN (SR) 0.4 MG CAP PO SCH (20:27)
[2018-12-27] MEDS: ATORVASTATIN 40 MG TAB PO SCH (20:27)
[2018-12-27] MEDS: ZOLPIDEM 5 MG TAB PO PRN (21:25)
[2018-12-28 02:10] VITALS: BP 99/55; PULSE 69; RESP 18
[2018-12-28 08:44] VITALS: BP 122/62; PULSE 73; RESP 18
[2018-12-28] MEDS: MULTIVIT/CA CARB/B CMPLX/FA TAB PO SCH (09:57)
[2018-12-28] MEDS: NIFEdipine (XL) 30 MG TAB PO SCH (09:58)
[2018-12-28] MEDS: ASPIRIN 81 MG TAB PO SCH (09:58)
[2018-12-28] MEDS: SENNA TAB PO SCH ×2 (09:58→21:18)
[2018-12-28] MEDS: FLUCONAZOLE 200 MG TAB PO SCH (09:58)
[2018-12-28] MEDS: LISINOPRIL 5 MG TAB PO SCH (09:59)
[2018-12-28] MEDS: MEROPENEM 500MG/50 ML (PMX) 50 ML IVPB SCH (13:18)
[2018-12-28 15:03] VITALS: BP 124/70; PULSE 75; RESP 18
[2018-12-28 19:51] VITALS: BP 93/52; PULSE 74; RESP 18
[2018-12-28] MEDS ORDERED: BISACODYL (EC) 5 MG TAB PO ONE (20:30)
[2018-12-28 21:11] VITALS: BP 105/55
[2018-12-28] MEDS: ZOLPIDEM 5 MG TAB PO PRN (21:11)
[2018-12-28] MEDS: TAMSULOSIN (SR) 0.4 MG CAP PO SCH (21:18)
[2018-12-28] MEDS: ATORVASTATIN 40 MG TAB PO SCH (21:18)
[2018-12-29] VITALS (17 sets, daily range): BP systolic 98–166; BP diastolic 58–92; PULSE 72–90; RESP 18–20
[2018-12-29] MEDS: LISINOPRIL 5 MG TAB PO SCH (09:00)
[2018-12-29] MEDS: NIFEdipine (XL) 30 MG TAB PO SCH (09:00)
[2018-12-29] MEDS: ASPIRIN 81 MG TAB PO SCH (09:54)
[2018-12-29] MEDS: SENNA TAB PO SCH ×2 (09:54→20:59)
[2018-12-29] MEDS: MULTIVIT/CA CARB/B CMPLX/FA TAB PO SCH (09:54)
[2018-12-29] MEDS: FLUCONAZOLE 200 MG TAB PO SCH (09:54)
[2018-12-29] MEDS: MEROPENEM 500MG/50 ML (PMX) 50 ML IVPB SCH (12:05)
[2018-12-29] MEDS: LACTULOSE 30ML CUP PO PRN (13:42)
[2018-12-29] MEDS: HEPARIN 1000 UNITS/ML 10 ML INJ CATHETER SCH (19:12)
[2018-12-29] MEDS: TAMSULOSIN (SR) 0.4 MG CAP PO SCH (20:58)
[2018-12-29] MEDS: ATORVASTATIN 40 MG TAB PO SCH (20:58)
[2018-12-29] MEDS: ZOLPIDEM 5 MG TAB PO PRN (21:00)
[2018-12-30 02:22] VITALS: BP 154/86; PULSE 74; RESP 20
[2018-12-30 07:55] VITALS: BP 154/76; PULSE 73; RESP 18
[2018-12-30] MEDS: MULTIVIT/CA CARB/B CMPLX/FA TAB PO SCH (09:32)
[2018-12-30] MEDS: FLUCONAZOLE 200 MG TAB PO SCH (09:32)
[2018-12-30] MEDS: SENNA TAB PO SCH ×2 (09:32→21:00)
[2018-12-30] MEDS: ASPIRIN 81 MG TAB PO SCH (09:33)
[2018-12-30] MEDS: LISINOPRIL 5 MG TAB PO SCH (09:33)
[2018-12-30] MEDS: NIFEdipine (XL) 30 MG TAB PO SCH (09:34)
[2018-12-30] MEDS: MEROPENEM 500MG/50 ML (PMX) 50 ML IVPB SCH (12:14)
[2018-12-30 14:31] VITALS: BP 135/70; PULSE 75; RESP 18
[2018-12-30 20:00] VITALS: BP 107/64; PULSE 78; RESP 18
[2018-12-30] MEDS: ZOLPIDEM 5 MG TAB PO PRN (21:40)
[2018-12-30] MEDS: ATORVASTATIN 40 MG TAB PO SCH (21:40)
[2018-12-30] MEDS: TAMSULOSIN (SR) 0.4 MG CAP PO SCH (21:40)
[2018-12-31] VITALS (18 sets, daily range): BP systolic 94–168; BP diastolic 65–94; PULSE 74–96; RESP 16–18
[2018-12-31] MEDS: LISINOPRIL 5 MG TAB PO SCH (08:43)
[2018-12-31] MEDS: NIFEdipine (XL) 30 MG TAB PO SCH (08:43)
[2018-12-31] MEDS: ASPIRIN 81 MG TAB PO SCH (08:43)
[2018-12-31] MEDS: MULTIVIT/CA CARB/B CMPLX/FA TAB PO SCH (08:44)
[2018-12-31] MEDS: FLUCONAZOLE 200 MG TAB PO SCH (08:44)
[2018-12-31] MEDS: SENNA TAB PO SCH (08:44)
[2018-12-31] MEDS: HEPARIN 1000 UNITS/ML 10 ML INJ CATHETER SCH (14:19)
[2018-12-31] MEDS: MEROPENEM 500MG/50 ML (PMX) 50 ML IVPB SCH (14:50)
== END 2018-12-31 20:30 | DRG 314 ==
LOC: E/R 13:31 → PP2 15:56
PROVIDERS: ADMIT Internal Medicine; ATTEND Internal Medicine
PROC: 5A1D70Z Performance of Urinary Filtration, Intermittent, Less than 6 Hours Per Day (ICD-10-PCS; principal; 2018-12-24)
DX: I95.9 Hypotension, unspecified (principal); N18.6 End stage renal disease; I12.0 Hypertensive chronic kidney disease with stage 5 chronic kidney disease or end stage renal disease; I69.354 Hemiplegia and hemiparesis following cerebral infarction affecting left non-dominant side; N39.0 Urinary tract infection, site not specified; E11.22 Type 2 diabetes mellitus with diabetic chronic kidney disease; N40.0 Benign prostatic hyperplasia without lower urinary tract symptoms; B96.89 Other specified bacterial agents as the cause of diseases classified elsewhere; D63.1 Anemia in chronic kidney disease; K59.00 Constipation, unspecified; N28.89 Other specified disorders of kidney and ureter
CPT/HCPCS: 71045; 74176; 80048; 80053; 80061; 81001; 82962; 83036; 83605; 83735; 84100; 84484; 85025; 85610; 85730; 87086; 87340; 90935; 93005; 97110; 97162; 97530; J0360; J0696; J1644; J2185; J7040; P9047